=== PATIENT | male | born 1960 | race Caucasian/White ===

== ENCOUNTER → 2016-08-30 | Outpatient (CLI) | payer OTHER ==
[2016-08-30 11:21] LABS: ALT 84 U/L (21-72); AST 59 U/L (17-59); Alkaline Phosphatase 113 U/L (38-126); Anion Gap 11 mmol/L; Blood Urea Nitrogen 19 mg/dL (9-20); Calcium 9.9 mg/dL (8.4-10.2); Carbon Dioxide 27 mmol/L (22-30); Chloride 107 mmol/L (98-107); Cholesterol 148 mg/dL (<200); Glucose 134 mg/dL (74-99); HDL Cholesterol 55 mg/dL (40-60); Non-African American GFR(MDRD) >60 (>60 ml/min/1.73 sqM); Potassium 5.2 mmol/L (3.5-5.1); Sodium 145 mmol/L (137-145); Total Bilirubin 0.7 mg/dL (0.2-1.3); Total Protein 7.6 g/dL (6.3-8.2); Triglycerides 127 mg/dL (<150)
== END | disposition home or self-care (01) ==
LOC: LABWHC1 09:54
PROVIDERS: ATTEND Internal Medicine Interventional Cardiology
DX: E78.2 Mixed hyperlipidemia (principal)
CPT/HCPCS: 36415; 80053; 80061

== ENCOUNTER 2016-11-04 23:53 | Emergency (ER) | payer OTHER ==
[2016-11-05 00:01] VITALS: TEMP 100.3
[2016-11-05] MEDS ORDERED: SODIUM CHLORIDE 0.9% 1,000 ML IV STA (00:37)
[2016-11-05] MEDS ORDERED: SODIUM CHLORIDE 0.9% 500 ML IV STA (00:37)
[2016-11-05] MEDS ORDERED: ONDANSETRON 4 MG/2 ML VIAL IVP STA (00:37)
[2016-11-05] MEDS ORDERED: HYDROmorphone 1 MG/ML 1 ML SYRINGE IVP STA ×2 (00:37→02:46)
[2016-11-05 01:08] LABS: Basophils % (A) 0 %; CH 30.1; CHCM 33.3; Eosinophils # (A) 0.2 k/uL (0-0.7); Eosinophils % (A) 3 %; HDW 2.79; HGB 15.3 gm/dL (13.0-17.5); Luc # (Auto) 0.21; Luc % (Auto) 2; Lymphocytes # (A) 1.4 k/uL (1.0-4.8); Lymphocytes % (A) 15 %; MCH 30.3 pg (25.0-35.0); MCHC 33.4 g/dL (31.0-37.0); Mean Platelet Volume 8.1; Monocytes # (A) 0.9 k/uL (0-1.0); Monocytes % (A) 10 %; Neutrophils # (A) 6.3 k/uL (1.3-7.7); Neutrophils % (A) 70 %; RBC 5.06 m/uL (4.30-5.90); RDW 14.2 % (11.5-15.5); WBC (Perox) 9.46
[2016-11-05 01:26] LABS: Appearance,Urine Clear (Clear); Bilirubin,Urine Negative (Negative); Glucose,Urine (UA) Negative (Negative); Ketones,Urine Trace (Negative); Leukocyte Esterase,Urine Negative (Negative); Nitrite,Urine Negative (Negative); PH, Urine 5.5 (5.0-8.0); Protein,Urine Trace (Negative); Specific Gravity,Urine 1.027 (1.001-1.035); UA Billing (MACRO vs. MICRO) CHEM
[2016-11-05 01:26] LABS: Amylase 103 U/L (30-110); Anion Gap 13 mmol/L; Calcium 9.4 mg/dL (8.4-10.2); Carbon Dioxide 20 mmol/L (22-30); Chloride 111 mmol/L (98-107); Glucose 127 mg/dL (74-99); Non-African American GFR(MDRD) >60 (>60 ml/min/1.73 sqM); Sodium 144 mmol/L (137-145); Total Bilirubin 0.9 mg/dL (0.2-1.3)
[2016-11-05 01:36] LABS: Blood Urea Nitrogen 20 mg/dL (9-20); Potassium 5.5 mmol/L (3.5-5.1); Total Protein 7.4 g/dL (6.3-8.2)
[2016-11-05 01:37] LABS: ALT 67 U/L (21-72); AST 72 U/L (17-59); Alkaline Phosphatase 99 U/L (38-126)
--- NOTE | 2016-11-05 01:38 | XR ---
EXAM: XR Abdomen Complete, 4 Views. CLINICAL HISTORY: Reason: abdominal pain TECHNIQUE: Frontal view of the abdomen/pelvis with upright view of the abdomen. COMPARISON: No relevant prior studies available. FINDINGS: Lower thorax: The visualized lung bases demonstrate interstitial lung disease. Intraperitoneal space: No free air. Gastrointestinal tract: Unremarkable. No dilation. Bones/joints: Multilevel degenerative disease of the spine. Degenerative disease of the right hip. IMPRESSION: No acute findings.
--- NOTE | 2016-11-05 01:47 | XR ---
EXAM: XR Chest, 2 Views. CLINICAL HISTORY: Reason: abdominal pain TECHNIQUE: Frontal and lateral views of the chest. COMPARISON: CXR 05/21/15 FINDINGS: Lungs: Increased bilateral interstitial lung infiltrates which may represent pulmonary edema vs. other interstitial process. Pleural space: Unremarkable. No pneumothorax. Heart: Cardiomegaly. Mediastinum: Unremarkable. Bones/joints: Unremarkable. IMPRESSION: Increased bilateral interstitial lung infiltrates which may represent pulmonary edema vs. other interstitial process. Cardiomegaly.
--- NOTE | 2016-11-05 02:17 | ED ---
Abdominal Pain HPI - General Chief Complaint: Abdominal Pain Stated Complaint: abd pain Time Seen by Provider: 11/05/16 00:18 Source: patient, RN notes reviewed Mode of arrival: wheelchair Limitations: no limitations - History of Present Illness Initial Comments: Patient is a 56-year-old male history of heart failure, diabetes and COPD presenting to emergency Department with acute onset of left lower quadrant abdominal pain. Patient reports that he was feeling fine earlier today and denies any chest pain or shortness of breath. He states that he was going to the bathroom later this evening and when he stood up he felt a sharp pain go from his left lower quadrant towards his back. Patient states that he's never had a pain similar to this before. He states that he also has had a history of pancreatitis. He denies any abdominal surgeries and is has appendix and gallbladder. He states that the bowel movement was normal and there is no blood in it. He states that he's had no pain with urination denies any history of kidney stones. Patient does report that he is felt slightly feverish for the past day. He has not had any Motrin Tylenol for pain or fever. - Related Data Home Medications Medication Instructions Recorded Confirmed Albuterol Nebulized [Ventolin 2.5 mg INHALATION Q4H PRN 05/21/15 11/05/16 Nebulized] Aspirin 81 mg PO DAILY 05/21/15 11/05/16 Atorvastatin [Lipitor] 20 mg PO DAILY 05/21/15 11/05/16 Donepezil [Aricept] 10 mg PO BID 05/21/15 11/05/16 Furosemide [Lasix] 20 mg PO DAILY@1200 05/21/15 11/05/16 HYDROcodone/APAP 5-325MG [[place] 1 each PO Q6HR PRN 05/21/15 11/05/16 5-325] Magnesium 167mg 167 mg PO DAILY 05/21/15 11/05/16 Metoprolol Tartrate [Lopressor] 25 mg PO BID 05/21/15 11/05/16 lamoTRIgine [LaMICtal] 25 mg PO BID 05/21/15 11/05/16 Lisinopril [Zestril] 10 mg PO BID 11/05/16 11/05/16 Previous Rx's Medication Instructions Recorded Insulin Glargine [Lantus] 20 unit SQ HS #1 vial 05/23/15 Omeprazole [PriLOSEC] 40 mg PO AC-BRKFST #30 cap 05/23/15 metFORMIN HCL [Glucophage] 500 mg PO BID #60 tab 05/23/15 Acetaminophen-Codeine 300-30mg 1 tab PO Q6H PRN #12 tablet 11/05/16 [Tylenol #3] Ciprofloxacin HCl [Cipro] 500 mg PO Q12HR 10 Days 11/05/16 metroNIDAZOLE [Flagyl] 500 mg PO TID 10 Days 11/05/16 Allergies Allergy/AdvReac Type Severity Reaction Status Date / Time No Known Allergies Allergy Verified 11/05/16 00:01 Review of Systems ROS Statement: Those systems with pertinent positive or pertinent negative responses have been documented in the HPI. ROS Other: All systems not noted in ROS Statement are negative. Past Medical History Past Medical History: Heart Failure, COPD, Diabetes Mellitus, Hyperlipidemia, Hypertension, Osteoarthritis (OA), Pneumonia, Sleep Apnea/CPAP/BIPAP Additional Past Medical History / Comment(s): PANCREATITIS,HYPERGLYCEMIA,ABD PAIN. OTHER PAST HX INCLUDES: CHF IMPAIRED LT VENTRICULAR SYSTOLIC DYFUNCTION, CARDIOMYOPATHY,SINUS PROBLEMS,02 2 LITERS N/C PRN, ANXIETY.CORTISONE INJECTIONS TO KNEES/SHOULDERS. History of Any Multi-Drug Resistant Organisms: None Reported Past Surgical History: Heart Catheterization, Tonsillectomy Past Anesthesia/Blood Transfusion Reactions: No Reported Reaction Past Psychological History: Anxiety, Depression Smoking Status: Never smoker Past Alcohol Use History: Occasional, Rare Past Drug Use History: None Reported - Past Family History Mother Family Medical History: Cancer, Hypertension Additional Family Medical History / Comment(s): ENLARGED HEART Father Additional Family Medical History / Comment(s): HEART DISEASE NO SPECIFICS KNOWN General Exam Limitations: no limitations General appearance: alert, in no apparent distress Head exam: Present: atraumatic, normocephalic, normal inspection Eye exam: Present: normal appearance, PERRL, EOMI. Absent: scleral icterus, conjunctival injection, periorbital swelling ENT exam: Present: normal exam, mucous membranes moist Neck exam: Present: normal inspection. Absent: tenderness, meningismus, lymphadenopathy Respiratory exam: Present: normal lung sounds bilaterally. Absent: respiratory distress, wheezes, rales, rhonchi, stridor Cardiovascular Exam: Present: regular rate, normal rhythm, normal heart sounds. Absent: systolic murmur, diastolic murmur, rubs, gallop, clicks GI/Abdominal exam: Present: soft, normal bowel sounds, other (Patient has a obese pannus. Patient is severely tender with slight Palpation over the area.) . Absent: distended, tenderness, guarding, rebound, rigid Extremities exam: Present: normal inspection, full ROM, normal capillary refill. Absent: tenderness, pedal edema, joint swelling, calf tenderness Back exam: Present: normal inspection Neurological exam: Present: alert, oriented X3, CN II-XII intact Psychiatric exam: Present: normal affect, normal mood Skin exam: Present: warm, dry, intact, normal color. Absent: rash Course Vital Signs 11/04/16 11/05/16 23:55 04:29 Temperature 100.3 F H Pulse Rate 69 67 Respiratory 22 20 Rate Blood Pressure 159/90 149/66 O2 Sat by Pulse 97 95 Oximetry Medical Decision Making - Medical Decision Making Patient is a 56-year-old male history of heart failure, diabetes and COPD presenting to emergency Department with acute onset of left lower quadrant abdominal pain. Patient reports that he was feeling fine earlier today and denies any chest pain or shortness of breath. He states that he was going to the bathroom later this evening and when he stood up he felt a sharp pain go from his left lower quadrant towards his back. Patient states that he's never had a pain similar to this before. He states that he also has had a history of pancreatitis. He denies any abdominal surgeries and is has appendix and gallbladder. Labwork reviewed, no acute process. Patient CXR does show slight increased pleural effusions, patient denies any change in shortness of breath or chest pain. This is consistent with patients chronic heart failure. Patient did come to the ER with the fever 100.3, CT scan abdomen and pelvis obtained. Patient is significantly tender in left lower quardrant. CT shows signs of diverticulitis and renal cyst. Patient given PO cipro and flagyl and pain medication. Patient advised to follow up with PCP on monday. Patient understands treatment plan and will comply. - Lab Data Result diagrams: 11/05/16 00:45 11/05/16 00:45 Lab Results 11/05/16 11/05/16 11/05/16 Range/Units 00:45 00:45 00:45 WBC 9.0 (3.8-10.6) k/uL RBC 5.06 (4.30-5.90) m/uL Hgb 15.3 (13.0-17.5) gm/dL Hct 46.0 (39.0-53.0) % MCV 91.0 (80.0-100.0) fL MCH 30.3 (25.0-35.0) pg MCHC 33.4 (31.0-37.0) g/dL RDW 14.2 (11.5-15.5) % Plt Count 145 L (150-450) k/uL Neutrophils % 70 % Lymphocytes % 15 % Monocytes % 10 % Eosinophils % 3 % Basophils % 0 % Neutrophils # 6.3 (1.3-7.7) k/uL Lymphocytes # 1.4 (1.0-4.8) k/uL Monocytes # 0.9 (0-1.0) k/uL Eosinophils # 0.2 (0-0.7) k/uL Basophils # 0.0 (0-0.2) k/uL Sodium 144 (137-145) mmol/L Potassium 5.5 H (3.5-5.1) mmol/L Chloride 111 H (98-107) mmol/L Carbon Dioxide 20 L (22-30) mmol/L Anion Gap 13 mmol/L BUN 20 (9-20) mg/dL Creatinine 1.10 (0.66-1.25) mg/dL Est GFR (MDRD) Af Amer >60 (>60 ml/min/1.73 sqM) Est GFR (MDRD) Non-Af >60 (>60 ml/min/1.73 sqM) Glucose 127 H (74-99) mg/dL Calcium 9.4 (8.4-10.2) mg/dL Total Bilirubin 0.9 (0.2-1.3) mg/dL AST 72 H (17-59) U/L ALT 67 (21-72) U/L Alkaline Phosphatase 99 (38-126) U/L Total Protein 7.4 (6.3-8.2) g/dL Albumin 4.2 (3.5-5.0) g/dL Amylase 103 (30-110) U/L Lipase 391 H (23-300) U/L Urine Color Urine Appearance (Clear) Urine pH (5.0-8.0) Ur Specific [place] (1.001-1.035) Urine Protein (Negative) Urine Glucose (UA) (Negative) Urine Ketones (Negative) Urine Blood (Negative) Urine Nitrite (Negative) Urine Bilirubin (Negative) Urine Urobilinogen (<2.0) mg/dL Ur Leukocyte Esterase (Negative) Influenza Type A RNA Not Detected (Not Detectd) Influenza Type B (PCR) Not Detected (Not Detectd) 11/05/16 Range/Units 01:00 WBC (3.8-10.6) k/uL RBC (4.30-5.90) m/uL Hgb (13.0-17.5) gm/dL Hct (39.0-53.0) % MCV (80.0-100.0) fL MCH (25.0-35.0) pg MCHC (31.0-37.0) g/dL RDW (11.5-15.5) % Plt Count (150-450) k/uL Neutrophils % % Lymphocytes % % Monocytes % % Eosinophils % % Basophils % % Neutrophils # (1.3-7.7) k/uL Lymphocytes # (1.0-4.8) k/uL Monocytes # (0-1.0) k/uL Eosinophils # (0-0.7) k/uL Basophils # (0-0.2) k/uL Sodium (137-145) mmol/L Potassium (3.5-5.1) mmol/L Chloride (98-107) mmol/L Carbon Dioxide (22-30) mmol/L Anion Gap mmol/L BUN (9-20) mg/dL Creatinine (0.66-1.25) mg/dL Est GFR (MDRD) Af Amer (>60 ml/min/1.73 sqM) Est GFR (MDRD) Non-Af (>60 ml/min/1.73 sqM) Glucose (74-99) mg/dL Calcium (8.4-10.2) mg/dL Total Bilirubin (0.2-1.3) mg/dL AST (17-59) U/L ALT (21-72) U/L Alkaline Phosphatase (38-126) U/L Total Protein (6.3-8.2) g/dL Albumin (3.5-5.0) g/dL Amylase (30-110) U/L Lipase (23-300) U/L Urine Color Yellow Urine Appearance Clear (Clear) Urine pH 5.5 (5.0-8.0) Ur Specific [place] 1.027 (1.001-1.035) Urine Protein Trace H (Negative) Urine Glucose (UA) Negative (Negative) Urine Ketones Trace H (Negative) Urine Blood Negative (Negative) Urine Nitrite Negative (Negative) Urine Bilirubin Negative (Negative) Urine Urobilinogen 3.0 (<2.0) mg/dL Ur Leukocyte Esterase Negative (Negative) Influenza Type A RNA (Not Detectd) Influenza Type B (PCR) (Not Detectd) - Radiology Data Radiology results: report reviewed Increased bilateral interstitial lung infiltrates which may represent pulmonary edema versus other interstitial process. Cardiomegaly. X-ray shows no acute findings. CT abdomen and pelvis show acute diverticulitis without evidence of perforation. Disposition Clinical Impression: Diverticulitis large intestine Disposition: HOME SELF-CARE Condition: Good Instructions: Diverticulitis (ED), Diverticulitis Diet (ED) Additional Instructions: Take antibiotics as prescribed. Follow-up with primary care provider. Return return to the emergency department if any worsening signs or symptoms occur. Prescriptions: Acetaminophen-Codeine 300-30mg [Tylenol #3] 1 tab PO Q6H PRN #12 tablet PRN Reason: Pain Ciprofloxacin HCl [Cipro] 500 mg PO Q12HR 10 Days metroNIDAZOLE [Flagyl] 500 mg PO TID 10 Days Referrals: Elyse Baumann MD [Primary Care Provider] - 1-2 days Time of Disposition: 04:11
[2016-11-05] MEDS ORDERED: RX INFO: IV CONTRAST WAS GIVEN 1 EACH MISC MISCELLANE PRN (02:44)
--- NOTE | 2016-11-05 04:07 | CT ---
EXAM: CT Abdomen and Pelvis With Intravenous Contrast. CLINICAL HISTORY: Reason: Pain TECHNIQUE: Axial computed tomography images of the abdomen and pelvis with intravenous contrast. CTDI is 42.7 mGy and DLP is 2458 mGy-cm This CT exam was performed using one or more of the following dose reduction techniques: automated exposure control, adjustment of the mA and/or kV according to patient size, and/or use of iterative reconstruction technique. Coronal and sagittal reformatted images were created and reviewed. Axial delayed images were obtained and reviewed. CTDI is 59.8 mGy and DLP is 2184 mGy-cm COMPARISON: Radiographs dated 11/05/16 FINDINGS: Lower thorax: Chronic interstitial lung changes of the visualized lung bases. ABDOMEN: Liver: Unremarkable. No mass. Gallbladder and bile ducts: Unremarkable. No calcified stones. No ductal dilation. Pancreas: Unremarkable. No mass. No ductal dilation. Spleen: Unremarkable. No splenomegaly. Adrenals: Unremarkable. No mass. Kidneys and ureters: Bilateral renal cysts measuring up to 5.1 cm on the left. Stomach and bowel: Diverticulosis with focal thickening of the distal descending colon consistent with acute diverticulitis. Trace amount of free fluid with no evidence of abscess or extraluminal air to suggest perforation. Appendix: No findings to suggest acute appendicitis. PELVIS: Bladder: Unremarkable. No mass. Reproductive: Unremarkable as visualized. ABDOMEN and PELVIS: Intraperitoneal space: See above. Bones/joints: Degenerative changes of the right hip. Multilevel degenerative changes of the spine with prominent disc osteophyte complexes causing central stenosis. No acute fracture. No dislocation. Soft tissues: Unremarkable. Vasculature: Unremarkable. No abdominal aortic aneurysm. Lymph nodes: Unremarkable. No enlarged lymph nodes. Other findings: [place] mesentery. IMPRESSION: 1. Diverticulosis with focal thickening of the distal descending colon consistent with acute diverticulitis. Trace amount of free fluid with no evidence of abscess or extraluminal air to suggest perforation. 2. Chronic interstitial lung changes of the visualized lung bases. 3. Bilateral renal cysts measuring up to 5.1 cm on the left. 4. Multilevel degenerative changes of the spine with prominent disc osteophyte complexes causing central stenosis.
[2016-11-05] MEDS ORDERED: metroNIDAZOLE 500 MG TAB PO STA (04:10)
[2016-11-05] MEDS ORDERED: CIPROFLOXACIN HCL 500 MG TAB PO STA (04:10)
[2016-11-05 04:30] VITALS: BP 149/66; PULSE 67; RESP 20
== END 2016-11-05 04:30 | disposition home or self-care (01) ==
LOC: EC 23:53
DX: K57.32 Diverticulitis of large intestine without perforation or abscess without bleeding (principal); N28.1 Cyst of kidney, acquired; J90 Pleural effusion, not elsewhere classified; I50.9 Heart failure, unspecified; J44.9 Chronic obstructive pulmonary disease, unspecified; F32.9 Major depressive disorder, single episode, unspecified; F41.9 Anxiety disorder, unspecified; E78.5 Hyperlipidemia, unspecified; I10 Essential (primary) hypertension; Z87.19 Personal history of other diseases of the digestive system; Z79.82 Long term (current) use of aspirin; Z79.899 Other long term (current) drug therapy; Z95.818 Presence of other cardiac implants and grafts
CPT/HCPCS: 36415; 80053; 82150; 83690; 85025; 81003; 87502; 71020; 74000; 74177; 99284; 96374; 96375; 96376; J2405; J1170; Q9967

== ENCOUNTER → 2017-03-14 | Outpatient (CLI) | payer OTHER ==
--- NOTE | 2017-03-14 09:49 | CT ---
EXAMINATION TYPE: CT chest wo con DATE OF EXAM: 03/14/2017 COMPARISON: CT chest December 25, 2015 HISTORY: Patient complains of difficulty breathing. Idiopathic pulmonary fibrosis per order. CT DLP: 886 mGycm. Automated Exposure Control for Dose Reduction was Utilized. TECHNIQUE: CT scan of the thorax is performed without IV contrast. FINDINGS: LUNGS: There is persistent reticulation and linear fibrotic change throughout both lungs bilaterally involving upper and lower lungs slightly more pronounced in the periphery and felt slightly more pron ounced in the bases where there is some honeycombing, distortion, and traction bronchiectasis identif ied. Slight progression is felt present particularly in the bases from prior. No pleural effusion or pneumothorax is seen bilaterally. No suspicious consolidation or groundglass opacity is seen. No new parenchymal nodule or mass is present. No significant peribronchial wall thickening is seen. Elevated right hemidiaphragm anterior aspect is redemonstrated. MEDIASTINUM: Lack of IV contrast is noted to limit evaluation for mediastinal and especially hilar ad enopathy. There are no definitive greater than 1 cm hilar or mediastinal lymph nodes. No cardiomega ly or pericardial effusion is seen. Main pulmonary artery remains significantly enlarged at 3.9 cm on axial image 24. Adjacent ascending aorta measures 3.7 cm in diameter. No significant change from rinku or study is seen. Enlarged right pulmonary artery is noted. CT finding is consistent with underlying pulmonary artery hypertension. OTHER: Small degree of bilateral gynecomastia is noted. Visualized liver is diffusely low dense consi stent with fatty infiltration. There is partial visualization of low dense lesions in both kidneys pr esumed simple cysts. IMPRESSION: 1. Chronic parenchymal changes as noted above most likely on basis of idiopathic pulmonary fibrosis. Some mild progression in findings in the bases is felt present. No acute pulmonary process is seen. U nderlying pulmonary artery hypertension is likely present.
== END | disposition home or self-care (01) ==
LOC: RADCTMAIN 09:03
PROVIDERS: ATTEND Internal Medicine Critical Care Medicine
DX: I10 Essential (primary) hypertension (principal); J84.112 Idiopathic pulmonary fibrosis
CPT/HCPCS: 71250

== ENCOUNTER → 2017-04-24 | Outpatient (CLI) | payer OTHER ==
[2017-04-24 12:19] LABS: ALT 98 U/L (21-72); AST 77 U/L (17-59); Alkaline Phosphatase 93 U/L (38-126); Anion Gap 11 mmol/L; Blood Urea Nitrogen 23 mg/dL (9-20); Calcium 10.4 mg/dL (8.4-10.2); Carbon Dioxide 26 mmol/L (22-30); Chloride 105 mmol/L (98-107); Cholesterol 145 mg/dL (<200); Glucose 132 mg/dL (74-99); HDL Cholesterol 51 mg/dL (40-60); Non-African American GFR(MDRD) 58 (>60 ml/min/1.73 sqM); Potassium 5.2 mmol/L (3.5-5.1); Sodium 142 mmol/L (137-145); Total Bilirubin 0.7 mg/dL (0.2-1.3); Total Protein 7.9 g/dL (6.3-8.2)
== END | disposition home or self-care (01) ==
LOC: LABWHC1 11:15
PROVIDERS: ATTEND Internal Medicine Interventional Cardiology
DX: E78.2 Mixed hyperlipidemia (principal)
CPT/HCPCS: 36415; 80053; 80061

== ENCOUNTER 2017-10-16 12:10 | Emergency (ER) | payer OTHER ==
[2017-10-16 12:39] LABS: Glucose,Whole Blood 140 mg/dL (75-99)
[2017-10-16] MEDS ORDERED: SODIUM CHLORIDE 0.9% 500 ML IV STA (13:09)
[2017-10-16] MEDS ORDERED: RX INFO: IV CONTRAST WAS GIVEN 1 EACH MISC MISCELLANE PRN (13:09)
[2017-10-16] MEDS ORDERED: ONDANSETRON 4 MG/2 ML VIAL IVP STA (13:23)
--- NOTE | 2017-10-16 13:28 | ED ---
General Adult HPI - General Chief complaint: Nausea/Vomiting/Diarrhea Stated complaint: Vomiting/SOB Time Seen by Provider: 10/16/17 12:53 Source: patient, RN notes reviewed Mode of arrival: wheelchair Limitations: no limitations - History of Present Illness Initial comments: 56-year-old male presents for nausea and vomiting. This started today. He admits to right upper quadrant pain with this as well. He states that there is been no diarrhea no fever chills. He denies any abdominal surgeries. He states is been no blood in the vomit. They were concerned due to his continued pain and vomiting. He does suffer from COPD and states that he has chronically worn oxygen and he noticed that the pain is causing him feel more short of breath. He denies any chest pain with this. He denies any high fevers. He denies any history of this in the past. Patient denies any recent fever, chills , chest pain, back pain, numbness or tingling, dysuria or hematuria, constipation or diarrhea, headaches or visual changes, or any other current symptoms. - Related Data Home Medications Medication Instructions Recorded Confirmed Albuterol Nebulized [Ventolin 2.5 mg INHALATION RT-Q4H PRN 05/21/15 10/16/17 Nebulized] Aspirin 81 mg PO DAILY 05/21/15 10/16/17 Donepezil [Aricept] 10 mg PO DAILY 05/21/15 10/16/17 Furosemide [Lasix] 20 mg PO DAILY 05/21/15 10/16/17 Magnesium 167mg 167 mg PO DAILY 05/21/15 10/16/17 Insulin Glargine [Lantus] 30 unit SQ DAILY 06/12/17 10/16/17 Metoprolol Tartrate [Lopressor] 50 mg PO BID 06/12/17 10/16/17 Ranitidine HCl 150 mg PO BID 06/12/17 10/16/17 Terbinafine [LamISIL] 250 mg PO DAILY 06/12/17 10/16/17 amLODIPine BESYLATE [Norvasc] 5 mg PO DAILY 06/12/17 10/16/17 metFORMIN HCL 1,000 mg PO BID 06/12/17 10/16/17 Pregabalin [Lyrica] 150 mg PO BID 09/12/17 10/16/17 Atorvastatin Calcium [Lipitor] 10 mg PO DAILY 10/16/17 10/16/17 HYDROcodone/APAP 7.5-325MG [[facility] 1 tab PO Q6HR PRN 10/16/17 10/16/17 7.5-325] Lisinopril [Zestril] 20 mg PO BID 10/16/17 10/16/17 Meloxicam [Mobic] 7.5 mg PO DAILY 10/16/17 10/16/17 Previous Rx's Medication Instructions Recorded Ondansetron Odt [Zofran ODT] 4 mg PO Q8HR PRN #20 tab 10/16/17 Allergies Allergy/AdvReac Type Severity Reaction Status Date / Time No Known Allergies Allergy Verified 10/16/17 12:54 Review of Systems ROS Statement: Those systems with pertinent positive or pertinent negative responses have been documented in the HPI. ROS Other: All systems not noted in ROS Statement are negative. Past Medical History Past Medical History: Heart Failure, COPD, Diabetes Mellitus, Hyperlipidemia, Hypertension, Osteoarthritis (OA), Pneumonia, Sleep Apnea/CPAP/BIPAP Additional Past Medical History / Comment(s): PANCREATITIS,HYPERGLYCEMIA,ABD PAIN. OTHER PAST HX INCLUDES: CHF IMPAIRED LT VENTRICULAR SYSTOLIC DYFUNCTION, CARDIOMYOPATHY,SINUS PROBLEMS,02 2 LITERS N/C PRN, ANXIETY.CORTISONE INJECTIONS TO KNEES/SHOULDERS. cellulitis , pulmonary fibrosis History of Any Multi-Drug Resistant Organisms: None Reported Past Surgical History: Heart Catheterization, Tonsillectomy Past Anesthesia/Blood Transfusion Reactions: No Reported Reaction Past Psychological History: Anxiety, Depression Smoking Status: Never smoker - Past Family History Mother Family Medical History: Cancer, Hypertension Additional Family Medical History / Comment(s): ENLARGED HEART Father Additional Family Medical History / Comment(s): HEART DISEASE NO SPECIFICS KNOWN General Exam - General Exam Comments Initial Comments: General: The patient is awake and alert, in no distress, and does not appear acutely ill. Eye: Pupils are equal, round and reactive to light, extra-ocular movements are intact; there is normal conjunctiva bilaterally. No signs of icterus. Ears, nose, mouth and throat: There are moist mucous membranes and no oral lesions. Neck: The neck is supple, there is no tenderness. Cardiovascular: There is a regular rate and rhythm. No murmur, rub or gallop is appreciated. Respiratory: Lungs are clear to auscultation, respirations are non-labored, breath sounds are equal. No wheezes, stridor, rales, or rhonchi. Gastrointestinal: Soft, non-distended, mild tenderness in RUQ of the abdomen without masses or organomegaly noted. There is no rebound or guarding present. No CVA tenderness. Bowel sounds are unremarkable. Back: There is no tenderness to palpation in the midline. There is no obvious deformity. No rashes noted. Musculoskeletal: Normal ROM, no tenderness, There is no pedal edema. There is no calf tenderness or swelling. Sensation intact. Pulses equal bilaterally 2+. Neurological: CN II-XII intact, There are no obvious motor or sensory deficits. Coordination appears grossly intact. Speech is normal. Skin: Skin is warm and dry and no rashes or lesions are noted. Psychiatric: Cooperative, appropriate mood & affect, normal judgment. Limitations: no limitations Course Vital Signs 10/16/17 10/16/17 10/16/17 12:33 13:09 14:30 Temperature 98.6 F Pulse Rate 80 99 82 Respiratory 26 H 24 20 Rate Blood Pressure 136/72 153/75 123/65 O2 Sat by Pulse 94 L 94 L 99 Oximetry 10/16/17 15:00 Temperature Pulse Rate 88 Respiratory 20 Rate Blood Pressure 114/67 O2 Sat by Pulse 96 Oximetry Medical Decision Making - Medical Decision Making 56-year-old male presents for nausea vomiting. At this time patient's nausea vomiting has improved. He is feeling better. At this time CAT scan lab work is been reviewed. There does appear to be some dehydration most likely causing the elevated lactic acid. At this time we did discuss that he needs to increase fluids at home. We did mildly hydrated him due to his history of CHF. We did discuss if the symptoms returned he was come back to the emergency room. Patient stated that he understood and all questions have been answered. He will be discharged home. - Lab Data Result diagrams: 10/16/17 13:15 10/16/17 13:15 Lab Results 10/16/17 10/16/17 10/16/17 Range/Units 12:37 13:15 13:15 WBC 8.8 (3.8-10.6) k/uL RBC 5.23 (4.30-5.90) m/uL Hgb 15.5 (13.0-17.5) gm/dL Hct 47.0 (39.0-53.0) % MCV 89.8 (80.0-100.0) fL MCH 29.6 (25.0-35.0) pg MCHC 33.0 (31.0-37.0) g/dL RDW 14.4 (11.5-15.5) % Plt Count 223 (150-450) k/uL Neutrophils % 81 % Lymphocytes % 9 % Monocytes % 5 % Eosinophils % 3 % Basophils % 0 % Neutrophils # 7.2 (1.3-7.7) k/uL Lymphocytes # 0.8 L (1.0-4.8) k/uL Monocytes # 0.5 (0-1.0) k/uL Eosinophils # 0.2 (0-0.7) k/uL Basophils # 0.0 (0-0.2) k/uL PT (9.0-12.0) sec INR (<1.2) APTT (22.0-30.0) sec Sodium 145 (137-145) mmol/L Potassium 4.9 (3.5-5.1) mmol/L Chloride 107 (98-107) mmol/L Carbon Dioxide 25 (22-30) mmol/L Anion Gap 13 mmol/L BUN 26 H (9-20) mg/dL Creatinine 1.00 (0.66-1.25) mg/dL Est GFR (MDRD) Af Amer >60 (>60 ml/min/1.73 sqM) Est GFR (MDRD) Non-Af >60 (>60 ml/min/1.73 sqM) Glucose 171 H (74-99) mg/dL POC Glucose (mg/dL) 140 H (75-99) mg/dL POC Glu [employer] ID Bianka Cade Plasma Lactic Acid Juan (0.7-2.0) mmol/L Calcium 9.4 (8.4-10.2) mg/dL Total Bilirubin 0.6 (0.2-1.3) mg/dL AST 75 H (17-59) U/L ALT 59 (21-72) U/L Alkaline Phosphatase 87 (38-126) U/L Total Protein 7.7 (6.3-8.2) g/dL Albumin 4.3 (3.5-5.0) g/dL Amylase 68 (30-110) U/L Lipase 236 (23-300) U/L Urine Color Urine Appearance (Clear) Urine pH (5.0-8.0) Ur Specific [place] (1.001-1.035) Urine Protein (Negative) Urine Glucose (UA) (Negative) Urine Ketones (Negative) Urine Blood (Negative) Urine Nitrite (Negative) Urine Bilirubin (Negative) Urine Urobilinogen (<2.0) mg/dL Ur Leukocyte Esterase (Negative) 10/16/17 10/16/17 10/16/17 Range/Units 13:15 13:15 14:30 WBC (3.8-10.6) k/uL RBC (4.30-5.90) m/uL Hgb (13.0-17.5) gm/dL Hct (39.0-53.0) % MCV (80.0-100.0) fL MCH (25.0-35.0) pg MCHC (31.0-37.0) g/dL RDW (11.5-15.5) % Plt Count (150-450) k/uL Neutrophils % % Lymphocytes % % Monocytes % % Eosinophils % % Basophils % % Neutrophils # (1.3-7.7) k/uL Lymphocytes # (1.0-4.8) k/uL Monocytes # (0-1.0) k/uL Eosinophils # (0-0.7) k/uL Basophils # (0-0.2) k/uL PT 10.7 (9.0-12.0) sec INR 1.1 (<1.2) APTT 22.2 (22.0-30.0) sec Sodium (137-145) mmol/L Potassium (3.5-5.1) mmol/L Chloride (98-107) mmol/L Carbon Dioxide (22-30) mmol/L Anion Gap mmol/L BUN (9-20) mg/dL Creatinine (0.66-1.25) mg/dL Est GFR (MDRD) Af Amer (>60 ml/min/1.73 sqM) Est GFR (MDRD) Non-Af (>60 ml/min/1.73 sqM) Glucose (74-99) mg/dL POC Glucose (mg/dL) (75-99) mg/dL POC Glu [employer] ID Plasma Lactic Acid Juan 2.8 H* (0.7-2.0) mmol/L Calcium (8.4-10.2) mg/dL Total Bilirubin (0.2-1.3) mg/dL AST (17-59) U/L ALT (21-72) U/L Alkaline Phosphatase (38-126) U/L Total Protein (6.3-8.2) g/dL Albumin (3.5-5.0) g/dL Amylase (30-110) U/L Lipase (23-300) U/L Urine Color Yellow Urine Appearance Clear (Clear) Urine pH 6.5 (5.0-8.0) Ur Specific [place] 1.042 H (1.001-1.035) Urine Protein Trace H (Negative) Urine Glucose (UA) Negative (Negative) Urine Ketones 1+ H (Negative) Urine Blood Negative (Negative) Urine Nitrite Negative (Negative) Urine Bilirubin Negative (Negative) Urine Urobilinogen <2.0 (<2.0) mg/dL Ur Leukocyte Esterase Negative (Negative) - Radiology Data Radiology results: report reviewed, image reviewed Disposition Clinical Impression: Nausea & vomiting, Dehydration Disposition: HOME SELF-CARE Condition: Stable Instructions: Acute Nausea and Vomiting (ED) Additional Instructions: Please use medication as discussed. Please follow up with family doctor if symptoms have not improved over the next two days. Please return to the emergency room if your symptoms increase or worsen or for any other concerns. Prescriptions: Ondansetron Odt [Zofran ODT] 4 mg PO Q8HR PRN #20 tab PRN Reason: Nausea Referrals: Elyse Baumann MD [Primary Care Provider] - 1-2 days Time of Disposition: 15:17
[2017-10-16 13:35] LABS: Basophils % (A) 0 %; Eosinophils # (A) 0.2 k/uL (0-0.7); Eosinophils % (A) 3 %; HGB 15.5 gm/dL (13.0-17.5); Lymphocytes # (A) 0.8 k/uL (1.0-4.8); Lymphocytes % (A) 9 %; MCH 29.6 pg (25.0-35.0); MCV 89.8 fL (80.0-100.0); Mean Platelet Volume 7.5; Monocytes # (A) 0.5 k/uL (0-1.0); Monocytes % (A) 5 %; Neutrophils # (A) 7.2 k/uL (1.3-7.7); Neutrophils % (A) 81 %; Platelet Count 223 k/uL (150-450); RBC 5.23 m/uL (4.30-5.90); RDW 14.4 % (11.5-15.5); WBC 8.8 k/uL (3.8-10.6)
[2017-10-16 13:48] LABS: ALT 59 U/L (21-72); AST 75 U/L (17-59); Albumin 4.3 g/dL (3.5-5.0); Alkaline Phosphatase 87 U/L (38-126); Amylase 68 U/L (30-110); Anion Gap 13 mmol/L; Blood Urea Nitrogen 26 mg/dL (9-20); Calcium 9.4 mg/dL (8.4-10.2); Carbon Dioxide 25 mmol/L (22-30); Chloride 107 mmol/L (98-107); Glucose 171 mg/dL (74-99); Lipase 236 U/L (23-300); Potassium 4.9 mmol/L (3.5-5.1); Sodium 145 mmol/L (137-145); Total Bilirubin 0.6 mg/dL (0.2-1.3); Total Protein 7.7 g/dL (6.3-8.2)
[2017-10-16 13:54] LABS: INR 1.1 (<1.2); Partial Thromboplastin Time 22.2 sec (22.0-30.0); Prothrombin Time 10.7 sec (9.0-12.0)
--- NOTE | 2017-10-16 14:25 | CT ---
EXAMINATION TYPE: CT abdomen pelvis w con DATE OF EXAM: 10/16/2017 COMPARISON: NONE HISTORY: Vomiting, nausea, and shortness of breath CT DLP: 4958.7 mGycm Automated exposure control for dose reduction was used. TECHNIQUE: Helical acquisition of images was performed from the lung bases through the pelvis. CONTRAST: Performed without Oral Contrast and with IV Contrast, patient injected with 100 mL of Omnipaque 300. FINDINGS: LUNG BASES: Right lower lobe cylindrical bronchiectasis, bibasilar interseptal thickening, and subple ural reticulation are seen in a peripheral distribution, right greater than left. Prominent subpleura l deposition of fat is also seen. Scattered geographic groundglass opacities are present on coronal s eries 8 image 92. LIVER/GB: Liver is elongated extending into the left upper quadrant. Diffuse hypoattenuation of the h epatic parenchyma most commonly relates underlying hepatic steatosis. This limits evaluation for hepa tic masses. No evidence of cholelithiasis. PANCREAS: Mild pancreatic parenchymal atrophy is noted. No ductal dilatation. SPLEEN: No significant abnormality is seen. ADRENALS: No significant abnormality is seen. KIDNEYS: Bilateral cortical renal cysts with the largest on the left measuring 5 cm are present. No h ydronephrosis. FREE AIR: No free air is visualized. REPRODUCTIVE ORGANS: No significant abnormality is seen URINARY BLADDER: No significant abnormality is seen. ADENOPATHY: No greater than 1 cm short axis lymph nodes are seen within the abdomen or pelvis. OSSEOUS STRUCTURES: Moderate right and mild left femoral acetabular arthropathy is present. BOWEL: Scattered colonic diverticula are seen without pericolonic fat stranding. Appendix is air-tigre led and within normal limits of size. No bowel dilatation. No evidence of obstruction. IMPRESSION: 1. INTERSTITIAL LUNG DISEASE MOST FITTING OF A NONSPECIFIC INTERSTITIAL PNEUMONIA PATTERN. ETIOLOGIES WIDELY VERY BUT CAN BE SEEN IN CONNECTIVE TISSUE DISORDERS, AUTOIMMUNE DISEASES, DRUG INDUCED, HYPER SENSITIVITY PNEUMONITIS AND OTHER DISORDERS. 2. NO EVIDENCE OF BOWEL OBSTRUCTION OR ACUTE INTRA-ABDOMINAL PATHOLOGY. 3. HEPATIC STEATOSIS AND COLONIC DIVERTICULOSIS.
[2017-10-16 14:48] LABS: Appearance,Urine Clear (Clear); Bilirubin,Urine Negative (Negative); Blood,Urine Negative (Negative); Color,Urine Yellow; Glucose,Urine (UA) Negative (Negative); Ketones,Urine 1+ (Negative); Leukocyte Esterase,Urine Negative (Negative); PH, Urine 6.5 (5.0-8.0); Protein,Urine Trace (Negative); Specific Gravity,Urine 1.042 (1.001-1.035); Urobilinogen,Urine <2.0 mg/dL (<2.0)
[2017-10-16] MEDS ORDERED: METOCLOPRAMIDE 5 MG/ML 2 ML VIAL IVP STA (15:16)
[2017-10-16 15:40] VITALS: BP 117/56; PULSE 90; RESP 24; TEMP 98.3
== END 2017-10-16 15:41 | disposition home or self-care (01) ==
LOC: EC 12:10
DX: E86.0 Dehydration (principal); R11.2 Nausea with vomiting, unspecified; R10.11 Right upper quadrant pain; R06.02 Shortness of breath; J44.9 Chronic obstructive pulmonary disease, unspecified; E11.9 Type 2 diabetes mellitus without complications; E78.5 Hyperlipidemia, unspecified; I11.0 Hypertensive heart disease with heart failure; I50.9 Heart failure, unspecified; M19.90 Unspecified osteoarthritis, unspecified site; G47.30 Sleep apnea, unspecified; Z99.89 Dependence on other enabling machines and devices; Z95.5 Presence of coronary angioplasty implant and graft; Z79.1 Long term (current) use of non-steroidal anti-inflammatories (NSAID); Z79.4 Long term (current) use of insulin; Z79.82 Long term (current) use of aspirin; Z79.899 Other long term (current) drug therapy
CPT/HCPCS: 36415; 80053; 82150; 83605; 83690; 85025; 85610; 85730; 81003; 87040; 87086; 74177; 99284; 96374; 96375; 96361; J2765; J2405; Q9967

== ENCOUNTER → 2017-10-19 | Outpatient (CLI) | payer OTHER ==
[2017-10-19 14:37] LABS: Albumin 3.9 g/dL (3.5-5.0); Calcium 9.1 mg/dL (8.4-10.2); Potassium 4.8 mmol/L (3.5-5.1); Total Bilirubin 0.4 mg/dL (0.2-1.3)
== END ==
LOC: LABWHC1 13:59
PROVIDERS: ATTEND Internal Medicine Interventional Cardiology
DX: E78.2 Mixed hyperlipidemia (principal)
CPT/HCPCS: 36415; 80053; 80061

== ENCOUNTER → 2017-12-19 | Outpatient (CLI) | payer OTHER ==
--- NOTE | 2017-12-19 12:25 | CT ---
EXAMINATION TYPE: CT chest w con DATE OF EXAM: 12/19/2017 COMPARISON: March 14, 2017 HISTORY: Patient complains of difficulty breathing, unproductive cough, and intermittent chest pain. CT DLP: 1281.4 mGycm Automated exposure control for dose reduction was used. CONTRAST: CT scan of the chest is performed with IV Contrast, patient injected with 100 mL of Isovue 300. FINDINGS: LUNGS: Lung volumes are diminished. There is pulmonary fibrotic change seen throughout both lung fiel ds involving upper mid and lower lung zones. There is no evidence for focal consolidation. No evidenc e for bronchiectasis. No concerning mass identified. No evidence for pleural effusion. MEDIASTINUM: Low right paratracheal adenopathy measuring 1.4 cm. Subcarinal adenopathy measuring 1.1 cm. There is evidence of cardiomegaly. Thoracic aorta is of normal caliber. UPPER ABDOMEN: No significant abnormality appreciated. OTHER: No additional significant abnormality is seen. IMPRESSION: 1. Etiopathic pulmonary fibrosis.
== END | disposition home or self-care (01) ==
LOC: RADCTMAIN 11:20
PROVIDERS: ATTEND Internal Medicine Critical Care Medicine
DX: J84.112 Idiopathic pulmonary fibrosis (principal)
CPT/HCPCS: 82565; 84520; 71260; 36415; Q9967

== ENCOUNTER → 2018-01-03 | Outpatient (CLI) | payer MEDICARE, OTHER ==
--- NOTE | 2018-01-04 07:55 | MR ---
EXAMINATION TYPE: MR cervical spine wo con DATE OF EXAM: 01/03/2018 1:29 PM COMPARISON: NONE HISTORY: Cervicalgia Multiplanar MultiSpin echo imaging of the cervical spine was performed. Comparison: none C2-C3: Central disc bulge is present with mild to moderate anterior thecal sac compression. No cord c ontact is evident. No spinal canal stenosis or neural foraminal stenosis is present. C3-C4: There is central disc bulge with mild to moderate anterior thecal sac compression. No cord con tact or spinal canal stenosis is present. Some uncovertebral joint hypertrophy is present. Mild left foraminal narrowing may be present. C4-C5: There is a small left paracentral disc bulge with mild to moderate anterior thecal sac anay aster. This comes in close approximation with spinal cord. No cord contact is evident. No spinal canal stenosis is present. Neural foramen have mild bilateral narrowing secondary to uncovertebral joint h ypertrophy. C5-C6: There is a large broad central and right paracentral disc herniation with moderate to large th ecal sac impression. This has cord contact. Mild cord flattening may be present. There is narrowing a nd stenosis of the spinal canal at 0.7 cm posterior to the disc herniation. Moderate bilateral forami nal narrowing due to the disc bulging and facet hypertrophy is present. Cord signal appears normal. C6-C7: Mild broad-based disc bulge is present with mild anterior thecal sac compression. No cord cont act is evident. No spinal canal stenosis is present. Uncovertebral joint hypertrophy with mild forami nal narrowing is present. C7-T1: No evidence for degenerative disc disease. No disc bulge/herniation or protrusion. No Canal stenosis. Foramina are patent bilaterally. Vertebral body alignment is normal. Disc height and vertebral body heights are preserved. Disc desicc ation is present. IMPRESSION: 1. Large broad disc herniation C5-C6 with cord contact, some cord flattening, and spinal canal stenos is. 2. Multiple additional mild to moderate disc bulges with moderate anterior thecal sac compression dis cussed above.
== END | disposition home or self-care (01) ==
LOC: RADMRIMAIN 12:43
PROVIDERS: ATTEND Psychiatry & Neurology Neurology
DX: M48.02 Spinal stenosis, cervical region (principal); M50.222 Other cervical disc displacement at C5-C6 level
CPT/HCPCS: 72141

== ENCOUNTER → 2018-06-21 | Outpatient (CLI) | payer MEDICARE ==
[2018-06-21 17:49] LABS: ALT 48 U/L (10-49); AST 45 U/L (14-35); Albumin/Globulin Ratio 1.92 (1.20-2.10); Alkaline Phosphatase 92 U/L (41-126); Bilirubin, Conjugated <0.20 mg/dL (0.20-0.40); Calcium 9.6 mg/dL (8.7-10.3); Carbon Dioxide 24.7 mmol/L (21.6-31.8); Chloride 107 mmol/L (96-109); Cholesterol 187 mg/dL (0-200); Globulin 2.4 g/dL (2.1-3.7); Glucose 128 mg/dL (70-110); Potassium 4.9 mmol/L (3.5-5.5); Sodium 141 mmol/L (135-145); Total Bilirubin 0.4 mg/dL (0.3-1.2)
== END | disposition home or self-care (01) ==
LOC: LABWHC1 08:36
PROVIDERS: ATTEND Internal Medicine Interventional Cardiology
DX: J84.112 Idiopathic pulmonary fibrosis (principal); E78.2 Mixed hyperlipidemia
CPT/HCPCS: 36415; 80053; 80061; 82248

== ENCOUNTER 2018-12-06 09:45 | Inpatient (IN) | payer MEDICARE ==
[2018-12-06] MEDS ORDERED: IPRATROPIUM-ALBUTEROL 3 ML NEB INHALATION STA (10:14)
[2018-12-06] MEDS ORDERED: methylPREDNISolone SOD SUCCI 125 MG/2 ML VIAL IV STA (10:14)
--- NOTE | 2018-12-06 10:17 | ED ---
General Adult HPI - General Chief complaint: Shortness of Breath Stated complaint: Difficulty Breathing Time Seen by Provider: 12/06/18 10:09 Source: patient, RN notes reviewed Mode of arrival: wheelchair Limitations: no limitations - History of Present Illness Initial comments: Patient is a pleasant 58-year-old male presenting to the emergency department with difficulty in breathing. Symptoms started several days ago and have progressed. Patient does have occasional cough and has had some yellow sputum. Patient is unclear whether or not he has had fever. Patient has some mild tightness in his chest that he attributes to his dyspnea. Patient does have a history of similar symptoms previously associated with COPD. Patient has heard some wheezing. Patient did take a nebulizer treatment without much improvement of symptoms. No leg pain or leg swelling. - Related Data Home Medications Medication Instructions Recorded Confirmed Albuterol Nebulized [Ventolin 2.5 mg INHALATION RT-QID PRN 05/21/15 12/06/18 Nebulized] Aspirin 81 mg PO DAILY 05/21/15 12/06/18 Donepezil [Aricept] 10 mg PO DAILY 05/21/15 12/06/18 Furosemide [Lasix] 20 mg PO DAILY 05/21/15 12/06/18 Insulin Glargine [Lantus] 45 unit SQ HS 06/12/17 12/06/18 Metoprolol Tartrate [Lopressor] 50 mg PO BID 06/12/17 12/06/18 Ranitidine HCl 150 mg PO BID 06/12/17 12/06/18 Terbinafine [LamISIL] 250 mg PO DAILY 06/12/17 12/06/18 Pregabalin [Lyrica] 150 mg PO BID 09/12/17 12/06/18 Atorvastatin Calcium [Lipitor] 10 mg PO DAILY 10/16/17 12/06/18 Lisinopril [Zestril] 20 mg PO BID 10/16/17 12/06/18 Meloxicam [Mobic] 15 mg PO DAILY 12/06/18 12/06/18 Pirfenidone [Esbriet] 801 mg PO TID 12/06/18 12/06/18 amLODIPine [Norvasc] 10 mg PO DAILY 12/06/18 12/06/18 metFORMIN HCL [Glucophage] 500 mg PO BID 12/06/18 12/06/18 Allergies Allergy/AdvReac Type Severity Reaction Status Date / Time No Known Allergies Allergy Verified 12/06/18 10:32 Review of Systems ROS Statement: Those systems with pertinent positive or pertinent negative responses have been documented in the HPI. ROS Other: All systems not noted in ROS Statement are negative. Constitutional: Reports: as per HPI Eyes: Denies: eye pain ENT: Denies: ear pain Respiratory: Reports: cough, dyspnea Cardiovascular: Reports: as per HPI Endocrine: Reports: fatigue Gastrointestinal: Denies: abdominal pain Genitourinary: Denies: dysuria Musculoskeletal: Denies: back pain Skin: Denies: rash Neurological: Denies: weakness Past Medical History Past Medical History: Heart Failure, COPD, Diabetes Mellitus, Hyperlipidemia, Hypertension, Osteoarthritis (OA), Pneumonia, Sleep Apnea/CPAP/BIPAP Additional Past Medical History / Comment(s): PANCREATITIS,HYPERGLYCEMIA,ABD PAIN. OTHER PAST HX INCLUDES: CHF IMPAIRED LT VENTRICULAR SYSTOLIC DYFUNCTION,CARDIOMYOPATHY,SINUS PROBLEMS,02 2 LITERS N/C PRN, ANXIETY.CORTISONE INJECTIONS TO KNEES/SHOULDERS. cellulitis , pulmonary fibrosis History of Any Multi-Drug Resistant Organisms: None Reported Past Surgical History: Heart Catheterization, Tonsillectomy Past Anesthesia/Blood Transfusion Reactions: No Reported Reaction Past Psychological History: Anxiety, Depression Smoking Status: Never smoker Past Alcohol Use History: None Reported Past Drug Use History: None Reported - Past Family History Mother Family Medical History: Cancer, Hypertension Additional Family Medical History / Comment(s): ENLARGED HEART Father Additional Family Medical History / Comment(s): HEART DISEASE NO SPECIFICS KNOWN General Exam Limitations: no limitations General appearance: alert, in no apparent distress Head exam: Present: atraumatic Eye exam: Present: normal appearance Neck exam: Present: normal inspection Respiratory exam: Present: wheezes Cardiovascular Exam: Present: regular rate, normal rhythm GI/Abdominal exam: Present: soft. Absent: tenderness Extremities exam: Present: normal inspection. Absent: pedal edema, calf tenderness Neurological exam: Present: alert Psychiatric exam: Present: normal affect, normal mood Skin exam: Present: normal color Course Vital Signs 12/06/18 12/06/18 09:49 10:28 Temperature 98.6 F Pulse Rate 47 L 66 Respiratory 18 Rate Blood Pressure 95/41 O2 Sat by Pulse 87 L Oximetry EKG Findings - EKG Comments: EKG Findings:: Sinus rhythm at 72. PVCs present. MS 174. QRS 88. QT 420. QTc 459. Left axis. Normal QRS. No acute ST change. Medical Decision Making - Medical Decision Making Patient reevaluated and somewhat improved. Patient has continued wheezing however there is improvement with air exchange. Patient and family updated on results and plan. Case was discussed in detail with Dr. Sauceda, covering for Dr. Erin moore, who will admit. Patient also sees Dr. Abebe Danielle in. - Lab Data Result diagrams: 12/06/18 10:15 12/06/18 10:15 Lab Results 12/06/18 12/06/18 12/06/18 Range/Units 10:15 10:15 10:15 WBC 6.0 (3.8-10.6) k/uL RBC 4.94 (4.30-5.90) m/uL Hgb 14.9 (13.0-17.5) gm/dL Hct 45.4 (39.0-53.0) % MCV 91.9 (80.0-100.0) fL MCH 30.2 (25.0-35.0) pg MCHC 32.9 (31.0-37.0) g/dL RDW 15.0 (11.5-15.5) % Plt Count 163 (150-450) k/uL Neutrophils % 75 % Lymphocytes % 11 % Monocytes % 6 % Eosinophils % 4 % Basophils % 0 % Neutrophils # 4.5 (1.3-7.7) k/uL Lymphocytes # 0.7 L (1.0-4.8) k/uL Monocytes # 0.4 (0-1.0) k/uL Eosinophils # 0.2 (0-0.7) k/uL Basophils # 0.0 (0-0.2) k/uL PT (9.0-12.0) sec INR (<1.2) APTT (22.0-30.0) sec Sodium 142 (137-145) mmol/L Potassium 5.0 (3.5-5.1) mmol/L Chloride 107 (98-107) mmol/L Carbon Dioxide 25 (22-30) mmol/L Anion Gap 10 mmol/L BUN 21 H (9-20) mg/dL Creatinine 1.33 H (0.66-1.25) mg/dL Est GFR (CKD-EPI)AfAm 69 (>60 ml/min/1.73 sqM) Est GFR (CKD-EPI)NonAf 60 (>60 ml/min/1.73 sqM) Glucose 157 H (74-99) mg/dL Calcium 9.3 (8.4-10.2) mg/dL Total Bilirubin 0.6 (0.2-1.3) mg/dL AST 54 (17-59) U/L ALT 49 (21-72) U/L Alkaline Phosphatase 88 (38-126) U/L Troponin I (0.000-0.034) ng/mL NT-Pro-B Natriuret Pep 387 pg/mL Total Protein 7.5 (6.3-8.2) g/dL Albumin 4.5 (3.5-5.0) g/dL 12/06/18 12/06/18 Range/Units 10:15 10:15 WBC (3.8-10.6) k/uL RBC (4.30-5.90) m/uL Hgb (13.0-17.5) gm/dL Hct (39.0-53.0) % MCV (80.0-100.0) fL MCH (25.0-35.0) pg MCHC (31.0-37.0) g/dL RDW (11.5-15.5) % Plt Count (150-450) k/uL Neutrophils % % Lymphocytes % % Monocytes % % Eosinophils % % Basophils % % Neutrophils # (1.3-7.7) k/uL Lymphocytes # (1.0-4.8) k/uL Monocytes # (0-1.0) k/uL Eosinophils # (0-0.7) k/uL Basophils # (0-0.2) k/uL PT 10.3 (9.0-12.0) sec INR 1.0 (<1.2) APTT 25.2 (22.0-30.0) sec Sodium (137-145) mmol/L Potassium (3.5-5.1) mmol/L Chloride (98-107) mmol/L Carbon Dioxide (22-30) mmol/L Anion Gap mmol/L BUN (9-20) mg/dL Creatinine (0.66-1.25) mg/dL Est GFR (CKD-EPI)AfAm (>60 ml/min/1.73 sqM) Est GFR (CKD-EPI)NonAf (>60 ml/min/1.73 sqM) Glucose (74-99) mg/dL Calcium (8.4-10.2) mg/dL Total Bilirubin (0.2-1.3) mg/dL AST (17-59) U/L ALT (21-72) U/L Alkaline Phosphatase (38-126) U/L Troponin I 0.018 (0.000-0.034) ng/mL NT-Pro-B Natriuret Pep pg/mL Total Protein (6.3-8.2) g/dL Albumin (3.5-5.0) g/dL - Radiology Data Radiology results: image reviewed (Chest x-ray shows chronic interstitial changes. Cardiomegaly.) Disposition Clinical Impression: Pulmonary fibrosis, Dyspnea Disposition: ADMITTED IP TO THIS HOSP Is patient prescribed a controlled substance at d/c from ED?: No Referrals: Elyse Baumann MD [Primary Care Provider] - 1-2 days Decision Time: 11:46
[2018-12-06 10:27] LABS: Basophils % (A) 0 %; Eosinophils # (A) 0.2 k/uL (0-0.7); Eosinophils % (A) 4 %; HCT 45.4 % (39.0-53.0); HGB 14.9 gm/dL (13.0-17.5); Lymphocytes # (A) 0.7 k/uL (1.0-4.8); Lymphocytes % (A) 11 %; MCH 30.2 pg (25.0-35.0); MCHC 32.9 g/dL (31.0-37.0); MCV 91.9 fL (80.0-100.0); Mean Platelet Volume 7.8; Monocytes # (A) 0.4 k/uL (0-1.0); Monocytes % (A) 6 %; Neutrophils # (A) 4.5 k/uL (1.3-7.7); Neutrophils % (A) 75 %; Platelet Count 163 k/uL (150-450); RBC 4.94 m/uL (4.30-5.90)
[2018-12-06 10:38] LABS: Albumin 4.5 g/dL (3.5-5.0); Calcium 9.3 mg/dL (8.4-10.2); Total Bilirubin 0.6 mg/dL (0.2-1.3); Total Protein 7.5 g/dL (6.3-8.2)
[2018-12-06 10:43] LABS: Partial Thromboplastin Time 25.2 sec (22.0-30.0); Prothrombin Time 10.3 sec (9.0-12.0)
--- NOTE | 2018-12-06 11:32 | XR ---
EXAMINATION TYPE: XR chest 2V DATE OF EXAM: 12/06/2018 COMPARISON: Chest CT 12/29/2017, prior chest x-ray 09/12/2017 HISTORY: Difficulty breathing TECHNIQUE: Frontal and lateral views of the chest are obtained. FINDINGS: Coarsened interstitium is again noted. Heart size is stable. Elevation of the right hemidi aphragm is chronic. Pulmonary artery shows an increased size. There is no evident pneumothorax or ple ural effusion. IMPRESSION: Interstitial lung disease. Pulmonary artery hypertension. Cardiomegaly.
[2018-12-06] MEDS ORDERED: IPRATROPIUM-ALBUTEROL 3 ML NEB INHALATION PRN (11:47)
[2018-12-06] MEDS: methylPREDNISolone SOD SUCCI 125 MG/2 ML VIAL IV SCH ×3 (13:09→23:48)
[2018-12-06] MEDS: IPRATROPIUM-ALBUTEROL 3 ML NEB INHALATION SCH ×3 (13:49→19:32)
[2018-12-06] MEDS: PIRFENIDONE PO SCH ×2 (15:26→22:09)
--- NOTE | 2018-12-06 16:14 | P.HPIM ---
History of Present Illness Chief Complaint: Shortness of breath 58-year-old gentleman with a past medical history significant for pulmonary fibrosis, COPD comes in with above-mentioned complaints. The patient says that he uses 21/2 to 3 L of oxygen at home 24 x 7. For the past few days he's been having more shortness of breath than usual. He was also coughing yellowish phlegm which is new for him. Patient otherwise does not complain of any fever or chills, no chest pain or racing heart, no abdominal pain, patient says that he was having posttussive vomiting, no nausea, no tingling numbness on his extremities, no itch no rash. Next ER course-temperature 97.5 pulse 60 respiration 22 blood pressure 112/67 patient was desatted to 87% in the ER. Labwork was done which showed sodium 142 potassium 5.0 bun 21 creatinine 1.33 troponin 0.018 WBC 6.0 hemoglobin 14.9 platelets 163. Patient was given breathing treatments, started on steroids and admitted to the hospitalist service a further evaluation and management. Review of Systems All systems: negative Past Medical History Past Medical History: Heart Failure, COPD, Diabetes Mellitus, Eye Disorder, H yperlipidemia, Hypertension, Osteoarthritis (OA), Pneumonia, Sleep Apnea/CPAP/BIPAP Additional Past Medical History / Comment(s): Pulmonary fibrosis, pulmonary HTN, chronic respiratory failure, home oxygen at 3L/NC ATC, impaired L ventricular function, cardiomyopathy, JOSE JUAN with CPap, pancreatitis, chronic abdominal pain, arthritis in multiple joints, past cellulitis bilateral lower legs, sinus problems, L eye cataract History of Any Multi-Drug Resistant Organisms: None Reported Past Surgical History: Heart Catheterization, Tonsillectomy Additional Past Surgical History / Comment(s): 2014 Cardiac cath-normal coronaries Past Anesthesia/Blood Transfusion Reactions: No Reported Reaction Smoking Status: Never smoker - Past Family History Mother Family Medical History: Cancer, Hypertension Additional Family Medical History / Comment(s): Lung cancer. Enlarged heart. Mother is . Father Additional Family Medical History / Comment(s): Pt did not know his father but his brothers shared that his father had heart disease. Medications and Allergies Home Medications Medication Instructions Recorded Confirmed Type Albuterol Nebulized [Ventolin 2.5 mg INHALATION RT-QID PRN 05/21/15 12/06/18 History Nebulized] Aspirin 81 mg PO DAILY 05/21/15 12/06/18 History Donepezil [Aricept] 10 mg PO DAILY 05/21/15 12/06/18 History Furosemide [Lasix] 20 mg PO DAILY 05/21/15 12/06/18 History Insulin Glargine [Lantus] 45 unit SQ HS 06/12/17 12/06/18 History Metoprolol Tartrate [Lopressor] 50 mg PO BID 06/12/17 12/06/18 History Ranitidine HCl 150 mg PO BID 06/12/17 12/06/18 History Terbinafine [LamISIL] 250 mg PO DAILY 06/12/17 12/06/18 History Pregabalin [Lyrica] 150 mg PO BID 09/12/17 12/06/18 History Atorvastatin Calcium [Lipitor] 10 mg PO DAILY 10/16/17 12/06/18 History Lisinopril [Zestril] 20 mg PO BID 10/16/17 12/06/18 History Meloxicam [Mobic] 15 mg PO DAILY 12/06/18 12/06/18 History Pirfenidone [Esbriet] 801 mg PO TID 12/06/18 12/06/18 History amLODIPine [Norvasc] 10 mg PO DAILY 12/06/18 12/06/18 History metFORMIN HCL [Glucophage] 500 mg PO BID 12/06/18 12/06/18 History Allergies Allergy/AdvReac Type Severity Reaction Status Date / Time No Known Allergies Allergy Verified 12/06/18 10:32 Physical Exam Vitals: Vital Signs Temp Pulse Pulse Resp BP BP Pulse Ox 12/06/18 15:01 97.5 F L 59 L 22 121/61 94 L 12/06/18 14:00 68 12/06/18 13:49 65 95 12/06/18 12:50 98.1 F 58 L 22 134/73 93 L 12/06/18 12:08 97.5 F L 12/06/18 12:01 68 24 112/67 92 L 12/06/18 10:39 68 12/06/18 10:28 66 12/06/18 09:49 98.6 F 47 L 18 95/41 87 L Intake and Output 12/06/18 12/06/18 12/06/18 06:59 14:59 22:59 Other: # Voids 1 Weight 153.768 kg On exam, alert and oriented x3. HEENT: Conjunctivae normal. eyes normal. NECK: No JVD. No thyroid enlargement. No LNs CARDIOVASCULAR: S1 and S2 heard RESPIRATION: Patient is having wheezing bilaterally ABDOMEN: Soft, nontender . No guarding. no masses palpable. No ascites, No hepatosplenomegaly.Bowel sounds heard. LEGS: No edema. no swelling . Patient is having fungal infection of his nails of his greater toe on his right foot which is getting better according to him NERVOUS SYSTEM: Cranial N 2-12 grossly normal. Moves all 4 limbs. No focal deficits. No sensory deficit. No signs of cerebellar dysfucntion. Skin: no ulcer no rash Joints: No active swelling. No inflammation. Lymphatic system. No LN neck axilla or groin. Results CBC & Chem 7: 12/06/18 10:15 12/06/18 10:15 Labs: Abnormal Lab Results - Last 24 Hours (Table) 12/06/18 12/06/18 Range/Units 10:15 10:15 Lymphocytes # 0.7 L (1.0-4.8) k/uL BUN 21 H (9-20) mg/dL Creatinine 1.33 H (0.66-1.25) mg/dL Glucose 157 H (74-99) mg/dL Thrombosis Risk Factor Assmnt - Choose All That Apply Any of the Below Risk Factors Present?: Yes Each Factor Represents 1 point: Abnormal pulmonary function (COPD), Age 41-60 years, Obesity (BMI >25), Serious lung disease incl. pneumonia (< 1month) Other Risk Factors: No Other congenital or acquired thrombophilia - If yes, enter type in comment: No Thrombosis Risk Factor Assessment Total Risk Factor Score: 4 Thrombosis Risk Factor Assessment Level: Moderate Risk Assessment and Plan Assessment: - Acute respiratory failure - COPD exacerbation - C KD - History of CHF - History of diabetes - History of hypertension - History of hyperlipidemia - History of sleep apnea on CPAP Plan - We'll admit the patient to [facility] with telemetry - We'll continue breathing treatments - Continue steroids - We'll start him on doxycycline - Pulmonology is consulted in the ER. - We will resume rest of the patient's home medications - DVT and GI prophylaxis - We'll order for lab work in the morning - Expected length of stay more than 2 midnights - Patient is full code Time with Patient: Greater than 30
[2018-12-06 17:02] LABS: Glucose,Whole Blood 307 mg/dL (75-99)
[2018-12-06] MEDS: INSULIN ASPART (NovoLOG) 100 UNIT/ML VIAL SQ SCH ×2 (17:14→20:34)
--- NOTE | 2018-12-06 17:22 | P.CNPUL ---
History of Present Illness Consult date: 12/06/18 Requesting physician: Quinton Cat Reason for consult: dyspnea Chief complaint: Dyspnea, fever, cough History of present illness: This is a 58-year-old white male patient of Dr. Baumann, with history of idiopathic pulmonary fibrosis with chronic hypoxemic respiratory failure on Esbriet, obstructive sleep apnea, congestive heart failure, diabetes mellitus, hyperlipidemia, Cervical spondylosis, hypertension, diverticular disease, who presented emergency department on 12/05/2018 with complaints of creasing shortness of breath, cough, chest congestion, and yellow sputum production. He is unsure whether he's had any fevers, does complain of some mild tightness in his chest that he attributed to his dyspnea. Did have some wheezing. Patient has been sick for several days, his been taking his nebulized treatments at home without much improvement. Chest x-ray showed coarsened interstitium, elevated right hemidiaphragm. Patient was afebrile, hemodynamic stable, patient was hypoxemic and his 4 L of oxygen with a pulse ox of 87% on presentation, lab work was negative for leukocytosis, white blood cell count was 6.0, hemoglobin of 14.9, electrolytes are within normal limits, B1 is 21 creatinine is 1.3, LFTs were within normal limits, troponin was negative 1, proBNP was 387. Patient wa s started on the steroids, nebulized bronchodilators, antibiotics, and admitted for further management. Review of Systems All systems: negative Constitutional: Denies chills, Denies fever Eyes: denies blurred vision, denies pain Ears, nose, mouth and throat: Denies headache, Denies sore throat Cardiovascular: Denies chest pain, Denies shortness of breath Respiratory: Reports cough with sputum, Reports dyspnea, Reports home oxygen, Reports respiratory infections, Reports wheezing, Denies cough Gastrointestinal: Denies abdominal pain, Denies diarrhea, Denies nausea, Denies vomiting Musculoskeletal: Denies myalgias Integumentary: Denies pruritus, Denies rash Neurological: Denies numbness, Denies weakness Psychiatric: Denies anxiety, Denies depression Endocrine: Denies fatigue, Denies weight change Past Medical History Past Medical History: Heart Failure, COPD, Diabetes Mellitus, Eye Disorder, Hyperlipidemia, Hypertension, Osteoarthritis (OA), Pneumonia, Sleep Apnea/CPAP/BIPAP Additional Past Medical History / Comment(s): Pulmonary fibrosis, pulmonary HTN, chronic respiratory failure, home oxygen at 3L/[place] ATC, impaired L ventricular function, cardiomyopathy, JOSE JUAN with CPap, pancreatitis, chronic abdominal pain, arthritis in multiple joints, past cellulitis bilateral lower legs, sinus problems, L eye cataract History of Any Multi-Drug Resistant Organisms: None Reported Past Surgical History: Heart Catheterization, Tonsillectomy Additional Past Surgical History / Comment(s): 2013 Cardiac cath-normal coronaries Past Anesthesia/Blood Transfusion Reactions: No Reported Reaction Smoking Status: Never smoker - Past Family History Mother Family Medical History: Cancer, Hypertension Additional Family Medical History / Comment(s): Lung cancer. Enlarged heart. Mother is . Father Additional Family Medical History / Comment(s): Pt did not know his father but his brothers shared that his father had heart disease. Medications and Allergies Home Medications Medication Instructions Recorded Confirmed Type Albuterol Nebulized [Ventolin 2.5 mg INHALATION RT-QID PRN 05/21/15 12/06/18 History Nebulized] Aspirin 81 mg PO DAILY 05/21/15 12/06/18 History Donepezil [Aricept] 10 mg PO DAILY 05/21/15 12/06/18 History Furosemide [Lasix] 20 mg PO DAILY 05/21/15 12/06/18 History Insulin Glargine [Lantus] 45 unit SQ HS 06/12/17 12/06/18 History Metoprolol Tartrate [Lopressor] 50 mg PO BID 06/12/17 12/06/18 History Ranitidine HCl 150 mg PO BID 06/12/17 12/06/18 History Terbinafine [LamISIL] 250 mg PO DAILY 06/12/17 12/06/18 History Pregabalin [Lyrica] 150 mg PO BID 09/12/17 12/06/18 History Atorvastatin Calcium [Lipitor] 10 mg PO DAILY 10/16/17 12/06/18 History Lisinopril [Zestril] 20 mg PO BID 10/16/17 12/06/18 History Meloxicam [Mobic] 15 mg PO DAILY 12/06/18 12/06/18 History Pirfenidone [Esbriet] 801 mg PO TID 12/06/18 12/06/18 History amLODIPine [Norvasc] 10 mg PO DAILY 12/06/18 12/06/18 History metFORMIN HCL [Glucophage] 500 mg PO BID 12/06/18 12/06/18 History Allergies Allergy/AdvReac Type Severity Reaction Status Date / Time No Known Allergies Allergy Verified 12/06/18 10:32 Physical Exam Vitals: Vital Signs Temp Pulse Pulse Resp BP BP Pulse Ox 12/06/18 16:40 68 12/06/18 16:28 72 12/06/18 15:01 97.5 F L 59 L 22 121/61 94 L 12/06/18 14:00 68 12/06/18 13:49 65 95 12/06/18 12:50 98.1 F 58 L 22 134/73 93 L 12/06/18 12:08 97.5 F L 12/06/18 12:01 68 24 112/67 92 L 12/06/18 10:39 68 12/06/18 10:28 66 12/06/18 09:49 98.6 F 47 L 18 95/41 87 L Intake and Output 12/06/18 12/06/18 12/06/18 06:59 14:59 22:59 Other: # Voids 1 Weight 153.768 kg GENERAL EXAM: Alert, pleasant, 58-year-old white male comfortable in no a pparent distress. HEAD: Normocephalic/atraumatic. EYES: Normal reaction of pupils, equal size. Conjunctiva pink, sclera white. NOSE: Clear with pink turbinates. THROAT: No erythema or exudates. NECK: No masses, no JVD, no thyroid enlargement, no adenopathy. CHEST: No chest wall deformity. Symmetrical expansion. LUNGS: Equal air entry with diffuse rhonchi and wheezes CVS: Regular rate and rhythm, normal S1 and S2, no gallops, no murmurs, no rubs ABDOMEN: Soft, nontender. No hepatosplenomegaly, normal bowel sounds, no guarding or rigidity. EXTREMITIES: No clubbing, no edema, no cyanosis, 2+ pulses and upper and lower extremities. MUSCULOSKELETAL: Muscle strength and tone normal. SPINE: No scoliosis or deformity SKIN: No rashes CENTRAL NERVOUS SYSTEM: Alert and oriented -3. No focal deficits, tone is normal in all 4 extremities. PSYCHIATRIC: Alert and oriented -3. Appropriate affect. Intact judgment and insight. Results - Laboratory Findings CBC and BMP: 12/06/18 10:15 12/06/18 10:15 PT/INR, D-dimer PT 10.3 sec (9.0-12.0) 12/06/18 10:15 INR 1.0 (<1.2) 12/06/18 10:15 Abnormal lab findings: Abnormal Labs 12/06/18 12/06/18 10:15 10:15 Lymphocytes # 0.7 L BUN 21 H Creatinine 1.33 H Glucose 157 H - Diagnostic Findings Chest x-ray: report reviewed, image reviewed Additional studies: EKG reviewed Assessment and Plan Plan: Assessment: #1. Acute on chronic hypoxemic respiratory failure, related to acute tracheobronchitis, chest x-ray showed chronic interstitial changes related to underlying history of idiopathic pulmonary fibrosis #2. Idiopathic pulmonary fibrosis with severe restrictive pathology on the PFTs, with FEV1 of 1.95 L or 50% of predicted, FVC of 2.11 L or 42% of predicted, with FEV1/FVC ratio of 119 #3. Chronic paralysis of the right hemidiaphragm #4. Obstructive sleep apnea syndrome on CPAP therapy at a pressure of 9 cm of water #5. History of congestive heart failure with systolic dysfunction #6. Diabetes mellitus type 2, #7. Hypertension, hyperlipidemia #8. Osteoarthritis #9. Lifetime nonsmoker Plan: Continue current antibiotic coverage, nebulized bronchodilators, chest x-ray has been reviewed with Dr. Tejada, and shows chronic interstitial changes related to underlying history of IPF, no leukocytosis, no fever, we'll send the sputum for culture. Continue to follow and make further recommendations. Check influenza screen I performed a history & physical examination of the patient and discussed their management with my nurse practitioner, Consuelo Bergman. I reviewed the nurse practitioner's note and agree with the documented findings and plan of care. Lung sounds are positive for diffuse wheezes throughout the lung potts. The findings and the impression was discussed with the patient. I attest to the documentation by the nurse practitioner. Time with Patient: Greater than 30
[2018-12-06] MEDS ORDERED: INSULIN ASPART (NovoLOG) 100 UNIT/ML VIAL SQ SCH (17:30)
[2018-12-06] MEDS: OSELTAMIVIR 75 MG CAP PO SCH (19:51)
[2018-12-06 20:20] LABS: Glucose,Whole Blood 309 mg/dL (75-99)
[2018-12-06] MEDS: LISINOPRIL 20 MG TAB PO SCH (20:33)
[2018-12-06] MEDS: PREGABALIN 75 MG CAP PO SCH (20:33)
[2018-12-06] MEDS: METOPROLOL TARTRATE 50 MG TAB PO SCH (20:33)
[2018-12-06] MEDS: INSULIN DETEMIR (LEVEMIR) 100 UNIT/ML SYR SQ SCH (20:34)
[2018-12-06] MEDS: DOXYCYCLINE 100 MG CAP PO SCH (20:35)
[2018-12-07] MEDS: methylPREDNISolone SOD SUCCI 125 MG/2 ML VIAL IV SCH ×2 (05:29→12:45)
[2018-12-07] MEDS: IPRATROPIUM-ALBUTEROL 3 ML NEB INHALATION SCH ×4 (07:43→19:30)
[2018-12-07 07:46] LABS: Glucose,Whole Blood 227 mg/dL (75-99)
[2018-12-07] MEDS: INSULIN ASPART (NovoLOG) 100 UNIT/ML VIAL SQ SCH ×4 (09:34→21:31)
[2018-12-07] MEDS: FUROSEMIDE 20 MG TAB PO SCH (09:34)
[2018-12-07] MEDS: METOPROLOL TARTRATE 50 MG TAB PO SCH ×2 (09:35→21:31)
[2018-12-07] MEDS: PREGABALIN 75 MG CAP PO SCH ×2 (09:35→21:31)
[2018-12-07] MEDS: DONEPEZIL 10 MG TAB PO SCH (09:35)
[2018-12-07] MEDS: OSELTAMIVIR 75 MG CAP PO SCH ×2 (09:35→21:33)
[2018-12-07] MEDS: DOXYCYCLINE 100 MG CAP PO SCH ×2 (09:35→21:33)
[2018-12-07] MEDS: ATORVASTATIN 10 MG TAB PO SCH (09:35)
[2018-12-07] MEDS: amLODIPine 10 MG TAB PO SCH (09:35)
[2018-12-07] MEDS: LISINOPRIL 20 MG TAB PO SCH ×2 (09:35→21:31)
[2018-12-07] MEDS: ASPIRIN 81 MG PO SCH (09:35)
[2018-12-07] MEDS: PIRFENIDONE PO SCH ×3 (09:36→21:32)
[2018-12-07] MEDS: TERBINAFINE 250 MG TAB PO SCH (09:36)
[2018-12-07 10:42] LABS: Calcium 9.4 mg/dL (8.4-10.2); Potassium 5.8 mmol/L (3.5-5.1)
[2018-12-07 11:49] LABS: Glucose,Whole Blood 310 mg/dL (75-99)
[2018-12-07 12:43] LABS: Hemoglobin A1C 6.4 % (4.0-6.0)
[2018-12-07] MEDS ORDERED: ACETAMINOPHEN TAB 325 MG TAB PO PRN (13:10)
--- NOTE | 2018-12-07 13:56 | P.PN ---
Subjective Says any shortness of breath is better Still having some pain in his ribs while he coughs but not otherwise No abdominal pain, no nausea and vomiting, or diarrhea constipation Objective - Vital Signs Vital signs: Vital Signs Temp 97.5 F L 12/07/18 07:00 Pulse 62 12/07/18 11:25 Resp 18 12/07/18 07:00 BP 131/83 12/07/18 07:00 Pulse Ox 91 L 12/07/18 07:00 Intake & Output 12/06/18 12/07/18 12/07/18 18:59 06:59 18:59 Intake Total 200 400 Balance 200 400 Weight 153.768 kg Intake: Oral 200 400 Other: # Voids 1 2 - Exam On exam, alert and oriented x3. HEENT: Conjunctivae normal. eyes normal. NECK: No JVD. No thyroid enlargement. No LNs CARDIOVASCULAR: S1, S2 positive RESPIRATION: Patient is wheezing but better than yesterday ABDOMEN: Soft, nontender . No guarding. no masses palpable. No ascites, No hepatosplenomegaly.Bowel sounds heard. LEGS: No edema. no swelling NERVOUS SYSTEM: Cranial N 2-12 grossly normal. Moves all 4 limbs. No focal deficits. No sensory deficit. No signs of cerebellar dysfucntion. Skin: no ulcer no rash - Labs CBC & Chem 7: 12/06/18 10:15 12/07/18 09:12 Labs: Abnormal Lab Results - Last 24 Hours (Table) 12/06/18 12/06/18 12/06/18 Range/Units 10:15 16:49 17:25 Potassium (3.5-5.1) mmol/L BUN (9-20) mg/dL Glucose (74-99) mg/dL POC Glucose (mg/dL) 307 H (75-99) mg/dL Hemoglobin A1c 6.4 H (4.0-6.0) % Influenza Type A RNA Detected H (Not Detectd) 12/06/18 12/07/18 12/07/18 Range/Units 20:19 07:33 09:12 Potassium 5.8 H (3.5-5.1) mmol/L BUN 31 H (9-20) mg/dL Glucose 336 H (74-99) mg/dL POC Glucose (mg/dL) 309 H 227 H (75-99) mg/dL Hemoglobin A1c (4.0-6.0) % Influenza Type A RNA (Not Detectd) 12/07/18 Range/Units 11:37 Potassium (3.5-5.1) mmol/L BUN (9-20) mg/dL Glucose (74-99) mg/dL POC Glucose (mg/dL) 310 H (75-99) mg/dL Hemoglobin A1c (4.0-6.0) % Influenza Type A RNA (Not Detectd) Assessment and Plan Assessment: - Acute respiratory failure - COPD exacerbation - Influenza A - CKD - History of CHF - History of diabetes - History of hypertension - History of hyperlipidemia - History of sleep apnea on CPAP Plan - Continue Doxy and Tamiflu - Continue breathing treatments - We'll taper the steroids from 60 every 6HR to 40 every 12 hours - Patient's potassium was high at 5.8. He already got insulin subcu twice since morning. We will repeat the potassium - We'll follow up with the patient Time with Patient: Greater than 30
--- NOTE | 2018-12-07 14:03 | P.PN ---
Subjective Progress Note Date: 12/07/18 Principal diagnosis: Dyspnea, fever, cough This is a 58-year-old white male patient of Dr. Baumann, with history of idiopathic pulmonary fibrosis with chronic hypoxemic respiratory failure on Esbriet, obstructive sleep apnea, congestive heart failure, diabetes mellitus, hyperlipidemia, Cervical spondylosis, hypertension, diverticular disease, who presented emergency department on 12/05/2018 with complaints of creasing shortness of breath, cough, chest congestion, and yellow sputum production. He is unsure whether he's had any fevers, does complain of some mild tightness in h is chest that he attributed to his dyspnea. Did have some wheezing. Patient has been sick for several days, his been taking his nebulized treatments at home without much improvement. Chest x-ray showed coarsened interstitium, elevated right hemidiaphragm. Patient was afebrile, hemodynamic stable, patient was hypoxemic and his 4 L of oxygen with a pulse ox of 87% on presentation, lab work was negative for leukocytosis, white blood cell count was 6.0, hemoglobin of 14.9, electrolytes are within normal limits, B1 is 21 creatinine is 1.3, LFTs were within normal limits, troponin was negative 1, proBNP was 387. Patient was started on the steroids, nebulized bronchodilators, antibiotics, and admitted for further management. On patient seen in follow-up on medical surgical floor. He is sitting up in the chair, in no acute distress. Patient's influenza screen was positive for influenza A, patient was started on Tamiflu. Patient is on antibiotics, he is on IV steroids. No fever, patient remains on supplemental oxygen with a pulse ox of 91-98%, hemodynamically stable. No abdominal pain, no nausea or vomiting. Today's labs have been reviewed, and showed sodium of 138, potassium is 5.8, BUN was 31, creatinine was 1.24. Patient is tolerating oral intake, having some coughing spells, but no acute distress. Some scattered wheezes auscultated on physical exam, Objective - Vital Signs Vital signs: Vital Signs Temp 97.5 F L 12/07/18 07:00 Pulse 62 12/07/18 11:25 Resp 18 12/07/18 07:00 BP 131/83 12/07/18 07:00 Pulse Ox 91 L 12/07/18 07:00 Intake & Output 12/06/18 12/07/18 12/07/18 18:59 06:59 18:59 Intake Total 200 400 Balance 200 400 Weight 153.768 kg Intake: Oral 200 400 Other: # Voids 1 2 - Exam GENERAL EXAM: Alert, pleasant, 58-year-old white male comfortable in no apparent distress. HEAD: Normocephalic/atraumatic. EYES: Normal reaction of pupils, equal size. Conjunctiva pink, sclera white. NOSE: Clear with pink turbinates. THROAT: No erythema or exudates. NECK: No masses, no JVD, no thyroid enlargement, no adenopathy. CHEST: No chest wall deformity. Symmetrical expansion. LUNGS: Equal air entry with diffuse wheezes CVS: Regular rate and rhythm, normal S1 and S2, no gallops, no murmurs, no rubs ABDOMEN: Soft, nontender. No hepatosplenomegaly, normal bowel sounds, no guarding or rigidity. EXTREMITIES: No clubbing, no edema, no cyanosis, 2+ pulses and upper and lower extremities. MUSCULOSKELETAL: Muscle strength and tone normal. SPINE: No scoliosis or deformity SKIN: No rashes CENTRAL NERVOUS SYSTEM: Alert and oriented -3. No focal deficits, tone is normal in all 4 extremities. PSYCHIATRIC: Alert and oriented -3. Appropriate affect. Intact judgment and insight. - Labs CBC & Chem 7: 12/06/18 10:15 12/07/18 09:12 Labs: Abnormal Lab Results - Last 24 Hours (Table) 12/06/18 12/06/18 12/06/18 Range/Units 10:15 16:49 17:25 Potassium (3.5-5.1) mmol/L BUN (9-20) mg/dL Glucose (74-99) mg/dL POC Glucose (mg/dL) 307 H (75-99) mg/dL Hemoglobin A1c 6.4 H (4.0-6.0) % Influenza Type A RNA Detected H (Not Detectd) 12/06/18 12/07/18 12/07/18 Range/Units 20:19 07:33 09:12 Potassium 5.8 H (3.5-5.1) mmol/L BUN 31 H (9-20) mg/dL Glucose 336 H (74-99) mg/dL POC Glucose (mg/dL) 309 H 227 H (75-99) mg/dL Hemoglobin A1c (4.0-6.0) % Influenza Type A RNA (Not Detectd) 12/07/18 Range/Units 11:37 Potassium (3.5-5.1) mmol/L BUN (9-20) mg/dL Glucose (74-99) mg/dL POC Glucose (mg/dL) 310 H (75-99) mg/dL Hemoglobin A1c (4.0-6.0) % Influenza Type A RNA (Not Detectd) Assessment and Plan Plan: Assessment: #1. Acute on chronic hypoxemic respiratory failure, related to acute tracheobronchitis, chest x-ray showed chronic interstitial changes related to underlying history of idiopathic pulmonary fibrosis #2. Acute influenza A bronchitis #3. Idiopathic pulmonary fibrosis with severe restrictive pathology on the PFTs, with FEV1 of 1.95 L or 50% of predicted, FVC of 2.11 L or 42% of predicted, with FEV1/FVC ratio of 119 #4. Chronic paralysis of the right hemidiaphragm #5. Obstructive sleep apnea syndrome on CPAP therapy at a pressure of 9 cm of water #6. History of congestive heart failure with systolic dysfunction #7. Diabetes mellitus type 2, #8. Hypertension, hyperlipidemia #9. Osteoarthritis #10. Lifetime nonsmoker Plan: Continue the doxycycline and Tamiflu, IV steroids, nebulized bronchodilators, patient is slightly improved, no fever or chills, vital signs are stable, no nausea, vomiting or diarrhea, no headaches. Will continue to follow I performed a history & physical examination of the patient and discussed their management with my nurse practitioner, Consuelo Bergman. I reviewed the nurse practitioner's note and agree with the documented findings and plan of care. Lung sounds are positive for diffuse wheezes throughout the lung potts. The findings and the impression was discussed with the patient. I attest to the documentation by the nurse practitioner. Time with Patient: Less than 30
[2018-12-07 14:09] VITALS: BMI 47.2
[2018-12-07 16:53] LABS: Glucose,Whole Blood 288 mg/dL (75-99)
[2018-12-07] MEDS ORDERED: INSULIN ASPART (NovoLOG) 100 UNIT/ML VIAL SQ ONE (16:56)
[2018-12-07 20:44] LABS: Glucose,Whole Blood 330 mg/dL (75-99)
[2018-12-07] MEDS: methylPREDNISolone SOD SUCCI 40 MG/ML 1 ML VIAL IV SCH (21:31)
[2018-12-07] MEDS: INSULIN DETEMIR (LEVEMIR) 100 UNIT/ML SYR SQ SCH (21:31)
[2018-12-08 07:31] LABS: Glucose,Whole Blood 179 mg/dL (75-99)
[2018-12-08 07:52] VITALS: RESP 16
[2018-12-08] MEDS: IPRATROPIUM-ALBUTEROL 3 ML NEB INHALATION SCH ×3 (08:27→15:51)
[2018-12-08 08:29] LABS: Calcium 9.8 mg/dL (8.4-10.2)
[2018-12-08] MEDS: ATORVASTATIN 10 MG TAB PO SCH (08:38)
[2018-12-08] MEDS: LISINOPRIL 20 MG TAB PO SCH (08:38)
[2018-12-08] MEDS: methylPREDNISolone SOD SUCCI 40 MG/ML 1 ML VIAL IV SCH (08:39)
[2018-12-08] MEDS: ASPIRIN 81 MG PO SCH (08:39)
[2018-12-08] MEDS: PREGABALIN 75 MG CAP PO SCH (08:39)
[2018-12-08] MEDS: FUROSEMIDE 20 MG TAB PO SCH (08:39)
[2018-12-08] MEDS: DONEPEZIL 10 MG TAB PO SCH (08:39)
[2018-12-08] MEDS: DOXYCYCLINE 100 MG CAP PO SCH (08:39)
[2018-12-08] MEDS: OSELTAMIVIR 75 MG CAP PO SCH (08:39)
[2018-12-08] MEDS: amLODIPine 10 MG TAB PO SCH (08:39)
[2018-12-08] MEDS: PIRFENIDONE PO SCH ×2 (08:39→16:48)
[2018-12-08] MEDS: METOPROLOL TARTRATE 50 MG TAB PO SCH (08:39)
[2018-12-08] MEDS: TERBINAFINE 250 MG TAB PO SCH (08:40)
[2018-12-08] MEDS: INSULIN ASPART (NovoLOG) 100 UNIT/ML VIAL SQ SCH ×3 (08:40→16:49)
[2018-12-08 11:57] LABS: Glucose,Whole Blood 253 mg/dL (75-99)
[2018-12-08] MEDS ORDERED: SODIUM POLYSTYRENE SULFONATE 15 GM/60 ML BOTTLE PO STA ×2 (13:22→18:20)
--- NOTE | 2018-12-08 14:31 | PN ---
PROGRESS NOTE DATE OF SERVICE: 12/08/2018 This is a 58-year-old male who was admitted with a diagnosis of acute on chronic hypoxemic respiratory failure secondary to acute tracheobronchitis as well as influenza A tracheobronchitis. He does have a history of underlying idiopathic pulmonary fibrosis. He does see my partner, Dr. Velasco in the office. His pulmonary function tests showed evidence of restrictive physiology. He also has chronic paralysis of the right hemidiaphragm, sleep apnea syndrome on CPAP, congestive heart failure with systolic dysfunction, diabetes mellitus, hypertension, osteoarthritis, lifelong nonsmoker, and obesity. The patient is ready for discharge. He is waiting for the Primary Service to discharge him. I did tell him he needs to complete his Tamiflu. That is 75 mg twice a day for a total of 5 days. His breathing is much improved. He is coughing a bit. Not producing much phlegm. No fever or chills. PHYSICAL EXAMINATION: VITAL SIGNS: Currently, temperature 97.7 heart rate 54, respiratory rate 16, blood pressure 146/86, mean 106, room air saturation 95%. Appears in no acute distress. HEENT EXAMINATION: Grossly unremarkable. Mucous membranes are moist. No oral lesions. NECK: Supple. Full range of motion. No adenopathy, thyromegaly or neck vein distention. CARDIOVASCULAR examination reveals regular rhythm rate. Heart rate in mid 60s. S1, S2 normal. No murmur. LUNGS: Some bibasilar crackles. No wheezes or rhonchi. He is restricted in his breathing. Breath sounds are equal bilaterally. ABDOMEN: Obese. Bowel sounds are heard. EXTREMITIES are intact. No cyanosis, clubbing, or edema. SKIN without rash. NEUROLOGIC: Examination is brief but nonfocal. Microbiologic studies are negative. No recent chest x-rays to report. LABS: Reviewed. Current labs include a sodium 140, potassium 6, chloride 104, CO2 of 27, anion gap is 9. BUN and creatinine were 32 and 1.14. The rest of the labs are unremarkable. The influenza A was detected on December 06. Medications are reviewed. Everything seems to be appropriate. ASSESSMENT: 1. Acute on chronic hypoxemic respiratory failure related to underlying tracheobronchitis complicated by influenza A infection. 2. History of idiopathic pulmonary fibrosis. 3. Chronic hypoxemic respiratory failure. 4. Chronic paralysis of the right hemidiaphragm. 5. Obesity. 6. Sleep apnea syndrome, maintained on CPAP. 7. History of congestive heart failure, systolic dysfunction. 8. Diabetes mellitus, type 2. 9. Hypertension. 10.Hyperlipidemia. 11.Degenerative joint disease. 12.Lifelong nonsmoker. PLAN: The patient is doing well. I would anticipate discharge in the next day or so. The patient is waiting for the primary service to see him. No additional recommendations are made. He can be discharged home on a full 5 day course of Tamiflu 75 mg twice a day for 5 days. He can be also discharged home on a small dose of prednisone and oral antibiotic. We will continue to follow. He does have an appointment upcoming with my partner, Dr. Velasco. NAN / MEREDITH: [id number] /
[2018-12-08 14:54] VITALS: BP 127/78; TEMP 97.6
--- NOTE | 2018-12-08 15:31 | P.DS ---
Providers Date of admission: 12/06/18 11:47 Attending physician: Quinton Cat MD Consults: 12/06/18 11:47 Consult Physician Routine Consulting Provider: Urbano Velasco Consult Reason/Comments: dyspnea Do you want consulting provider notified?: Yes Primary care physician: Ibis Pappas [facility] Course: Patient does have history of idiopathic pulmonary fibrosis came in with acute tracheal bronchitis and found to have influenza patient is also on doxycycline and patient will be discharged on oxygen and Tamiflu I do not believe patient will benefit from a systemic steroids although patient is on systemic steroids at this time patient does have diabetes mellitus already elevated blood sugars and steroids will make it even worse. Patient blood pressures elevated patient is on lisinopril patient potassium is high we'll give Late repeat potassium again if potassium comes down below 5 patient will be discharged with a repeat basic metabolic profile in 3 days and we will cut down lisinopril to 10 mg patient is presently receiving 40 mg total in a day and will be started on hydralazine as his blood pressure will shoot up once we decrease the lisinopril. Patient is feeling much better does have crackles in the lung exam patient uses 3 L of onset at home patient is presently on 3 L PHYSICAL EXAMINATION: GENERAL: The patient is alert and oriented x3, not in any acute distress. Well developed, well nourished. Obese HEENT: Pupils are round and equally reacting to light. EOMI. No scleral icterus. No conjunctival pallor. Normocephalic, atraumatic. No pharyngeal erythema. No thyromegaly. CARDIOVASCULAR: S1 and S2 present. No murmurs, rubs, or gallops. PULMONARY: Bilateral crackles fairly good air entry developed lung potts no wheezing was appreciated ABDOMEN: Soft, nontender, nondistended, normoactive bowel sounds. No palpable organomegaly. MUSCULOSKELETAL: No joint swelling or deformity. EXTREMITIES: No cyanosis, clubbing, or pedal edema. NEUROLOGICAL: Gross neurological examination did not reveal any focal deficits. SKIN: No rashes. Plan chronic hypoxemic respiratory failure secondary to pulmonary fibrosis along with tracheal bronchitis -Acute influenza -Idiopathic pulmonary fibrosis -Chronic rales at the right hemidiaphragm -Obstructive sleep apnea on CPAP at home Type 2 diabetes mellitus -Hypertension -Hyperlipidemia -Chronic low back pain -Obesity -My suspicion is low that patient has heart failure history patient's Lasix is being discontinued as his creatinine is elevated patient does have acute renal failure secondary to prerenal azotemia from excessive diuretic therapy this will be held Plan - Discharge Summary Discharge Rx Participant: No New Discharge Prescriptions: New Oseltamivir [Tamiflu] 75 mg PO Q12HR #10 cap Doxycycline [Vibramycin] 100 mg PO BID #7 cap hydrALAZINE HCL [Apresoline] 50 mg PO TID #90 tab Continue Donepezil [Aricept] 10 mg PO DAILY Albuterol Nebulized [Ventolin Nebulized] 2.5 mg INHALATION RT-QID PRN PRN Reason: Shortness Of Breath Aspirin 81 mg PO DAILY Terbinafine [LamISIL] 250 mg PO DAILY Ranitidine HCl 150 mg PO BID Metoprolol Tartrate [Lopressor] 50 mg PO BID Pregabalin [Lyrica] 150 mg PO BID Atorvastatin Calcium [Lipitor] 10 mg PO DAILY amLODIPine [Norvasc] 10 mg PO DAILY metFORMIN HCL [Glucophage] 500 mg PO BID Pirfenidone [Esbriet] 801 mg PO TID Changed Lisinopril [Zestril] 10 mg PO DAILY #30 Discontinued Furosemide [Lasix] 20 mg PO DAILY Insulin Glargine [Lantus] 45 unit SQ HS Meloxicam [Mobic] 15 mg PO DAILY Discharge Medication List Albuterol Nebulized [Ventolin Nebulized] 2.5 mg INHALATION RT-QID PRN 05/21/15 [History] Aspirin 81 mg PO DAILY 05/21/15 [History] Donepezil [Aricept] 10 mg PO DAILY 05/21/15 [History] Metoprolol Tartrate [Lopressor] 50 mg PO BID 06/12/17 [History] Ranitidine HCl 150 mg PO BID 06/12/17 [History] Terbinafine [LamISIL] 250 mg PO DAILY 06/12/17 [History] Pregabalin [Lyrica] 150 mg PO BID 09/12/17 [History] Atorvastatin Calcium [Lipitor] 10 mg PO DAILY 10/16/17 [History] Pirfenidone [Esbriet] 801 mg PO TID 12/06/18 [History] amLODIPine [Norvasc] 10 mg PO DAILY 12/06/18 [History] metFORMIN HCL [Glucophage] 500 mg PO BID 12/06/18 [History] Doxycycline [Vibramycin] 100 mg PO BID #7 cap 12/08/18 [Rx] Lisinopril [Zestril] 10 mg PO DAILY #30 12/08/18 [Rx] Oseltamivir [Tamiflu] 75 mg PO Q12HR #10 cap 12/08/18 [Rx] hydrALAZINE HCL [Apresoline] 50 mg PO TID #90 tab 12/08/18 [Rx] Follow up Appointment(s)/Referral(s): Elyse Baumann MD [Primary Care Provider] - 1-2 days Ambulatory/Diagnostic Orders: Basic Metabolic Panel [LAB.AMB] Time Frame: 3 Days, Location: None Selected Activity/Diet/Wound Care/Special Instructions: * PT HAS [facility]. [facility]*
[2018-12-08 16:06] VITALS: PULSE 80
[2018-12-08 16:47] LABS: Glucose,Whole Blood 192 mg/dL (75-99)
== END 2018-12-08 19:05 | disposition home or self-care (01) | DRG 193 ==
LOC: EC 09:45 → 4SSUR 11:47
PROVIDERS: ADMIT Internal Medicine; ATTEND Internal Medicine
PROC: 5A09357 Assistance with Respiratory Ventilation, Less than 24 Consecutive Hours, Continuous Positive Airway Pressure (ICD-10-PCS; principal; 2018-12-06)
DX: J10.1 Influenza due to other identified influenza virus with other respiratory manifestations (principal); J96.21 Acute and chronic respiratory failure with hypoxia; J44.1 Chronic obstructive pulmonary disease with (acute) exacerbation; J44.0 Chronic obstructive pulmonary disease with (acute) lower respiratory infection; Z68.42 Body mass index [BMI] 45.0-49.9, adult; I50.22 Chronic systolic (congestive) heart failure; I42.9 Cardiomyopathy, unspecified; N17.9 Acute kidney failure, unspecified; I27.20 Pulmonary hypertension, unspecified; I11.0 Hypertensive heart disease with heart failure; E11.65 Type 2 diabetes mellitus with hyperglycemia; J84.112 Idiopathic pulmonary fibrosis; J98.6 Disorders of diaphragm; E66.9 Obesity, unspecified; J20.8 Acute bronchitis due to other specified organisms; E78.5 Hyperlipidemia, unspecified; M19.90 Unspecified osteoarthritis, unspecified site; G47.33 Obstructive sleep apnea (adult) (pediatric); F41.9 Anxiety disorder, unspecified; M47.812 Spondylosis without myelopathy or radiculopathy, cervical region; G89.29 Other chronic pain; K57.90 Diverticulosis of intestine, part unspecified, without perforation or abscess without bleeding; H26.9 Unspecified cataract; Z99.81 Dependence on supplemental oxygen; Z79.82 Long term (current) use of aspirin; Z79.4 Long term (current) use of insulin; Z79.1 Long term (current) use of non-steroidal anti-inflammatories (NSAID); Z79.899 Other long term (current) drug therapy; Z71.3 Dietary counseling and surveillance; Z99.89 Dependence on other enabling machines and devices; Z87.01 Personal history of pneumonia (recurrent); Z87.19 Personal history of other diseases of the digestive system; Z98.890 Other specified postprocedural states; Z82.49 Family history of ischemic heart disease and other diseases of the circulatory system; Z80.1 Family history of malignant neoplasm of trachea, bronchus and lung
CPT/HCPCS: 36415; 71046; 80048; 80053; 83036; 83880; 84132; 84484; 85025; 85610; 85730; 87502; 93005; 94640; 94660; 94760; 96374; 99285

== ENCOUNTER → 2018-12-13 | Outpatient (CLI) | payer MEDICARE ==
[2018-12-13 18:04] LABS: Anion Gap 8.4 mmol/L (4.00-12.00); Carbon Dioxide 26.6 mmol/L (21.6-31.8); Potassium 4.2 mmol/L (3.5-5.5)
[2018-12-13 20:38] LABS: Hemoglobin A1C 6.5 % (4.0-6.0)
== END | disposition home or self-care (01) ==
LOC: LABWHC1 13:16
PROVIDERS: ATTEND Internal Medicine
DX: E11.9 Type 2 diabetes mellitus without complications (principal); I10 Essential (primary) hypertension
CPT/HCPCS: 36415; 80051; 82565; 83036; 84520

== ENCOUNTER → 2019-01-12 | Outpatient (CLI) | payer MEDICARE ==
[2019-01-12 16:04] LABS: LDL Cholesterol,Calculated 109.8 mg/dL (0.0-131.0); VLDL Calculation 28.2 mg/dL (5.00-40.00)
== END | disposition home or self-care (01) ==
LOC: LABWHC1 10:43
PROVIDERS: ATTEND Nurse Practitioner Adult Health
DX: E78.2 Mixed hyperlipidemia (principal)
CPT/HCPCS: 36415; 80061; 84450; 84460

== ENCOUNTER → 2019-02-25 | Outpatient (CLI) | payer MEDICARE ==
[2019-02-25 16:09] LABS: LDL Cholesterol,Calculated 92.8 mg/dL (0.0-131.0); VLDL Calculation 27.2 mg/dL (5.00-40.00)
== END | disposition home or self-care (01) ==
LOC: LABWHC1 10:50
PROVIDERS: ATTEND Nurse Practitioner Adult Health
DX: E78.2 Mixed hyperlipidemia (principal)
CPT/HCPCS: 36415; 80061; 84450; 84460

== ENCOUNTER → 2019-04-12 | Outpatient (CLI) | payer MEDICARE ==
[2019-04-12 16:40] LABS: ALT 43 U/L (10-49); AST 37 U/L (14-35); Albumin/Globulin Ratio 1.81 (1.60-3.17); Alkaline Phosphatase 105 U/L (41-126); Bilirubin, Conjugated <0.20 mg/dL (0.20-0.40); Globulin 2.6 g/dL (1.6-3.3); Total Bilirubin 0.4 mg/dL (0.3-1.2); Total Protein 7.3 g/dL (6.2-8.2)
== END | disposition home or self-care (01) ==
LOC: LABWHC1 10:25
PROVIDERS: ATTEND Internal Medicine Critical Care Medicine
DX: J84.112 Idiopathic pulmonary fibrosis (principal)
CPT/HCPCS: 36415; 80076

== ENCOUNTER → 2019-08-30 | Outpatient (CLI) | payer MEDICARE ==
[2019-08-30 18:08] LABS: African American GFR (CKD) 86.5 (60.0-200.0); Albumin 4.3 g/dL (3.80-4.90); Albumin/Globulin Ratio 2.05 (1.60-3.17); Anion Gap 9.1 mmol/L (4.00-12.00); BUN/Creat Ratio 15.45 Ratio (12.00-20.00); Calcium 8.9 mg/dL (8.7-10.3); Carbon Dioxide 25.9 mmol/L (21.6-31.8); Chol/HDL Ratio 3.64; Globulin 2.1 g/dL (1.6-3.3); LDL Cholesterol,Calculated 95.6 mg/dL (0.0-131.0); Non-African American GFR(CKD) 74.6 (60.0-200.0); Potassium 4.7 mmol/L (3.5-5.5); Total Bilirubin 0.5 mg/dL (0.2-1.2); Total Protein 6.4 g/dL (6.2-8.2); VLDL Calculation 28.4 mg/dL (5.00-40.00)
== END | disposition home or self-care (01) ==
LOC: LABWHC1 10:48
PROVIDERS: ATTEND Nurse Practitioner Adult Health
DX: I42.8 Other cardiomyopathies (principal); E78.2 Mixed hyperlipidemia
CPT/HCPCS: 36415; 80053; 80061

== ENCOUNTER 2019-09-03 08:05 | Inpatient (IN) | payer MEDICARE, OTHER ==
[2019-09-03] MEDS ORDERED: ALBUTEROL NEB (CONC) 2.5 MG/0.5 ML INHALATION STA (08:33)
[2019-09-03] MEDS ORDERED: IPRATROPIUM-ALBUTEROL 3 ML NEB INHALATION STA (08:33)
[2019-09-03] MEDS ORDERED: IPRATROPIUM 0.5 MG/2.5 ML NEBU INHALATION STA (08:37)
[2019-09-03] MEDS ORDERED: ALBUTEROL NEBULIZED 2.5 MG/3 ML INHALATION STA ×2 (08:37→08:41)
[2019-09-03 09:13] LABS: Basophils # (A) 0.1 k/uL (0-0.2); Basophils % (A) 1 %; Eosinophils # (A) 0.1 k/uL (0-0.7); Eosinophils % (A) 1 %; HCT 46.2 % (39.0-53.0); HGB 15.3 gm/dL (13.0-17.5); Lymphocytes % (A) 9 %; MCH 30.9 pg (25.0-35.0); MCHC 33.1 g/dL (31.0-37.0); MCV 93.4 fL (80.0-100.0); Mean Platelet Volume 8.3; Monocytes # (A) 0.7 k/uL (0-1.0); Monocytes % (A) 6 %; Neutrophils # (A) 9.6 k/uL (1.3-7.7); Neutrophils % (A) 82 %; Platelet Count 207 k/uL (150-450); RBC 4.94 m/uL (4.30-5.90); RDW 13.6 % (11.5-15.5); WBC 11.7 k/uL (3.8-10.6)
[2019-09-03 09:24] LABS: ALT 28 U/L (4-49); AST 50 U/L (17-59); African American GFR (CKD) >90 (>60 ml/min/1.73 sqM); Albumin 4.1 g/dL (3.5-5.0); Alkaline Phosphatase 136 U/L (38-126); Anion Gap 13 mmol/L; Blood Urea Nitrogen 12 mg/dL (9-20); Calcium 9.4 mg/dL (8.4-10.2); Carbon Dioxide 23 mmol/L (22-30); Chloride 105 mmol/L (98-107); Glucose 221 mg/dL (74-99); Magnesium 1.6 mg/dL (1.6-2.3); Non-African American GFR(CKD) 80 (>60 ml/min/1.73 sqM); Potassium 4.9 mmol/L (3.5-5.1); Sodium 141 mmol/L (137-145); Total Bilirubin 1.7 mg/dL (0.2-1.3); Total Protein 7.7 g/dL (6.3-8.2)
--- NOTE | 2019-09-03 09:27 | ED ---
General Adult HPI - General Chief complaint: Shortness of Breath Stated complaint: COPD exacerbation Time Seen by Provider: 09/03/19 08:10 Source: patient, RN notes reviewed, old records reviewed Mode of arrival: wheelchair Limitations: physical limitation - History of Present Illness Initial comments: This is a 58-year-old male who has a past medical history pulmonary fibrosis and COPD as well as congestive heart fit. Patient states since Monday he's been having difficulty breathing and getting progressively worse. Patient denies any chills but states he thinks he had a fever but didn't take his temperature. Patient has some anterior chest pain as well per patient denies any palpitation. Patient denies abdominal pain patient has nausea vomiting diarrhea. Patient denies any patient denies numbness weakness. Patient denies lightheadedness or dizziness. Patient denies any swelling to the legs. - Related Data Home Medications Medication Instructions Recorded Confirmed Albuterol Nebulized [Ventolin 2.5 mg INHALATION RT-QID PRN 05/21/15 09/03/19 Nebulized] Aspirin 81 mg PO DAILY 05/21/15 09/03/19 Donepezil [Aricept] 10 mg PO DAILY 05/21/15 09/03/19 Metoprolol Tartrate [Lopressor] 50 mg PO BID 06/12/17 09/03/19 Ranitidine HCl 150 mg PO BID 06/12/17 09/03/19 Pregabalin [Lyrica] 150 mg PO BID 09/12/17 09/03/19 Atorvastatin Calcium [Lipitor] 10 mg PO DAILY 10/16/17 09/03/19 Pirfenidone [Esbriet] 801 mg PO TID 12/06/18 09/03/19 amLODIPine [Norvasc] 10 mg PO DAILY 12/06/18 09/03/19 metFORMIN HCL [Glucophage] 500 mg PO BID 12/06/18 09/03/19 FLUoxetine HCL 40 mg PO DAILY 09/03/19 09/03/19 Furosemide [Lasix] 20 mg PO DAILY 09/03/19 09/03/19 Insulin Glargine,Hum.rec.anlog 45 unit SQ HS 09/03/19 09/03/19 [Basaglar Olypen U-100] Lisinopril [Zestril] 20 mg PO BID 09/03/19 09/03/19 Meloxicam 15 mg PO DAILY PRN 09/03/19 09/03/19 Allergies Allergy/AdvReac Type Severity Reaction Status Date / Time No Known Allergies Allergy Verified 09/03/19 09:58 Review of Systems ROS Statement: Those systems with pertinent positive or pertinent negative responses have been documented in the HPI. ROS Other: All systems not noted in ROS Statement are negative. Past Medical History Past Medical History: Heart Failure, COPD, Diabetes Mellitus, Eye Disorder, Hyperlipidemia, Hypertension, Osteoarthritis (OA), Pneumonia, Sleep Apnea/CPAP/BIPAP Additional Past Medical History / Comment(s): Pulmonary fibrosis, pulmonary HTN, chronic respiratory failure, home oxygen at 3L/NC ATC, impaired L ventricular function, cardiomyopathy, JOSE JUAN with CPap, pancreatitis, chronic abdominal pain, arthritis in multiple joints, past cellulitis bilateral lower legs, sinus problems, L eye cataract History of Any Multi-Drug Resistant Organisms: None Reported Past Surgical History: Heart Catheterization, Tonsillectomy Additional Past Surgical History / Comment(s): 2013 Cardiac cath-normal coronaries Past Anesthesia/Blood Transfusion Reactions: No Reported Reaction Past Psychological History: Anxiety, Depression Smoking Status: Never smoker Past Alcohol Use History: None Reported Past Drug Use History: None Reported - Past Family History Mother Family Medical History: Cancer, Hypertension Additional Family Medical History / Comment(s): Lung cancer. Enlarged heart. Mother is . Father Additional Family Medical History / Comment(s): Pt did not know his father but his brothers shared that his father had heart disease. General Exam - General Exam Comments Initial Comments: GENERAL: Patient is well-developed and well-nourished. Patient is nontoxic and well- hydrated and is in mild distress. ENT: Neck is soft and supple. No significant lymphadenopathy is noted. Oropharynx is clear. Moist mucous membranes. Neck has full range of motion without eliciting any pain. EYES: The sclera were anicteric and conjunctiva were pink and moist. Extraocular movements were intact and pupils were equal round and reactive to light. Eyelids were unremarkable. PULMONARY: Patient has diminished breath sounds with some expiratory wheezing and crackles in his bases. CARDIOVASCULAR: There is a regular rate and rhythm without any murmurs gallops or rubs. ABDOMEN: Soft and nontender with normal bowel sounds. SKIN: Skin is clear with no lesions or rashes and otherwise unremarkable. NEUROLOGIC: Patient is alert and oriented x3. Cranial nerves II through XII are grossly intact. Motor and sensory are also intact. Normal speech, volume and content. Symmetrical smile. MUSCULOSKELETAL: Normal extremities with adequate strength and full range of motion. No lower extremity swelling or edema. No calf tenderness. LYMPHATICS: No significant lymphadenopathy is noted PSYCHIATRIC: Normal psychiatric evaluation. Limitations: physical limitation Course Vital Signs 09/03/19 09/03/19 09/03/19 08:08 08:17 08:30 Temperature 98.2 F Pulse Rate 84 Respiratory 22 Rate Blood Pressure 118/74 O2 Sat by Pulse 68 L 66 L 94 L Oximetry 09/03/19 09/03/19 09/03/19 08:35 08:40 09:00 Temperature Pulse Rate 81 93 Respiratory 30 H 26 H Rate Blood Pressure 124/65 O2 Sat by Pulse 96 Oximetry 09/03/19 09/03/19 09/03/19 09:02 09:30 10:00 Temperature Pulse Rate 98 96 93 Respiratory 25 H 25 H Rate Blood Pressure 123/67 120/66 O2 Sat by Pulse 95 94 L Oximetry Medical Decision Making - Medical Decision Making EKG shows a normal sinus rhythm at 72 bpm SC interval 170 [place] is 92 QT interval is 48 QTC is 446 per patient's EKG shows no ST segment elevation or depression. Patient's chest x-ray shows diffuse pulmonary edema. I gave the patient Lasix. I also started the patient on Rocephin because the patient had a fever in the chest x-ray made it very difficult to pickling solution maker any infiltrate without pulmonary edema. Patient was put on BiPAP because he was descending. Patient's lactic acid was elevated I did not give her more fluid because of the significant congestive heart failure and I felt it was probably more secondary to hypoxia I spoke with Dr. Lewis he agreed to admit the patient admitted the patient I consult pulmonary and cardiology - Lab Data Result diagrams: 09/03/19 08:36 09/03/19 08:36 Lab Results 09/03/19 09/03/19 09/03/19 Range/Units 08:36 08:36 08:36 WBC 11.7 H (3.8-10.6) k/uL RBC 4.94 (4.30-5.90) m/uL Hgb 15.3 (13.0-17.5) gm/dL Hct 46.2 (39.0-53.0) % MCV 93.4 (80.0-100.0) fL MCH 30.9 (25.0-35.0) pg MCHC 33.1 (31.0-37.0) g/dL RDW 13.6 (11.5-15.5) % Plt Count 207 (150-450) k/uL Neutrophils % 82 % Lymphocytes % 9 % Monocytes % 6 % Eosinophils % 1 % Basophils % 1 % Neutrophils # 9.6 H (1.3-7.7) k/uL Lymphocytes # 1.0 (1.0-4.8) k/uL Monocytes # 0.7 (0-1.0) k/uL Eosinophils # 0.1 (0-0.7) k/uL Basophils # 0.1 (0-0.2) k/uL PT (9.0-12.0) sec INR (<1.2) APTT (22.0-30.0) sec Sodium 141 (137-145) mmol/L Potassium 4.9 (3.5-5.1) mmol/L Chloride 105 (98-107) mmol/L Carbon Dioxide 23 (22-30) mmol/L Anion Gap 13 mmol/L BUN 12 (9-20) mg/dL Creatinine 1.05 (0.66-1.25) mg/dL Est GFR (CKD-EPI)AfAm >90 (>60 ml/min/1.73 sqM) Est GFR (CKD-EPI)NonAf 80 (>60 ml/min/1.73 sqM) Glucose 221 H (74-99) mg/dL Plasma Lactic Acid Juan (0.7-2.0) mmol/L Calcium 9.4 (8.4-10.2) mg/dL Magnesium 1.6 (1.6-2.3) mg/dL Total Bilirubin 1.7 H (0.2-1.3) mg/dL AST 50 (17-59) U/L ALT 28 (4-49) U/L Alkaline Phosphatase 136 H (38-126) U/L Troponin I (0.000-0.034) ng/mL NT-Pro-B Natriuret Pep pg/mL Total Protein 7.7 (6.3-8.2) g/dL Albumin 4.1 (3.5-5.0) g/dL Influenza Type A RNA Not Detected (Not Detectd) Influenza Type B (PCR) Not Detected (Not Detectd) 09/03/19 09/03/19 09/03/19 Range/Units 08:36 08:36 08:36 WBC (3.8-10.6) k/uL RBC (4.30-5.90) m/uL Hgb (13.0-17.5) gm/dL Hct (39.0-53.0) % MCV (80.0-100.0) fL MCH (25.0-35.0) pg MCHC (31.0-37.0) g/dL RDW (11.5-15.5) % Plt Count (150-450) k/uL Neutrophils % % Lymphocytes % % Monocytes % % Eosinophils % % Basophils % % Neutrophils # (1.3-7.7) k/uL Lymphocytes # (1.0-4.8) k/uL Monocytes # (0-1.0) k/uL Eosinophils # (0-0.7) k/uL Basophils # (0-0.2) k/uL PT 10.7 (9.0-12.0) sec INR 1.0 (<1.2) APTT 23.0 (22.0-30.0) sec Sodium (137-145) mmol/L Potassium (3.5-5.1) mmol/L Chloride (98-107) mmol/L Carbon Dioxide (22-30) mmol/L Anion Gap mmol/L BUN (9-20) mg/dL Creatinine (0.66-1.25) mg/dL Est GFR (CKD-EPI)AfAm (>60 ml/min/1.73 sqM) Est GFR (CKD-EPI)NonAf (>60 ml/min/1.73 sqM) Glucose (74-99) mg/dL Plasma Lactic Acid Juan 3.6 H* (0.7-2.0) mmol/L Calcium (8.4-10.2) mg/dL Magnesium (1.6-2.3) mg/dL Total Bilirubin (0.2-1.3) mg/dL AST (17-59) U/L ALT (4-49) U/L Alkaline Phosphatase (38-126) U/L Troponin I <0.012 (0.000-0.034) ng/mL NT-Pro-B Natriuret Pep pg/mL Total Protein (6.3-8.2) g/dL Albumin (3.5-5.0) g/dL Influenza Type A RNA (Not Detectd) Influenza Type B (PCR) (Not Detectd) 09/03/19 Range/Units 08:36 WBC (3.8-10.6) k/uL RBC (4.30-5.90) m/uL Hgb (13.0-17.5) gm/dL Hct (39.0-53.0) % MCV (80.0-100.0) fL MCH (25.0-35.0) pg MCHC (31.0-37.0) g/dL RDW (11.5-15.5) % Plt Count (150-450) k/uL Neutrophils % % Lymphocytes % % Monocytes % % Eosinophils % % Basophils % % Neutrophils # (1.3-7.7) k/uL Lymphocytes # (1.0-4.8) k/uL Monocytes # (0-1.0) k/uL Eosinophils # (0-0.7) k/uL Basophils # (0-0.2) k/uL PT (9.0-12.0) sec INR (<1.2) APTT (22.0-30.0) sec Sodium (137-145) mmol/L Potassium (3.5-5.1) mmol/L Chloride (98-107) mmol/L Carbon Dioxide (22-30) mmol/L Anion Gap mmol/L BUN (9-20) mg/dL Creatinine (0.66-1.25) mg/dL Est GFR (CKD-EPI)AfAm (>60 ml/min/1.73 sqM) Est GFR (CKD-EPI)NonAf (>60 ml/min/1.73 sqM) Glucose (74-99) mg/dL Plasma Lactic Acid Juan (0.7-2.0) mmol/L Calcium (8.4-10.2) mg/dL Magnesium (1.6-2.3) mg/dL Total Bilirubin (0.2-1.3) mg/dL AST (17-59) U/L ALT (4-49) U/L Alkaline Phosphatase (38-126) U/L Troponin I (0.000-0.034) ng/mL NT-Pro-B Natriuret Pep 144 pg/mL Total Protein (6.3-8.2) g/dL Albumin (3.5-5.0) g/dL Influenza Type A RNA (Not Detectd) Influenza Type B (PCR) (Not Detectd) Critical Care Time Critical Care Time: Yes Total Critical Care Time: 35 Disposition Clinical Impression: Congestive heart failure, Pneumonia, Chest pain Disposition: ADMITTED IP TO THIS HOSP Referrals: Elyse Baumann MD [Primary Care Provider] - 1-2 days Time of Disposition: 10:36
--- NOTE | 2019-09-03 09:30 | XR ---
EXAMINATION TYPE: XR chest 1V portable DATE OF EXAM: 09/03/2019 COMPARISON: Chest x-ray December 06, 2018. CT chest December 2017. HISTORY: History of COPD with difficulty in breathing. TECHNIQUE: Single AP portable frontal view of the chest is obtained. FINDINGS: Exam slightly suboptimal due to portable technique and patient's large body habitus. Persis tent low lung volumes and elevated right hemidiaphragm. Background cardiomegaly and underlying pulmon eli artery hypertension. Background chronic parenchymal changes with increasing alveolar and intersti tial opacities. No large pleural effusion or pneumothorax. Osseous structures are intact. IMPRESSION: Patient has background cardiomegaly, at least moderate chronic parenchymal fibrotic holley ges bilaterally, and underlying pulmonary artery hypertension with diffuse bilateral alveolar and int erstitial edema now present. Correlate for CHF exacerbation or developing ARDS on background chronic changes.
[2019-09-03 09:42] LABS: Prothrombin Time 10.7 sec (9.0-12.0)
[2019-09-03] MEDS ORDERED: FUROSEMIDE 10 MG/ML 10 ML VIAL IV STA (10:02)
[2019-09-03] MEDS ORDERED: NITROGLYCERIN OINT 1 INCH/GM PACKET TOPICAL STA (10:03)
[2019-09-03] MEDS ORDERED: cefTRIAXone IN SWFI 1,000 MG/10 ML SYRINGE IVP STA (10:03)
[2019-09-03] MEDS ORDERED: ASPIRIN 325 MG TAB PO STA (10:36)
[2019-09-03] MEDS ORDERED: PNEUMOCOCCAL VACC-PNEUMOVAX 23 25 MCG/0.5 ML VIAL IM ONE (11:33)
[2019-09-03] MEDS ORDERED: NITROGLYCERIN OINT 1 INCH/GM PACKET TOPICAL SCH (13:00)
[2019-09-03] MEDS: IPRATROPIUM-ALBUTEROL 3 ML NEB INHALATION PRN ×2 (13:57→19:23)
[2019-09-03] MEDS ORDERED: methylPREDNISolone SOD SUCCI 125 MG/2 ML VIAL IV STA (14:37)
[2019-09-03 14:40] LABS: ABG Base Excess -0.2 mmol/L; ABG HCO3 25 mmol/L (21-25); ABG Oxygen Saturation 97.8 % (94-97); ABG PCO2 40 mmHg (35-45); ABG PO2 99 mmHg (83-108); ABG TCO2 26 mmol/L (19-24); Allen Test Performed? Yes
[2019-09-03 15:03] LABS: Glucose,Whole Blood 208 mg/dL (75-99)
[2019-09-03] MEDS: AZITHROMYCIN 500 MG in SODIUM CHLORIDE 0.9% 250 ML IVPB SCH (15:14)
[2019-09-03] MEDS: HEPARIN SODIUM,PORCINE 5,000 UNIT/ML 1 ML VIAL SQ SCH (15:26)
[2019-09-03] MEDS ORDERED: FUROSEMIDE 10 MG/ML 4 ML VIAL IV SCH ×2 (16:00→21:00)
--- NOTE | 2019-09-03 16:56 | CONS ---
CONSULTATION PULMONARY/CRITICAL CARE CONSULTATION: DATE OF SERVICE: 09/03/2019 REASON FOR CONSULTATION: Shortness of breath. This is a patient who was brought into the emergency room today at about 8:00 this morning. He came in with complaints of increasing shortness of breath which had been going on for about 3 or 4 days. Apparently it started on Monday. Anyway, in addition to shortness of breath, he has had chest congestion, cough and yellow phlegm production. In addition, he had fever and chills. Every time the patient did a breathing treatment, he states, he was coughing up more and more phlegm. He does have a history of underlying pulmonary fibrosis. He mentioned COPD here as a diagnosis, but the patient is a lifelong nonsmoker. Anyway, the patient was in the emergency room. He was initially treated with breathing treatments, steroids and antibiotics. He was initially placed on nasal oxygen, but his respiratory status worsened and he was placed on placed on BiPAP therapy. Right now he is on BiPAP at 16 and 8 and 80%. He looks relatively comfortable. I did talk to him, and I told him to try to calm his breathing down a bit. I have also asked the nurse to make sure he is sitting upright so his diaphragm can work better, and keep the patient n.p.o. just in case he goes the other way. His primary care physician is Dr. Baumann. HOME MEDICATIONS: His home medications include updrafts with albuterol, aspirin, Aricept, metoprolol, ranitidine, Lyrica, Lipitor, Esbriet, Norvasc, Glucophage, fluoxetine, Lasix, insulin, Zestril and meloxicam. ALLERGIES: DENIED. MEDICAL HISTORY: Positive for CHF, diabetes, hyperlipidemia, hypertension, DJD, pneumonia, sleep apnea syndrome, pulmonary hypertension, chronic hypoxemic respiratory failure, home oxygen, cardiomyopathy, pancreatitis, abdominal discomfort, arthritis, cellulitis, sinus disease and cataracts. SURGICAL HISTORY: Includes heart catheterization and tonsillectomy. SOCIAL HISTORY: Significantly, he is a lifelong nonsmoker. Denies any alcohol or illicit drug use. FAMILY HISTORY: Positive for a mother with cancer and hypertension. Mother had lung cancer and cardiomyopathy. He did not know his father. Apparently his father had heart disease. REVIEW OF SYSTEMS: CONSTITUTIONAL: Fever, chills. NEUROLOGIC: Negative. HEENT: Negative. CARDIOVASCULAR: Negative. PULMONARY: Shortness of breath, chest congestion and coughing and yellow phlegm production. GI: Negative. : Negative. RHEUMATOLOGIC: Negative. IMMUNOLOGIC: Negative. ENDOCRINOLOGIC: Negative. DERMATOLOGIC: Negative. PHYSICAL EXAMINATION: VITAL SIGNS: Current vital signs are reviewed. Temperature is 98, heart rate 94, respiratory rate 30, blood pressure 104/79, mean 87. Saturations are 95% on 80% FiO2. GENERAL APPEARANCE: He appears mildly tachypneic. He can speak in full sentences. No audible wheezing. No use of accessory muscles. HEENT EXAMINATION: Grossly unremarkable. BiPAP mask in place. NECK: Supple. Full range of motion. No adenopathy. Neck veins are flat. CARDIOVASCULAR: Examination reveals regular rhythm and rate. Heart rate is 94 beats per minute. Heart sounds are distant. LUNGS: Lungs reveal some coarse rhonchi. There are some bibasilar crackles. Breath sounds equal. ABDOMEN: Obese. Bowel sounds are heard. EXTREMITIES: Intact. No edema. SKIN: Without rash. NEUROLOGIC: Neurologic examination is brief but nonfocal. IMAGING: Chest x-ray shows diffuse bilateral interstitial infiltrates consistent with the patient's known history of pulmonary fibrosis, but in addition the patient has diffuse, more consolidative processes bilaterally, likely related to pneumonia. LABS: Reviewed. White count 11.7, hemoglobin 15.3, hematocrit 46.2, platelet count 207,000. PT/INR and PTT normal. Electrolytes all normal. Blood gases show pO2 of 99, pCO2 of 40, pH of 7.40. BUN and creatinine were 12 and 1.05. Glucose 221. Bilirubin 1.7. Lactic acid 1.8. N-terminal proBNP was 144. Troponin less than 0.012. Influenza studies were negative. Medications are reviewed. They will be adjusted accordingly. ASSESSMENT: 1. Acute hypoxemic respiratory failure, secondary to both underlying idiopathic pulmonary fibrosis/interstitial lung disease, likely complicated by pneumonia. 2. Doubt congestive heart failure to any great extent. 3. Doubt chronic obstructive pulmonary disease. 4. Obesity. 5. History of sleep apnea syndrome. 6. History of congestive heart failure. 7. History of cardiomyopathy. 8. Diabetes mellitus. 9. Cataracts. 10.Hyperlipidemia. 11.History of hypertension. 12.Osteoarthritis. 13.History of pneumonia. 14.Chronic hypoxemic respiratory failure. 15.History of pancreatitis. 16.Previous history of cellulitis of the lower extremities. 17.Cardiomyopathy. PLAN: Please see my orders. The patient will be maintained on updrafts. We will also add some corticosteroids and antibiotics. Will continue on BiPAP therapy. The patient will be n.p.o. Head of bed elevated at all times. Will continue to follow closely. Hopefully he will not require intubation and mechanical ventilation. Prognosis is guarded. NAN / MCN: [id number] /
[2019-09-03 17:57] LABS: Glucose,Whole Blood 238 mg/dL (75-99)
[2019-09-03] MEDS: methylPREDNISolone SOD SUCCI 40 MG/ML 1 ML VIAL IV SCH (18:03)
[2019-09-03] MEDS: INSULIN ASPART (NovoLOG) 100 UNIT/ML VIAL SQ SCH (18:08)
[2019-09-03] MEDS: SODIUM CHLORIDE 0.9% 1,000 ML IV SCH ×2 (18:08→22:26)
[2019-09-03] MEDS ORDERED: INSULIN DETEMIR (LEVEMIR) 100 UNIT/ML SYR SQ SCH (21:00)
--- NOTE | 2019-09-03 21:08 | P.HPIM ---
History of Present Illness H&P Date: 09/03/19 Chief Complaint: Shortness of breath Patient is a 58 old male with a known history of chronic hypoxic respiratory failure on 3 L oxygen with another cannula, idiopathic pulmonary fibrosis, diabetes type 2 insulin-dependent, hypertension, hyperlipidemia, osteoarthritis, obstructive sleep apnea on CPAP at home, osteoarthritis of multiple joints and no prior history of smoking came to ER with complaints of worsening shortness of breath since Monday. Patient does have cough without SPUTUM production. No complaints of fever or chills at home. Patient was having T-max of 101.1 on admission. No complaints of chest pain. No nausea vomiting Or abdominal pain. Chest x-ray showed background cardiomegaly. Moderate chronic parenchymal arthritic changes bilaterally and underlying pulmonary artery hypertension with diffuse bilateral on the lower end interstitial edema now present. Correlate for CHF exacerbation or developing ARDS on background chronic changes. WBC 11.7 Lactic acid 3.6 BNP 144 Troponin 1 negative Review of Systems Constitutional: Patient denies any fever or chills . No generalized weakness or weight loss. Abdomen: Patient denied nausea vomiting and diarrhea and abdominal pain. Cardiovascular: Patient denies any chest pain or short of breath no palpitations. Respiratory: Patient does have cough without production. worsening shortness of breath Neurologic: Patient denied any numbness or tingling headache. Musculoskeletal: Patient denies any complaints of joint swelling or deformity. Skin: Negative Psychiatric: Negative Endocrine: No heat or cold intolerance. No recent weight gain. Genitourinary: No dysuria or hematuria. All other 14 point ROS negative except the above Past Medical History Past Medical History: Heart Failure, COPD, Diabetes Mellitus, Eye Disorder, Hyperlipidemia, Hypertension, Osteoarthritis (OA), Pneumonia, Sleep Apnea/CPAP/BIPAP Additional Past Medical History / Comment(s): Pulmonary fibrosis, pulmonary HTN, tracheobronchitis, chronic respiratory failure, home oxygen at 3L/NC ATC, impaired L ventricular function, cardiomyopathy, JOSE JUAN with CPap, pancreatitis, chronic abdominal pain, arthritis in multiple joints, past cellulitis bilateral lower legs, sinus problems, L eye glaucoma History of Any Multi-Drug Resistant Organisms: None Reported Past Surgical History: Heart Catheterization, Tonsillectomy Additional Past Surgical History / Comment(s): 2013 Cardiac cath-normal coronaries Past Anesthesia/Blood Transfusion Reactions: No Reported Reaction Smoking Status: Never smoker - Past Family History Mother Family Medical History: Cancer, Hypertension Additional Family Medical History / Comment(s): Lung cancer. Enlarged heart. Mother is . Father Additional Family Medical History / Comment(s): Pt did not know his father but his brothers shared that his father had heart disease. Medications and Allergies Home Medications Medication Instructions Recorded Confirmed Type Albuterol Nebulized [Ventolin 2.5 mg INHALATION RT-QID PRN 05/21/15 09/03/19 History Nebulized] Aspirin 81 mg PO DAILY 05/21/15 09/03/19 History Donepezil [Aricept] 10 mg PO DAILY 05/21/15 09/03/19 History Metoprolol Tartrate [Lopressor] 50 mg PO BID 06/12/17 09/03/19 History Ranitidine HCl 150 mg PO BID 06/12/17 09/03/19 History Pregabalin [Lyrica] 150 mg PO BID 09/12/17 09/03/19 History Atorvastatin Calcium [Lipitor] 10 mg PO DAILY 10/16/17 09/03/19 History Pirfenidone [Esbriet] 801 mg PO TID 12/06/18 09/03/19 History amLODIPine [Norvasc] 10 mg PO DAILY 12/06/18 09/03/19 History metFORMIN HCL [Glucophage] 500 mg PO BID 12/06/18 09/03/19 History FLUoxetine HCL 40 mg PO DAILY 09/03/19 09/03/19 History Furosemide [Lasix] 20 mg PO DAILY 09/03/19 09/03/19 History Insulin Glargine,Hum.rec.anlog 45 unit SQ HS 09/03/19 09/03/19 History [Basaglar Kwikpen U-100] Lisinopril [Zestril] 20 mg PO BID 09/03/19 09/03/19 History Meloxicam 15 mg PO DAILY PRN 09/03/19 09/03/19 History Allergies Allergy/AdvReac Type Severity Reaction Status Date / Time No Known Allergies Allergy Verified 09/03/19 09:58 Physical Exam Vitals: Vital Signs Temp Pulse Resp BP Pulse Ox 09/03/19 10:00 93 25 H 120/66 94 L 09/03/19 09:30 96 25 H 123/67 95 09/03/19 09:02 98 09/03/19 09:00 93 26 H 124/65 96 09/03/19 08:40 30 H 09/03/19 08:35 81 09/03/19 08:30 94 L 09/03/19 08:17 66 L 09/03/19 08:08 98.2 F 84 22 118/74 68 L Intake and Output 09/02/19 09/03/19 09/03/19 22:59 06:59 14:59 Other: Weight 152.407 kg PHYSICAL EXAMINATION: Patient is lying in the bed comfortably, mild acute distress, awake alert and oriented.. HEENT: Normocephalic. Neck is supple. Pupils reactive. Nostrils clear. Oral cavity is moist. Ears reveal no drainage. Neck reveals no JVD, carotid bruits, or thyromegaly. CHEST EXAMINATION: Trachea is central. Symmetrical expansion. Bilateral diffuse crackles and scattered rhonchi.. CARDIAC: Normal S1, S2 with no gallops. No murmurs ABDOMEN: Soft. Bowel sounds normal. No organomegaly. No abdominal bruits. Extremities: reveal no edema. No clubbing or cyanosis Neurologically awake, alert, oriented x3 with well-coordinated movements. No focal deficits noted Skin: No rash or skin lesions. Psychiatric: Coperative. Nonsuicidal Musculoskeletal: No joint swelling or deformity. Normal range of motion. Results CBC & Chem 7: 09/03/19 08:36 09/03/19 08:36 Labs: Abnormal Lab Results - Last 24 Hours (Table) 09/03/19 09/03/19 09/03/19 Range/Units 08:36 08:36 08:36 WBC 11.7 H (3.8-10.6) k/uL Neutrophils # 9.6 H (1.3-7.7) k/uL Glucose 221 H (74-99) mg/dL Plasma Lactic Acid Juan 3.6 H* (0.7-2.0) mmol/L Total Bilirubin 1.7 H (0.2-1.3) mg/dL Alkaline Phosphatase 136 H (38-126) U/L Thrombosis Risk Factor Assmnt - DVT/VTE Prophylaxis DVT/VTE Prophylaxis: Pharmacologic Prophylaxis ordered - Choose All That Apply Any of the Below Risk Factors Present?: Yes Each Factor Represents 1 point: Abnormal pulmonary function (COPD), Age 41-60 years, Obesity (BMI >25), Serious lung disease incl. pneumonia (< 1month) Other Risk Factors: No Other congenital or acquired thrombophilia - If yes, enter type in comment: No Thrombosis Risk Factor Assessment Total Risk Factor Score: 4 Thrombosis Risk Factor Assessment Level: Moderate Risk Assessment and Plan Assessment: Acute on chronic hypoxic respiratory failure secondary to pulmonary fibrosis. Lactic is ptosis secondary to hypoxia Possible underlying pneumonia Unlikely CHF. BNP is 144 and leg swelling. Chronic right hemidiaphragm paralysis Obstructive sleep apnea on CPAP at home Chronic CHF with systolic dysfunction. Diabetes type 2 insulin-dependent Hypertension Hyperlipidemia Osteoarthritis No history of prior smoking Morbid obesity BMI 46.9 DVT prophylaxis with heparin subcu Plan: Patient is currently on BiPAP machine. Patient will be started on Solu-Medrol IV 60 mg every 6 hourly and continue with duo nebs. Patient was given IV Lasix in the ER due to possible interstitial edema but chest x-ray findings may be due to underlying pulmonary fibrosis. Continue with empiric antibiotics in the form of ceftriaxone and azithromycin. Continue with insulin sliding scale and Levemir 45 units daily at bedtime. Continue the home medications and follow closely. Monitor renal function. Next and further recommendations based on the clinical course. Prognosis is guarded with multiple medical problems and comorbid conditions. Time with Patient: Greater than 30
[2019-09-04] MEDS: IPRATROPIUM-ALBUTEROL 3 ML NEB INHALATION PRN ×4 (00:21→17:09)
[2019-09-04 00:24] LABS: Glucose,Whole Blood 269 mg/dL (75-99)
[2019-09-04] MEDS ORDERED: INSULIN REGULAR BOLUS (FROM DRIP BAG) IV PRN (00:34)
[2019-09-04] MEDS: methylPREDNISolone SOD SUCCI 40 MG/ML 1 ML VIAL IV SCH ×5 (00:43→23:26)
[2019-09-04] MEDS: HEPARIN SODIUM,PORCINE 5,000 UNIT/ML 1 ML VIAL SQ SCH ×4 (00:43→23:25)
[2019-09-04] MEDS: INSULIN REGULAR 100 UNIT in SODIUM CHLORIDE 0.9% 100 ML IV SCH ×3 (01:05→22:06)
[2019-09-04 01:42] LABS: Glucose,Whole Blood 275 mg/dL (75-99)
[2019-09-04 02:10] LABS: Glucose,Whole Blood 257 mg/dL (75-99)
[2019-09-04 03:05] LABS: Glucose,Whole Blood 272 mg/dL (75-99)
[2019-09-04 04:23] LABS: Glucose,Whole Blood 188 mg/dL (75-99)
[2019-09-04 05:03] LABS: Basophils % (A) 0 %; Eosinophils % (A) 0 %; HCT 43.8 % (39.0-53.0); HGB 14.1 gm/dL (13.0-17.5); Lymphocytes # (A) 0.3 k/uL (1.0-4.8); Lymphocytes % (A) 3 %; MCH 30.3 pg (25.0-35.0); MCHC 32.1 g/dL (31.0-37.0); MCV 94.3 fL (80.0-100.0); Monocytes # (A) 0.4 k/uL (0-1.0); Monocytes % (A) 4 %; Neutrophils # (A) 9.1 k/uL (1.3-7.7); Neutrophils % (A) 92 %; Platelet Count 175 k/uL (150-450); RBC 4.64 m/uL (4.30-5.90); RDW 13.7 % (11.5-15.5); WBC 9.9 k/uL (3.8-10.6)
[2019-09-04 05:06] LABS: Glucose,Whole Blood 186 mg/dL (75-99)
[2019-09-04 05:25] LABS: ALT 26 U/L (4-49); AST 40 U/L (17-59); African American GFR (CKD) >90 (>60 ml/min/1.73 sqM); Albumin 3.7 g/dL (3.5-5.0); Alkaline Phosphatase 144 U/L (38-126); Anion Gap 9 mmol/L; Blood Urea Nitrogen 24 mg/dL (9-20); Calcium 9.1 mg/dL (8.4-10.2); Carbon Dioxide 25 mmol/L (22-30); Chloride 107 mmol/L (98-107); Glucose 216 mg/dL (74-99); Non-African American GFR(CKD) 89 (>60 ml/min/1.73 sqM); Potassium 4.2 mmol/L (3.5-5.1); Sodium 141 mmol/L (137-145); Total Bilirubin 0.9 mg/dL (0.2-1.3); Total Protein 7.1 g/dL (6.3-8.2)
[2019-09-04 06:10] LABS: Glucose,Whole Blood 179 mg/dL (75-99)
[2019-09-04 06:57] LABS: Glucose,Whole Blood 189 mg/dL (75-99)
--- NOTE | 2019-09-04 07:17 | XR ---
EXAMINATION TYPE: XR chest 1V DATE OF EXAM: 09/04/2019 COMPARISON: 09/03/2019 HISTORY: Difficulty breathing TECHNIQUE: Single frontal view of the chest is obtained. FINDINGS: Bilateral airspace disease is stable. Heart is enlarged. Could not exclude small pleural e ffusions. No pneumothorax. Limited inspiration. Arthropathy shoulders. IMPRESSION: Diffuse bilateral airspace disease stable
[2019-09-04 08:14] LABS: Glucose,Whole Blood 226 mg/dL (75-99)
[2019-09-04] MEDS: PANTOPRAZOLE 40 MG/10 ML VIAL IVP SCH (08:26)
--- NOTE | 2019-09-04 08:55 | PN ---
PROGRESS NOTE PULMONARY/CRITICAL CARE PROGRESS NOTE: DATE OF SERVICE: September 04, 2019 This is a 58-year-old gentleman who I saw yesterday in consultation. The patient was initially brought to the emergency room with increasing shortness of breath, fever, chills, cough, phlegm production. Apparently had been going on for about 3 or 4 days beginning this past Monday and getting progressively worse. He was seen in the emergency room initially thought to have fluid overload. He had no lower extremity edema. His N-terminal proBNP was normal, but he was given Lasix anyway. He was initially placed on BiPAP and transferred to the ICU. It appears that he has underlying pneumonia. It is probably community-acquired. In addition, he does have a well-established history of pulmonary fibrosis. It does mention COPD in the emergency room note, but I do not believe he does have COPD and he is a lifelong nonsmoker. Anyway, when he first arrived here in the ICU, he was quite tachypneic. He was on BiPAP at 16 and 8 and 80%. That been turned down to 75%. He is doing much better today, clinically looks much better. I told him that he really needs to settle his breathing down focus on his breathing, so he could avoid intubation and mechanical ventilation. Chest x-ray in my opinion does show diffuse bilateral infiltrates on top of pulmonary fibrosis, maybe slightly improved. I did tell respiratory therapy the patient could try either AIRVO or high-flow oxygen instead of BiPAP. He may or may not tolerate it. In addition, the patient is getting saline at 75 mL an hours insulin drip of 5 units an hour. His saturations are in the low to mid 90s. He himself feels much more comfortable. PHYSICAL EXAMINATION: VITAL SIGNS: Current vital signs are reviewed. His temperature is 98.9, heart rate 88, respiratory rate 26, blood pressure 141/83, mean 102, saturations 94%. GENERAL: Appears in no acute distress. HEENT: Examination is grossly unremarkable. Mucous membranes are moist. BiPAP mask in place. NECK: Supple. Full range of motion. No adenopathy, thyromegaly or neck vein distention. CARDIOVASCULAR: Examination reveals regular rhythm and rate. Heart rate in the 80s. S1, S2 normal. Heart sounds are distant. LUNGS: Reveal coarse bilateral rhonchi and crackles. No wheezes. Breath sounds equal. ABDOMEN: Obese. Bowel sounds are heard. EXTREMITIES: Are intact. No edema. SKIN: Without rash. NEUROLOGIC: Examination is brief but nonfocal. Chest x-ray shows diffuse bilateral infiltrates. In my opinion, chest x-rays have improved. Microbiology is pending or negative. LAB DATA: Lab data includes a white count of 9.9, hemoglobin 14.1, hematocrit 43.8, platelet count 175,000. PT, INR, PTT normal. Blood gases showed a pO2 of 99, pCO2 of 40 and pH is 7.40. Sodium 141, potassium 4.2, chloride 107, CO2 is 25. Anion gap is 9. BUN and creatinine 24 and 0.96. The rest of the labs look pretty good. Influenza studies were negative. MEDICATIONS: Medications are reviewed. The patient is on Zithromax and Rocephin usual doses, subcu heparin for DVT prophylaxis, insulin per protocol, DuoNeb, Solu-Medrol 40 mg q.6, and an IV. The patient is also getting Protonix. ASSESSMENT: 1. Acute hypoxemic respiratory failure, secondary to both underlying idiopathy pulmonary fibrosis/interstitial lung disease, likely complicated by pneumonia, community acquired. 2. Doubt congestive heart failure. 3. Doubt chronic obstructive pulmonary disease. 4. Obesity. 5. History of sleep apnea syndrome. 6. History of congestive heart failure. 7. History of cardiomyopathy. 8. Diabetes mellitus. 9. Cataracts. 10.History of hyperlipidemia. 11.Benign essential hypertension. 12.Degenerative joint disease. 13.History of pneumonia. 14.Chronic hypoxemic respiratory failure. 15.History of pancreatitis. 16.History of cellulitis of the lower extremities. 17.Cardiomyopathy. PLAN: The patient could switch from BiPAP to either high-flow oxygen or AIRVO. The FiO2 was dropped slightly from 80% to 75%. The patient remains on BiPAP. Getting insulin drip of 5 units an hour for blood sugar control. Chest x-ray in my opinion is slightly better. The patient remains on updrafts and antibiotics. Additional recommendations and suggestions are forthcoming. Prognosis is guarded. We will continue to follow. Hopefully, the patient does not require intubation and mechanical ventilation. It was certainly looking that way yesterday. CRITICAL CARE TIME: 32 minutes. NAN / MCN: [id number] /
[2019-09-04] MEDS ORDERED: ATORVASTATIN 10 MG TAB PO SCH (09:00)
[2019-09-04 09:07] LABS: Glucose,Whole Blood 215 mg/dL (75-99)
--- NOTE | 2019-09-04 09:23 | ECHOF ---
Referral Reason:Pulmonary hypertension MEASUREMENTS -------- HEIGHT: 182.9 cm WEIGHT: 152.4 kg BP: RVIDd: 2.4 cm (< 3.3) IVSd: 1.4 cm (0.6 - 1.1) LVIDd: 5.8 cm (3.9 - 5.3) LVPWd: 1.3 cm (0.6 - 1.1) IVSs: 1.7 cm LVIDs: 4.6 cm LVPWs: 1.1 cm Ao Diam: 3.7 cm (2.0 - 3.7) AV Cusp: 2.6 cm (1.5 - 2.6) LA Diam: 3.1 cm (2.7 - 3.8) MV EXCURSION: 20.824 mm (> 18.000) MV EF SLOPE: 53 mm/s (70 - 150) EPSS: 1.5 cm MV E Alberto: 0.54 m/s MV DecT: 234 ms MV A Alberto: 0.61 m/s MV E/A Ratio: 0.90 AR PHT: 270 ms RAP: 5.00 mmHg RVSP: 11.51 mmHg FINDINGS -------- Sinus rhythm. This was a technically difficult study with suboptimal views. The left ventricular size is normal. There is moderate concentric left ventricular hypertrophy. O verall left ventricular systolic function is mildly impaired with, an EF between 45 - 50 %. The right ventricle is normal in size. The left atrial size is normal. The right atrial size is normal. Lumason used The aortic valve is trileaflet and appears structurally normal. There is mild aortic regurgitation. The mitral valve is normal. There is trace mitral regurgitation. The tricuspid valve appears structurally normal. Trace tricuspid regurgitation present. Right alta tricular systolic pressure is normal at < 35 mmHg. There is no pulmonic regurgitation present. The aortic root size is normal. IVC Not well visulized. There is no pericardial effusion. CONCLUSIONS -------- 1. Sinus rhythm. 2. This was a technically difficult study with suboptimal views. 3. The left ventricular size is normal. 4. There is moderate concentric left ventricular hypertrophy. 5. The right ventricle is normal in size. 6. The left atrial size is normal. 7. The right atrial size is normal. 8. Lumason used 9. The aortic valve is trileaflet and appears structurally normal. 10. There is mild aortic regurgitation. 11. The mitral valve is normal. 12. There is trace mitral regurgitation. 13. The tricuspid valve appears structurally normal. 14. Trace tricuspid regurgitation present. 15. Right ventricular systolic pressure is normal at < 35 mmHg. 16. There is no pulmonic regurgitation present. 17. The aortic root size is normal. 18. IVC Not well visulized. 19. There is no pericardial effusion. APRON WORKER: Criselda Durbin RDCS
[2019-09-04 10:09] LABS: Glucose,Whole Blood 196 mg/dL (75-99)
[2019-09-04] MEDS ORDERED: ASPIRIN 325 MG TAB PO SCH (10:37)
[2019-09-04 11:06] LABS: Glucose,Whole Blood 192 mg/dL (75-99)
[2019-09-04 12:04] LABS: Glucose,Whole Blood 159 mg/dL (75-99)
[2019-09-04 13:11] LABS: Glucose,Whole Blood 164 mg/dL (75-99)
--- NOTE | 2019-09-04 13:36 | P.CRDCN ---
History of Present Illness History of present illness: This is Elsa Clemons PA-C dictating a consult on this patient The patient was interviewed and examined by me as well as by Dr. Llanes Case discussed with Dr. Llanes and he agrees with the plan of care IMPRESSION / ASSESSMENT: Hypoxic respiratory failure, likely secondary to underlying pulmonary fibrosis and possible pneumonia, on BiPAP and antibiotics Cardiomyopathy, recent echo showing EF 45-50% Hypertension Dyslipidemia Diabetes Obstructive sleep apnea PLAN: Start metoprolol succinate 50 mg daily for treatment of cardiomyopathy We'll gradually maximize treatment of cardiomyopathy medications as tolerated Add low-dose PO Lasix Obtain records from the office HPI Patient is a 58-year-old male with a past medical history significant for pulmonary fibrosis, hypertension, dyslipidemia, obstructive sleep apnea, diabetes and heart failure who presented with complaints of shortness of breath. Patient follows with Dr. Escobar in the office. Patient states that for the last couple days he has been progressively more short of breath. He has been using his breathing treatments and supplemental oxygen without any relief. He has also had productive cough with yellow sputum. He believes he may have had a fever as well. Denies any chest pain. He came into the hospital for further evaluation. Upon presentation to the emergency department he was afebrile, pulse was 84, blood pressure was 118/74 and his oxygen saturation was 68%. Chest x-ray showed moderate chronic parenchymal renal fibrotic changes, and interstitial edema. EKG showed sinus mechanism, no acute ST changes. He was placed on BiPAP and admitted to the ICU. Been started on antibiotics. Patient seen and examined in the ICU, remains on BiPAP. Remains short of breath.. Denies any chest pain. ROS: Positive fever Positive for productive cough no nausea, vomiting or diarrhea, no hematuria, dysuria, no musculoskeletal complaints, no strokes or seizures, no skin lesions. EXAMINATION: Patient is afebrile, pulse in the 90s, respirations 19, blood pressure 143/90, oxygen saturation 91% on BiPAP Patient seen in the ICU on BiPAP Bilateral breath sounds reduced with crackles and wheezing Heart is regular, tachycardic, no audible murmurs No visible elevated JVD No lower extremity edema REVIEW OF LABS, ECG & MEDICAL DATA WBC 9.9, hemoglobin 14.1, platelets 175, potassium 4.2, BUN 24, creatinine 0.96 Troponins negative 2 Echocardiogram shows EF 45-50%, moderate concentric LVH Past Medical History Past Medical History: Heart Failure, COPD, Diabetes Mellitus, Eye Disorder, Hyperlipidemia, Hypertension, Osteoarthritis (OA), Pneumonia, Sleep Apnea/CPAP/BIPAP Additional Past Medical History / Comment(s): Pulmonary fibrosis, pulmonary HTN, tracheobronchitis, chronic respiratory failure, home oxygen at 3L/NC ATC, im paired L ventricular function, cardiomyopathy, JOSE JUAN with CPap, pancreatitis, chronic abdominal pain, arthritis in multiple joints, past cellulitis bilateral lower legs, sinus problems, L eye glaucoma History of Any Multi-Drug Resistant Organisms: None Reported Past Surgical History: Heart Catheterization, Tonsillectomy Additional Past Surgical History / Comment(s): 2013 Cardiac cath-normal coronaries Past Anesthesia/Blood Transfusion Reactions: No Reported Reaction Smoking Status: Never smoker - Past Family History Mother Family Medical History: Cancer, Hypertension Additional Family Medical History / Comment(s): Lung cancer. Enlarged heart. Mother is . Father Additional Family Medical History / Comment(s): Pt did not know his father but his brothers shared that his father had heart disease. Medications and Allergies Home Medications Medication Instructions Recorded Confirmed Type Albuterol Nebulized [Ventolin 2.5 mg INHALATION RT-QID PRN 05/21/15 09/03/19 History Nebulized] Aspirin 81 mg PO DAILY 05/21/15 09/03/19 History Donepezil [Aricept] 10 mg PO DAILY 05/21/15 09/03/19 History Metoprolol Tartrate [Lopressor] 50 mg PO BID 06/12/17 09/03/19 History Ranitidine HCl 150 mg PO BID 06/12/17 09/03/19 History Pregabalin [Lyrica] 150 mg PO BID 09/12/17 09/03/19 History Atorvastatin Calcium [Lipitor] 10 mg PO DAILY 10/16/17 09/03/19 History Pirfenidone [Esbriet] 801 mg PO TID 12/06/18 09/03/19 History amLODIPine [Norvasc] 10 mg PO DAILY 12/06/18 09/03/19 History metFORMIN HCL [Glucophage] 500 mg PO BID 12/06/18 09/03/19 History FLUoxetine HCL 40 mg PO DAILY 09/03/19 09/03/19 History Furosemide [Lasix] 20 mg PO DAILY 09/03/19 09/03/19 History Insulin Glargine,Hum.rec.anlog 45 unit SQ HS 09/03/19 09/03/19 History [Dany Sanchez U-100] Lisinopril [Zestril] 20 mg PO BID 09/03/19 09/03/19 History Meloxicam 15 mg PO DAILY PRN 09/03/19 09/03/19 History Allergies Allergy/AdvReac Type Severity Reaction Status Date / Time No Known Allergies Allergy Verified 09/03/19 09:58 Physical Exam Vitals: Vital Signs Temp Pulse Resp BP Pulse Ox 09/04/19 13:00 102 H 22 136/81 91 L 09/04/19 12:00 98.7 F 101 H 19 143/90 91 L 09/04/19 11:36 95 09/04/19 11:23 93 09/04/19 11:19 93 L 09/04/19 11:00 104 H 25 H 143/92 94 L 09/04/19 10:00 105 H 23 142/84 93 L 09/04/19 09:00 108 H 27 H 153/81 92 L 09/04/19 08:00 98.7 F 94 28 H 141/83 93 L 09/04/19 07:53 88 09/04/19 07:26 86 09/04/19 07:00 80 26 H 141/83 94 L 09/04/19 06:00 95 28 H 132/71 91 L 09/04/19 05:00 88 26 H 135/78 94 L 09/04/19 04:00 98.9 F 85 25 H 135/72 93 L 09/04/19 03:00 93 27 H 135/77 92 L 09/04/19 02:00 95 25 H 128/82 93 L 09/04/19 01:00 96 26 H 134/78 94 L 09/04/19 00:29 86 09/04/19 00:21 79 09/04/19 00:00 98.6 F 80 22 138/84 94 L 09/03/19 23:00 87 36 H 120/83 95 09/03/19 22:00 86 26 H 120/86 94 L 09/03/19 21:00 85 26 H 126/78 94 L 09/03/19 20:00 99.1 F 87 28 H 134/73 94 L 09/03/19 19:33 73 27 H 09/03/19 19:23 77 38 H 09/03/19 19:00 73 22 119/76 96 09/03/19 18:00 75 27 H 114/63 95 09/03/19 17:00 80 24 105/76 95 09/03/19 16:30 82 22 105/76 95 09/03/19 16:00 98.9 F 82 12 131/75 97 09/03/19 15:30 93 18 93 L 09/03/19 14:30 98.0 F 94 38 H 104/79 95 09/03/19 14:09 89 09/03/19 14:00 82 36 H 91 L 09/03/19 13:57 81 Intake and Output 09/03/19 09/04/19 09/04/19 22:59 06:59 14:59 Intake Total 625 641.612 637.030 Output Total 190 215 240 Balance 435 426.612 397.030 Intake: IV 625 600 575 Azithromycin 500 mg In 250 Sodium Chloride 0.9% 250 ml @ 250 mls/hr IVPB DAILY@1600 [facility] Rx#: [id number] Sodium Chloride 0.9% 1, 375 600 525 000 ml @ 75 mls/hr IV . [id number] [facility] Rx#:[id number] cefTRIAXone 1 gm In 50 Sodium Chloride 0.9% 50 ml @ 100 mls/hr IVPB Q24HR [facility] Rx#:[id number] Intake, IV Titration 41.612 62.030 Amount Insulin Regular 100 unit 41.612 62.030 In Sodium Chloride 0.9% 100 ml @ Per Protocol IV .Q0M [facility] Rx#:[id number] Output: Urine 190 215 240 Other: Voiding Method Indwelling Catheter Indwelling Catheter Indwelling Catheter Weight 144.3 kg 144.3 kg Results 09/04/19 04:01 09/04/19 03:59 Cardiac Enzymes 09/03/19 09/04/19 Range/Units 22:35 03:59 AST 40 (17-59) U/L Troponin I <0.012 (0.000-0.034) ng/mL CBC 09/04/19 Range/Units 04:01 WBC 9.9 (3.8-10.6) k/uL RBC 4.64 (4.30-5.90) m/uL Hgb 14.1 (13.0-17.5) gm/dL Hct 43.8 (39.0-53.0) % Plt Count 175 (150-450) k/uL Comprehensive Metabolic Panel 09/04/19 Range/Units 03:59 Sodium 141 (137-145) mmol/L Potassium 4.2 (3.5-5.1) mmol/L Chloride 107 (98-107) mmol/L Carbon Dioxide 25 (22-30) mmol/L BUN 24 H (9-20) mg/dL Creatinine 0.96 (0.66-1.25) mg/dL Glucose 216 H (74-99) mg/dL Calcium 9.1 (8.4-10.2) mg/dL AST 40 (17-59) U/L ALT 26 (4-49) U/L Alkaline Phosphatase 144 H (38-126) U/L Total Protein 7.1 (6.3-8.2) g/dL Albumin 3.7 (3.5-5.0) g/dL Current Medications Generic Name Dose Route Start Last Admin Trade Name Freq PRN Reason Stop Dose Admin Albuterol/Ipratropium 3 ml 09/03/19 11:38 09/04/19 11:23 Duoneb 0.5 Mg-3 Mg/3 Ml Soln INHALATION 3 ml RT-QID PRN Administration Shortness Of Breath Or Wheezing Furosemide 40 mg 09/05/19 09:00 Lasix PO DAILY [facility] Heparin Sodium (Porcine) 5,000 unit 09/03/19 16:00 09/04/19 08:26 Heparin SQ 5,000 unit Q8HR [facility] Administration Ceftriaxone Sodium 1 gm/ 50 mls @ 100 mls/hr 09/04/19 09:00 09/04/19 08:26 Sodium Chloride IVPB 100 mls/hr Q24HR [facility] Administration Azithromycin 500 mg/ Sodium 250 mls @ 250 mls/hr 09/03/19 16:00 09/03/19 15:14 Chloride IVPB 250 mls/hr DAILY@1600 [facility] Administration Sodium Chloride 1,000 mls @ 75 mls/hr 09/03/19 16:30 09/03/19 22:26 Saline 0.9% IV 75 mls/hr .[id number] [facility] Administration Insulin Human Regular 100 unit 101 mls @ 0 mls/hr 09/04/19 01:00 09/04/19 13:11 / Sodium Chloride IV 7 units/hr .Q0M [facility] 7.07 mls/hr Titration Protocol Per Protocol Methylprednisolone Sodium Succinate 40 mg 09/03/19 18:00 09/04/19 12:28 Solu-Medrol IV 40 mg Q6HR [facility] Administration Metoprolol Succinate 50 mg 09/04/19 13:30 Toprol Xl PO DAILY [facility] Pantoprazole Sodium 40 mg 09/04/19 09:00 09/04/19 08:26 Protonix IVP 40 mg DAILY [facility] Administration Intake and Output 09/03/19 09/04/19 09/04/19 22:59 06:59 14:59 Intake Total 625 641.612 637.030 Output Total 190 215 240 Balance 435 426.612 397.030 Intake: IV 625 600 575 Azithromycin 500 mg In 250 Sodium Chloride 0.9% 250 ml @ 250 mls/hr IVPB DAILY@1600 [facility] Rx#: [id number] Sodium Chloride 0.9% 1, 375 600 525 000 ml @ 75 mls/hr IV . [id number] [facility] Rx#:[id number] cefTRIAXone 1 gm In 50 Sodium Chloride 0.9% 50 ml @ 100 mls/hr IVPB Q24HR [facility] Rx#:[id number] Intake, IV Titration 41.612 62.030 Amount Insulin Regular 100 unit 41.612 62.030 In Sodium Chloride 0.9% 100 ml @ Per Protocol IV .Q0M [facility] Rx#:[id number] Output: Urine 190 215 240 Other: Voiding Method Indwelling Catheter Indwelling Catheter Indwelling Catheter Weight 144.3 kg 144.3 kg Patient Weight 09/05/19 06:59 Weight 144.3 kg 09/04/19 04:01 09/04/19 03:59
[2019-09-04] MEDS: METOPROLOL SUCCINATE (ER) 50 MG TAB.ER.24H PO SCH (14:30)
[2019-09-04 14:35] LABS: Glucose,Whole Blood 167 mg/dL (75-99)
[2019-09-04] MEDS: AZITHROMYCIN 500 MG in SODIUM CHLORIDE 0.9% 250 ML IVPB SCH (15:31)
[2019-09-04 16:14] LABS: Glucose,Whole Blood 161 mg/dL (75-99)
[2019-09-04 18:08] LABS: Glucose,Whole Blood 155 mg/dL (75-99)
[2019-09-04] MEDS: SODIUM CHLORIDE 0.9% 1,000 ML IV SCH (18:12)
[2019-09-04 19:05] LABS: Glucose,Whole Blood 175 mg/dL (75-99)
[2019-09-04 20:03] LABS: Glucose,Whole Blood 172 mg/dL (75-99)
[2019-09-04 21:10] LABS: Glucose,Whole Blood 155 mg/dL (75-99)
[2019-09-04 21:53] LABS: Glucose,Whole Blood 144 mg/dL (75-99)
[2019-09-04 23:01] LABS: Glucose,Whole Blood 142 mg/dL (75-99)
--- NOTE | 2019-09-04 23:37 | P.PN ---
Subjective Progress Note Date: 09/04/19 Principal diagnosis: Acute hypoxic respiratory failure secondary to pulmonary fibrosis Patient is a 58 old male with a known history of chronic hypoxic respiratory failure on 3 L oxygen with another cannula, idiopathic pulmonary fibrosis, diabetes type 2 insulin-dependent, hypertension, hyperlipidemia, osteoarthritis, obstructive sleep apnea on CPAP at home, osteoarthritis of multiple joints and no prior history of smoking came to ER with complaints of worsening shortness of breath since Monday. Patient does have cough without SPUTUM production. No complaints of fever or chills at home. Patient was having T-max of 101.1 on admission. No complaints of chest pain. No nausea vomiting Or abdominal pain. Chest x-ray showed background cardiomegaly. Moderate chronic parenchymal arthritic changes bilaterally and underlying pulmonary artery hypertension with diffuse bilateral on the lower end interstitial edema now present. Correlate for CHF exacerbation or developing ARDS on background chronic changes. WBC 11.7 Lactic acid 3.6 BNP 144 Troponin 2 negative 09/04/2019 Patient is currently lying in the bed comfortably. Awake alert and oriented. Currently on Airvo oxygen. Patient is being continued on IV steroids and breathing treatments. Patient's blood sugar is elevated due to steroids. Started on insulin drip. Repeat chest x-ray showed bilateral airspace disease. Patient is being continued on empiric antibiotics as well. Pulmonary is following. Patient was started on metoprolol and Lasix 40 mg daily. Cardiology is on board. 2-D echocardiogram showed ejection fraction 45-50%. No significant valvular abnormalities noted. Moderate left ventricular hypertrophy. Patient denied any complaints of chest pain no worsening shortness of breath. No nausea vomiting or abdominal pain. Tolerating oral diet. Active Medications Albuterol/Ipratropium (Duoneb 0.5 Mg-3 Mg/3 Ml Soln) 3 ml INHALATION RT-QID PRN PRN Reason: Shortness Of Breath Or Wheezing Last Admin: 09/04/19 17:09 Dose: 3 ml Documented by: Furosemide (Lasix) 40 mg PO DAILY [facility] Heparin Sodium (Porcine) (Heparin) 5,000 unit SQ Q8HR [facility] Last Admin: 09/04/19 23:25 Dose: 5,000 unit Documented by: Ceftriaxone Sodium 1 gm/ (Sodium Chloride) 50 mls @ 100 mls/hr IVPB Q24HR [facility] Last Admin: 09/04/19 08:26 Dose: 100 mls/hr Documented by: Azithromycin 500 mg/ Sodium (Chloride) 250 mls @ 250 mls/hr IVPB DAILY@1600 [facility] Last Admin: 09/04/19 15:31 Dose: 250 mls/hr Documented by: Sodium Chloride (Saline 0.9%) 1,000 mls @ 75 mls/hr IV .[id number] [facility] Last Admin: 09/04/19 18:12 Dose: 75 mls/hr Documented by: Insulin Human Regular 100 unit (/ Sodium Chloride) 101 mls @ 0 mls/hr IV .Q0M [facility]; Protocol Last Admin: 09/04/19 22:06 Dose: 6 units/hr, 6.06 mls/hr Documented by: Methylprednisolone Sodium Succinate (Solu-Medrol) 40 mg IV Q6HR [facility] Last Admin: 09/04/19 23:26 Dose: 40 mg Documented by: Metoprolol Succinate (Toprol Xl) 50 mg PO DAILY [facility] Last Admin: 09/04/19 14:30 Dose: 50 mg Documented by: Pantoprazole Sodium (Protonix) 40 mg IVP DAILY [facility] Last Admin: 09/04/19 08:26 Dose: 40 mg Documented by: Objective - Vital Signs Vital signs: Vital Signs Temp 98.7 F 09/04/19 12:00 Pulse 102 H 09/04/19 13:00 Resp 22 09/04/19 13:00 BP 136/81 09/04/19 13:00 Pulse Ox 91 L 09/04/19 13:00 Intake & Output 09/03/19 09/04/19 09/04/19 18:59 06:59 18:59 Intake Total 325 941.612 637.030 Output Total 90 315 240 Balance 235 626.612 397.030 Weight 152.407 kg 144.3 kg 144.3 kg Intake: IV 325 900 575 Azithromycin 500 mg In 250 Sodium Chloride 0.9% 250 ml @ 250 mls/hr IVPB DAILY@1600 [facility] Rx#: [id number] Sodium Chloride 0.9% 1, 75 900 525 000 ml @ 75 mls/hr IV . [id number] [facility] Rx#:[id number] cefTRIAXone 1 gm In 50 Sodium Chloride 0.9% 50 ml @ 100 mls/hr IVPB Q24HR [facility] Rx#:[id number] Intake, IV Titration 41.612 62.030 Amount Insulin Regular 100 unit 41.612 62.030 In Sodium Chloride 0.9% 100 ml @ Per Protocol IV .Q0M [facility] Rx#:[id number] Output: Urine 90 315 240 Other: Voiding Method Indwelling Catheter Indwelling Catheter Indwelling Catheter - Exam PHYSICAL EXAMINATION: Patient is lying in the bed comfortably, no acute distress, awake alert and oriented.. HEENT: Normocephalic. Neck is supple. Pupils reactive. Nostrils clear. Oral cavity is moist. Ears reveal no drainage. Neck reveals no JVD, carotid bruits, or thyromegaly. CHEST EXAMINATION: Trachea is central. Symmetrical expansion. Bilateral diffuse crackles and minimal expiratory wheeze.. CARDIAC: Normal S1, S2 with no gallops. No murmurs ABDOMEN: Soft. Bowel sounds normal. No organomegaly. No abdominal bruits. Extremities: reveal no edema. No clubbing or cyanosis Neurologically awake, alert, oriented x3 with well-coordinated movements. No focal deficits noted Skin: No rash or skin lesions. Psychiatric: Coperative. Nonsuicidal Musculoskeletal: No joint swelling or deformity. Normal range of motion. - Labs CBC & Chem 7: 09/04/19 04:01 09/04/19 03:59 Labs: Abnormal Lab Results - Last 24 Hours (Table) 09/03/19 09/03/19 09/03/19 Range/Units 08:36 14:37 15:01 Neutrophils # (1.3-7.7) k/uL Lymphocytes # (1.0-4.8) k/uL ABG Total CO2 26 H (19-24) mmol/L ABG O2 Saturation 97.8 H (94-97) % BUN (9-20) mg/dL Glucose (74-99) mg/dL POC Glucose (mg/dL) 208 H (75-99) mg/dL Alkaline Phosphatase (38-126) U/L Procalcitonin 0.29 H (0.02-0.09) ng/mL 09/03/19 09/04/19 09/04/19 Range/Units 17:56 00:22 01:40 Neutrophils # (1.3-7.7) k/uL Lymphocytes # (1.0-4.8) k/uL ABG Total CO2 (19-24) mmol/L ABG O2 Saturation (94-97) % BUN (9-20) mg/dL Glucose (74-99) mg/dL POC Glucose (mg/dL) 238 H 269 H 275 H (75-99) mg/dL Alkaline Phosphatase (38-126) U/L Procalcitonin (0.02-0.09) ng/mL 09/04/19 09/04/19 09/04/19 Range/Units 02:08 03:03 03:59 Neutrophils # (1.3-7.7) k/uL Lymphocytes # (1.0-4.8) k/uL ABG Total CO2 (19-24) mmol/L ABG O2 Saturation (94-97) % BUN 24 H (9-20) mg/dL Glucose 216 H (74-99) mg/dL POC Glucose (mg/dL) 257 H 272 H (75-99) mg/dL Alkaline Phosphatase 144 H (38-126) U/L Procalcitonin (0.02-0.09) ng/mL 09/04/19 09/04/19 09/04/19 Range/Units 04:01 04:20 05:04 Neutrophils # 9.1 H (1.3-7.7) k/uL Lymphocytes # 0.3 L (1.0-4.8) k/uL ABG Total CO2 (19-24) mmol/L ABG O2 Saturation (94-97) % BUN (9-20) mg/dL Glucose (74-99) mg/dL POC Glucose (mg/dL) 188 H 186 H (75-99) mg/dL Alkaline Phosphatase (38-126) U/L Procalcitonin (0.02-0.09) ng/mL 09/04/19 09/04/19 09/04/19 Range/Units 06:08 06:55 08:12 Neutrophils # (1.3-7.7) k/uL Lymphocytes # (1.0-4.8) k/uL ABG Total CO2 (19-24) mmol/L ABG O2 Saturation (94-97) % BUN (9-20) mg/dL Glucose (74-99) mg/dL POC Glucose (mg/dL) 179 H 189 H 226 H (75-99) mg/dL Alkaline Phosphatase (38-126) U/L Procalcitonin (0.02-0.09) ng/mL 09/04/19 09/04/19 09/04/19 Range/Units 09:05 10:07 11:04 Neutrophils # (1.3-7.7) k/uL Lymphocytes # (1.0-4.8) k/uL ABG Total CO2 (19-24) mmol/L ABG O2 Saturation (94-97) % BUN (9-20) mg/dL Glucose (74-99) mg/dL POC Glucose (mg/dL) 215 H 196 H 192 H (75-99) mg/dL Alkaline Phosphatase (38-126) U/L Procalcitonin (0.02-0.09) ng/mL 09/04/19 09/04/19 Range/Units 11:52 13:10 Neutrophils # (1.3-7.7) k/uL Lymphocytes # (1.0-4.8) k/uL ABG Total CO2 (19-24) mmol/L ABG O2 Saturation (94-97) % BUN (9-20) mg/dL Glucose (74-99) mg/dL POC Glucose (mg/dL) 159 H 164 H (75-99) mg/dL Alkaline Phosphatase (38-126) U/L Procalcitonin (0.02-0.09) ng/mL Microbiology - Last 24 Hours (Table) 09/03/19 08:36 Blood Culture - Preliminary Blood No Growth after 24 hours Assessment and Plan Assessment: Acute on chronic hypoxic respiratory failure secondary to pulmonary fibrosis. Lactic acidosis secondary to hypoxia. Resolving now. Possible underlying pneumonia Unlikely CHF. BNP is 144 and leg swelling. Chronic right hemidiaphragm paralysis Obstructive sleep apnea on CPAP at home Chronic CHF with systolic dysfunction. Ejection fraction 45-50%. Diabetes type 2 insulin-dependent Hypertension Hyperlipidemia Osteoarthritis No history of prior smoking Morbid obesity BMI 46.9 DVT prophylaxis with heparin subcu Plan: Patient is currently on BiPAP machine. Patient will be started on Solu-Medrol IV 60 mg-->40 every 6 hourly and continue with duo nebs. Patient was given IV Lasix in the ER due to possible interstitial edema but chest x-ray findings may be due to underlying pulmonary fibrosis. Continue with empiric antibiotics in the form of ceftriaxone and azithromycin. Continue with insulin sliding scale and Levemir 45 units daily at bedtime. Currently on insulin drip for better blood sugar control. Patient will be continued on aspirin, metoprolol, statins and Lasix. Continue the home medications and follow closely. Monitor renal function. further recommendations based on the clinical course. Prognosis is guarded with multiple medical problems and comorbid conditions. Time with Patient: Greater than 30
[2019-09-04 23:56] LABS: Glucose,Whole Blood 136 mg/dL (75-99)
[2019-09-05 01:00] LABS: Glucose,Whole Blood 136 mg/dL (75-99)
[2019-09-05 02:59] LABS: Glucose,Whole Blood 185 mg/dL (75-99)
[2019-09-05 05:18] LABS: Glucose,Whole Blood 163 mg/dL (75-99)
[2019-09-05] MEDS: methylPREDNISolone SOD SUCCI 40 MG/ML 1 ML VIAL IV SCH ×4 (05:26→23:08)
[2019-09-05 06:19] LABS: Basophils # (A) 0.1 k/uL (0-0.2); Basophils % (A) 0 %; Eosinophils % (A) 0 %; HCT 41.4 % (39.0-53.0); HGB 13.7 gm/dL (13.0-17.5); Lymphocytes # (A) 0.4 k/uL (1.0-4.8); Lymphocytes % (A) 3 %; MCV 94.1 fL (80.0-100.0); Mean Platelet Volume 7.6; Monocytes # (A) 0.9 k/uL (0-1.0); Monocytes % (A) 7 %; Neutrophils # (A) 12.8 k/uL (1.3-7.7); Neutrophils % (A) 89 %; Platelet Count 193 k/uL (150-450); RDW 13.8 % (11.5-15.5); WBC 14.4 k/uL (3.8-10.6)
[2019-09-05 06:36] LABS: African American GFR (CKD) >90 (>60 ml/min/1.73 sqM); Anion Gap 8 mmol/L; Blood Urea Nitrogen 32 mg/dL (9-20); Calcium 9.2 mg/dL (8.4-10.2); Carbon Dioxide 26 mmol/L (22-30); Chloride 110 mmol/L (98-107); Glucose 160 mg/dL (74-99); Magnesium 2.1 mg/dL (1.6-2.3); Non-African American GFR(CKD) >90 (>60 ml/min/1.73 sqM); Potassium 4.7 mmol/L (3.5-5.1); Sodium 144 mmol/L (137-145)
[2019-09-05 07:03] LABS: Glucose,Whole Blood 143 mg/dL (75-99)
--- NOTE | 2019-09-05 07:08 | XR ---
EXAMINATION TYPE: XR chest 1V DATE OF EXAM: 09/05/2019 COMPARISON: Prior chest x-ray 09/04/2019 HISTORY: COPD, abnormal chest x-ray TECHNIQUE: Single frontal view of the chest is obtained. FINDINGS: Bilateral airspace disease is diffuse as on prior. Suspect the heart is enlarged. No evide nt pneumothorax or pleural effusion. There are overlying cardiac leads. IMPRESSION: Stable diffuse bilateral airspace disease. Cardiomegaly, correlate for congestive heart failure and pulmonary edema, pneumonia.
[2019-09-05] MEDS: IPRATROPIUM-ALBUTEROL 3 ML NEB INHALATION PRN ×2 (07:37→11:39)
[2019-09-05 08:10] LABS: Glucose,Whole Blood 143 mg/dL (75-99)
[2019-09-05] MEDS: FUROSEMIDE 40 MG TAB PO SCH (08:24)
--- NOTE | 2019-09-05 09:09 | PN ---
PROGRESS NOTE PULMONARY/CRITICAL CARE PROGRESS NOTE: DATE OF SERVICE: September 05, 2019 This is a 58-year-old male who was seen in consultation a couple days ago. The patient was initially brought to the emergency room with increasing shortness of breath, fever, chills, cough, and phlegm production. His symptoms had been going on for about 3 or 4 days prior to admission and been progressive. He was seen in the emergency room, was thought to have fluid overload. He did not have any lower extremity edema. His N- terminal proBNP was normal. Nonetheless, he was given Lasix. He was placed on BiPAP and transferred to the ICU. The patient is doing reasonably well. He has been on and off BiPAP over to AIRVO. His BiPAP settings are an IPAP of 16, EPAP of 8 and 75% and his AIRVO settings are 60 L/minute and 75%. He was just on AIRVO and then placed back on BiPAP. Currently, saturations are in the mid to high 80s. He does have underlying pulmonary fibrosis, but in addition to that, has been complicated by community-acquired pneumonia. He is a lifelong nonsmoker. Thought not to have any underlying COPD. PHYSICAL EXAMINATION: VITAL SIGNS: Vital signs are reviewed. Temperature 97.3, heart rate 75, respiratory rate 23, blood pressure 144/90, mean 108, saturations are in the high 80s. He is back on BiPAP at 16 and 8 and 75%. HEENT: Examination is grossly unremarkable. BiPAP mask in place. NECK: Supple. Full range of motion. No adenopathy. Neck veins are flat. CARDIOVASCULAR: Examination reveals regular rhythm and rate. Heart rate mid 80s. S1, S2 normal. LUNGS: Reveal coarse rhonchi and crackles. Breath sounds are equal bilaterally. Breath sounds are about the same as they have been in the last couple days. ABDOMEN: Obese. Bowel sounds are heard. EXTREMITIES: Are intact. No cyanosis, clubbing, or edema. SKIN: Without rash. NEUROLOGIC: Examination is brief but nonfocal. Microbiologic studies including blood cultures are negative. LABS: Labs are reviewed. White count 14.4, hemoglobin 13.7, hematocrit 41.4, platelet count 193,000. Sodium 144, potassium 4.7, chloride 110, CO2 of 26. Anion gap is 8. BUN and creatinine were 32 and 0.87. Chest x-ray continues to show diffuse bilateral airspace disease, cardiomegaly and some interstitial changes more likely related to his interstitial lung disease than pulmonary edema. CURRENT MEDICATIONS: Current medications are reviewed. He is on aspirin, Zithromax, Rocephin, Prozac, Lasix daily, subcu heparin, insulin, DuoNeb, Solu-Medrol, metoprolol, Protonix, and a saline IV. ASSESSMENT: 1. Acute hypoxemic respiratory failure, secondary to both underlying idiopathic pulmonary fibrosis/interstitial lung disease, and complicated by community-acquired pneumonia. 2. Doubt congestive heart failure. 3. Doubt chronic obstructive pulmonary disease. 4. Obesity. 5. History of sleep apnea syndrome. 6. History of congestive heart failure. 7. History of cardiomyopathy. 8. Diabetes mellitus. 9. History of cataracts. 10.History of hyperlipidemia. 11.Benign essential hypertension. 12.Degenerative joint disease. 13.History of pneumonia. 14.Chronic hypoxemic respiratory failure. 15.History of pancreatitis. 16.History of cellulitis of the lower extremities. 17.History of cardiomyopathy. PLAN: The patient is currently on appropriate medications. He is getting Rocephin and Zithromax for community-acquired pneumonia. He is getting Lasix 40 mg a day. He was transferred from [facility] back to [facility]. Additional recommendations and suggestions forthcoming. We are going to try to prevent from intubating the patient if possible. Looking at his I's and O's, he is a bit ahead. I might go ahead and give him one dose of Lasix 20 mg IV push. He did already get 40 mg p.o. Prognosis is guarded. Microbiology is thus far negative. MMODL / IJN: [id number] /
[2019-09-05] MEDS: HEPARIN SODIUM,PORCINE 5,000 UNIT/ML 1 ML VIAL SQ SCH ×3 (09:11→23:09)
[2019-09-05] MEDS: PANTOPRAZOLE 40 MG/10 ML VIAL IVP SCH (09:11)
[2019-09-05] MEDS: METOPROLOL SUCCINATE (ER) 50 MG TAB.ER.24H PO SCH (09:55)
[2019-09-05] MEDS: ASPIRIN 81 MG PO SCH (09:55)
[2019-09-05] MEDS: FLUoxetine HCL 20 MG CAP PO SCH (09:55)
[2019-09-05] MEDS: SODIUM CHLORIDE 0.9% 1,000 ML IV SCH ×2 (10:03→23:09)
[2019-09-05 10:07] LABS: Glucose,Whole Blood 200 mg/dL (75-99)
[2019-09-05 11:08] LABS: Glucose,Whole Blood 178 mg/dL (75-99)
[2019-09-05] MEDS ORDERED: IPRATROPIUM-ALBUTEROL 3 ML NEB INHALATION PRN (11:42)
[2019-09-05 11:59] LABS: Glucose,Whole Blood 164 mg/dL (75-99)
--- NOTE | 2019-09-05 12:49 | CDI ---
Documentation Clarification Form Date: 09/05/2019 12:39:43 PM From: Stephanie FuentesOharaMARGIE zayas, CCDS Admit Date: 09/03/2019 10:36:00 AM Patient Name: Aureliano Mackay Visit Number: [id number] Discharge Date: ATTENTION: The Clinical Documentation Specialists (CDI) and [facility] Coding Staff appreciate your assistance in clarifying documentation. Please respond to the clarification below the line at the bottom and electronically sign. The CDI & [facility] Coding staff will review the response and follow-up if needed. Please note: Queries are made part of the Legal Health Record. If you have any questions, please contact the author of this message via ITS. Dr. Kolby Lewis: Per the 09/04 attending progress note: "Patient is being continued on IV steroids and breathing treatments. Patient's blood sugar is elevated due to steroids. Started on insulin drip." History/Risk Factors: IPF, IDDM II, Chronic hypoxic respiratory failure, Chronic right hemidiaphragm paralysis, JOSEJ UAN with home CPAP, Chronic systolic CHF, Hypertension & Morbid obesity BMI 46.9. Clinical Indicators: Presented with SOB with known chronic hypoxic respiratory failure on 3L O2 & history of Idiopathic pulmonary fibrosis & IDDM II. Diagnosed with Acute on chronic hypoxic respiratory failure secondary to pulmonary fibrosis & possible pneumonia. LAB: Glucose: 09/03: 208 - 238; 09/04 269 - 179 - 155 - 142; 09/05: 136 - 200 - 164 Treatment: INH Albuterol, INH, IV Lasix, IV rocephin, Nitropaste, IV Solumedrol, Heparin sq & IV fluid rate 75. In order to capture the severity of Illness and necessary documentation specificity, please clarify: DM Type 2 o With Hyperglycemia o Without Hyperglycemia o Other condition, please specify o Unable to determine (Last Revision: May 2017) Diabetes type 2 with hyperglycemia MTDD
[2019-09-05 13:00] LABS: Glucose,Whole Blood 182 mg/dL (75-99)
[2019-09-05 13:55] LABS: Glucose,Whole Blood 195 mg/dL (75-99)
[2019-09-05 15:03] LABS: Glucose,Whole Blood 149 mg/dL (75-99)
[2019-09-05] MEDS: IPRATROPIUM-ALBUTEROL 3 ML NEB INHALATION SCH ×2 (16:21→19:22)
[2019-09-05] MEDS: INSULIN REGULAR 100 UNIT in SODIUM CHLORIDE 0.9% 100 ML IV SCH (16:23)
[2019-09-05] MEDS: AZITHROMYCIN 500 MG TAB PO SCH (16:26)
[2019-09-05 16:28] LABS: Glucose,Whole Blood 129 mg/dL (75-99)
[2019-09-05] MEDS ORDERED: LISINOPRIL 20 MG TAB PO SCH (16:45)
[2019-09-05] MEDS: LISINOPRIL 20 MG TAB PO SCH (16:59)
[2019-09-05] MEDS ORDERED: FUROSEMIDE 10 MG/ML 2 ML VIAL IV ONE (17:12)
[2019-09-05 17:27] LABS: Glucose,Whole Blood 180 mg/dL (75-99)
[2019-09-05 18:05] LABS: Glucose,Whole Blood 165 mg/dL (75-99)
--- NOTE | 2019-09-05 18:46 | P.PN ---
Subjective This is Elsa Clemons PA-C dictating a progress note on this patient Case discussed with Dr. Llanes and he agrees with the plan of care IMPRESSION / ASSESSMENT: Hypoxic respiratory failure, likely secondary to underlying pulmonary fibrosis and possible pneumonia, on BiPAP and antibiotics, pulmonology following Cardiomyopathy, recent echo showing EF 45-50%,likely nonischemic Hypertension, blood pressure trending in the 140s systolic Dyslipidemia Diabetes Obstructive sleep apnea PLAN: Restart home dose of lisinopril 20 mg twice daily Gradually added home cardiac medications and maximize cardiomyopathy medication HPI/interval history Patient is a 58-year-old male with a past medical history significant for pulmonary fibrosis, hypertension, dyslipidemia, obstructive sleep apnea, diabetes and heart failure who presented with complaints of shortness of breath. He remains on BiPAP. Bedside telemetry shows sinus rhythm with heart rate in the 80s. Patient seen and examined the ICU. States his breathing has improved somewhat but he is still short of breath. Not having any chest pain. EXAMINATION Patient is afebrile, pulse in the 80s, respirations 36, blood pressure 139/82, oxygen saturation 91% on BiPAP Patient seen and examinded resting in bed on BiPAP Bilateral breath sounds reduced with crackles Heart is regular, no audible murmurs No visible elevated JVD No lower extremity edema REVIEW OF LABS, ECG WBC 14.4, hemoglobin 13.7, platelets 193, potassium 4.7, BUN 32, creatinine 0.87 Office notes reviewed from Dr. Escobar, he had a coronary angiogram in 2013 showing normal coronary arteries, at that time his EF was 25% Objective - Vital Signs Vital signs: Vital Signs Temp 99.1 F 09/05/19 16:00 Pulse 74 09/05/19 18:00 Resp 38 H 09/05/19 18:00 BP 143/85 09/05/19 18:00 Pulse Ox 91 L 09/05/19 18:00 Intake & Output 09/04/19 09/05/19 09/05/19 18:59 06:59 18:59 Intake Total 1046.909 955.786 967.552 Output Total 204 748 9995 Balance 616.909 370.786 -832.448 Weight 144.3 kg 144.3 kg Intake: IV 950 900 900 Sodium Chloride 0.9% 1, 900 900 900 000 ml @ 75 mls/hr IV . [id number] BERE Rx#:[id number] cefTRIAXone 1 gm In 50 Sodium Chloride 0.9% 50 ml @ 100 mls/hr IVPB Q24HR BERE Rx#:[id number] Intake, IV Titration 96.909 55.786 67.552 Amount Insulin Regular 100 unit 96.909 55.786 67.552 In Sodium Chloride 0.9% 100 ml @ Per Protocol IV .Q0M BERE Rx#:[id number] Output: Urine 125 382 1499 Other: Voiding Method Indwelling Catheter Indwelling Catheter Indwelling Catheter - Labs CBC & Chem 7: 09/05/19 05:34 09/05/19 05:34 Labs: Abnormal Lab Results - Last 24 Hours (Table) 09/04/19 09/04/19 09/04/19 Range/Units 19:03 20:01 21:09 WBC (3.8-10.6) k/uL Neutrophils # (1.3-7.7) k/uL Lymphocytes # (1.0-4.8) k/uL Chloride (98-107) mmol/L BUN (9-20) mg/dL Glucose (74-99) mg/dL POC Glucose (mg/dL) 175 H 172 H 155 H (75-99) mg/dL 09/04/19 09/04/19 09/04/19 Range/Units 21:52 22:59 23:55 WBC (3.8-10.6) k/uL Neutrophils # (1.3-7.7) k/uL Lymphocytes # (1.0-4.8) k/uL Chloride (98-107) mmol/L BUN (9-20) mg/dL Glucose (74-99) mg/dL POC Glucose (mg/dL) 144 H 142 H 136 H (75-99) mg/dL 09/05/19 09/05/19 09/05/19 Range/Units 00:58 02:58 05:17 WBC (3.8-10.6) k/uL Neutrophils # (1.3-7.7) k/uL Lymphocytes # (1.0-4.8) k/uL Chloride (98-107) mmol/L BUN (9-20) mg/dL Glucose (74-99) mg/dL POC Glucose (mg/dL) 136 H 185 H 163 H (75-99) mg/dL 09/05/19 09/05/19 09/05/19 Range/Units 05:34 05:34 07:02 WBC 14.4 H (3.8-10.6) k/uL Neutrophils # 12.8 H (1.3-7.7) k/uL Lymphocytes # 0.4 L (1.0-4.8) k/uL Chloride 110 H (98-107) mmol/L BUN 32 H (9-20) mg/dL Glucose 160 H (74-99) mg/dL POC Glucose (mg/dL) 143 H (75-99) mg/dL 09/05/19 09/05/19 09/05/19 Range/Units 08:08 10:06 11:06 WBC (3.8-10.6) k/uL Neutrophils # (1.3-7.7) k/uL Lymphocytes # (1.0-4.8) k/uL Chloride (98-107) mmol/L BUN (9-20) mg/dL Glucose (74-99) mg/dL POC Glucose (mg/dL) 143 H 200 H 178 H (75-99) mg/dL 09/05/19 09/05/19 09/05/19 Range/Units 11:57 12:58 13:54 WBC (3.8-10.6) k/uL Neutrophils # (1.3-7.7) k/uL Lymphocytes # (1.0-4.8) k/uL Chloride (98-107) mmol/L BUN (9-20) mg/dL Glucose (74-99) mg/dL POC Glucose (mg/dL) 164 H 182 H 195 H (75-99) mg/dL 09/05/19 09/05/19 09/05/19 Range/Units 15:02 16:22 17:25 WBC (3.8-10.6) k/uL Neutrophils # (1.3-7.7) k/uL Lymphocytes # (1.0-4.8) k/uL Chloride (98-107) mmol/L BUN (9-20) mg/dL Glucose (74-99) mg/dL POC Glucose (mg/dL) 149 H 129 H 180 H (75-99) mg/dL 09/05/19 Range/Units 18:04 WBC (3.8-10.6) k/uL Neutrophils # (1.3-7.7) k/uL Lymphocytes # (1.0-4.8) k/uL Chloride (98-107) mmol/L BUN (9-20) mg/dL Glucose (74-99) mg/dL POC Glucose (mg/dL) 165 H (75-99) mg/dL Microbiology - Last 24 Hours (Table) 09/03/19 08:36 Blood Culture - Preliminary Blood No Growth after 48 hours
[2019-09-05 18:52] LABS: Glucose,Whole Blood 167 mg/dL (75-99)
[2019-09-05 20:00] LABS: Glucose,Whole Blood 169 mg/dL (75-99)
[2019-09-05 22:03] LABS: Glucose,Whole Blood 166 mg/dL (75-99)
[2019-09-06 00:02] LABS: Glucose,Whole Blood 159 mg/dL (75-99)
[2019-09-06 01:58] LABS: Glucose,Whole Blood 174 mg/dL (75-99)
[2019-09-06 04:11] LABS: Glucose,Whole Blood 160 mg/dL (75-99)
[2019-09-06 04:30] LABS: ABG Base Excess 4.2 mmol/L; ABG HCO3 29 mmol/L (21-25); ABG Oxygen Saturation 82.7 % (94-97); ABG PCO2 45 mmHg (35-45); ABG PH 7.42 (7.35-7.45); ABG TCO2 30 mmol/L (19-24); Allen Test Performed? Yes
[2019-09-06 04:33] LABS: ABG PO2 47 mmHg (83-108)
[2019-09-06] MEDS ORDERED: CISATRACURIUM 2 MG/ML 5 ML VIAL IV ONE ×2 (05:10→07:08)
[2019-09-06] MEDS: PROPOFOL 1,000 MG in EMPTY BAG 1 BAG IV SCH ×8 (05:15→23:42)
[2019-09-06 05:16] LABS: ABG Base Excess -1.1 mmol/L; ABG HCO3 27 mmol/L (21-25); ABG Oxygen Saturation 38.6 % (94-97); ABG TCO2 29 mmol/L (19-24); Allen Test Performed? Yes
--- NOTE | 2019-09-06 05:18 | XR ---
EXAM: XR Chest, 1 View CLINICAL HISTORY: ITS.REASON XR Reason: mechanical intubation TECHNIQUE: Frontal view of the chest. COMPARISON: 09/05/2019 FINDINGS: Lungs: There is patchy to confluent diffuse opacities throughout the lungs, increased from the previous examination, despite positive pressure ventilation. Pleural space: No definite pleural effusion or pneumothorax. However, limited by portable supine technique. Heart: The cardiac silhouette is partially obscured but is thought to be stable. Mediastinum: The mediastinal contours are obscured by opacities. The trachea is midline however. Bones/joints: Unremarkable. Tubes, lines and devices: The endotracheal tube is identified at the thoracic inlet with the tip approximately 6 cm from the tima. The nasogastric tube traverses the mediastinum and extends below the diaphragms. The tip is not identified on this exam. IMPRESSION: 1. The endotracheal tube is identified at the thoracic inlet with the tip approximately 6 cm from the tima. 2. There is patchy to confluent diffuse opacities throughout the lungs, increased from the previous examination, despite positive pressure ventilation. Differential consideration includes florid progressive pulmonary edema. Coexisting underlying infection is difficult to evaluate given this appearance. Please correlate clinically. No pneumothorax or large pleural effusion suggested on this supine exam.
[2019-09-06 05:20] LABS: Basophils # (A) 0.1 k/uL (0-0.2); Basophils % (A) 0 %; Eosinophils # (A) 0.1 k/uL (0-0.7); Eosinophils % (A) 1 %; HCT 43.5 % (39.0-53.0); HGB 14.3 gm/dL (13.0-17.5); Lymphocytes # (A) 0.4 k/uL (1.0-4.8); Lymphocytes % (A) 3 %; MCH 30.8 pg (25.0-35.0); MCHC 32.8 g/dL (31.0-37.0); MCV 94.1 fL (80.0-100.0); Mean Platelet Volume 7.7; Monocytes % (A) 7 %; Neutrophils # (A) 12.2 k/uL (1.3-7.7); Neutrophils % (A) 88 %; Platelet Count 203 k/uL (150-450); RBC 4.62 m/uL (4.30-5.90); RDW 13.7 % (11.5-15.5); WBC 13.8 k/uL (3.8-10.6)
[2019-09-06 05:25] LABS: ABG PCO2 72 mmHg (35-45); ABG PH 7.18 (7.35-7.45); ABG PO2 29 mmHg (83-108)
[2019-09-06 05:34] LABS: African American GFR (CKD) >90 (>60 ml/min/1.73 sqM); Anion Gap 8 mmol/L; Blood Urea Nitrogen 33 mg/dL (9-20); Calcium 9.1 mg/dL (8.4-10.2); Carbon Dioxide 29 mmol/L (22-30); Chloride 107 mmol/L (98-107); Glucose 174 mg/dL (74-99); Non-African American GFR(CKD) >90 (>60 ml/min/1.73 sqM); Potassium 4.4 mmol/L (3.5-5.1); Sodium 144 mmol/L (137-145)
[2019-09-06] MEDS: methylPREDNISolone SOD SUCCI 40 MG/ML 1 ML VIAL IV SCH (05:58)
[2019-09-06 06:15] LABS: Glucose,Whole Blood 233 mg/dL (75-99)
[2019-09-06] MEDS ORDERED: SODIUM CHLORIDE 0.9% 2,000 ML IV ONE (06:50)
[2019-09-06 07:04] LABS: ABG Base Excess -2.3 mmol/L; ABG HCO3 27 mmol/L (21-25); ABG Oxygen Saturation 49.3 % (94-97); ABG TCO2 29 mmol/L (19-24); Allen Test Performed? Yes
[2019-09-06 07:14] LABS: ABG PH 7.13 (7.35-7.45)
[2019-09-06 07:15] LABS: ABG PCO2 80 mmHg (35-45); ABG PO2 35 mmHg (83-108)
[2019-09-06] MEDS: CISATRACURIUM 200 MG in SODIUM CHLORIDE 0.9% 180 ML IV SCH ×2 (07:38→18:30)
[2019-09-06 08:04] LABS: ABG Base Excess -2.1 mmol/L; ABG HCO3 27 mmol/L (21-25); ABG Oxygen Saturation 78.6 % (94-97); ABG TCO2 30 mmol/L (19-24); Allen Test Performed? Yes
[2019-09-06 08:05] LABS: Glucose,Whole Blood 243 mg/dL (75-99)
[2019-09-06 08:06] LABS: ABG PCO2 82 mmHg (35-45); ABG PH 7.13 (7.35-7.45); ABG PO2 57 mmHg (83-108)
[2019-09-06] MEDS: IPRATROPIUM-ALBUTEROL 3 ML NEB INHALATION SCH ×5 (08:40→23:26)
[2019-09-06] MEDS: ASPIRIN 81 MG PO SCH (09:17)
[2019-09-06] MEDS: HEPARIN SODIUM,PORCINE 5,000 UNIT/ML 1 ML VIAL SQ SCH ×3 (09:17→23:44)
[2019-09-06] MEDS: PANTOPRAZOLE 40 MG TABLET PO SCH (09:18)
[2019-09-06] MEDS: FLUoxetine HCL 20 MG CAP PO SCH (09:18)
[2019-09-06] MEDS: CHLORHEXIDINE GLUCONATE 15 ML CUP MUCOUS MEM SCH ×2 (09:18→20:02)
[2019-09-06] MEDS: LISINOPRIL 20 MG TAB PO SCH (09:18)
[2019-09-06] MEDS: METOPROLOL SUCCINATE (ER) 50 MG TAB.ER.24H PO SCH (09:18)
[2019-09-06] MEDS: FUROSEMIDE 40 MG TAB PO SCH ×2 (09:18→09:21)
--- NOTE | 2019-09-06 09:24 | PCN ---
PROCEDURE NOTE PROCEDURE: Bronchoscopy, airway examination, therapeutic lavage, BAL. The patient's procedure was done at the bedside. There was informed consent and universal timeout. PREOPERATIVE DIAGNOSIS: Pneumonia/ARDS. POSTOPERATIVE DIAGNOSIS: Pneumonia/ARDS. OPERATORS: Dr. Tejada and Consuelo Bergman. PROCEDURE: Anesthesia was not needed. The patient was adequately sedated with propofol and paralyzed with cisatracurium/Nimbex. The patient was also on the ventilator. The bronchoscope adapter was connected to the endotracheal tube. The bronchoscope was pushed through the bronchoscope adapter into the endotracheal tube. The endotracheal tube was seen to be above the tracheal tima in good position. There were some secretions noted, particularly in the right side in the right upper lobe and right middle lobe. They were suctioned with saline lavage. We did a thorough inspection of the right upper lobe and its 3 segments, right middle lobe and its 2 segments, right lower lobe and its 5 segments, left upper lobe and its 2 segments, lingula and its 2 segments and left lower lobe and its 4 segments. There was diffuse bronchitis throughout. There were some thin secretions noted. They were suctioned. There was no dominant mass or tumor. No distinct purulence. There was no bleeding. The bronchoscope was wedged into the right middle lobe. More than 30 mL was recovered. It will be sent to the laboratory for analysis. The patient tolerated the procedure well. There was no immediate complication. The fluid was sent for analysis. The bronchoscope was withdrawn. MMODL / IJN: [id number] /
[2019-09-06 09:28] LABS: Glucose,Whole Blood 158 mg/dL (75-99)
--- NOTE | 2019-09-06 09:30 | PCN ---
PROCEDURE NOTE PROCEDURE: Left subclavian triple-lumen catheter. PREOPERATIVE DIAGNOSIS: Administration of fluids and pressors. POSTOPERATIVE DIAGNOSIS: Administration of fluids and pressors. Indication: Hemodynamic monitoring/Intravenous access. A time-out was completed verifying correct patient, procedure, site, positioning, and implant(s) or special equipment if applicable. The patient was placed in a dependent position appropriate for triple lumen catheter placement based on the vein to be cannulated. The patient's left shoulder was prepped and draped in sterile fashion. 1% Lidocaine was used to anesthetize the surrounding skin area. A triple lumen 9F Cordis catheter was introduced into the left subclavian vein using Seldinger technique. The catheter was threaded smoothly over the guide wire and appropriate blood return was obtained. Each lumen of the catheter was evacuated of air and flushed with sterile saline. The catheter was then sutured in place to the skin and a sterile dressing applied. Perfusion to the extremity distal to the point of catheter insertion was checked and found to be adequate. There was good blood return from all 3 ports. The patient tolerated the procedure well. The catheter was sutured in place. The tip of the catheter was seen in the SVC right atrium junction. Chest x-ray was done of course. There was no immediate complication. The catheter was sutured in place and a sterile dressing was applied by the nurse. NAN / MEREDITH: [id number] /
--- NOTE | 2019-09-06 09:30 | PCN ---
PROCEDURE NOTE PROCEDURE: Right radial arterial line placement. PREOPERATIVE DIAGNOSIS: ARDS, acute hypoxic respiratory failure. POSTOP DIAGNOSIS: ARDS, acute hypoxic respiratory failure. Indications: Hemodynamic monitoring. A time-out was completed verifying correct patient, procedure, site, positioning, and implant(s) or special equipment if applicable. Villa's test was performed to ensure adequate perfusion. The patient's right wrist was prepped and draped in sterile fashion. 1% Lidocaine was used to anesthetize the area. An 18G Arrow arterial line was introduced into the right radial artery. The catheter was threaded over the guide wire and the needle was removed with appropriate pulsatile blood return. Blood loss was minimal. The catheter was then sutured in place to the skin and a sterile dressing applied. Perfusion to the extremity distal to the point of catheter insertion was checked and found to be adequate. The patient tolerated the procedure well and there were no complications. Good waveform was noted. Line was flushed, sutured in place and sterile dressing was applied by the nursing staff. MMODL / IJN: [id number] /
[2019-09-06] MEDS ORDERED: SODIUM CHLORIDE 0.9% 1,000 ML IV ONE (09:31)
[2019-09-06] MEDS: NOREPINEPHRINE 8 MG in SODIUM CHLORIDE 0.9% 250 ML IV SCH ×2 (09:35→18:39)
--- NOTE | 2019-09-06 09:41 | XR ---
EXAMINATION TYPE: XR chest 1V portable DATE OF EXAM: 09/06/2019 CLINICAL HISTORY: Central line placement. TECHNIQUE: Single AP portable semiupright view of the chest is obtained. COMPARISON: Chest x-ray from one day earlier FINDINGS: New Left subclavian central venous catheter terminates near cavoatrial junction. Stable en dotracheal and orogastric tubes. Overlying EKG leads. Overlying external linear device subcarinal lev el new. Persistent alveolar and interstitial opacities bilaterally. Background cardiomegaly. Elevated right hemidiaphragm. Osseous structures are intact. IMPRESSION: 1. New left subclavian central venous catheter terminating at cavoatrial junction. No evidence of pne umothorax. 2. Persistent background mild cardiomegaly and elevated right hemidiaphragm with bilateral alveolar a nd interstitial edema and/or infiltrates. Possible ARDS.
[2019-09-06] MEDS: INSULIN REGULAR 100 UNIT in SODIUM CHLORIDE 0.9% 100 ML IV SCH (09:47)
[2019-09-06 10:06] LABS: Glucose,Whole Blood 165 mg/dL (75-99)
[2019-09-06] MEDS: SODIUM CHLORIDE 0.9% 1,000 ML IV SCH (10:27)
[2019-09-06 10:29] LABS: ABG Base Excess -2.7 mmol/L; ABG HCO3 26 mmol/L (21-25); ABG Oxygen Saturation 91.7 % (94-97); ABG PO2 75 mmHg (83-108); ABG TCO2 28 mmol/L (19-24)
[2019-09-06 10:37] LABS: ABG PCO2 71 mmHg (35-45); ABG PH 7.17 (7.35-7.45)
--- NOTE | 2019-09-06 10:39 | PN ---
PROGRESS NOTE PULMONARY/CRITICAL CARE PROGRESS NOTE: DATE OF SERVICE: September 06, 2019. CRITICAL CARE TIME: 36 minutes. This is a 58-year-old male who was seen in consultation a few days ago. He was initially brought to the emergency room with increasing shortness of breath, fever, chills, cough, and phlegm production. That had been going on for about 4 days prior to admission and was progressive. He was seen in the emergency room and thought to have fluid overload. Interestingly, he had no lower extremity edema and his N terminal proBNP was normal. He was given Lasix and placed on BiPAP and transferred to the ICU. He did well initially on BiPAP and AIRVO. More recently, overnight, his saturations dropped, his work of breathing increased, and unfortunately, he developed hypoxemic and hypercapnic respiratory failure. He needed to be intubated and he was so on September 06. Currently, he is on the volume assist-control mode rate of 26, tidal volume 450, FiO2 of 100%, PEEP is at 15. The pO2 was only 35, pCO2 was 80, pH is 7.134. These blood gases were done on in the PEEP of 10. Currently, he is getting saline at 75 mL an hour. He is getting a fluid bolus for hypotension. He is getting propofol at 50 mcg/kg per minute, insulin at 10 units an hour. In addition, because of suspected acute respiratory distress syndrome, he gets Nimbex 10 mg IV push and a Nimbex drip at 2 mcg/kg per minute with a peripheral nerve stimulator. We will also get him going on tube feeds. In addition, today he had bronchoscopy, airway examination, BAL of the right middle lobe, a right radial art line placed, and a left subclavian triple-lumen catheter placed. His overall condition has seriously declined and he is certainly in dire straits. PHYSICAL EXAMINATION: VITAL SIGNS: Current vital signs are reviewed. His temperature is 97.5, heart rate 100, respiratory rate 28, blood pressure is 80/48 with a mean of 58, saturations are in the mid 80s, that is on a 100% and 15 of PEEP. HEENT: Examination is grossly unremarkable. There is an orally placed endotracheal tube and NG tube. NECK: Supple. Full range of motion. No adenopathy. CARDIOVASCULAR: Examination reveals tachycardia. Heart rate 100. It is regular. LUNGS: Reveal coarse rhonchi. Breath sounds are diminished. Breath sounds equal bilaterally. ABDOMEN: Soft. No bowel sounds are noted. EXTREMITIES: Are intact. No cyanosis, clubbing, or edema. SKIN: Without rash. NEUROLOGIC: Examination could not be adequately assessed as he is currently sedated and paralyzed. Prior to this though, he was awake, alert, and moves all 4 extremities. Current microbiology is thus far negative. Laboratory data is reviewed. His white count 13.8, hemoglobin 14.3, hematocrit 43.5, platelet count 203,000. Gases as mentioned more recently show a pO2 of 57, pCO2 of 82, and a pH of 7.13. Sodium 144, potassium 4.4 chloride 107, CO2 of 29. Anion gap is 8. BUN and creatinine were 33 and 0.91. Influenza studies were negative. Chest x-ray shows diffuse bilateral infiltrates. His infiltrates actually have worsened. Endotracheal tube was pushed down 1.5 cm because it was 6 cm above the tracheal tima. CURRENT MEDICATIONS: Current medications are reviewed. In addition to the saline, propofol and insulin as I mentioned earlier and then more recently the Nimbex, he is currently on aspirin, Zithromax, Rocephin, chlorhexidine, Prozac, heparin subcu, insulin, DuoNeb q.4, lisinopril, Solu-Medrol, metoprolol, norepinephrine, Protonix, propofol and saline IV. Blood pressure medications will be discontinued. ASSESSMENT: 1. Acute hypoxemic respiratory failure, initially responding to AIRVO and BiPAP but now requiring intubation and mechanical ventilation on September 06. He has an acute exacerbation of interstitial lung disease, pathologically likely consistent with diffuse alveolar damage (DAD) or ARDS (acute respiratory distress syndrome). 2. Respiratory failure, complicated by community-acquired pneumonia. 3. Doubt congestive heart failure. 4. Doubt chronic obstructive pulmonary disease exacerbation. 5. Obesity. 6. History of sleep apnea syndrome. 7. History of cardiomyopathy with congestive heart failure. 8. Diabetes mellitus. 9. History of cataracts. 10.History of hyperlipidemia. 11.Benign essential hypertension. 12.Degenerative joint disease. 13.History of pneumonia. 14.Chronic hypoxemic respiratory failure. 15.History of pancreatitis. 16.Lower extremity cellulitis by history. 17.History of cardiomyopathy. PLAN: The patient was intubated this morning based on poor blood gases. He was quite hypoxemic and hypercapnic. Currently, he is on the volume assist-control mode rate of 26, tidal volume 450, FiO2 100% PEEP of 15. Blood gases are pending. He is currently sedated with propofol and paralyzed with Nimbex. Right radial art line, left subclavian triple-lumen catheter, and bronchoscopy were performed. He is on insulin at 10 units an hour. Microbiology is thus far negative. He is on antibiotics for community-acquired pneumonia. Culture data has been negative. His overall prognosis is poor. Will talk to the family later today. Additional recommendations and suggestions are forthcoming. We will start nutrition on him today. CRITICAL CARE TIME: 36 minutes. NAN / MCN: [id number] /
[2019-09-06] MEDS ORDERED: PROPOFOL 10 MG/ML 20 ML VIAL IV ONE (10:45)
[2019-09-06] MEDS ORDERED: SUCCINYLCHOLINE CHLORIDE VIAL 200 MG/10 ML VIAL IV ONE (10:45)
[2019-09-06 11:07] LABS: Glucose,Whole Blood 139 mg/dL (75-99)
[2019-09-06 12:00] LABS: Glucose,Whole Blood 136 mg/dL (75-99)
[2019-09-06] MEDS: methylPREDNISolone SOD SUCCI 125 MG/2 ML VIAL IV SCH ×3 (12:18→23:44)
--- NOTE | 2019-09-06 12:50 | P.PN ---
Subjective This is Elsa Clemons PA-C dictating a progress note on this patient The patient was interviewed and examined by me as well as by Dr. Llanes Case discussed with Dr. Llanes and he agrees with the plan of care HPI/interval history Patient is a 58-year-old male with a past medical history significant for pulmonary fibrosis, hypertension, dyslipidemia, obstructive sleep apnea, diabetes and heart failure who presented with complaints of shortness of breath. Overnight he developed worsening respiratory failure requiring intubation. Adelita hairston seen and examined in the ICU, intubated sedated. Bedside telemetry revealed sinus rhythm in the with rate in the 90s EXAMINATION Patient is afebrile, pulse 90s, respirations in the 30s, blood pressure 92/58, oxygen saturation 93% Patient seen and examined, sedated and intubated Breath sounds equal bilaterally Heart is regular, no audible murmurs No lower extremity edema REVIEW OF LABS, ECG WBC 13.8, hemoglobin 14.3, platelets 203, potassium 4.4, BUN 33, creatinine 0.91 IMPRESSION / ASSESSMENT: Hypoxic respiratory failure, requiring intubation underlying pulmonary fibrosis and possible pneumonia Cardiomyopathy, recent echo showing EF 45-50%,likely nonischemic Hypertension, blood pressure trending in the 140s systolic Dyslipidemia Diabetes Obstructive sleep apnea PLAN: Optimize cardiomyopathy medications as blood pressure tolerates Objective - Vital Signs Vital signs: Vital Signs Temp 98 F 09/06/19 12:00 Pulse 93 09/06/19 12:00 Resp 38 H 09/06/19 12:00 BP 92/58 09/06/19 12:00 Pulse Ox 93 L 09/06/19 12:00 Intake & Output 09/05/19 09/06/19 09/06/19 18:59 06:59 18:59 Intake Total 1042.552 207.553 3241.613 Output Total 2100 760 100 Balance -1057.448 906.253 5531.613 Weight 144 kg 144 kg Intake: IV 975 825 500 Sodium Chloride 0.9% 1, 975 825 450 000 ml @ 75 mls/hr IV . [id number] [facility] Rx#:[id number] cefTRIAXone 1 gm In 50 Sodium Chloride 0.9% 50 ml @ 100 mls/hr IVPB Q24HR [facility] Rx#:[id number] Intake, IV Titration 67.552 67.822 3407.613 Amount Cisatracurium 200 mg In 86.0 Sodium Chloride 0.9% 180 ml @ 2 MCG/KG/MIN 17.28 mls/hr IV .[id number] [facility] Rx #:[id number] Insulin Regular 100 unit 67.552 67.822 42.083 In Sodium Chloride 0.9% 100 ml @ Per Protocol IV .Q0M [facility] Rx#:[id number] Norepinephrine 8 mg In 36.330 Sodium Chloride 0.9% 250 ml @ 0.05 MCG/KG/MIN 13. 932 mls/hr IV .[id number] [facility] Rx#:[id number] Propofol 1,000 mg In 243.200 Empty Bag 1 bag @ Titrate IV .Q0M [facility] Rx#: [id number] Sodium Chloride 0.9% 1, 2000 000 ml @ 999 mls/hr IV . Q1H1M [facility] Rx#:[id number] Sodium Chloride 0.9% 2, 1000 000 ml @ 999 mls/hr IV . Q2H1M [facility] Rx#:[id number] Output: Urine 2100 760 100 Other: Voiding Method Indwelling Catheter Indwelling Catheter Indwelling Catheter ABP, PAP, CO, CI - Last Documented Arterial Blood Pressure 103/72 - Labs CBC & Chem 7: 09/06/19 04:40 09/06/19 04:40 Labs: Abnormal Lab Results - Last 24 Hours (Table) 09/05/19 09/05/19 09/05/19 Range/Units 12:58 13:54 15:02 WBC (3.8-10.6) k/uL Neutrophils # (1.3-7.7) k/uL Lymphocytes # (1.0-4.8) k/uL ABG pH (7.35-7.45) ABG pCO2 (35-45) mmHg ABG pO2 (83-108) mmHg ABG HCO3 (21-25) mmol/L ABG Total CO2 (19-24) mmol/L ABG O2 Saturation (94-97) % BUN (9-20) mg/dL Glucose (74-99) mg/dL POC Glucose (mg/dL) 182 H 195 H 149 H (75-99) mg/dL 09/05/19 09/05/19 09/05/19 Range/Units 16:22 17:25 18:04 WBC (3.8-10.6) k/uL Neutrophils # (1.3-7.7) k/uL Lymphocytes # (1.0-4.8) k/uL ABG pH (7.35-7.45) ABG pCO2 (35-45) mmHg ABG pO2 (83-108) mmHg ABG HCO3 (21-25) mmol/L ABG Total CO2 (19-24) mmol/L ABG O2 Saturation (94-97) % BUN (9-20) mg/dL Glucose (74-99) mg/dL POC Glucose (mg/dL) 129 H 180 H 165 H (75-99) mg/dL 09/05/19 09/05/19 09/05/19 Range/Units 18:50 19:58 22:02 WBC (3.8-10.6) k/uL Neutrophils # (1.3-7.7) k/uL Lymphocytes # (1.0-4.8) k/uL ABG pH (7.35-7.45) ABG pCO2 (35-45) mmHg ABG pO2 (83-108) mmHg ABG HCO3 (21-25) mmol/L ABG Total CO2 (19-24) mmol/L ABG O2 Saturation (94-97) % BUN (9-20) mg/dL Glucose (74-99) mg/dL POC Glucose (mg/dL) 167 H 169 H 166 H (75-99) mg/dL 09/06/19 09/06/19 09/06/19 Range/Units 00:01 01:56 04:09 WBC (3.8-10.6) k/uL Neutrophils # (1.3-7.7) k/uL Lymphocytes # (1.0-4.8) k/uL ABG pH (7.35-7.45) ABG pCO2 (35-45) mmHg ABG pO2 (83-108) mmHg ABG HCO3 (21-25) mmol/L ABG Total CO2 (19-24) mmol/L ABG O2 Saturation (94-97) % BUN (9-20) mg/dL Glucose (74-99) mg/dL POC Glucose (mg/dL) 159 H 174 H 160 H (75-99) mg/dL 09/06/19 09/06/19 09/06/19 Range/Units 04:30 04:40 04:40 WBC 13.8 H (3.8-10.6) k/uL Neutrophils # 12.2 H (1.3-7.7) k/uL Lymphocytes # 0.4 L (1.0-4.8) k/uL ABG pH (7.35-7.45) ABG pCO2 (35-45) mmHg ABG pO2 47 L* (83-108) mmHg ABG HCO3 29 H (21-25) mmol/L ABG Total CO2 30 H (19-24) mmol/L ABG O2 Saturation 82.7 L (94-97) % BUN 33 H (9-20) mg/dL Glucose 174 H (74-99) mg/dL POC Glucose (mg/dL) (75-99) mg/dL 09/06/19 09/06/19 09/06/19 Range/Units 05:12 06:14 06:57 WBC (3.8-10.6) k/uL Neutrophils # (1.3-7.7) k/uL Lymphocytes # (1.0-4.8) k/uL ABG pH 7.18 L* 7.13 L* (7.35-7.45) ABG pCO2 72 H* 80 H* (35-45) mmHg ABG pO2 29 L* 35 L* (83-108) mmHg ABG HCO3 27 H 27 H (21-25) mmol/L ABG Total CO2 29 H 29 H (19-24) mmol/L ABG O2 Saturation 38.6 L 49.3 L (94-97) % BUN (9-20) mg/dL Glucose (74-99) mg/dL POC Glucose (mg/dL) 233 H (75-99) mg/dL 09/06/19 09/06/19 09/06/19 Range/Units 07:57 08:04 09:26 WBC (3.8-10.6) k/uL Neutrophils # (1.3-7.7) k/uL Lymphocytes # (1.0-4.8) k/uL ABG pH 7.13 L* (7.35-7.45) ABG pCO2 82 H* (35-45) mmHg ABG pO2 57 L* (83-108) mmHg ABG HCO3 27 H (21-25) mmol/L ABG Total CO2 30 H (19-24) mmol/L ABG O2 Saturation 78.6 L (94-97) % BUN (9-20) mg/dL Glucose (74-99) mg/dL POC Glucose (mg/dL) 243 H 158 H (75-99) mg/dL 09/06/19 09/06/19 09/06/19 Range/Units 10:05 10:24 11:06 WBC (3.8-10.6) k/uL Neutrophils # (1.3-7.7) k/uL Lymphocytes # (1.0-4.8) k/uL ABG pH 7.17 L* (7.35-7.45) ABG pCO2 71 H* (35-45) mmHg ABG pO2 75 L (83-108) mmHg ABG HCO3 26 H (21-25) mmol/L ABG Total CO2 28 H (19-24) mmol/L ABG O2 Saturation 91.7 L (94-97) % BUN (9-20) mg/dL Glucose (74-99) mg/dL POC Glucose (mg/dL) 165 H 139 H (75-99) mg/dL 09/06/19 Range/Units 11:59 WBC (3.8-10.6) k/uL Neutrophils # (1.3-7.7) k/uL Lymphocytes # (1.0-4.8) k/uL ABG pH (7.35-7.45) ABG pCO2 (35-45) mmHg ABG pO2 (83-108) mmHg ABG HCO3 (21-25) mmol/L ABG Total CO2 (19-24) mmol/L ABG O2 Saturation (94-97) % BUN (9-20) mg/dL Glucose (74-99) mg/dL POC Glucose (mg/dL) 136 H (75-99) mg/dL Microbiology - Last 24 Hours (Table) 09/03/19 08:36 Blood Culture - Preliminary Blood No Growth after 72 hours
[2019-09-06 13:15] LABS: Glucose,Whole Blood 157 mg/dL (75-99)
[2019-09-06 14:32] LABS: Glucose,Whole Blood 166 mg/dL (75-99)
[2019-09-06 14:55] LABS: Color,BF Colorless
[2019-09-06 14:56] LABS: Appearance,BF Hazy; Nucleated Cells, Body Fluid 490 /uL; RBC, Body Fluid 2200 /uL
--- NOTE | 2019-09-06 14:59 | P.PN ---
Subjective Progress Note Date: 09/05/19 Principal diagnosis: Acute hypoxic respiratory failure secondary to pulmonary fibrosis Patient is a 58 old male with a known history of chronic hypoxic respiratory failure on 3 L oxygen with another cannula, idiopathic pulmonary fibrosis, diabetes type 2 insulin-dependent, hypertension, hyperlipidemia, osteoarthritis, obstructive sleep apnea on CPAP at home, osteoarthritis of multiple joints and no prior history of smoking came to ER with complaints of worsening shortness of breath since Monday. Patient does have cough without SPUTUM production. No complaints of fever or chills at home. Patient was having T-max of 101.1 on admission. No complaints of chest pain. No nausea vomiting Or abdominal pain. Chest x-ray showed background cardiomegaly. Moderate chronic parenchymal arthritic changes bilaterally and underlying pulmonary artery hypertension with diffuse bilateral on the lower end interstitial edema now present. Correlate for CHF exacerbation or developing ARDS on background chronic changes. WBC 11.7 Lactic acid 3.6 BNP 144 Troponin 2 negative 09/04/2019 Patient is currently lying in the bed comfortably. Awake alert and oriented. Currently on Airvo oxygen. Patient is being continued on IV steroids and breathing treatments. Patient's blood sugar is elevated due to steroids. Started on insulin drip. Repeat chest x-ray showed bilateral airspace disease. Patient is being continued on empiric antibiotics as well. Pulmonary is following. Patient was started on metoprolol and Lasix 40 mg daily. Cardiology is on board. 2-D echocardiogram showed ejection fraction 45-50%. No significant valvular abnormalities noted. Moderate left ventricular hypertrophy. Patient denied any complaints of chest pain no worsening shortness of breath. No nausea vomiting or abdominal pain. Tolerating oral diet. 08/16/2019 Patient is currently on the BiPAP machine. Patient did have increased shortness of breath this morning and was back on BiPAP. Currently being continued on IV steroids, breathing treatments and 1 dose of IV Lasix was given. Pulmonary and cardiology is following. Active Medications Albuterol/Ipratropium (Duoneb 0.5 Mg-3 Mg/3 Ml Soln) 3 ml INHALATION RT-QID PRN PRN Reason: Shortness Of Breath Or Wheezing Last Admin: 09/04/19 17:09 Dose: 3 ml Documented by: Furosemide (Lasix) 40 mg PO DAILY [facility] Heparin Sodium (Porcine) (Heparin) 5,000 unit SQ Q8HR [facility] Last Admin: 09/04/19 23:25 Dose: 5,000 unit Documented by: Ceftriaxone Sodium 1 gm/ (Sodium Chloride) 50 mls @ 100 mls/hr IVPB Q24HR [facility] Last Admin: 09/04/19 08:26 Dose: 100 mls/hr Documented by: Azithromycin 500 mg/ Sodium (Chloride) 250 mls @ 250 mls/hr IVPB DAILY@1600 [facility] Last Admin: 09/04/19 15:31 Dose: 250 mls/hr Documented by: Sodium Chloride (Saline 0.9%) 1,000 mls @ 75 mls/hr IV .[id number] [facility] Last Admin: 09/04/19 18:12 Dose: 75 mls/hr Documented by: Insulin Human Regular 100 unit (/ Sodium Chloride) 101 mls @ 0 mls/hr IV .Q0M [facility]; Protocol Last Admin: 09/04/19 22:06 Dose: 6 units/hr, 6.06 mls/hr Documented by: Methylprednisolone Sodium Succinate (Solu-Medrol) 40 mg IV Q6HR [facility] Last Admin: 09/04/19 23:26 Dose: 40 mg Documented by: Metoprolol Succinate (Toprol Xl) 50 mg PO DAILY [facility] Last Admin: 09/04/19 14:30 Dose: 50 mg Documented by: Pantoprazole Sodium (Protonix) 40 mg IVP DAILY [facility] Last Admin: 09/04/19 08:26 Dose: 40 mg Documented by: Objective - Vital Signs Vital signs: Vital Signs Temp 97.4 F L 09/05/19 20:00 Pulse 87 09/05/19 20:00 Resp 28 H 09/05/19 20:00 BP 139/76 09/05/19 20:00 Pulse Ox 88 L 09/05/19 20:00 Intake & Output 09/05/19 09/05/19 09/06/19 06:59 18:59 06:59 Intake Total 960.042 1719.552 92.911 Output Total 585 2100 125 Balance 370.786 -1057.448 -32.089 Weight 144.3 kg Intake: IV 900 975 75 Sodium Chloride 0.9% 1, 900 975 75 000 ml @ 75 mls/hr IV . [id number] [facility] Rx#:[id number] Intake, IV Titration 55.786 67.552 17.911 Amount Insulin Regular 100 unit 55.786 67.552 17.911 In Sodium Chloride 0.9% 100 ml @ Per Protocol IV .Q0M [facility] Rx#:[id number] Output: Urine 585 2100 125 Other: Voiding Method Indwelling Catheter Indwelling Catheter - Exam PHYSICAL EXAMINATION: Patient is lying in the bed comfortably, no acute distress, awake alert and oriented.. HEENT: Normocephalic. Neck is supple. Pupils reactive. Nostrils clear. Oral cavity is moist. Ears reveal no drainage. Neck reveals no JVD, carotid bruits, or thyromegaly. CHEST EXAMINATION: Trachea is central. Symmetrical expansion. Bilateral diffuse crackles and minimal expiratory wheeze.. CARDIAC: Normal S1, S2 with no gallops. No murmurs ABDOMEN: Soft. Bowel sounds normal. No organomegaly. No abdominal bruits. Extremities: reveal no edema. No clubbing or cyanosis Neurologically awake, alert, oriented x3 with well-coordinated movements. No focal deficits noted Skin: No rash or skin lesions. Psychiatric: Coperative. Nonsuicidal Musculoskeletal: No joint swelling or deformity. Normal range of motion. - Labs CBC & Chem 7: 09/06/19 04:40 09/06/19 04:40 Labs: Abnormal Lab Results - Last 24 Hours (Table) 09/04/19 09/04/19 09/04/19 Range/Units 21:09 21:52 22:59 WBC (3.8-10.6) k/uL Neutrophils # (1.3-7.7) k/uL Lymphocytes # (1.0-4.8) k/uL Chloride (98-107) mmol/L BUN (9-20) mg/dL Glucose (74-99) mg/dL POC Glucose (mg/dL) 155 H 144 H 142 H (75-99) mg/dL 09/04/19 09/05/19 09/05/19 Range/Units 23:55 00:58 02:58 WBC (3.8-10.6) k/uL Neutrophils # (1.3-7.7) k/uL Lymphocytes # (1.0-4.8) k/uL Chloride (98-107) mmol/L BUN (9-20) mg/dL Glucose (74-99) mg/dL POC Glucose (mg/dL) 136 H 136 H 185 H (75-99) mg/dL 09/05/19 09/05/19 09/05/19 Range/Units 05:17 05:34 05:34 WBC 14.4 H (3.8-10.6) k/uL Neutrophils # 12.8 H (1.3-7.7) k/uL Lymphocytes # 0.4 L (1.0-4.8) k/uL Chloride 110 H (98-107) mmol/L BUN 32 H (9-20) mg/dL Glucose 160 H (74-99) mg/dL POC Glucose (mg/dL) 163 H (75-99) mg/dL 09/05/19 09/05/19 09/05/19 Range/Units 07:02 08:08 10:06 WBC (3.8-10.6) k/uL Neutrophils # (1.3-7.7) k/uL Lymphocytes # (1.0-4.8) k/uL Chloride (98-107) mmol/L BUN (9-20) mg/dL Glucose (74-99) mg/dL POC Glucose (mg/dL) 143 H 143 H 200 H (75-99) mg/dL 09/05/19 09/05/19 09/05/19 Range/Units 11:06 11:57 12:58 WBC (3.8-10.6) k/uL Neutrophils # (1.3-7.7) k/uL Lymphocytes # (1.0-4.8) k/uL Chloride (98-107) mmol/L BUN (9-20) mg/dL Glucose (74-99) mg/dL POC Glucose (mg/dL) 178 H 164 H 182 H (75-99) mg/dL 09/05/19 09/05/19 09/05/19 Range/Units 13:54 15:02 16:22 WBC (3.8-10.6) k/uL Neutrophils # (1.3-7.7) k/uL Lymphocytes # (1.0-4.8) k/uL Chloride (98-107) mmol/L BUN (9-20) mg/dL Glucose (74-99) mg/dL POC Glucose (mg/dL) 195 H 149 H 129 H (75-99) mg/dL 09/05/19 09/05/19 09/05/19 Range/Units 17:25 18:04 18:50 WBC (3.8-10.6) k/uL Neutrophils # (1.3-7.7) k/uL Lymphocytes # (1.0-4.8) k/uL Chloride (98-107) mmol/L BUN (9-20) mg/dL Glucose (74-99) mg/dL POC Glucose (mg/dL) 180 H 165 H 167 H (75-99) mg/dL 09/05/19 Range/Units 19:58 WBC (3.8-10.6) k/uL Neutrophils # (1.3-7.7) k/uL Lymphocytes # (1.0-4.8) k/uL Chloride (98-107) mmol/L BUN (9-20) mg/dL Glucose (74-99) mg/dL POC Glucose (mg/dL) 169 H (75-99) mg/dL Microbiology - Last 24 Hours (Table) 09/03/19 08:36 Blood Culture - Preliminary Blood No Growth after 48 hours Assessment and Plan Assessment: Acute on chronic hypoxic respiratory failure secondary to pulmonary fibrosis. Lactic acidosis secondary to hypoxia. Resolving now. Possible underlying pneumonia Pulmonary vascular congestion. Unlikely CHF. BNP is 144 and leg swelling. Chronic right hemidiaphragm paralysis Obstructive sleep apnea on CPAP at home Chronic CHF with systolic dysfunction. Ejection fraction 45-50%. Diabetes type 2 insulin-dependent Hypertension Hyperlipidemia Osteoarthritis No history of prior smoking Morbid obesity BMI 46.9 DVT prophylaxis with heparin subcu Plan: Patient is currently on BiPAP machine. Patient will be started on Solu-Medrol IV 60 mg-->40 every 6 hourly and continue with duo nebs. Patient was given IV Lasix in the ER due to possible interstitial edema but chest x-ray findings may be due to underlying pulmonary fibrosis. Continue with empiric antibiotics in the form of ceftriaxone and azithromycin. Continue with insulin sliding scale and Levemir 45 units daily at bedtime. Currently on insulin drip for better blood sugar control. Patient will be continued on aspirin, metoprolol, statins and Lasix. Continue the home medications and follow closely. Monitor renal function. further recommendations based on the clinical course. Prognosis is guarded with multiple medical problems and comorbid conditions. Time with Patient: Greater than 30
[2019-09-06 15:13] LABS: Glucose,Whole Blood 188 mg/dL (75-99)
[2019-09-06 15:29] LABS: Mononuclear WBC,Body Fluid 11 %; Polynuclear WBC,Body Fluid 89 %; Total Cells Counted,Body Fluid 100
[2019-09-06] MEDS: AZITHROMYCIN 500 MG TAB PO SCH (16:03)
[2019-09-06 16:11] LABS: Glucose,Whole Blood 188 mg/dL (75-99)
[2019-09-06 17:22] LABS: Glucose,Whole Blood 210 mg/dL (75-99)
[2019-09-06 18:06] LABS: Glucose,Whole Blood 182 mg/dL (75-99)
[2019-09-06 19:08] LABS: Glucose,Whole Blood 167 mg/dL (75-99)
[2019-09-06 20:03] LABS: Glucose,Whole Blood 161 mg/dL (75-99)
[2019-09-06 20:59] LABS: Glucose,Whole Blood 193 mg/dL (75-99)
[2019-09-06 22:10] LABS: Glucose,Whole Blood 195 mg/dL (75-99)
[2019-09-06 23:02] LABS: Glucose,Whole Blood 175 mg/dL (75-99)
[2019-09-06 23:37] LABS: Glucose,Whole Blood 186 mg/dL (75-99)
[2019-09-07 00:13] LABS: Glucose,Whole Blood 195 mg/dL (75-99)
[2019-09-07] MEDS: INSULIN REGULAR 100 UNIT in SODIUM CHLORIDE 0.9% 100 ML IV SCH ×3 (00:22→18:54)
[2019-09-07 01:13] LABS: Glucose,Whole Blood 181 mg/dL (75-99)
[2019-09-07] MEDS: PROPOFOL 1,000 MG in EMPTY BAG 1 BAG IV SCH ×10 (02:05→22:29)
[2019-09-07 02:11] LABS: Glucose,Whole Blood 178 mg/dL (75-99)
[2019-09-07 03:04] LABS: Glucose,Whole Blood 174 mg/dL (75-99)
[2019-09-07] MEDS: IPRATROPIUM-ALBUTEROL 3 ML NEB INHALATION SCH ×6 (03:32→23:34)
[2019-09-07 04:09] LABS: Glucose,Whole Blood 204 mg/dL (75-99)
[2019-09-07 04:48] LABS: Basophils # (A) 0.1 k/uL (0-0.2); Basophils % (A) 1 %; Eosinophils # (A) 0.2 k/uL (0-0.7); Eosinophils % (A) 1 %; HCT 39.7 % (39.0-53.0); HGB 12.3 gm/dL (13.0-17.5); Hypochromasia Slight; Lymphocytes # (A) 0.2 k/uL (1.0-4.8); Lymphocytes % (A) 2 %; MCH 29.9 pg (25.0-35.0); MCHC 30.9 g/dL (31.0-37.0); MCV 96.8 fL (80.0-100.0); Mean Platelet Volume 7.8; Monocytes # (A) 0.4 k/uL (0-1.0); Monocytes % (A) 4 %; Neutrophils % (A) 92 %; Platelet Count 182 k/uL (150-450); RDW 13.8 % (11.5-15.5)
[2019-09-07 04:52] LABS: Calcium 8.2 mg/dL (8.4-10.2); Total Bilirubin 0.5 mg/dL (0.2-1.3)
[2019-09-07 04:58] LABS: Glucose,Whole Blood 189 mg/dL (75-99)
[2019-09-07] MEDS: SODIUM CHLORIDE 0.9% 1,000 ML IV SCH (05:03)
[2019-09-07 05:40] LABS: ABG Base Excess -0.9 mmol/L; ABG HCO3 26 mmol/L (21-25); ABG Oxygen Saturation 97.4 % (94-97); ABG PCO2 61 mmHg (35-45); ABG PH 7.25 (7.35-7.45); ABG PO2 101 mmHg (83-108); ABG TCO2 28 mmol/L (19-24); Allen Test Performed? Yes
[2019-09-07] MEDS: methylPREDNISolone SOD SUCCI 125 MG/2 ML VIAL IV SCH ×3 (06:01→17:53)
[2019-09-07 06:25] LABS: Glucose,Whole Blood 170 mg/dL (75-99)
--- NOTE | 2019-09-07 06:30 | XR ---
EXAMINATION TYPE: XR chest 1V portable DATE OF EXAM: 09/07/2019 HISTORY: Tube placement. REFERENCE: Previous study dated 09/06/2019. FINDINGS: The patient's ET tube and NG tube remain in place, unchanged in appearance. There is a left subclavian catheter in place. Its tip is within the right atrium. There is vascular congestion and both alveolar airspace disease and interstitial change. This has mar kedly improved from yesterday study. The left CP angle is obscured. No significant pleural fluid is s een on the right. IMPRESSION: FAIRLY MARKED IMPROVEMENT IN THE APPEARANCE OF CHEST. I SUSPECT THIS REPRESENTS IMPROVING CONGESTIVE HEART FAILURE.
[2019-09-07 06:55] LABS: Glucose,Whole Blood 165 mg/dL (75-99)
[2019-09-07] MEDS: CHLORHEXIDINE GLUCONATE 15 ML CUP MUCOUS MEM SCH ×2 (08:14→20:00)
[2019-09-07] MEDS: PANTOPRAZOLE 40 MG TABLET PO SCH (08:14)
[2019-09-07] MEDS: FLUoxetine HCL 20 MG CAP PO SCH (08:14)
[2019-09-07] MEDS: HEPARIN SODIUM,PORCINE 5,000 UNIT/ML 1 ML VIAL SQ SCH ×2 (08:14→16:32)
[2019-09-07] MEDS: ASPIRIN 81 MG PO SCH (08:14)
[2019-09-07 08:22] LABS: Glucose,Whole Blood 195 mg/dL (75-99)
[2019-09-07 09:29] LABS: Glucose,Whole Blood 184 mg/dL (75-99)
[2019-09-07] MEDS: CISATRACURIUM 200 MG in SODIUM CHLORIDE 0.9% 180 ML IV SCH ×2 (09:32→09:54)
[2019-09-07] MEDS: NOREPINEPHRINE 8 MG in SODIUM CHLORIDE 0.9% 250 ML IV SCH (09:55)
[2019-09-07] MEDS: SODIUM CHLORIDE 0.45% 1,000 ML IV SCH (10:00)
--- NOTE | 2019-09-07 10:21 | PN ---
PROGRESS NOTE PULMONARY/CRITICAL CARE PROGRESS NOTE: DATE OF SERVICE: 09/07/2019 Critical care time 35 minutes This is a 58-year-old male who was seen in consultation a few days ago. He was initially brought to the emergency room with increasing shortness of breath, fever, chills, cough and phlegm production. It apparently been going on for about 4 days prior to admission which was on September 03. The patient was thought to have fluid overload initially by the ER physicians, though he did not have any lower extremity edema, and his N terminal proBNP was normal. He was placed on BiPAP and transferred to the ICU. He initially did well both on BiPAP and AIRVO, but more recently, developed worsening hypoxemic respiratory failure and hypercapnia and required intubation and mechanical ventilation on September 06. He remains on the ventilator currently. The patient is currently on the volume assist-control mode rate of 38, tidal volume 450, FiO2 of 80% PEEP of 20. His blood gas shows a pO2 of 101, pCO2 of 61 and a pH of 7.25. The patient is getting saline at 75 mL an hours, Nimbex at 1.5 mcg/kg per minute, propofol at 50 mcg/kg per minute, insulin 10 units an hour, Levophed at 1.5 mcg/minute and Vital high-protein at 37 with a goal of 37 mL an hour. Currently, the patient's microbiology is all negative. We did a bronchoscopy on him on 09/06. Blood cultures are also negative. We did calculate a static lung compliance. It was only 17 cm of water with a normal lung compliance being 75 mL/cm water. Current vital signs are reviewed. Temperature is 99, heart rate 96, respiratory rate 38, blood pressure 120/56, CVP 11 and saturations are 96%. Appears in no acute distress, currently sedated and paralyzed. HEENT: Examination is grossly unremarkable. There is no orally placed endotracheal tube and NG tube. NECK: Supple, full range of motion. No adenopathy or thyromegaly. CARDIOVASCULAR: Examination reveals regular rhythm and rate. Heart rate in the low 90s. HEART: Sounds are distant. LUNGS: Reveal coarse bilateral crackles and rhonchi. Breath sounds equal bilaterally. ABDOMEN: Soft. Bowel sounds are heard. EXTREMITIES: Intact. No edema. SKIN: Without rash. NEUROLOGIC: Examination cannot be adequately assessed. Current microbiology as mentioned earlier is all negative. LABS: Reviewed. White count 12.0, hemoglobin 12.3, hematocrit 39.7, platelet count 182,000, blood gases have been noted. PO2 of 101, pCO2 of 61, and pH of 7.25. Sodium 145, potassium 5, chloride is 113, CO2 is 26, anion gap is 6 BUN and creatinine were 34 and 1.27. The rest of the labs show an AST of 89, ALT of 93, alkaline phosphatase 167 and albumin of 3. Bronch wash is currently pending or negative. Influenza studies were negative. Chest x-ray shows marked improvement in the appearance of the chest, likely related to positive-pressure ventilation rather than clinical improvement. He has some diffuse interstitial changes that may relate to his underlying ILD. MEDICATIONS: Reviewed. He is currently on aspirin, Zithromax, Rocephin, chlorhexidine, Nimbex, Prozac, subcu heparin, insulin per protocol, updrafts with DuoNeb, Solu-Medrol, Levophed, Protonix, propofol and saline IV. ASSESSMENT: 1. Acute hypoxemic and hypercapnic respiratory failure, initially responding to AIRVO and BiPAP, but now requiring intubation, mechanical ventilation on September 06. The patient has an acute exacerbation of interstitial lung disease, likely pathologically consistent with diffuse alveolar damage/ARDS. 2. Respiratory failure, complicated by community-acquired pneumonia (CAP). 3. Doubt congestive heart failure. 4. Doubt chronic obstructive pulmonary disease exacerbation. 5. Obesity. 6. History of sleep apnea syndrome. 7. History of cardiomyopathy with congestive heart failure. 8. Diabetes mellitus. 9. History of cataracts. 10.History of hyperlipidemia. 11.Benign essential hypertension. 12.Degenerative joint disease. 13.History of pneumonia. 14.Chronic hypoxemic respiratory failure. 15.History of pancreatitis. 16.Lower extremity cellulitis by history. 17.History of cardiomyopathy. PLAN: I will repeat an N terminal proBNP. The patient's vent is not changed at this time. The patient remains on sedation and paralysis. We will continue with tube feeds at goal. Levophed only running at 1.5 mcg/kg per minute. We will change the IV because he is becoming hyponatremic hyperchloremic to half-normal saline. Additional recommendations and suggestions are forthcoming. Prognosis is guarded. I have not seen family members to talk to them as yet. CRITICAL CARE TIME: 35 minutes. MMODL / IJN: [id number] /
[2019-09-07 10:34] LABS: Glucose,Whole Blood 196 mg/dL (75-99)
[2019-09-07 11:32] LABS: Glucose,Whole Blood 191 mg/dL (75-99)
[2019-09-07 12:31] LABS: Glucose,Whole Blood 184 mg/dL (75-99)
[2019-09-07 13:34] LABS: Glucose,Whole Blood 181 mg/dL (75-99)
[2019-09-07 14:37] LABS: Glucose,Whole Blood 159 mg/dL (75-99)
[2019-09-07 15:28] LABS: Glucose,Whole Blood 168 mg/dL (75-99)
[2019-09-07] MEDS: AZITHROMYCIN 500 MG TAB PO SCH (16:32)
[2019-09-07 16:40] LABS: Glucose,Whole Blood 162 mg/dL (75-99)
[2019-09-07 17:52] LABS: Glucose,Whole Blood 175 mg/dL (75-99)
[2019-09-07 18:52] LABS: Glucose,Whole Blood 161 mg/dL (75-99)
[2019-09-07 20:03] LABS: Glucose,Whole Blood 149 mg/dL (75-99)
[2019-09-07 21:06] LABS: Glucose,Whole Blood 173 mg/dL (75-99)
[2019-09-07 22:13] LABS: Glucose,Whole Blood 148 mg/dL (75-99)
[2019-09-07 23:13] LABS: Glucose,Whole Blood 140 mg/dL (75-99)
--- NOTE | 2019-09-07 23:29 | P.PN ---
Subjective Progress Note Date: 09/06/19 Principal diagnosis: Acute hypoxic respiratory failure secondary to pulmonary fibrosis Patient is a 58 old male with a known history of chronic hypoxic respiratory failure on 3 L oxygen with another cannula, idiopathic pulmonary fibrosis, diabetes type 2 insulin-dependent, hypertension, hyperlipidemia, osteoarthritis, obstructive sleep apnea on CPAP at home, osteoarthritis of multiple joints and no prior history of smoking came to ER with complaints of worsening shortness of breath since Monday. Patient does have cough without SPUTUM production. No complaints of fever or chills at home. Patient was having T-max of 101.1 on admission. No complaints of chest pain. No nausea vomiting Or abdominal pain. Chest x-ray showed background cardiomegaly. Moderate chronic parenchymal arthritic changes bilaterally and underlying pulmonary artery hypertension with diffuse bilateral on the lower end interstitial edema now present. Correlate for CHF exacerbation or developing ARDS on background chronic changes. WBC 11.7 Lactic acid 3.6 BNP 144 Troponin 2 negative 09/04/2019 Patient is currently lying in the bed comfortably. Awake alert and oriented. Currently on Airvo oxygen. Patient is being continued on IV steroids and breathing treatments. Patient's blood sugar is elevated due to steroids. Started on insulin drip. Repeat chest x-ray showed bilateral airspace disease. Patient is being continued on empiric antibiotics as well. Pulmonary is following. Patient was started on metoprolol and Lasix 40 mg daily. Cardiology is on board. 2-D echocardiogram showed ejection fraction 45-50%. No significant valvular abnormalities noted. Moderate left ventricular hypertrophy. Patient denied any complaints of chest pain no worsening shortness of breath. No nausea vomiting or abdominal pain. Tolerating oral diet. 09/05/2019 Patient is currently on the BiPAP machine. Patient did have increased shortness of breath this morning and was back on BiPAP. Currently being continued on IV steroids, breathing treatments and 1 dose of IV Lasix was given. Pulmonary and cardiology is following. 09/06/2019 Patient remained on ventilator. Chest x-ray showed new left subclavian central venous catheter. Persistent background mild cardiomegaly and elevated right hemidiaphragm with bilateral hilar and interstitial edema. Possible ARDS. Pulmonary is planning for bronchial washings. Otherwise patient is being continued on IV steroids, Lasix and antibiotics. Pulmonary and cardiology is following. Active Medications Albuterol/Ipratropium (Duoneb 0.5 Mg-3 Mg/3 Ml Soln) 3 ml INHALATION RT-QID PRN PRN Reason: Shortness Of Breath Or Wheezing Last Admin: 09/04/19 17:09 Dose: 3 ml Documented by: Furosemide (Lasix) 40 mg PO DAILY [facility] Heparin Sodium (Porcine) (Heparin) 5,000 unit SQ Q8HR [facility] Last Admin: 09/04/19 23:25 Dose: 5,000 unit Documented by: Ceftriaxone Sodium 1 gm/ (Sodium Chloride) 50 mls @ 100 mls/hr IVPB Q24HR [facility] Last Admin: 09/04/19 08:26 Dose: 100 mls/hr Documented by: Azithromycin 500 mg/ Sodium (Chloride) 250 mls @ 250 mls/hr IVPB DAILY@1600 [facility] Last Admin: 09/04/19 15:31 Dose: 250 mls/hr Documented by: Sodium Chloride (Saline 0.9%) 1,000 mls @ 75 mls/hr IV .[id number] [facility] Last Admin: 09/04/19 18:12 Dose: 75 mls/hr Documented by: Insulin Human Regular 100 unit (/ Sodium Chloride) 101 mls @ 0 mls/hr IV .Q0M [facility]; Protocol Last Admin: 09/04/19 22:06 Dose: 6 units/hr, 6.06 mls/hr Documented by: Methylprednisolone Sodium Succinate (Solu-Medrol) 40 mg IV Q6HR [facility] Last Admin: 09/04/19 23:26 Dose: 40 mg Documented by: Metoprolol Succinate (Toprol Xl) 50 mg PO DAILY [facility] Last Admin: 09/04/19 14:30 Dose: 50 mg Documented by: Pantoprazole Sodium (Protonix) 40 mg IVP DAILY [facility] Last Admin: 09/04/19 08:26 Dose: 40 mg Documented by: Objective - Vital Signs Vital signs: Vital Signs Temp 98 F 09/06/19 12:00 Pulse 92 09/06/19 14:00 Resp 38 H 09/06/19 14:00 BP 95/63 09/06/19 14:00 Pulse Ox 95 09/06/19 14:00 Intake & Output 09/05/19 09/06/19 09/06/19 18:59 06:59 18:59 Intake Total 1042.552 089.801 4487.635 Output Total 2100 760 140 Balance -1057.448 268.636 2409.635 Weight 144 kg 144 kg Intake: IV 975 825 650 Sodium Chloride 0.9% 1, 975 825 600 000 ml @ 75 mls/hr IV . [id number] [facility] Rx#:[id number] cefTRIAXone 1 gm In 50 Sodium Chloride 0.9% 50 ml @ 100 mls/hr IVPB Q24HR [facility] Rx#:[id number] Intake, IV Titration 67.552 67.822 3687.635 Amount Cisatracurium 200 mg In 170.096 Sodium Chloride 0.9% 180 ml @ 2 MCG/KG/MIN 17.28 mls/hr IV .[id number] [facility] Rx #:[id number] Insulin Regular 100 unit 67.552 67.822 48.564 In Sodium Chloride 0.9% 100 ml @ Per Protocol IV .Q0M [facility] Rx#:[id number] Norepinephrine 8 mg In 125.775 Sodium Chloride 0.9% 250 ml @ 0.05 MCG/KG/MIN 13. 932 mls/hr IV .[id number] [facility] Rx#:[id number] Propofol 1,000 mg In 343.200 Empty Bag 1 bag @ Titrate IV .Q0M [facility] Rx#: [id number] Sodium Chloride 0.9% 1, 2000 000 ml @ 999 mls/hr IV . Q1H1M ONE Rx#:[id number] Sodium Chloride 0.9% 2, 1000 000 ml @ 999 mls/hr IV . Q2H1M ONE Rx#:[id number] Tube Feeding 30 Other 40 Output: Urine 2100 760 140 Other: Voiding Method Indwelling Catheter Indwelling Catheter Indwelling Catheter ABP, PAP, CO, CI - Last Documented Arterial Blood Pressure 117/75 - Exam PHYSICAL EXAMINATION: Patient is currently intubated and sedated... HEENT: Normocephalic. Neck is supple. Pupils reactive. Nostrils clear. Oral cavity is moist. Ears reveal no drainage. Neck reveals no JVD, carotid bruits, or thyromegaly. CHEST EXAMINATION: Trachea is central. Symmetrical expansion. Bilateral diffuse crackles and minimal expiratory wheeze.. CARDIAC: Normal S1, S2 with no gallops. No murmurs ABDOMEN: Soft. Bowel sounds normal. No organomegaly. No abdominal bruits. Extremities: reveal no edema. No clubbing or cyanosis Neurologically currently intubated and sedated.. No focal deficits noted Skin: No rash or skin lesions. Psychiatric: Could not be assessed Musculoskeletal: No joint swelling or deformity. - Labs CBC & Chem 7: 09/07/19 04:00 09/07/19 04:00 Labs: Abnormal Lab Results - Last 24 Hours (Table) 09/05/19 09/05/19 09/05/19 Range/Units 15:02 16:22 17:25 WBC (3.8-10.6) k/uL Neutrophils # (1.3-7.7) k/uL Lymphocytes # (1.0-4.8) k/uL ABG pH (7.35-7.45) ABG pCO2 (35-45) mmHg ABG pO2 (83-108) mmHg ABG HCO3 (21-25) mmol/L ABG Total CO2 (19-24) mmol/L ABG O2 Saturation (94-97) % BUN (9-20) mg/dL Glucose (74-99) mg/dL POC Glucose (mg/dL) 149 H 129 H 180 H (75-99) mg/dL 09/05/19 09/05/19 09/05/19 Range/Units 18:04 18:50 19:58 WBC (3.8-10.6) k/uL Neutrophils # (1.3-7.7) k/uL Lymphocytes # (1.0-4.8) k/uL ABG pH (7.35-7.45) ABG pCO2 (35-45) mmHg ABG pO2 (83-108) mmHg ABG HCO3 (21-25) mmol/L ABG Total CO2 (19-24) mmol/L ABG O2 Saturation (94-97) % BUN (9-20) mg/dL Glucose (74-99) mg/dL POC Glucose (mg/dL) 165 H 167 H 169 H (75-99) mg/dL 09/05/19 09/06/19 09/06/19 Range/Units 22:02 00:01 01:56 WBC (3.8-10.6) k/uL Neutrophils # (1.3-7.7) k/uL Lymphocytes # (1.0-4.8) k/uL ABG pH (7.35-7.45) ABG pCO2 (35-45) mmHg ABG pO2 (83-108) mmHg ABG HCO3 (21-25) mmol/L ABG Total CO2 (19-24) mmol/L ABG O2 Saturation (94-97) % BUN (9-20) mg/dL Glucose (74-99) mg/dL POC Glucose (mg/dL) 166 H 159 H 174 H (75-99) mg/dL 09/06/19 09/06/19 09/06/19 Range/Units 04:09 04:30 04:40 WBC 13.8 H (3.8-10.6) k/uL Neutrophils # 12.2 H (1.3-7.7) k/uL Lymphocytes # 0.4 L (1.0-4.8) k/uL ABG pH (7.35-7.45) ABG pCO2 (35-45) mmHg ABG pO2 47 L* (83-108) mmHg ABG HCO3 29 H (21-25) mmol/L ABG Total CO2 30 H (19-24) mmol/L ABG O2 Saturation 82.7 L (94-97) % BUN (9-20) mg/dL Glucose (74-99) mg/dL POC Glucose (mg/dL) 160 H (75-99) mg/dL 09/06/19 09/06/19 09/06/19 Range/Units 04:40 05:12 06:14 WBC (3.8-10.6) k/uL Neutrophils # (1.3-7.7) k/uL Lymphocytes # (1.0-4.8) k/uL ABG pH 7.18 L* (7.35-7.45) ABG pCO2 72 H* (35-45) mmHg ABG pO2 29 L* (83-108) mmHg ABG HCO3 27 H (21-25) mmol/L ABG Total CO2 29 H (19-24) mmol/L ABG O2 Saturation 38.6 L (94-97) % BUN 33 H (9-20) mg/dL Glucose 174 H (74-99) mg/dL POC Glucose (mg/dL) 233 H (75-99) mg/dL 09/06/19 09/06/19 09/06/19 Range/Units 06:57 07:57 08:04 WBC (3.8-10.6) k/uL Neutrophils # (1.3-7.7) k/uL Lymphocytes # (1.0-4.8) k/uL ABG pH 7.13 L* 7.13 L* (7.35-7.45) ABG pCO2 80 H* 82 H* (35-45) mmHg ABG pO2 35 L* 57 L* (83-108) mmHg ABG HCO3 27 H 27 H (21-25) mmol/L ABG Total CO2 29 H 30 H (19-24) mmol/L ABG O2 Saturation 49.3 L 78.6 L (94-97) % BUN (9-20) mg/dL Glucose (74-99) mg/dL POC Glucose (mg/dL) 243 H (75-99) mg/dL 09/06/19 09/06/19 09/06/19 Range/Units 09:26 10:05 10:24 WBC (3.8-10.6) k/uL Neutrophils # (1.3-7.7) k/uL Lymphocytes # (1.0-4.8) k/uL ABG pH 7.17 L* (7.35-7.45) ABG pCO2 71 H* (35-45) mmHg ABG pO2 75 L (83-108) mmHg ABG HCO3 26 H (21-25) mmol/L ABG Total CO2 28 H (19-24) mmol/L ABG O2 Saturation 91.7 L (94-97) % BUN (9-20) mg/dL Glucose (74-99) mg/dL POC Glucose (mg/dL) 158 H 165 H (75-99) mg/dL 09/06/19 09/06/19 09/06/19 Range/Units 11:06 11:59 13:14 WBC (3.8-10.6) k/uL Neutrophils # (1.3-7.7) k/uL Lymphocytes # (1.0-4.8) k/uL ABG pH (7.35-7.45) ABG pCO2 (35-45) mmHg ABG pO2 (83-108) mmHg ABG HCO3 (21-25) mmol/L ABG Total CO2 (19-24) mmol/L ABG O2 Saturation (94-97) % BUN (9-20) mg/dL Glucose (74-99) mg/dL POC Glucose (mg/dL) 139 H 136 H 157 H (75-99) mg/dL 09/06/19 Range/Units 14:30 WBC (3.8-10.6) k/uL Neutrophils # (1.3-7.7) k/uL Lymphocytes # (1.0-4.8) k/uL ABG pH (7.35-7.45) ABG pCO2 (35-45) mmHg ABG pO2 (83-108) mmHg ABG HCO3 (21-25) mmol/L ABG Total CO2 (19-24) mmol/L ABG O2 Saturation (94-97) % BUN (9-20) mg/dL Glucose (74-99) mg/dL POC Glucose (mg/dL) 166 H (75-99) mg/dL Microbiology - Last 24 Hours (Table) 09/03/19 08:36 Blood Culture - Preliminary Blood No Growth after 72 hours Assessment and Plan Assessment: Acute on chronic hypoxic respiratory failure secondary to pulmonary fibrosis. Currently on mechanical ventilator. Lactic acidosis secondary to hypoxia. Resolving now. Possible underlying pneumonia Pulmonary vascular congestion. Unlikely CHF. BNP is 144 and leg swelling. Chronic right hemidiaphragm paralysis Obstructive sleep apnea on CPAP at home Chronic CHF with systolic dysfunction. Ejection fraction 45-50%. Diabetes type 2 insulin-dependent Hypertension Hyperlipidemia Osteoarthritis No history of prior smoking Morbid obesity BMI 46.9 DVT prophylaxis with heparin subcu Plan: Patient is currently on mechanical ventilator. Patient will be continued on Solu-Medrol IV 60 mg-->40 every 6 hourly and continue with duo nebs. Patient was given IV Lasix in the ER due to possible interstitial edema but chest x-ray findings may be due to underlying pulmonary fibrosis. Continue with empiric antibiotics in the form of ceftriaxone and azithromycin. Continue with insulin sliding scale and Levemir 45 units daily at bedtime. Currently on insulin drip for better blood sugar control. Patient will be continued on aspirin, metoprolol, statins and Lasix. Continue the home medications and follow closely. Monitor renal function. further recommendations based on the clinical course. Prognosis is guarded with multiple medical problems and comorbid conditions. Time with Patient: Greater than 30
--- NOTE | 2019-09-07 23:34 | P.PN ---
Subjective Progress Note Date: 09/07/19 Principal diagnosis: Acute hypoxic respiratory failure secondary to pulmonary fibrosis Patient is a 58 old male with a known history of chronic hypoxic respiratory failure on 3 L oxygen with another cannula, idiopathic pulmonary fibrosis, diabetes type 2 insulin-dependent, hypertension, hyperlipidemia, osteoarthritis, obstructive sleep apnea on CPAP at home, osteoarthritis of multiple joints and no prior history of smoking came to ER with complaints of worsening shortness of breath since Monday. Patient does have cough without SPUTUM production. No complaints of fever or chills at home. Patient was having T-max of 101.1 on admission. No complaints of chest pain. No nausea vomiting Or abdominal pain. Chest x-ray showed background cardiomegaly. Moderate chronic parenchymal arthritic changes bilaterally and underlying pulmonary artery hypertension with diffuse bilateral on the lower end interstitial edema now present. Correlate for CHF exacerbation or developing ARDS on background chronic changes. WBC 11.7 Lactic acid 3.6 BNP 144 Troponin 2 negative 09/04/2019 Patient is currently lying in the bed comfortably. Awake alert and oriented. Currently on Airvo oxygen. Patient is being continued on IV steroids and breathing treatments. Patient's blood sugar is elevated due to steroids. Started on insulin drip. Repeat chest x-ray showed bilateral airspace disease. Patient is being continued on empiric antibiotics as well. Pulmonary is following. Patient was started on metoprolol and Lasix 40 mg daily. Cardiology is on board. 2-D echocardiogram showed ejection fraction 45-50%. No significant valvular abnormalities noted. Moderate left ventricular hypertrophy. Patient denied any complaints of chest pain no worsening shortness of breath. No nausea vomiting or abdominal pain. Tolerating oral diet. 09/05/2019 Patient is currently on the BiPAP machine. Patient did have increased shortness of breath this morning and was back on BiPAP. Currently being continued on IV steroids, breathing treatments and 1 dose of IV Lasix was given. Pulmonary and cardiology is following. 09/06/2019 Patient remained on ventilator. Chest x-ray showed new left subclavian central venous catheter. Persistent background mild cardiomegaly and elevated right hemidiaphragm with bilateral hilar and interstitial edema. Possible ARDS. Pulmonary is planning for bronchial washings. Otherwise patient is being continued on IV steroids, Lasix and antibiotics. Pulmonary and cardiology is following. 09/07/2016 Patient remained on mechanical ventilator. Currently being continued on IV steroids, antibiotics and chest x-ray showed improvement in CHF. Bronchial washings culture pending at this time. Pulmonary is following. Active Medications Albuterol/Ipratropium (Duoneb 0.5 Mg-3 Mg/3 Ml Soln) 3 ml INHALATION RT-Q4H PRN PRN Reason: Shortness Of Breath Or Wheezing Albuterol/Ipratropium (Duoneb 0.5 Mg-3 Mg/3 Ml Soln) 3 ml INHALATION RT-Q4H [facility] Last Admin: 09/07/19 20:41 Dose: Not Given Documented by: Aspirin (Aspirin) 81 mg PO DAILY [facility] Last Admin: 09/07/19 08:14 Dose: 81 mg Documented by: Azithromycin (Zithromax) 500 mg PO DAILY@1600 [facility] Last Admin: 09/07/19 16:32 Dose: 500 mg Documented by: Chlorhexidine Gluconate (Peridex) 15 ml MUCOUS MEM BID [facility] Last Admin: 09/07/19 20:00 Dose: 15 ml Documented by: Fluoxetine HCl (Prozac) 40 mg PO DAILY [facility] Last Admin: 09/07/19 08:14 Dose: 40 mg Documented by: Heparin Sodium (Porcine) (Heparin) 5,000 unit SQ Q8HR [facility] Last Admin: 09/07/19 16:32 Dose: 5,000 unit Documented by: Ceftriaxone Sodium 1 gm/ (Sodium Chloride) 50 mls @ 100 mls/hr IVPB Q24HR [facility] Last Admin: 09/07/19 08:14 Dose: 100 mls/hr Documented by: Insulin Human Regular 100 unit (/ Sodium Chloride) 101 mls @ 0 mls/hr IV .Q0M [facility]; Protocol Last Titration: 09/07/19 23:13 Dose: 0 units/hr, 0 mls/hr Documented by: Propofol 1,000 mg/ IV Solution 100 mls @ 0 mls/hr IV .Q0M [facility]; Protocol Last Admin: 09/07/19 22:29 Dose: 50 mcg/kg/min, 44.61 mls/hr Documented by: Cisatracurium Besylate 200 mg/ (Sodium Chloride) 200 mls @ 17.28 mls/hr IV .[id number] [facility]; Protocol Last Admin: 09/07/19 09:54 Dose: 1.5 mcg/kg/min, 12.96 mls/hr Documented by: Norepinephrine Bitartrate 8 mg (/ Sodium Chloride) 258 mls @ 13.932 mls/hr IV .[id number] [facility]; Protocol Last Titration: 09/07/19 21:43 Dose: 0 mcg/kg/min, 0 mls/hr Documented by: Sodium Chloride (Saline 0.45%) 1,000 mls @ 50 mls/hr IV .Q20H [facility] Last Admin: 09/07/19 10:00 Dose: 50 mls/hr Documented by: Methylprednisolone Sodium Succinate (Solu-Medrol) 60 mg IV Q6HR [facility] Last Admin: 09/07/19 17:53 Dose: 60 mg Documented by: Pantoprazole Sodium (Protonix) 40 mg PO DAILY [facility] Last Admin: 09/07/19 08:14 Dose: 40 mg Documented by: Objective - Vital Signs Vital signs: Vital Signs Temp 99.1 F 09/07/19 16:00 Pulse 112 H 09/07/19 19:00 Resp 38 H 09/07/19 19:00 BP 96/61 09/07/19 19:00 Pulse Ox 93 L 09/07/19 19:00 Intake & Output 09/07/19 09/07/19 09/08/19 06:59 18:59 06:59 Intake Total 2056.111 2248.045 330.754 Output Total 775 870 105 Balance 2059.753 6881.045 225.754 Weight 148.7 kg Intake: IV 900 350 Sodium Chloride 0.9% 1, 900 300 000 ml @ 75 mls/hr IV . [id number] [facility] Rx#:[id number] cefTRIAXone 1 gm In 50 Sodium Chloride 0.9% 50 ml @ 100 mls/hr IVPB Q24HR [facility] Rx#:[id number] Intake, IV Titration 790.857 0907.045 226.754 Amount Cisatracurium 200 mg In 78.696 103.464 Sodium Chloride 0.9% 180 ml @ 2 MCG/KG/MIN 17.28 mls/hr IV .[id number] [facility] Rx #:[id number] Insulin Regular 100 unit 104.030 128.757 22.658 In Sodium Chloride 0.9% 100 ml @ Per Protocol IV .Q0M [facility] Rx#:[id number] Norepinephrine 8 mg In 177.865 72.864 7.616 Sodium Chloride 0.9% 250 ml @ 0.05 MCG/KG/MIN 13. 932 mls/hr IV .[id number] [facility] Rx#:[id number] Propofol 1,000 mg In 473.52 472.96 96.48 Empty Bag 1 bag @ Titrate IV .Q0M [facility] Rx#: [id number] Sodium Chloride 0.45% 1, 400 100 000 ml @ 50 mls/hr IV . Q20H [facility] Rx#:[id number] Tube Feeding 232 550 74 Other 90 170 30 Output: Urine 775 870 105 Other: Voiding Method Indwelling Catheter Indwelling Catheter ABP, PAP, CO, CI - Last Documented Arterial Blood Pressure 80/52 - Exam PHYSICAL EXAMINATION: Patient is currently intubated and sedated... HEENT: Normocephalic. Neck is supple. Pupils reactive. Nostrils clear. Oral cavity is moist. Ears reveal no drainage. Neck reveals no JVD, carotid bruits, or thyromegaly. CHEST EXAMINATION: Trachea is central. Symmetrical expansion. Bilateral diffuse crackles and minimal expiratory wheeze.. CARDIAC: Normal S1, S2 with no gallops. No murmurs ABDOMEN: Soft. Bowel sounds normal. No organomegaly. No abdominal bruits. Extremities: reveal no edema. No clubbing or cyanosis Neurologically currently intubated and sedated.. No focal deficits noted Skin: No rash or skin lesions. Psychiatric: Could not be assessed Musculoskeletal: No joint swelling or deformity. - Labs CBC & Chem 7: 09/07/19 04:00 09/07/19 04:00 Labs: Abnormal Lab Results - Last 24 Hours (Table) 09/06/19 09/06/19 09/06/19 Range/Units 08:39 22:08 23:00 WBC (3.8-10.6) k/uL RBC (4.30-5.90) m/uL Hgb (13.0-17.5) gm/dL MCHC (31.0-37.0) g/dL Neutrophils # (1.3-7.7) k/uL Lymphocytes # (1.0-4.8) k/uL ABG pH (7.35-7.45) ABG pCO2 (35-45) mmHg ABG HCO3 (21-25) mmol/L ABG Total CO2 (19-24) mmol/L ABG O2 Saturation (94-97) % Chloride (98-107) mmol/L BUN (9-20) mg/dL Creatinine (0.66-1.25) mg/dL Glucose (74-99) mg/dL POC Glucose (mg/dL) 195 H 175 H (75-99) mg/dL Calcium (8.4-10.2) mg/dL AST (17-59) U/L ALT (4-49) U/L Alkaline Phosphatase (38-126) U/L Total Protein (6.3-8.2) g/dL Albumin (3.5-5.0) g/dL Viral Test See Below H 09/06/19 09/07/19 09/07/19 Range/Units 23:35 00:12 01:11 WBC (3.8-10.6) k/uL RBC (4.30-5.90) m/uL Hgb (13.0-17.5) gm/dL MCHC (31.0-37.0) g/dL Neutrophils # (1.3-7.7) k/uL Lymphocytes # (1.0-4.8) k/uL ABG pH (7.35-7.45) ABG pCO2 (35-45) mmHg ABG HCO3 (21-25) mmol/L ABG Total CO2 (19-24) mmol/L ABG O2 Saturation (94-97) % Chloride (98-107) mmol/L BUN (9-20) mg/dL Creatinine (0.66-1.25) mg/dL Glucose (74-99) mg/dL POC Glucose (mg/dL) 186 H 195 H 181 H (75-99) mg/dL Calcium (8.4-10.2) mg/dL AST (17-59) U/L ALT (4-49) U/L Alkaline Phosphatase (38-126) U/L Total Protein (6.3-8.2) g/dL Albumin (3.5-5.0) g/dL Viral Test 09/07/19 09/07/19 09/07/19 Range/Units 02:09 03:01 04:00 WBC 12.0 H (3.8-10.6) k/uL RBC 4.10 L (4.30-5.90) m/uL Hgb 12.3 L (13.0-17.5) gm/dL MCHC 30.9 L (31.0-37.0) g/dL Neutrophils # 11.0 H (1.3-7.7) k/uL Lymphocytes # 0.2 L (1.0-4.8) k/uL ABG pH (7.35-7.45) ABG pCO2 (35-45) mmHg ABG HCO3 (21-25) mmol/L ABG Total CO2 (19-24) mmol/L ABG O2 Saturation (94-97) % Chloride (98-107) mmol/L BUN (9-20) mg/dL Creatinine (0.66-1.25) mg/dL Glucose (74-99) mg/dL POC Glucose (mg/dL) 178 H 174 H (75-99) mg/dL Calcium (8.4-10.2) mg/dL AST (17-59) U/L ALT (4-49) U/L Alkaline Phosphatase (38-126) U/L Total Protein (6.3-8.2) g/dL Albumin (3.5-5.0) g/dL Viral Test 09/07/19 09/07/19 09/07/19 Range/Units 04:00 04:07 04:57 WBC (3.8-10.6) k/uL RBC (4.30-5.90) m/uL Hgb (13.0-17.5) gm/dL MCHC (31.0-37.0) g/dL Neutrophils # (1.3-7.7) k/uL Lymphocytes # (1.0-4.8) k/uL ABG pH (7.35-7.45) ABG pCO2 (35-45) mmHg ABG HCO3 (21-25) mmol/L ABG Total CO2 (19-24) mmol/L ABG O2 Saturation (94-97) % Chloride 113 H (98-107) mmol/L BUN 34 H (9-20) mg/dL Creatinine 1.27 H (0.66-1.25) mg/dL Glucose 204 H (74-99) mg/dL POC Glucose (mg/dL) 204 H 189 H (75-99) mg/dL Calcium 8.2 L (8.4-10.2) mg/dL AST 89 H (17-59) U/L ALT 93 H (4-49) U/L Alkaline Phosphatase 167 H (38-126) U/L Total Protein 6.0 L (6.3-8.2) g/dL Albumin 3.0 L (3.5-5.0) g/dL Viral Test 09/07/19 09/07/19 09/07/19 Range/Units 05:36 06:13 06:54 WBC (3.8-10.6) k/uL RBC (4.30-5.90) m/uL Hgb (13.0-17.5) gm/dL MCHC (31.0-37.0) g/dL Neutrophils # (1.3-7.7) k/uL Lymphocytes # (1.0-4.8) k/uL ABG pH 7.25 L (7.35-7.45) ABG pCO2 61 H (35-45) mmHg ABG HCO3 26 H (21-25) mmol/L ABG Total CO2 28 H (19-24) mmol/L ABG O2 Saturation 97.4 H (94-97) % Chloride (98-107) mmol/L BUN (9-20) mg/dL Creatinine (0.66-1.25) mg/dL Glucose (74-99) mg/dL POC Glucose (mg/dL) 170 H 165 H (75-99) mg/dL Calcium (8.4-10.2) mg/dL AST (17-59) U/L ALT (4-49) U/L Alkaline Phosphatase (38-126) U/L Total Protein (6.3-8.2) g/dL Albumin (3.5-5.0) g/dL Viral Test 09/07/19 09/07/19 09/07/19 Range/Units 08:21 09:26 10:32 WBC (3.8-10.6) k/uL RBC (4.30-5.90) m/uL Hgb (13.0-17.5) gm/dL MCHC (31.0-37.0) g/dL Neutrophils # (1.3-7.7) k/uL Lymphocytes # (1.0-4.8) k/uL ABG pH (7.35-7.45) ABG pCO2 (35-45) mmHg ABG HCO3 (21-25) mmol/L ABG Total CO2 (19-24) mmol/L ABG O2 Saturation (94-97) % Chloride (98-107) mmol/L BUN (9-20) mg/dL Creatinine (0.66-1.25) mg/dL Glucose (74-99) mg/dL POC Glucose (mg/dL) 195 H 184 H 196 H (75-99) mg/dL Calcium (8.4-10.2) mg/dL AST (17-59) U/L ALT (4-49) U/L Alkaline Phosphatase (38-126) U/L Total Protein (6.3-8.2) g/dL Albumin (3.5-5.0) g/dL Viral Test 09/07/19 09/07/19 09/07/19 Range/Units 11:31 12:30 13:32 WBC (3.8-10.6) k/uL RBC (4.30-5.90) m/uL Hgb (13.0-17.5) gm/dL MCHC (31.0-37.0) g/dL Neutrophils # (1.3-7.7) k/uL Lymphocytes # (1.0-4.8) k/uL ABG pH (7.35-7.45) ABG pCO2 (35-45) mmHg ABG HCO3 (21-25) mmol/L ABG Total CO2 (19-24) mmol/L ABG O2 Saturation (94-97) % Chloride (98-107) mmol/L BUN (9-20) mg/dL Creatinine (0.66-1.25) mg/dL Glucose (74-99) mg/dL POC Glucose (mg/dL) 191 H 184 H 181 H (75-99) mg/dL Calcium (8.4-10.2) mg/dL AST (17-59) U/L ALT (4-49) U/L Alkaline Phosphatase (38-126) U/L Total Protein (6.3-8.2) g/dL Albumin (3.5-5.0) g/dL Viral Test 09/07/19 09/07/19 09/07/19 Range/Units 14:35 15:27 16:38 WBC (3.8-10.6) k/uL RBC (4.30-5.90) m/uL Hgb (13.0-17.5) gm/dL MCHC (31.0-37.0) g/dL Neutrophils # (1.3-7.7) k/uL Lymphocytes # (1.0-4.8) k/uL ABG pH (7.35-7.45) ABG pCO2 (35-45) mmHg ABG HCO3 (21-25) mmol/L ABG Total CO2 (19-24) mmol/L ABG O2 Saturation (94-97) % Chloride (98-107) mmol/L BUN (9-20) mg/dL Creatinine (0.66-1.25) mg/dL Glucose (74-99) mg/dL POC Glucose (mg/dL) 159 H 168 H 162 H (75-99) mg/dL Calcium (8.4-10.2) mg/dL AST (17-59) U/L ALT (4-49) U/L Alkaline Phosphatase (38-126) U/L Total Protein (6.3-8.2) g/dL Albumin (3.5-5.0) g/dL Viral Test 09/07/19 09/07/19 09/07/19 Range/Units 17:50 18:51 20:01 WBC (3.8-10.6) k/uL RBC (4.30-5.90) m/uL Hgb (13.0-17.5) gm/dL MCHC (31.0-37.0) g/dL Neutrophils # (1.3-7.7) k/uL Lymphocytes # (1.0-4.8) k/uL ABG pH (7.35-7.45) ABG pCO2 (35-45) mmHg ABG HCO3 (21-25) mmol/L ABG Total CO2 (19-24) mmol/L ABG O2 Saturation (94-97) % Chloride (98-107) mmol/L BUN (9-20) mg/dL Creatinine (0.66-1.25) mg/dL Glucose (74-99) mg/dL POC Glucose (mg/dL) 175 H 161 H 149 H (75-99) mg/dL Calcium (8.4-10.2) mg/dL AST (17-59) U/L ALT (4-49) U/L Alkaline Phosphatase (38-126) U/L Total Protein (6.3-8.2) g/dL Albumin (3.5-5.0) g/dL Viral Test 09/07/19 Range/Units 21:04 WBC (3.8-10.6) k/uL RBC (4.30-5.90) m/uL Hgb (13.0-17.5) gm/dL MCHC (31.0-37.0) g/dL Neutrophils # (1.3-7.7) k/uL Lymphocytes # (1.0-4.8) k/uL ABG pH (7.35-7.45) ABG pCO2 (35-45) mmHg ABG HCO3 (21-25) mmol/L ABG Total CO2 (19-24) mmol/L ABG O2 Saturation (94-97) % Chloride (98-107) mmol/L BUN (9-20) mg/dL Creatinine (0.66-1.25) mg/dL Glucose (74-99) mg/dL POC Glucose (mg/dL) 173 H (75-99) mg/dL Calcium (8.4-10.2) mg/dL AST (17-59) U/L ALT (4-49) U/L Alkaline Phosphatase (38-126) U/L Total Protein (6.3-8.2) g/dL Albumin (3.5-5.0) g/dL Viral Test Microbiology - Last 24 Hours (Table) 09/06/19 08:39 Gram Stain - Preliminary Bronchial Washings - Right Bronchial Washings Culture - Preliminary 09/03/19 08:36 Blood Culture - Preliminary Blood No Growth after 96 hours 09/06/19 08:39 Acid Fast Bacilli Smear - Final Bronchial Washings - Right Acid Fast Bacilli Culture - Preliminary 09/06/19 08:39 Fungal Culture - Preliminary Bronchial Washings - Right Assessment and Plan Assessment: Acute on chronic hypoxic respiratory failure secondary to pulmonary fibrosis. Currently on mechanical ventilator. Lactic acidosis secondary to hypoxia. Resolving now. Possible underlying community-acquired pneumonia Mild transaminitis Pulmonary vascular congestion. Unlikely CHF. BNP is 144 and leg swelling. Chronic right hemidiaphragm paralysis Obstructive sleep apnea on CPAP at home Chronic CHF with systolic dysfunction. Ejection fraction 45-50%. Diabetes type 2 insulin-dependent Hypertension Hyperlipidemia Osteoarthritis No history of prior smoking Morbid obesity BMI 46.9 DVT prophylaxis with heparin subcu Plan: Patient is currently on mechanical ventilator. Patient will be continued on Solu-Medrol IV 60 mg every 6 hourly and continue with duo nebs. Patient was given IV Lasix in the ER due to possible interstitial edema but chest x-ray findings may be due to underlying pulmonary fibrosis. Continue with empiric antibiotics in the form of ceftriaxone and azithromycin. Continue with insulin sliding scale and Levemir 45 units daily at bedtime. Currently on insulin drip for better blood sugar control. Patient will be continued on aspirin, metoprolol, statins and Lasix. Continue the home medications and follow closely. Monitor renal function. further recommendations based on the clinical course. Prognosis is guarded with multiple medical problems and comorbid conditions. Time with Patient: Greater than 30
[2019-09-08 00:09] LABS: Glucose,Whole Blood 187 mg/dL (75-99)
[2019-09-08] MEDS: CISATRACURIUM 200 MG in SODIUM CHLORIDE 0.9% 180 ML IV SCH ×3 (00:29→21:34)
[2019-09-08] MEDS: INSULIN ASPART (NovoLOG) 100 UNIT/ML VIAL SQ SCH (00:36)
[2019-09-08] MEDS: HEPARIN SODIUM,PORCINE 5,000 UNIT/ML 1 ML VIAL SQ SCH ×4 (00:38→23:49)
[2019-09-08] MEDS: methylPREDNISolone SOD SUCCI 125 MG/2 ML VIAL IV SCH ×5 (00:38→23:46)
[2019-09-08] MEDS: PROPOFOL 1,000 MG in EMPTY BAG 1 BAG IV SCH ×11 (00:39→23:46)
[2019-09-08 00:56] LABS: Glucose,Whole Blood 203 mg/dL (75-99)
[2019-09-08 02:14] LABS: Glucose,Whole Blood 165 mg/dL (75-99)
[2019-09-08 03:15] LABS: Glucose,Whole Blood 164 mg/dL (75-99)
[2019-09-08] MEDS: IPRATROPIUM-ALBUTEROL 3 ML NEB INHALATION SCH ×5 (03:19→20:53)
[2019-09-08 04:02] LABS: Glucose,Whole Blood 170 mg/dL (75-99)
[2019-09-08] MEDS: INSULIN REGULAR 100 UNIT in SODIUM CHLORIDE 0.9% 100 ML IV SCH ×3 (04:20→23:03)
[2019-09-08 04:35] LABS: Basophils # (A) 0.2 k/uL (0-0.2); Basophils % (A) 2 %; Eosinophils # (A) 0.1 k/uL (0-0.7); Eosinophils % (A) 2 %; HCT 41.5 % (39.0-53.0); HGB 12.8 gm/dL (13.0-17.5); Hypochromasia Slight; Lymphocytes # (A) 0.2 k/uL (1.0-4.8); Lymphocytes % (A) 2 %; MCH 30.1 pg (25.0-35.0); MCHC 30.8 g/dL (31.0-37.0); MCV 97.8 fL (80.0-100.0); Mean Platelet Volume 7.9; Monocytes # (A) 0.5 k/uL (0-1.0); Monocytes % (A) 6 %; Neutrophils # (A) 6.9 k/uL (1.3-7.7); Neutrophils % (A) 87 %; Platelet Count 180 k/uL (150-450); RBC 4.24 m/uL (4.30-5.90); RDW 13.9 % (11.5-15.5); WBC 7.9 k/uL (3.8-10.6)
[2019-09-08 04:46] LABS: Albumin 2.9 g/dL (3.5-5.0); Calcium 8.5 mg/dL (8.4-10.2); Potassium 5.4 mmol/L (3.5-5.1); Total Bilirubin 0.4 mg/dL (0.2-1.3); Total Protein 5.9 g/dL (6.3-8.2)
[2019-09-08 05:05] LABS: Glucose,Whole Blood 189 mg/dL (75-99)
[2019-09-08 05:58] LABS: Glucose,Whole Blood 155 mg/dL (75-99)
[2019-09-08] MEDS: SODIUM CHLORIDE 0.45% 1,000 ML IV SCH (06:03)
--- NOTE | 2019-09-08 06:09 | XR ---
EXAMINATION TYPE: XR chest 1V portable DATE OF EXAM: 09/08/2019 HISTORY: Tube placement. REFERENCE: Previous study dated 09/07/2019. FINDINGS: The patient is ET tube and NG tube remain in place, unchanged in appearance. There is worsening vascular congestion and pulmonary edema. The heart is enlarged. I could not exclud e small effusions. IMPRESSION: WORSENING CHANGES OF PULMONARY EDEMA.
[2019-09-08 06:53] LABS: Glucose,Whole Blood 164 mg/dL (75-99)
[2019-09-08 07:56] LABS: Glucose,Whole Blood 157 mg/dL (75-99)
[2019-09-08] MEDS: FLUoxetine HCL 20 MG CAP PO SCH (08:01)
[2019-09-08] MEDS: ASPIRIN 81 MG PO SCH (08:01)
[2019-09-08] MEDS: CHLORHEXIDINE GLUCONATE 15 ML CUP MUCOUS MEM SCH ×2 (08:02→19:29)
[2019-09-08 08:18] LABS: ABG Base Excess 3.2 mmol/L; ABG HCO3 30 mmol/L (21-25); ABG Oxygen Saturation 97.4 % (94-97); ABG PCO2 63 mmHg (35-45); ABG PH 7.29 (7.35-7.45); ABG PO2 97 mmHg (83-108); ABG TCO2 32 mmol/L (19-24); Allen Test Performed? Yes
[2019-09-08] MEDS ORDERED: FUROSEMIDE 10 MG/ML 10 ML VIAL IV STA ×2 (08:36→08:39)
[2019-09-08] MEDS ORDERED: DEXTROSE 5% IN WATER 1,000 ML IV ONE (08:38)
[2019-09-08] MEDS: PANTOPRAZOLE 40 MG TABLET PO SCH ×2 (08:51→09:18)
[2019-09-08 09:02] LABS: Glucose,Whole Blood 172 mg/dL (75-99)
[2019-09-08 09:58] LABS: Glucose,Whole Blood 181 mg/dL (75-99)
[2019-09-08] MEDS: NOREPINEPHRINE 8 MG in SODIUM CHLORIDE 0.9% 250 ML IV SCH (10:30)
--- NOTE | 2019-09-08 11:01 | PN ---
PROGRESS NOTE CRITICAL CARE TIME: 35 minutes. DATE OF SERVICE: September 08, 2019. This is a 58-year-old male who was seen in consultation a few days ago. He was initially brought into the emergency department with increasing shortness of breath, fever, chills, cough and phlegm production. It had been going on for about 4 days prior to admission which was on September 03. The patient was thought to initially have fluid overload by the ER physician, though he did not have any lower extremity edema and his N terminal proBNP was normal. He was given Lasix and placed on BiPAP and transferred to the ICU. He initially did relatively well, both on BiPAP and AIRVO but more recently developed worsening hypoxemic respiratory failure with hypercapnia, required intubation and mechanical ventilation on September 06. He remains on the ventilator currently and has developed a diffuse lung process requiring high levels of both oxygen and PEEP. Currently, he is on the volume assist-control mode rate of 38, tidal volume 450, FiO2 70%, PEEP of 20 to be increased to 23. Blood gases show pO2 of 96, pCO2 of 63, and a pH of 7.28. We will see if we cannot wean down the FiO2 to a safer level such as 40 or 50%. I told the nurses to wean his FiO2 as long as his saturations were 90% or higher. He remains on Nimbex at 2 mcg/kg per minute, Diprivan at 50 mcg/kg per minute, insulin at 8 units an hour and an IV of 0.45 at 50 to be converted to D5W at KVO. He remains on Vital high-protein at 37 with a goal of 37 mL an hour. The patient will get Lasix IV push x1 today, 60 mg. Again currently, his overall clinical status has remained relatively stable. His microbiologic data is negative. He did have a bronchoscopy on the day of intubation. So far, that is negative. PHYSICAL EXAMINATION: VITAL SIGNS: Current vital signs are reviewed. Temperature is 99.8, heart rate 100, respiratory rate 38, blood pressure 96/63, mean 74, CVP is 9, and saturations are 95%. GENERAL: Appears in no acute distress, he is currently sedated and paralyzed. HEENT: Examination is grossly unremarkable. Endotracheal tube and NG tube noted. NECK: Supple. Full range of motion. No adenopathy. CARDIOVASCULAR: Examination reveals tachycardia. Heart rate 100. He has sinus tachycardia. S1, S2 normal. Heart sounds are distant. LUNGS: Reveal diffuse coarse rhonchi with bilateral crackles. No wheezes. ABDOMEN: Obese. Bowel sounds are heard. EXTREMITIES are intact. Minimal to no edema. SKIN: Without rash. NEUROLOGIC: Examination is difficult to assess given his sedation and paralysis. Microbiologic data is all negative. Labs are reviewed. From today, white count 7.9, hemoglobin 12.8, hematocrit 41.5, platelet count 180,000. Blood gases have been noted. PO2 is 97, pCO2 of 63, and pH 7.29. I am actually happy with those blood gases. Sodium 145, potassium 5.4, chloride 111, CO2 31, anion gap 30, BUN and creatinine were 34 and 1.19. His N-terminal proBNP was 6380, hence the Lasix dose today. AST was 93, up from 89, ALT 105 up from 93. Albumin down to 2.9. On bronch washes, by PCR, rhino virus was detected. The rhino virus may have been the trigger for all of that. Chest x-ray shows diffuse bilateral infiltrates, with worsening changes particularly on the left side. CURRENT MEDICATIONS: Reviewed. He is on aspirin, Zithromax, Rocephin, chlorhexidine, Nimbex, IV, Prozac, one dose of Lasix, subcu heparin, insulin, DuoNeb, Solu-Medrol, Protonix, and Diprivan. Norepinephrine has been off for some time. ASSESSMENT: 1. Acute hypoxemic and hypercapnic respiratory failure, initially responding to AIRVO and BiPAP but now requiring intubation/mechanical ventilation on September 06. The patient has an acute exacerbation of his underlying interstitial lung disease, possibly pathologically consistent with diffuse alveolar damage/ARDS. 2. Respiratory failure, complicated by community-acquired pneumonia. 3. Doubt chronic obstructive pulmonary disease exacerbation. 4. Obesity. 5. History of sleep apnea syndrome. 6. History of cardiomyopathy with congestive heart failure. 7. Diabetes mellitus. 8. History of cataracts. 9. History of hyperlipidemia. 10.Benign essential hypertension. 11.Degenerative joint disease. 12.History of pneumonia. 13.Chronic hypoxemic respiratory failure. 14.History of pancreatitis. 15.Lower extremity cellulitis by history. 16.History of cardiomyopathy. PLAN: The patient will have his PEEP increased from 20-23. We will see if we cannot titrate down the FiO2 to a safer level down from 70%. As long as sats are 90% or higher, I am happy with that. He remains on Nimbex, propofol and insulin drip. He remains on tube feeds at goal. We will give him 1 dose of Lasix 60 mg IV push. Additional recommendations and suggestions are forthcoming. If he does not show improvement, we might have to consider tracheostomy and PEG tube down the line. Overall prognosis is very guarded. CRITICAL CARE TIME: 35 minutes. NAN / MCN: [id number] /
[2019-09-08 11:07] LABS: Glucose,Whole Blood 180 mg/dL (75-99)
--- NOTE | 2019-09-08 11:22 | P.PN ---
Subjective Patient remains intubated, acute respiratory failure with known portal fibrosis Left radical ejection fraction 45% in the past Morbid obesity Sinus tachycardia pulse rate between 100 215 beats a minute Blood pressure 96 207 mmHg Reduced breath sounds bilaterally Heart sounds are distant Impression Acute on chronic hypoxic respiratory failure secondary to underlying probably fibrosis and possible pneumonitis Current myopathy of unknown etiology ejection fraction 45-50% Hypertension dyslipidemia and diabetes and obstructive sleep apnea Suggest Continue current medications for now Limited 2-D echo to reassess LV function Patient's urine output is marginal and his EF is further reduced then low-dose IV dobutamine may be considered Objective - Vital Signs Vital signs: Vital Signs Temp 99.8 F H 09/08/19 08:00 Pulse 114 H 09/08/19 11:00 Resp 38 H 09/08/19 11:00 BP 107/71 09/08/19 11:00 Pulse Ox 96 09/08/19 11:00 Intake & Output 09/07/19 09/08/19 09/08/19 18:59 06:59 18:59 Intake Total 2248.045 2036.289 874.038 Output Total 870 1150 1400 Balance 1378.045 886.289 -525.962 Weight 149.9 kg Intake: IV 350 66 80 Pressures bags 0.9 66 30 Sodium Chloride 0.9% 1, 300 000 ml @ 75 mls/hr IV . [id number] [facility] Rx#:[id number] cefTRIAXone 1 gm In 50 50 Sodium Chloride 0.9% 50 ml @ 100 mls/hr IVPB Q24HR [facility] Rx#:[id number] Intake, IV Titration 6240.287 4525.289 502.038 Amount Cisatracurium 200 mg In 103.464 225.288 124.704 Sodium Chloride 0.9% 180 ml @ 2 MCG/KG/MIN 17.28 mls/hr IV .[id number] [facility] [place] Rx #:[id number] Dextrose 5% in Water 1, 60 000 ml @ 20 mls/hr IV . Q24H [facility] Rx#:[id number] Insulin Regular 100 unit 128.757 106.303 26.630 In Sodium Chloride 0.9% 100 ml @ Per Protocol IV .Q0M [facility] Rx#:[id number] Norepinephrine 8 mg In 72.864 11.563 0.418 Sodium Chloride 0.9% 250 ml @ 0.05 MCG/KG/MIN 13. 932 mls/hr IV .[id number] [facility] Rx#:[id number] Norepinephrine 8 mg In 5.593 Sodium Chloride 0.9% 250 ml @ 0.05 MCG/KG/MIN 14. 503 mls/hr IV .[id number] [facility] Rx#:[id number] Propofol 1,000 mg In 472.96 493.135 184.693 Empty Bag 1 bag @ Titrate IV .Q0M [facility] Rx#: [id number] Sodium Chloride 0.45% 1, 400 600 100 000 ml @ 50 mls/hr IV . Q20H [facility] Rx#:[id number] Tube Feeding 550 444 222 Other 170 90 70 Output: Urine 870 1150 1400 Other: Voiding Method Indwelling Catheter Indwelling Catheter Indwelling Catheter ABP, PAP, CO, CI - Last Documented Arterial Blood Pressure 113/59 - Labs CBC & Chem 7: 09/08/19 04:10 09/08/19 04:10 Labs: Abnormal Lab Results - Last 24 Hours (Table) 09/06/19 09/07/19 09/07/19 Range/Units 08:39 11:31 12:30 RBC (4.30-5.90) m/uL Hgb (13.0-17.5) gm/dL MCHC (31.0-37.0) g/dL Lymphocytes # (1.0-4.8) k/uL ABG pH (7.35-7.45) ABG pCO2 (35-45) mmHg ABG HCO3 (21-25) mmol/L ABG Total CO2 (19-24) mmol/L ABG O2 Saturation (94-97) % Potassium (3.5-5.1) mmol/L Chloride (98-107) mmol/L Carbon Dioxide (22-30) mmol/L BUN (9-20) mg/dL Glucose (74-99) mg/dL POC Glucose (mg/dL) 191 H 184 H (75-99) mg/dL AST (17-59) U/L ALT (4-49) U/L Alkaline Phosphatase (38-126) U/L Total Protein (6.3-8.2) g/dL Albumin (3.5-5.0) g/dL Viral Test See Below H 09/07/19 09/07/19 09/07/19 Range/Units 13:32 14:35 15:27 RBC (4.30-5.90) m/uL Hgb (13.0-17.5) gm/dL MCHC (31.0-37.0) g/dL Lymphocytes # (1.0-4.8) k/uL ABG pH (7.35-7.45) ABG pCO2 (35-45) mmHg ABG HCO3 (21-25) mmol/L ABG Total CO2 (19-24) mmol/L ABG O2 Saturation (94-97) % Potassium (3.5-5.1) mmol/L Chloride (98-107) mmol/L Carbon Dioxide (22-30) mmol/L BUN (9-20) mg/dL Glucose (74-99) mg/dL POC Glucose (mg/dL) 181 H 159 H 168 H (75-99) mg/dL AST (17-59) U/L ALT (4-49) U/L Alkaline Phosphatase (38-126) U/L Total Protein (6.3-8.2) g/dL Albumin (3.5-5.0) g/dL Viral Test 09/07/19 09/07/19 09/07/19 Range/Units 16:38 17:50 18:51 RBC (4.30-5.90) m/uL Hgb (13.0-17.5) gm/dL MCHC (31.0-37.0) g/dL Lymphocytes # (1.0-4.8) k/uL ABG pH (7.35-7.45) ABG pCO2 (35-45) mmHg ABG HCO3 (21-25) mmol/L ABG Total CO2 (19-24) mmol/L ABG O2 Saturation (94-97) % Potassium (3.5-5.1) mmol/L Chloride (98-107) mmol/L Carbon Dioxide (22-30) mmol/L BUN (9-20) mg/dL Glucose (74-99) mg/dL POC Glucose (mg/dL) 162 H 175 H 161 H (75-99) mg/dL AST (17-59) U/L ALT (4-49) U/L Alkaline Phosphatase (38-126) U/L Total Protein (6.3-8.2) g/dL Albumin (3.5-5.0) g/dL Viral Test 09/07/19 09/07/19 09/07/19 Range/Units 20:01 21:04 22:11 RBC (4.30-5.90) m/uL Hgb (13.0-17.5) gm/dL MCHC (31.0-37.0) g/dL Lymphocytes # (1.0-4.8) k/uL ABG pH (7.35-7.45) ABG pCO2 (35-45) mmHg ABG HCO3 (21-25) mmol/L ABG Total CO2 (19-24) mmol/L ABG O2 Saturation (94-97) % Potassium (3.5-5.1) mmol/L Chloride (98-107) mmol/L Carbon Dioxide (22-30) mmol/L BUN (9-20) mg/dL Glucose (74-99) mg/dL POC Glucose (mg/dL) 149 H 173 H 148 H (75-99) mg/dL AST (17-59) U/L ALT (4-49) U/L Alkaline Phosphatase (38-126) U/L Total Protein (6.3-8.2) g/dL Albumin (3.5-5.0) g/dL Viral Test 09/07/19 09/08/19 09/08/19 Range/Units 23:12 00:07 00:55 RBC (4.30-5.90) m/uL Hgb (13.0-17.5) gm/dL MCHC (31.0-37.0) g/dL Lymphocytes # (1.0-4.8) k/uL ABG pH (7.35-7.45) ABG pCO2 (35-45) mmHg ABG HCO3 (21-25) mmol/L ABG Total CO2 (19-24) mmol/L ABG O2 Saturation (94-97) % Potassium (3.5-5.1) mmol/L Chloride (98-107) mmol/L Carbon Dioxide (22-30) mmol/L BUN (9-20) mg/dL Glucose (74-99) mg/dL POC Glucose (mg/dL) 140 H 187 H 203 H (75-99) mg/dL AST (17-59) U/L ALT (4-49) U/L Alkaline Phosphatase (38-126) U/L Total Protein (6.3-8.2) g/dL Albumin (3.5-5.0) g/dL Viral Test 09/08/19 09/08/19 09/08/19 Range/Units 02:13 03:13 04:01 RBC (4.30-5.90) m/uL Hgb (13.0-17.5) gm/dL MCHC (31.0-37.0) g/dL Lymphocytes # (1.0-4.8) k/uL ABG pH (7.35-7.45) ABG pCO2 (35-45) mmHg ABG HCO3 (21-25) mmol/L ABG Total CO2 (19-24) mmol/L ABG O2 Saturation (94-97) % Potassium (3.5-5.1) mmol/L Chloride (98-107) mmol/L Carbon Dioxide (22-30) mmol/L BUN (9-20) mg/dL Glucose (74-99) mg/dL POC Glucose (mg/dL) 165 H 164 H 170 H (75-99) mg/dL AST (17-59) U/L ALT (4-49) U/L Alkaline Phosphatase (38-126) U/L Total Protein (6.3-8.2) g/dL Albumin (3.5-5.0) g/dL Viral Test 09/08/19 09/08/19 09/08/19 Range/Units 04:10 04:10 05:03 RBC 4.24 L (4.30-5.90) m/uL Hgb 12.8 L (13.0-17.5) gm/dL MCHC 30.8 L (31.0-37.0) g/dL Lymphocytes # 0.2 L (1.0-4.8) k/uL ABG pH (7.35-7.45) ABG pCO2 (35-45) mmHg ABG HCO3 (21-25) mmol/L ABG Total CO2 (19-24) mmol/L ABG O2 Saturation (94-97) % Potassium 5.4 H (3.5-5.1) mmol/L Chloride 111 H (98-107) mmol/L Carbon Dioxide 31 H (22-30) mmol/L BUN 34 H (9-20) mg/dL Glucose 205 H (74-99) mg/dL POC Glucose (mg/dL) 189 H (75-99) mg/dL AST 93 H (17-59) U/L ALT 105 H (4-49) U/L Alkaline Phosphatase 156 H (38-126) U/L Total Protein 5.9 L (6.3-8.2) g/dL Albumin 2.9 L (3.5-5.0) g/dL Viral Test 09/08/19 09/08/19 09/08/19 Range/Units 05:57 06:52 07:55 RBC (4.30-5.90) m/uL Hgb (13.0-17.5) gm/dL MCHC (31.0-37.0) g/dL Lymphocytes # (1.0-4.8) k/uL ABG pH (7.35-7.45) ABG pCO2 (35-45) mmHg ABG HCO3 (21-25) mmol/L ABG Total CO2 (19-24) mmol/L ABG O2 Saturation (94-97) % Potassium (3.5-5.1) mmol/L Chloride (98-107) mmol/L Carbon Dioxide (22-30) mmol/L BUN (9-20) mg/dL Glucose (74-99) mg/dL POC Glucose (mg/dL) 155 H 164 H 157 H (75-99) mg/dL AST (17-59) U/L ALT (4-49) U/L Alkaline Phosphatase (38-126) U/L Total Protein (6.3-8.2) g/dL Albumin (3.5-5.0) g/dL Viral Test 09/08/19 09/08/19 09/08/19 Range/Units 08:16 09:00 09:56 RBC (4.30-5.90) m/uL Hgb (13.0-17.5) gm/dL MCHC (31.0-37.0) g/dL Lymphocytes # (1.0-4.8) k/uL ABG pH 7.29 L (7.35-7.45) ABG pCO2 63 H (35-45) mmHg ABG HCO3 30 H (21-25) mmol/L ABG Total CO2 32 H (19-24) mmol/L ABG O2 Saturation 97.4 H (94-97) % Potassium (3.5-5.1) mmol/L Chloride (98-107) mmol/L Carbon Dioxide (22-30) mmol/L BUN (9-20) mg/dL Glucose (74-99) mg/dL POC Glucose (mg/dL) 172 H 181 H (75-99) mg/dL AST (17-59) U/L ALT (4-49) U/L Alkaline Phosphatase (38-126) U/L Total Protein (6.3-8.2) g/dL Albumin (3.5-5.0) g/dL Viral Test 09/08/19 Range/Units 11:05 RBC (4.30-5.90) m/uL Hgb (13.0-17.5) gm/dL MCHC (31.0-37.0) g/dL Lymphocytes # (1.0-4.8) k/uL ABG pH (7.35-7.45) ABG pCO2 (35-45) mmHg ABG HCO3 (21-25) mmol/L ABG Total CO2 (19-24) mmol/L ABG O2 Saturation (94-97) % Potassium (3.5-5.1) mmol/L Chloride (98-107) mmol/L Carbon Dioxide (22-30) mmol/L BUN (9-20) mg/dL Glucose (74-99) mg/dL POC Glucose (mg/dL) 180 H (75-99) mg/dL AST (17-59) U/L ALT (4-49) U/L Alkaline Phosphatase (38-126) U/L Total Protein (6.3-8.2) g/dL Albumin (3.5-5.0) g/dL Viral Test Microbiology - Last 24 Hours (Table) 09/03/19 08:36 Blood Culture - Preliminary Blood No Growth after 120 hours 09/06/19 08:39 Gram Stain - Final Bronchial Washings - Right Bronchial Washings Culture - Final
[2019-09-08 12:14] LABS: Glucose,Whole Blood 199 mg/dL (75-99)
[2019-09-08 13:07] LABS: Glucose,Whole Blood 190 mg/dL (75-99)
[2019-09-08 14:02] LABS: Glucose,Whole Blood 178 mg/dL (75-99)
[2019-09-08 15:15] LABS: Glucose,Whole Blood 189 mg/dL (75-99)
[2019-09-08 16:12] LABS: Glucose,Whole Blood 195 mg/dL (75-99)
[2019-09-08] MEDS: AZITHROMYCIN 500 MG TAB PO SCH (16:16)
[2019-09-08 17:26] LABS: Glucose,Whole Blood 193 mg/dL (75-99)
[2019-09-08 18:47] LABS: Glucose,Whole Blood 169 mg/dL (75-99)
[2019-09-08 19:50] LABS: Glucose,Whole Blood 178 mg/dL (75-99)
[2019-09-08 20:55] LABS: Glucose,Whole Blood 168 mg/dL (75-99)
[2019-09-08 22:08] LABS: Glucose,Whole Blood 160 mg/dL (75-99)
--- NOTE | 2019-09-08 22:17 | P.PN ---
Subjective Progress Note Date: 09/08/19 Principal diagnosis: Acute hypoxic respiratory failure secondary to pulmonary fibrosis Patient is a 58 old male with a known history of chronic hypoxic respiratory failure on 3 L oxygen with another cannula, idiopathic pulmonary fibrosis, diabetes type 2 insulin-dependent, hypertension, hyperlipidemia, osteoarthritis, obstructive sleep apnea on CPAP at home, osteoarthritis of multiple joints and no prior history of smoking came to ER with complaints of worsening shortness of breath since Monday. Patient does have cough without SPUTUM production. No complaints of fever or chills at home. Patient was having T-max of 101.1 on admission. No complaints of chest pain. No nausea vomiting Or abdominal pain. Chest x-ray showed background cardiomegaly. Moderate chronic parenchymal arthritic changes bilaterally and underlying pulmonary artery hypertension with diffuse bilateral on the lower end interstitial edema now present. Correlate for CHF exacerbation or developing ARDS on background chronic changes. WBC 11.7 Lactic acid 3.6 BNP 144 Troponin 2 negative 09/04/2019 Patient is currently lying in the bed comfortably. Awake alert and oriented. Currently on Airvo oxygen. Patient is being continued on IV steroids and breathing treatments. Patient's blood sugar is elevated due to steroids. Started on insulin drip. Repeat chest x-ray showed bilateral airspace disease. Patient is being continued on empiric antibiotics as well. Pulmonary is following. Patient was started on metoprolol and Lasix 40 mg daily. Cardiology is on board. 2-D echocardiogram showed ejection fraction 45-50%. No significant valvular abnormalities noted. Moderate left ventricular hypertrophy. Patient denied any complaints of chest pain no worsening shortness of breath. No nausea vomiting or abdominal pain. Tolerating oral diet. 09/05/2019 Patient is currently on the BiPAP machine. Patient did have increased shortness of breath this morning and was back on BiPAP. Currently being continued on IV steroids, breathing treatments and 1 dose of IV Lasix was given. Pulmonary and cardiology is following. 09/06/2019 Patient remained on ventilator. Chest x-ray showed new left subclavian central venous catheter. Persistent background mild cardiomegaly and elevated right hemidiaphragm with bilateral hilar and interstitial edema. Possible ARDS. Pulmonary is planning for bronchial washings. Otherwise patient is being continued on IV steroids, Lasix and antibiotics. Pulmonary and cardiology is following. 09/07/2019 Patient remained on mechanical ventilator. Currently being continued on IV steroids, antibiotics and chest x-ray showed improvement in CHF. Bronchial washings culture pending at this time. Pulmonary is following. 09/08/2019 Patient is currently in the MICU. On mechanical ventilator and sedated. Currently on FiO2 70% and PEEP of 23. Being continued on IV steroids and antibiotics Patient was given IV Lasix today. Chest x-ray showed worsening changes of pulmonary edema. Bronchoalveolar cultures negative so far. Patient does have underlying significant already fibrosis. Possible ARDS with diffuse alveolar damage. Active Medications Albuterol/Ipratropium (Duoneb 0.5 Mg-3 Mg/3 Ml Soln) 3 ml INHALATION RT-Q4H PRN PRN Reason: Shortness Of Breath Or Wheezing Albuterol/Ipratropium (Duoneb 0.5 Mg-3 Mg/3 Ml Soln) 3 ml INHALATION RT-Q4H [facility] Last Admin: 09/07/19 20:41 Dose: Not Given Documented by: Aspirin (Aspirin) 81 mg PO DAILY [facility] Last Admin: 09/07/19 08:14 Dose: 81 mg Documented by: Azithromycin (Zithromax) 500 mg PO DAILY@1600 [facility] Last Admin: 09/07/19 16:32 Dose: 500 mg Documented by: Chlorhexidine Gluconate (Peridex) 15 ml MUCOUS MEM BID [facility] Last Admin: 09/07/19 20:00 Dose: 15 ml Documented by: Fluoxetine HCl (Prozac) 40 mg PO DAILY [facility] Last Admin: 09/07/19 08:14 Dose: 40 mg Documented by: Heparin Sodium (Porcine) (Heparin) 5,000 unit SQ Q8HR [facility] Last Admin: 09/07/19 16:32 Dose: 5,000 unit Documented by: Ceftriaxone Sodium 1 gm/ (Sodium Chloride) 50 mls @ 100 mls/hr IVPB Q24HR [facility] Last Admin: 09/07/19 08:14 Dose: 100 mls/hr Documented by: Insulin Human Regular 100 unit (/ Sodium Chloride) 101 mls @ 0 mls/hr IV .Q0M [facility]; Protocol Last Titration: 09/07/19 23:13 Dose: 0 units/hr, 0 mls/hr Documented by: Propofol 1,000 mg/ IV Solution 100 mls @ 0 mls/hr IV .Q0M [facility]; Protocol Last Admin: 09/07/19 22:29 Dose: 50 mcg/kg/min, 44.61 mls/hr Documented by: Cisatracurium Besylate 200 mg/ (Sodium Chloride) 200 mls @ 17.28 mls/hr IV .[id number] [facility]; Protocol Last Admin: 09/07/19 09:54 Dose: 1.5 mcg/kg/min, 12.96 mls/hr Documented by: Norepinephrine Bitartrate 8 mg (/ Sodium Chloride) 258 mls @ 13.932 mls/hr IV .[id number] [facility]; Protocol Last Titration: 09/07/19 21:43 Dose: 0 mcg/kg/min, 0 mls/hr Documented by: Sodium Chloride (Saline 0.45%) 1,000 mls @ 50 mls/hr IV .Q20H [facility] Last Admin: 09/07/19 10:00 Dose: 50 mls/hr Documented by: Methylprednisolone Sodium Succinate (Solu-Medrol) 60 mg IV Q6HR [facility] Last Admin: 09/07/19 17:53 Dose: 60 mg Documented by: Pantoprazole Sodium (Protonix) 40 mg PO DAILY [facility] Last Admin: 09/07/19 08:14 Dose: 40 mg Documented by: Objective - Vital Signs Vital signs: Vital Signs Temp 98.7 F 09/08/19 16:00 Pulse 118 H 09/08/19 16:00 Resp 38 H 09/08/19 16:00 BP 92/57 09/08/19 16:00 Pulse Ox 91 L 09/08/19 16:00 Intake & Output 09/07/19 09/08/19 09/08/19 18:59 06:59 18:59 Intake Total 2248.045 2036.289 1561.526 Output Total 870 1150 2465 Balance 1378.045 886.289 -903.474 Weight 149.9 kg Intake: IV 350 66 110 Pressures bags 0.9 66 60 Sodium Chloride 0.9% 1, 300 000 ml @ 75 mls/hr IV . [id number] [facility] Rx#:[id number] cefTRIAXone 1 gm In 50 50 Sodium Chloride 0.9% 50 ml @ 100 mls/hr IVPB Q24HR [facility] Rx#:[id number] Intake, IV Titration 2700.178 1786.289 877.526 Amount Cisatracurium 200 mg In 103.464 225.288 124.704 Sodium Chloride 0.9% 180 ml @ 2 MCG/KG/MIN 17.28 mls/hr IV .[id number] [facility] Rx #:[id number] Dextrose 5% in Water 1, 160 000 ml @ 20 mls/hr IV . Q24H [facility] Rx#:[id number] Insulin Regular 100 unit 128.757 106.303 96.606 In Sodium Chloride 0.9% 100 ml @ Per Protocol IV .Q0M [facility] Rx#:[id number] Norepinephrine 8 mg In 72.864 11.563 0.418 Sodium Chloride 0.9% 250 ml @ 0.05 MCG/KG/MIN 13. 932 mls/hr IV .[id number] [facility] Rx#:[id number] Norepinephrine 8 mg In 11.105 Sodium Chloride 0.9% 250 ml @ 0.05 MCG/KG/MIN 14. 503 mls/hr IV .[id number] [facility] Rx#:[id number] Propofol 1,000 mg In 472.96 493.135 384.693 Empty Bag 1 bag @ Titrate IV .Q0M [facility] Rx#: [id number] Sodium Chloride 0.45% 1, 400 600 100 000 ml @ 50 mls/hr IV . Q20H [facility] Rx#:[id number] Tube Feeding 550 444 444 Other 170 90 130 Output: Urine 870 1150 2465 Other: Voiding Method Indwelling Catheter Indwelling Catheter Indwelling Catheter ABP, PAP, CO, CI - Last Documented Arterial Blood Pressure 136/75 - Exam PHYSICAL EXAMINATION: Patient is currently intubated and sedated... HEENT: Normocephalic. Neck is supple. Pupils reactive. Nostrils clear. Oral cavity is moist. Ears reveal no drainage. Neck reveals no JVD, carotid bruits, or thyromegaly. CHEST EXAMINATION: Trachea is central. Symmetrical expansion. Bilateral diffuse crackles and minimal rhonchi present.. CARDIAC: Normal S1, S2 with no gallops. No murmurs ABDOMEN: Soft. Bowel sounds normal. No organomegaly. No abdominal bruits. Extremities: Trace edema. No clubbing or cyanosis Neurologically currently intubated and sedated.. No focal deficits noted Skin: No rash or skin lesions. Psychiatric: Could not be assessed Musculoskeletal: No joint swelling or deformity. - Labs CBC & Chem 7: 09/08/19 04:10 09/08/19 04:10 Labs: Abnormal Lab Results - Last 24 Hours (Table) 09/07/19 09/07/19 09/07/19 Range/Units 16:38 17:50 18:51 RBC (4.30-5.90) m/uL Hgb (13.0-17.5) gm/dL MCHC (31.0-37.0) g/dL Lymphocytes # (1.0-4.8) k/uL ABG pH (7.35-7.45) ABG pCO2 (35-45) mmHg ABG HCO3 (21-25) mmol/L ABG Total CO2 (19-24) mmol/L ABG O2 Saturation (94-97) % Potassium (3.5-5.1) mmol/L Chloride (98-107) mmol/L Carbon Dioxide (22-30) mmol/L BUN (9-20) mg/dL Glucose (74-99) mg/dL POC Glucose (mg/dL) 162 H 175 H 161 H (75-99) mg/dL AST (17-59) U/L ALT (4-49) U/L Alkaline Phosphatase (38-126) U/L Total Protein (6.3-8.2) g/dL Albumin (3.5-5.0) g/dL 09/07/19 09/07/19 09/07/19 Range/Units 20:01 21:04 22:11 RBC (4.30-5.90) m/uL Hgb (13.0-17.5) gm/dL MCHC (31.0-37.0) g/dL Lymphocytes # (1.0-4.8) k/uL ABG pH (7.35-7.45) ABG pCO2 (35-45) mmHg ABG HCO3 (21-25) mmol/L ABG Total CO2 (19-24) mmol/L ABG O2 Saturation (94-97) % Potassium (3.5-5.1) mmol/L Chloride (98-107) mmol/L Carbon Dioxide (22-30) mmol/L BUN (9-20) mg/dL Glucose (74-99) mg/dL POC Glucose (mg/dL) 149 H 173 H 148 H (75-99) mg/dL AST (17-59) U/L ALT (4-49) U/L Alkaline Phosphatase (38-126) U/L Total Protein (6.3-8.2) g/dL Albumin (3.5-5.0) g/dL 09/07/19 09/08/19 09/08/19 Range/Units 23:12 00:07 00:55 RBC (4.30-5.90) m/uL Hgb (13.0-17.5) gm/dL MCHC (31.0-37.0) g/dL Lymphocytes # (1.0-4.8) k/uL ABG pH (7.35-7.45) ABG pCO2 (35-45) mmHg ABG HCO3 (21-25) mmol/L ABG Total CO2 (19-24) mmol/L ABG O2 Saturation (94-97) % Potassium (3.5-5.1) mmol/L Chloride (98-107) mmol/L Carbon Dioxide (22-30) mmol/L BUN (9-20) mg/dL Glucose (74-99) mg/dL POC Glucose (mg/dL) 140 H 187 H 203 H (75-99) mg/dL AST (17-59) U/L ALT (4-49) U/L Alkaline Phosphatase (38-126) U/L Total Protein (6.3-8.2) g/dL Albumin (3.5-5.0) g/dL 09/08/19 09/08/19 09/08/19 Range/Units 02:13 03:13 04:01 RBC (4.30-5.90) m/uL Hgb (13.0-17.5) gm/dL MCHC (31.0-37.0) g/dL Lymphocytes # (1.0-4.8) k/uL ABG pH (7.35-7.45) ABG pCO2 (35-45) mmHg ABG HCO3 (21-25) mmol/L ABG Total CO2 (19-24) mmol/L ABG O2 Saturation (94-97) % Potassium (3.5-5.1) mmol/L Chloride (98-107) mmol/L Carbon Dioxide (22-30) mmol/L BUN (9-20) mg/dL Glucose (74-99) mg/dL POC Glucose (mg/dL) 165 H 164 H 170 H (75-99) mg/dL AST (17-59) U/L ALT (4-49) U/L Alkaline Phosphatase (38-126) U/L Total Protein (6.3-8.2) g/dL Albumin (3.5-5.0) g/dL 09/08/19 09/08/19 09/08/19 Range/Units 04:10 04:10 05:03 RBC 4.24 L (4.30-5.90) m/uL Hgb 12.8 L (13.0-17.5) gm/dL MCHC 30.8 L (31.0-37.0) g/dL Lymphocytes # 0.2 L (1.0-4.8) k/uL ABG pH (7.35-7.45) ABG pCO2 (35-45) mmHg ABG HCO3 (21-25) mmol/L ABG Total CO2 (19-24) mmol/L ABG O2 Saturation (94-97) % Potassium 5.4 H (3.5-5.1) mmol/L Chloride 111 H (98-107) mmol/L Carbon Dioxide 31 H (22-30) mmol/L BUN 34 H (9-20) mg/dL Glucose 205 H (74-99) mg/dL POC Glucose (mg/dL) 189 H (75-99) mg/dL AST 93 H (17-59) U/L ALT 105 H (4-49) U/L Alkaline Phosphatase 156 H (38-126) U/L Total Protein 5.9 L (6.3-8.2) g/dL Albumin 2.9 L (3.5-5.0) g/dL 09/08/19 09/08/19 09/08/19 Range/Units 05:57 06:52 07:55 RBC (4.30-5.90) m/uL Hgb (13.0-17.5) gm/dL MCHC (31.0-37.0) g/dL Lymphocytes # (1.0-4.8) k/uL ABG pH (7.35-7.45) ABG pCO2 (35-45) mmHg ABG HCO3 (21-25) mmol/L ABG Total CO2 (19-24) mmol/L ABG O2 Saturation (94-97) % Potassium (3.5-5.1) mmol/L Chloride (98-107) mmol/L Carbon Dioxide (22-30) mmol/L BUN (9-20) mg/dL Glucose (74-99) mg/dL POC Glucose (mg/dL) 155 H 164 H 157 H (75-99) mg/dL AST (17-59) U/L ALT (4-49) U/L Alkaline Phosphatase (38-126) U/L Total Protein (6.3-8.2) g/dL Albumin (3.5-5.0) g/dL 09/08/19 09/08/19 09/08/19 Range/Units 08:16 09:00 09:56 RBC (4.30-5.90) m/uL Hgb (13.0-17.5) gm/dL MCHC (31.0-37.0) g/dL Lymphocytes # (1.0-4.8) k/uL ABG pH 7.29 L (7.35-7.45) ABG pCO2 63 H (35-45) mmHg ABG HCO3 30 H (21-25) mmol/L ABG Total CO2 32 H (19-24) mmol/L ABG O2 Saturation 97.4 H (94-97) % Potassium (3.5-5.1) mmol/L Chloride (98-107) mmol/L Carbon Dioxide (22-30) mmol/L BUN (9-20) mg/dL Glucose (74-99) mg/dL POC Glucose (mg/dL) 172 H 181 H (75-99) mg/dL AST (17-59) U/L ALT (4-49) U/L Alkaline Phosphatase (38-126) U/L Total Protein (6.3-8.2) g/dL Albumin (3.5-5.0) g/dL 09/08/19 09/08/19 09/08/19 Range/Units 11:05 12:13 13:05 RBC (4.30-5.90) m/uL Hgb (13.0-17.5) gm/dL MCHC (31.0-37.0) g/dL Lymphocytes # (1.0-4.8) k/uL ABG pH (7.35-7.45) ABG pCO2 (35-45) mmHg ABG HCO3 (21-25) mmol/L ABG Total CO2 (19-24) mmol/L ABG O2 Saturation (94-97) % Potassium (3.5-5.1) mmol/L Chloride (98-107) mmol/L Carbon Dioxide (22-30) mmol/L BUN (9-20) mg/dL Glucose (74-99) mg/dL POC Glucose (mg/dL) 180 H 199 H 190 H (75-99) mg/dL AST (17-59) U/L ALT (4-49) U/L Alkaline Phosphatase (38-126) U/L Total Protein (6.3-8.2) g/dL Albumin (3.5-5.0) g/dL 09/08/19 09/08/19 09/08/19 Range/Units 14:00 15:13 16:12 RBC (4.30-5.90) m/uL Hgb (13.0-17.5) gm/dL MCHC (31.0-37.0) g/dL Lymphocytes # (1.0-4.8) k/uL ABG pH (7.35-7.45) ABG pCO2 (35-45) mmHg ABG HCO3 (21-25) mmol/L ABG Total CO2 (19-24) mmol/L ABG O2 Saturation (94-97) % Potassium (3.5-5.1) mmol/L Chloride (98-107) mmol/L Carbon Dioxide (22-30) mmol/L BUN (9-20) mg/dL Glucose (74-99) mg/dL POC Glucose (mg/dL) 178 H 189 H 195 H (75-99) mg/dL AST (17-59) U/L ALT (4-49) U/L Alkaline Phosphatase (38-126) U/L Total Protein (6.3-8.2) g/dL Albumin (3.5-5.0) g/dL Microbiology - Last 24 Hours (Table) 09/03/19 08:36 Blood Culture - Preliminary Blood No Growth after 120 hours 09/06/19 08:39 Gram Stain - Final Bronchial Washings - Right Bronchial Washings Culture - Final Assessment and Plan Assessment: Acute hypoxemic and hypercapnic respiratory failure secondary to pulmonary edema, underlying pulmonary fibrosis with diffuse alveolar damage/ARDS Acute on chronic hypoxic respiratory failure secondary to above. Currently on mechanical ventilator. Lactic acidosis secondary to hypoxia. Resolving now. Possible underlying community-acquired pneumonia Mild transaminitis Pulmonary vascular congestion. Unlikely CHF. BNP is 144 and leg swelling. Chronic right hemidiaphragm paralysis Obstructive sleep apnea on CPAP at home Chronic CHF with systolic dysfunction. Ejection fraction 45-50%. Diabetes type 2 insulin-dependent Hypertension Hyperlipidemia Osteoarthritis No history of prior smoking Morbid obesity BMI 46.9 DVT prophylaxis with heparin subcu Plan: Patient is currently on mechanical ventilator. Patient will be continued on Solu-Medrol IV 60 mg every 6 hourly and continue with duo nebs. Patient was given IV Lasix in the ER due to possible interstitial edema. Continue with empiric antibiotics in the form of ceftriaxone and azithromycin. Continue with insulin sliding scale and Levemir 45 units daily at bedtime. Cu rrently on insulin drip for better blood sugar control. Patient will be continued on aspirin, metoprolol, statins and Lasix. Continue the home medications and follow closely. Monitor renal function. further recommendations based on the clinical course. Prognosis is guarded with multiple medical problems and comorbid conditions. Time with Patient: Greater than 30
[2019-09-08 23:04] LABS: Glucose,Whole Blood 189 mg/dL (75-99)
[2019-09-09 00:05] LABS: Glucose,Whole Blood 158 mg/dL (75-99)
[2019-09-09] MEDS: IPRATROPIUM-ALBUTEROL 3 ML NEB INHALATION SCH ×7 (00:48→23:51)
[2019-09-09 00:56] LABS: Glucose,Whole Blood 158 mg/dL (75-99)
[2019-09-09 02:00] LABS: Glucose,Whole Blood 160 mg/dL (75-99)
[2019-09-09] MEDS: PROPOFOL 1,000 MG in EMPTY BAG 1 BAG IV SCH ×8 (02:05→21:48)
[2019-09-09 02:53] LABS: Glucose,Whole Blood 168 mg/dL (75-99)
[2019-09-09 03:56] LABS: Glucose,Whole Blood 164 mg/dL (75-99)
[2019-09-09 04:11] LABS: Basophils # (A) 0.1 k/uL (0-0.2); Basophils % (A) 2 %; Eosinophils # (A) 0.1 k/uL (0-0.7); Eosinophils % (A) 2 %; HCT 41.9 % (39.0-53.0); Hypochromasia Slight; Lymphocytes # (A) 0.3 k/uL (1.0-4.8); Lymphocytes % (A) 4 %; MCHC 30.9 g/dL (31.0-37.0); MCV 96.9 fL (80.0-100.0); Mean Platelet Volume 7.6; Monocytes # (A) 0.4 k/uL (0-1.0); Monocytes % (A) 4 %; Neutrophils # (A) 7.8 k/uL (1.3-7.7); Neutrophils % (A) 87 %; Platelet Count 204 k/uL (150-450); RBC 4.33 m/uL (4.30-5.90); RDW 13.9 % (11.5-15.5); WBC 8.9 k/uL (3.8-10.6)
[2019-09-09 04:35] LABS: ABG Base Excess 7.6 mmol/L; ABG HCO3 34 mmol/L (21-25); ABG PCO2 66 mmHg (35-45); ABG PH 7.32 (7.35-7.45); ABG PO2 74 mmHg (83-108); ABG TCO2 36 mmol/L (19-24); Allen Test Performed? Yes
[2019-09-09 04:39] LABS: Albumin 3.1 g/dL (3.5-5.0); Calcium 8.7 mg/dL (8.4-10.2); Potassium 5.5 mmol/L (3.5-5.1); Total Bilirubin 0.5 mg/dL (0.2-1.3); Total Protein 6.2 g/dL (6.3-8.2)
[2019-09-09] MEDS: NOREPINEPHRINE 8 MG in SODIUM CHLORIDE 0.9% 250 ML IV SCH ×2 (04:55→21:50)
[2019-09-09 05:01] LABS: Glucose,Whole Blood 162 mg/dL (75-99)
[2019-09-09 06:02] LABS: Glucose,Whole Blood 151 mg/dL (75-99)
[2019-09-09] MEDS: methylPREDNISolone SOD SUCCI 125 MG/2 ML VIAL IV SCH ×4 (06:08→23:32)
[2019-09-09 07:01] LABS: Glucose,Whole Blood 171 mg/dL (75-99)
--- NOTE | 2019-09-09 07:27 | XR ---
EXAMINATION TYPE: XR chest 1V portable DATE OF EXAM: 09/09/2019 COMPARISON: 09/08/2019 HISTORY: Ventilatory dependent respiratory failure. TECHNIQUE: Single frontal view of the chest is obtained. FINDINGS: Diffuse interstitial pulmonary edema and pulmonary vascular congestion has slightly improv ed in comparison to the prior. More confluent opacity is seen at the left lung base. New subcutaneous emphysema overlies the right chest wall and right neck although no pneumothorax is seen. Endotrachea l tube and enteric tubes are similar in position. Left-sided subclavian approach central venous stephany ter is also similar. Very trace pleural effusions are suspected. IMPRESSION: 1. New subcutaneous emphysema within the right pectoralis musculature and soft tissues of the right l ateral neck. No pneumothorax seen. 2. Interstitial pulmonary edema and pulmonary vascular congestion has slightly improved with either c onfluent pulmonary edema, atelectasis or pneumonia at the left lung base.
[2019-09-09 08:50] LABS: Glucose,Whole Blood 160 mg/dL (75-99)
[2019-09-09] MEDS: CHLORHEXIDINE GLUCONATE 15 ML CUP MUCOUS MEM SCH ×2 (08:58→21:48)
[2019-09-09] MEDS: METOPROLOL TARTRATE 12.5 MG TAB PO SCH ×2 (08:58→21:48)
[2019-09-09] MEDS: ASPIRIN 81 MG PO SCH (08:58)
[2019-09-09] MEDS: FLUoxetine HCL 20 MG CAP PO SCH (08:58)
[2019-09-09] MEDS: HEPARIN SODIUM,PORCINE 5,000 UNIT/ML 1 ML VIAL SQ SCH ×3 (08:58→23:33)
[2019-09-09] MEDS: PANTOPRAZOLE 40 MG TABLET PO SCH (09:00)
[2019-09-09] MEDS: INSULIN REGULAR 100 UNIT in SODIUM CHLORIDE 0.9% 100 ML IV SCH ×2 (10:19→22:24)
[2019-09-09] MEDS: CISATRACURIUM 200 MG in SODIUM CHLORIDE 0.9% 180 ML IV SCH ×2 (10:19→21:49)
[2019-09-09 11:09] LABS: Glucose,Whole Blood 159 mg/dL (75-99)
[2019-09-09 12:18] LABS: Glucose,Whole Blood 175 mg/dL (75-99)
--- NOTE | 2019-09-09 12:28 | P.PN ---
Subjective This is Elsa Clemons PA-C dictating a progress note on this patient The patient was interviewed and examined by me as well as by Dr. Llanes Case discussed with Dr. Llanes and he agrees with the plan of care HPI/interval history Patient is a 58-year-old male with a past medical history significant for pulmonary fibrosis, hypertension, dyslipidemia, obstructive sleep apnea, diabetes and heart failure who presented with complaints of shortness of breath. He was initially placed on BiPAP but developed respiratory failure requiring intubation. Bedside telemetry reveals sinus tachycardia in the 120s. He is off the Levophed. Patient seen and examined in the ICU, remains intubated sedated. EXAMINATION Temperature 99.4F, pulse in the 120s, respirations 38, blood pressure 109/67, oxygen saturation 91% on mechanical ventilation Patient seen and examined, sedated and intubated Breath sounds equal bilaterally Heart is tachycardic but regular, no audible murmurs No lower extremity edema REVIEW OF LABS, ECG WBC 8.9, hemoglobin 13, platelets 204, potassium 5.5, BUN 43, creatinine 1.17 IMPRESSION / ASSESSMENT: Hypoxic respiratory failure, requiring intubation underlying pulmonary fibrosis and possible pneumonia Cardiomyopathy, recent echo showing EF 45-50%,likely nonischemic Hypertension, blood pressure trending in the 140s systolic Dyslipidemia Diabetes Obstructive sleep apnea Hyperkalemia PLAN: Start low-dose beta jl, start metoprolol 12.5 mg twice a day A limited 2-D echo has been ordered to reassess his LV function, awaiting results If his EF is further reduced, could consider low-dose IV dobutamine, his urine output has been okay so would hold off for now We'll further maximize his beta jl as his blood pressure tolerates Objective - Vital Signs Vital signs: Vital Signs Temp 99.4 F 09/09/19 08:00 Pulse 100 09/09/19 11:39 Resp 38 H 09/09/19 11:00 BP 119/79 09/09/19 03:00 Pulse Ox 91 L 09/09/19 11:00 Intake & Output 09/08/19 09/09/19 09/09/19 18:59 06:59 18:59 Intake Total 3239.536 4425.806 770.699 Output Total 2615 1100 335 Balance -710.898 686.806 435.699 Weight 148.8 kg 148.8 kg Intake: IV 122 78 104 Dextrose 5% in Water 1, 80 000 ml @ 20 mls/hr IV . Q24H [facility] Rx#:[id number] Pressures bags 0.9 72 78 24 cefTRIAXone 1 gm In 50 Sodium Chloride 0.9% 50 ml @ 100 mls/hr IVPB Q24HR [facility] Rx#:[id number] Intake, IV Titration 7936.746 5179.806 443.699 Amount Cisatracurium 200 mg In 124.704 191.232 200 Sodium Chloride 0.9% 180 ml @ 2 MCG/KG/MIN 17.28 mls/hr IV .[id number] [facility] Rx #:[id number] Dextrose 5% in Water 1, 200 260 000 ml @ 20 mls/hr IV . Q24H [facility] Rx#:[id number] Insulin Regular 100 unit 130.525 121.251 43.699 In Sodium Chloride 0.9% 100 ml @ Per Protocol IV .Q0M [facility] Rx#:[id number] Norepinephrine 8 mg In 0.418 Sodium Chloride 0.9% 250 ml @ 0.05 MCG/KG/MIN 13. 932 mls/hr IV .[id number] [facility] Rx#:[id number] Norepinephrine 8 mg In 16.762 Sodium Chloride 0.9% 250 ml @ 0.05 MCG/KG/MIN 14. 503 mls/hr IV .[id number] [facility] Rx#:[id number] Propofol 1,000 mg In 484.693 565.323 200 Empty Bag 1 bag @ Titrate IV .Q0M [facility] Rx#: [id number] Sodium Chloride 0.45% 1, 100 000 ml @ 50 mls/hr IV . Q20H [facility] Rx#:[id number] Tube Feeding 555 481 148 Other 170 90 75 Output: Urine 2615 1100 335 Other: Voiding Method Indwelling Catheter Indwelling Catheter Indwelling Catheter ABP, PAP, CO, CI - Last Documented Arterial Blood Pressure 109/67 - Labs CBC & Chem 7: 09/09/19 04:00 09/09/19 04:00 Labs: Abnormal Lab Results - Last 24 Hours (Table) 09/08/19 09/08/19 09/08/19 Range/Units 13:05 14:00 15:13 MCHC (31.0-37.0) g/dL Neutrophils # (1.3-7.7) k/uL Lymphocytes # (1.0-4.8) k/uL ABG pH (7.35-7.45) ABG pCO2 (35-45) mmHg ABG pO2 (83-108) mmHg ABG HCO3 (21-25) mmol/L ABG Total CO2 (19-24) mmol/L Potassium (3.5-5.1) mmol/L Chloride (98-107) mmol/L Carbon Dioxide (22-30) mmol/L BUN (9-20) mg/dL Glucose (74-99) mg/dL POC Glucose (mg/dL) 190 H 178 H 189 H (75-99) mg/dL ALT (4-49) U/L Alkaline Phosphatase (38-126) U/L Total Protein (6.3-8.2) g/dL Albumin (3.5-5.0) g/dL 09/08/19 09/08/19 09/08/19 Range/Units 16:12 17:25 18:46 MCHC (31.0-37.0) g/dL Neutrophils # (1.3-7.7) k/uL Lymphocytes # (1.0-4.8) k/uL ABG pH (7.35-7.45) ABG pCO2 (35-45) mmHg ABG pO2 (83-108) mmHg ABG HCO3 (21-25) mmol/L ABG Total CO2 (19-24) mmol/L Potassium (3.5-5.1) mmol/L Chloride (98-107) mmol/L Carbon Dioxide (22-30) mmol/L BUN (9-20) mg/dL Glucose (74-99) mg/dL POC Glucose (mg/dL) 195 H 193 H 169 H (75-99) mg/dL ALT (4-49) U/L Alkaline Phosphatase (38-126) U/L Total Protein (6.3-8.2) g/dL Albumin (3.5-5.0) g/dL 09/08/19 09/08/19 09/08/19 Range/Units 19:47 20:53 22:06 MCHC (31.0-37.0) g/dL Neutrophils # (1.3-7.7) k/uL Lymphocytes # (1.0-4.8) k/uL ABG pH (7.35-7.45) ABG pCO2 (35-45) mmHg ABG pO2 (83-108) mmHg ABG HCO3 (21-25) mmol/L ABG Total CO2 (19-24) mmol/L Potassium (3.5-5.1) mmol/L Chloride (98-107) mmol/L Carbon Dioxide (22-30) mmol/L BUN (9-20) mg/dL Glucose (74-99) mg/dL POC Glucose (mg/dL) 178 H 168 H 160 H (75-99) mg/dL ALT (4-49) U/L Alkaline Phosphatase (38-126) U/L Total Protein (6.3-8.2) g/dL Albumin (3.5-5.0) g/dL 09/08/19 09/09/19 09/09/19 Range/Units 23:02 00:03 00:54 MCHC (31.0-37.0) g/dL Neutrophils # (1.3-7.7) k/uL Lymphocytes # (1.0-4.8) k/uL ABG pH (7.35-7.45) ABG pCO2 (35-45) mmHg ABG pO2 (83-108) mmHg ABG HCO3 (21-25) mmol/L ABG Total CO2 (19-24) mmol/L Potassium (3.5-5.1) mmol/L Chloride (98-107) mmol/L Carbon Dioxide (22-30) mmol/L BUN (9-20) mg/dL Glucose (74-99) mg/dL POC Glucose (mg/dL) 189 H 158 H 158 H (75-99) mg/dL ALT (4-49) U/L Alkaline Phosphatase (38-126) U/L Total Protein (6.3-8.2) g/dL Albumin (3.5-5.0) g/dL 09/09/19 09/09/19 09/09/19 Range/Units 01:59 02:51 03:54 MCHC (31.0-37.0) g/dL Neutrophils # (1.3-7.7) k/uL Lymphocytes # (1.0-4.8) k/uL ABG pH (7.35-7.45) ABG pCO2 (35-45) mmHg ABG pO2 (83-108) mmHg ABG HCO3 (21-25) mmol/L ABG Total CO2 (19-24) mmol/L Potassium (3.5-5.1) mmol/L Chloride (98-107) mmol/L Carbon Dioxide (22-30) mmol/L BUN (9-20) mg/dL Glucose (74-99) mg/dL POC Glucose (mg/dL) 160 H 168 H 164 H (75-99) mg/dL ALT (4-49) U/L Alkaline Phosphatase (38-126) U/L Total Protein (6.3-8.2) g/dL Albumin (3.5-5.0) g/dL 09/09/19 09/09/19 09/09/19 Range/Units 04:00 04:00 04:30 MCHC 30.9 L (31.0-37.0) g/dL Neutrophils # 7.8 H (1.3-7.7) k/uL Lymphocytes # 0.3 L (1.0-4.8) k/uL ABG pH 7.32 L (7.35-7.45) ABG pCO2 66 H (35-45) mmHg ABG pO2 74 L (83-108) mmHg ABG HCO3 34 H (21-25) mmol/L ABG Total CO2 36 H (19-24) mmol/L Potassium 5.5 H (3.5-5.1) mmol/L Chloride 108 H (98-107) mmol/L Carbon Dioxide 34 H (22-30) mmol/L BUN 43 H (9-20) mg/dL Glucose 182 H (74-99) mg/dL POC Glucose (mg/dL) (75-99) mg/dL ALT 96 H (4-49) U/L Alkaline Phosphatase 140 H (38-126) U/L Total Protein 6.2 L (6.3-8.2) g/dL Albumin 3.1 L (3.5-5.0) g/dL 09/09/19 09/09/19 09/09/19 Range/Units 04:59 06:01 06:59 MCHC (31.0-37.0) g/dL Neutrophils # (1.3-7.7) k/uL Lymphocytes # (1.0-4.8) k/uL ABG pH (7.35-7.45) ABG pCO2 (35-45) mmHg ABG pO2 (83-108) mmHg ABG HCO3 (21-25) mmol/L ABG Total CO2 (19-24) mmol/L Potassium (3.5-5.1) mmol/L Chloride (98-107) mmol/L Carbon Dioxide (22-30) mmol/L BUN (9-20) mg/dL Glucose (74-99) mg/dL POC Glucose (mg/dL) 162 H 151 H 171 H (75-99) mg/dL ALT (4-49) U/L Alkaline Phosphatase (38-126) U/L Total Protein (6.3-8.2) g/dL Albumin (3.5-5.0) g/dL 09/09/19 09/09/19 09/09/19 Range/Units 08:49 11:07 12:17 MCHC (31.0-37.0) g/dL Neutrophils # (1.3-7.7) k/uL Lymphocytes # (1.0-4.8) k/uL ABG pH (7.35-7.45) ABG pCO2 (35-45) mmHg ABG pO2 (83-108) mmHg ABG HCO3 (21-25) mmol/L ABG Total CO2 (19-24) mmol/L Potassium (3.5-5.1) mmol/L Chloride (98-107) mmol/L Carbon Dioxide (22-30) mmol/L BUN (9-20) mg/dL Glucose (74-99) mg/dL POC Glucose (mg/dL) 160 H 159 H 175 H (75-99) mg/dL ALT (4-49) U/L Alkaline Phosphatase (38-126) U/L Total Protein (6.3-8.2) g/dL Albumin (3.5-5.0) g/dL Microbiology - Last 24 Hours (Table) 09/03/19 08:36 Blood Culture - Final Blood No Growth after 144 hours 09/06/19 08:39 Gram Stain - Final Bronchial Washings - Right Bronchial Washings Culture - Final
--- NOTE | 2019-09-09 12:53 | P.PN ---
Subjective Progress Note Date: 09/09/19 Principal diagnosis: Acute hypoxemic and hypercapnic respiratory failure related to ARDS, and community-acquired pneumonia On 09/09/2019 patient seen in follow-up in the right intensive care unit, he remains intubated, sedated, current vent settings are assist-control with a rate of 38, tidal volume 450, FiO2 of 50% and PEEP of 23, this morning his blood gases showed pO2 of 74, pCO2 of 66, pH is 7.32. Patient is on maintenance IV fluids of 5W at a rate of 20, Diprivan is a 50 mics per kilo per minute, Nimbex is currently at 2 mics per kilo per minute, and insulin drip is at 11 units per hour. Today's chest x-ray has been reviewed showing new subcutaneous emphysema within the right pectoralis musculature and soft tissues of the right lateral neck no pneumothorax seen, interstitial pulmonary edema and pulmonary asked her congestion slightly improved with either confluent pulmonary edema atelectasis or pneumonia at the left lung base. Patient remains on examination of Zithromax and Rocephin for antibiotic coverage bronchial lavage cultures are negative thus far, with viral culture positive for rhinovirus. Peak airway pressures remain elevated at 51, and peak plateau pressures elevated at 44, vent adjustments have been made, and tidal volume was dropped down to 375, and PEEP was dropped down to 22, improvement of peak plateau pressure down to 38, and peak air pressure down to 39. Patient is receiving tube feedings in the form of vital high- protein at the rate of 37 with a goal of 37 with standard water flushes. Yesterday patient was given a dose of IV Lasix, patient did produce 3700 in urine output although he is only -24 mL over last 24 hours. No significant secretions, patient remains on IV steroids, nebulized bronchodilators, antibiotics. Objective - Vital Signs Vital signs: Vital Signs Temp 99.4 F 09/09/19 08:00 Pulse 100 09/09/19 11:39 Resp 38 H 09/09/19 11:00 BP 119/79 09/09/19 03:00 Pulse Ox 91 L 09/09/19 11:00 Intake & Output 09/08/19 09/09/19 09/09/19 18:59 06:59 18:59 Intake Total 6675.934 9472.806 770.699 Output Total 2615 1100 335 Balance -710.898 686.806 435.699 Weight 148.8 kg 148.8 kg Intake: IV 122 78 104 Dextrose 5% in Water 1, 80 000 ml @ 20 mls/hr IV . Q24H [facility] Rx#:[id number] Pressures bags 0.9 72 78 24 cefTRIAXone 1 gm In 50 Sodium Chloride 0.9% 50 ml @ 100 mls/hr IVPB Q24HR [facility] Rx#:[id number] Intake, IV Titration 6304.341 6906.806 443.699 Amount Cisatracurium 200 mg In 124.704 191.232 200 Sodium Chloride 0.9% 180 ml @ 2 MCG/KG/MIN 17.28 mls/hr IV .[id number] [facility] Rx #:[id number] Dextrose 5% in Water 1, 200 260 000 ml @ 20 mls/hr IV . Q24H [facility] Rx#:[id number] Insulin Regular 100 unit 130.525 121.251 43.699 In Sodium Chloride 0.9% 100 ml @ Per Protocol IV .Q0M [facility] Rx#:[id number] Norepinephrine 8 mg In 0.418 Sodium Chloride 0.9% 250 ml @ 0.05 MCG/KG/MIN 13. 932 mls/hr IV .[id number] [facility] Rx#:[id number] Norepinephrine 8 mg In 16.762 Sodium Chloride 0.9% 250 ml @ 0.05 MCG/KG/MIN 14. 503 mls/hr IV .[id number] [facility] Rx#:[id number] Propofol 1,000 mg In 484.693 565.323 200 Empty Bag 1 bag @ Titrate IV .Q0M [facility] Rx#: [id number] Sodium Chloride 0.45% 1, 100 000 ml @ 50 mls/hr IV . Q20H [facility] Rx#:[id number] Tube Feeding 555 481 148 Other 170 90 75 Output: Urine 2615 1100 335 Other: Voiding Method Indwelling Catheter Indwelling Catheter Indwelling Catheter ABP, PAP, CO, CI - Last Documented Arterial Blood Pressure 109/67 - Exam GENERAL EXAM: In today, sedated, 58-year-old obese white male, on paralytics, in the form of Nimbex, and Diprivan HEAD: Normocephalic/atraumatic. EYES: Normal reaction of pupils, equal size. Conjunctiva pink, sclera white. NOSE: Clear with pink turbinates. THROAT: No erythema or exudates. NECK: No masses, no JVD, no thyroid enlargement, no adenopathy. CHEST: Right pectoralis muscle subcutaneous emphysema, extending to the right upper neck symmetrical expansion. LUNGS: Equal air entry with no crackles, wheeze, rhonchi or dullness. CVS: Regular rate and rhythm, normal S1 and S2, no gallops, no murmurs, no rubs ABDOMEN: Soft, nontender. No hepatosplenomegaly, normal bowel sounds, no guarding or rigidity. EXTREMITIES: No clubbing, no edema, no cyanosis, 2+ pulses and upper and lower extremities. MUSCULOSKELETAL: Muscle strength and tone normal. SPINE: No scoliosis or deformity SKIN: No rashes CENTRAL NERVOUS SYSTEM: intubated, sedated, paralyzed. No focal deficits, tone is normal in all 4 extremities. - Labs CBC & Chem 7: 09/09/19 04:00 09/09/19 04:00 Labs: Abnormal Lab Results - Last 24 Hours (Table) 09/08/19 09/08/19 09/08/19 Range/Units 13:05 14:00 15:13 MCHC (31.0-37.0) g/dL Neutrophils # (1.3-7.7) k/uL Lymphocytes # (1.0-4.8) k/uL ABG pH (7.35-7.45) ABG pCO2 (35-45) mmHg ABG pO2 (83-108) mmHg ABG HCO3 (21-25) mmol/L ABG Total CO2 (19-24) mmol/L Potassium (3.5-5.1) mmol/L Chloride (98-107) mmol/L Carbon Dioxide (22-30) mmol/L BUN (9-20) mg/dL Glucose (74-99) mg/dL POC Glucose (mg/dL) 190 H 178 H 189 H (75-99) mg/dL ALT (4-49) U/L Alkaline Phosphatase (38-126) U/L Total Protein (6.3-8.2) g/dL Albumin (3.5-5.0) g/dL 09/08/19 09/08/19 09/08/19 Range/Units 16:12 17:25 18:46 MCHC (31.0-37.0) g/dL Neutrophils # (1.3-7.7) k/uL Lymphocytes # (1.0-4.8) k/uL ABG pH (7.35-7.45) ABG pCO2 (35-45) mmHg ABG pO2 (83-108) mmHg ABG HCO3 (21-25) mmol/L ABG Total CO2 (19-24) mmol/L Potassium (3.5-5.1) mmol/L Chloride (98-107) mmol/L Carbon Dioxide (22-30) mmol/L BUN (9-20) mg/dL Glucose (74-99) mg/dL POC Glucose (mg/dL) 195 H 193 H 169 H (75-99) mg/dL ALT (4-49) U/L Alkaline Phosphatase (38-126) U/L Total Protein (6.3-8.2) g/dL Albumin (3.5-5.0) g/dL 09/08/19 09/08/19 09/08/19 Range/Units 19:47 20:53 22:06 MCHC (31.0-37.0) g/dL Neutrophils # (1.3-7.7) k/uL Lymphocytes # (1.0-4.8) k/uL ABG pH (7.35-7.45) ABG pCO2 (35-45) mmHg ABG pO2 (83-108) mmHg ABG HCO3 (21-25) mmol/L ABG Total CO2 (19-24) mmol/L Potassium (3.5-5.1) mmol/L Chloride (98-107) mmol/L Carbon Dioxide (22-30) mmol/L BUN (9-20) mg/dL Glucose (74-99) mg/dL POC Glucose (mg/dL) 178 H 168 H 160 H (75-99) mg/dL ALT (4-49) U/L Alkaline Phosphatase (38-126) U/L Total Protein (6.3-8.2) g/dL Albumin (3.5-5.0) g/dL 09/08/19 09/09/19 09/09/19 Range/Units 23:02 00:03 00:54 MCHC (31.0-37.0) g/dL Neutrophils # (1.3-7.7) k/uL Lymphocytes # (1.0-4.8) k/uL ABG pH (7.35-7.45) ABG pCO2 (35-45) mmHg ABG pO2 (83-108) mmHg ABG HCO3 (21-25) mmol/L ABG Total CO2 (19-24) mmol/L Potassium (3.5-5.1) mmol/L Chloride (98-107) mmol/L Carbon Dioxide (22-30) mmol/L BUN (9-20) mg/dL Glucose (74-99) mg/dL POC Glucose (mg/dL) 189 H 158 H 158 H (75-99) mg/dL ALT (4-49) U/L Alkaline Phosphatase (38-126) U/L Total Protein (6.3-8.2) g/dL Albumin (3.5-5.0) g/dL 09/09/19 09/09/19 09/09/19 Range/Units 01:59 02:51 03:54 MCHC (31.0-37.0) g/dL Neutrophils # (1.3-7.7) k/uL Lymphocytes # (1.0-4.8) k/uL ABG pH (7.35-7.45) ABG pCO2 (35-45) mmHg ABG pO2 (83-108) mmHg ABG HCO3 (21-25) mmol/L ABG Total CO2 (19-24) mmol/L Potassium (3.5-5.1) mmol/L Chloride (98-107) mmol/L Carbon Dioxide (22-30) mmol/L BUN (9-20) mg/dL Glucose (74-99) mg/dL POC Glucose (mg/dL) 160 H 168 H 164 H (75-99) mg/dL ALT (4-49) U/L Alkaline Phosphatase (38-126) U/L Total Protein (6.3-8.2) g/dL Albumin (3.5-5.0) g/dL 09/09/19 09/09/19 09/09/19 Range/Units 04:00 04:00 04:30 MCHC 30.9 L (31.0-37.0) g/dL Neutrophils # 7.8 H (1.3-7.7) k/uL Lymphocytes # 0.3 L (1.0-4.8) k/uL ABG pH 7.32 L (7.35-7.45) ABG pCO2 66 H (35-45) mmHg ABG pO2 74 L (83-108) mmHg ABG HCO3 34 H (21-25) mmol/L ABG Total CO2 36 H (19-24) mmol/L Potassium 5.5 H (3.5-5.1) mmol/L Chloride 108 H (98-107) mmol/L Carbon Dioxide 34 H (22-30) mmol/L BUN 43 H (9-20) mg/dL Glucose 182 H (74-99) mg/dL POC Glucose (mg/dL) (75-99) mg/dL ALT 96 H (4-49) U/L Alkaline Phosphatase 140 H (38-126) U/L Total Protein 6.2 L (6.3-8.2) g/dL Albumin 3.1 L (3.5-5.0) g/dL 09/09/19 09/09/19 09/09/19 Range/Units 04:59 06:01 06:59 MCHC (31.0-37.0) g/dL Neutrophils # (1.3-7.7) k/uL Lymphocytes # (1.0-4.8) k/uL ABG pH (7.35-7.45) ABG pCO2 (35-45) mmHg ABG pO2 (83-108) mmHg ABG HCO3 (21-25) mmol/L ABG Total CO2 (19-24) mmol/L Potassium (3.5-5.1) mmol/L Chloride (98-107) mmol/L Carbon Dioxide (22-30) mmol/L BUN (9-20) mg/dL Glucose (74-99) mg/dL POC Glucose (mg/dL) 162 H 151 H 171 H (75-99) mg/dL ALT (4-49) U/L Alkaline Phosphatase (38-126) U/L Total Protein (6.3-8.2) g/dL Albumin (3.5-5.0) g/dL 09/09/19 09/09/19 09/09/19 Range/Units 08:49 11:07 12:17 MCHC (31.0-37.0) g/dL Neutrophils # (1.3-7.7) k/uL Lymphocytes # (1.0-4.8) k/uL ABG pH (7.35-7.45) ABG pCO2 (35-45) mmHg ABG pO2 (83-108) mmHg ABG HCO3 (21-25) mmol/L ABG Total CO2 (19-24) mmol/L Potassium (3.5-5.1) mmol/L Chloride (98-107) mmol/L Carbon Dioxide (22-30) mmol/L BUN (9-20) mg/dL Glucose (74-99) mg/dL POC Glucose (mg/dL) 160 H 159 H 175 H (75-99) mg/dL ALT (4-49) U/L Alkaline Phosphatase (38-126) U/L Total Protein (6.3-8.2) g/dL Albumin (3.5-5.0) g/dL Microbiology - Last 24 Hours (Table) 09/03/19 08:36 Blood Culture - Final Blood No Growth after 144 hours 09/06/19 08:39 Gram Stain - Final Bronchial Washings - Right Bronchial Washings Culture - Final Assessment and Plan Plan: Assessment: #1. Acute hypoxemic and hypercapnic respiratory failure related to ARDS and community-acquired pneumonia, failed BiPAP support, required intubation and placement on on mechanical ventilator on 09/06/2019, and bronchoscopy with BAL on the same day #2. New subcutaneous emphysema in the right pectoralis musculature and soft tissues of the right neck, with no evidence of pneumothorax #3. Chronic interstitial lung disease, idiopathic pulmonary fibrosis with chronic hypoxemic respiratory failure #4. Morbid obesity #5. History of sleep apnea syndrome #6. History of cardiomyopathy with congestive heart failure #7. Diabetes maltose type II #8. Hyperlipidemia #9. Hypertension #10. Degenerative joint disease #11. Previous episodes of pneumonia #12. History of lower extremity cellulitis #13. History of systolic CHF, most recent echocardiogram showed EF of 45-50%, trace TR, trace MR and no pulmonary hypertension Plan: Continue with current antibiotics, bronchial wash BAL showed no growth so far, but viral cultures were positive for rhinovirus, we'll continue with the nebulized bronchodilators, IV steroids, but adjustments have been made, tidal vital was dropped down to 375, and PEEP was down to 22, will repeat blood gases in half an hour, continue paralytics, continue sedation, continue insulin infus ion, patient is hemodynamically stable, his chest x-ray has been reviewed showing subcutaneous emphysema involving the right chest in the right neck area. The tube feedings, continue supportive care, GI and DVT prophylaxis. We'll prognosis is guarded I performed a history & physical examination of the patient and discussed their management with my nurse practitioner, Consuelo Bergman. I reviewed the nurse practitioner's note and agree with the documented findings and plan of care. Lung sounds are positive for diminished breath sounds. The findings and the impression was discussed with the patient. I attest to the documentation by the nurse practitioner. Time with Patient: Greater than 30
[2019-09-09 12:55] LABS: ABG Base Excess 8.3 mmol/L; ABG HCO3 35 mmol/L (21-25); ABG Oxygen Saturation 92.2 % (94-97); ABG PCO2 70 mmHg (35-45); ABG PO2 69 mmHg (83-108); ABG TCO2 37 mmol/L (19-24); Allen Test Performed? Yes
[2019-09-09 13:14] LABS: Glucose,Whole Blood 166 mg/dL (75-99)
--- NOTE | 2019-09-09 14:20 | PN ---
PROGRESS NOTE DATE OF SERVICE: 09/09/2019 This is a 58-year-old gentleman, admitted with shortness of breath, had multiple complex medical issues including possible interstitial fibrosis, acute exacerbation, with possible pneumonia and as well as some pulmonary edema. The patient has also had acute hypoxic hypercapnic respiratory failure. Ejection fraction found to be 45% to 50%. The patient will be closely monitored. The patient is on mechanical ventilation at this time. The patient is on PEEP of [address] Velasco is following the patient closely. The patient had some subcutaneous emphysema in the right pectoral area without any evidence of pneumothorax in the most recent chest x-ray which was personally reviewed by me. PAST MEDICAL HISTORY: Reviewed. REVIEW OF SYSTEMS: Could not be taken, as patient is mechanically intubated and sedated. CURRENT MEDICATIONS: 1. DuoNeb q.i.d. and p.r.n. 2. Aspirin 81 mg. 3. Zithromax 500 mg daily. 4. Rocephin 1 g daily. 5. Chlorhexidine. 7. Prozac 40 mg p.o. daily. 8. Heparin 5 subcu q.8. 9. Solu-Medrol 60 IV q.6. 10.Protonix 40 mg p.o. daily. PHYSICAL EXAMINATION: Patient is mechanically sedated, pulse 99, blood pressure 89/50 and 120/60, respiration 20, temperature 98.4, pulse ox 91% in mechanical ventilation of 50% FiO2, 400 tidal volume, PEEP of 22. HEENT: Conjunctivae normal. Oral mucosa moist. NECK: No jugular venous distention. No lymph node enlargement. CARDIOVASCULAR: S1, S2. RESPIRATORY: Breath sounds diminished at the bases. A few scattered rhonchi, no crackles. ABDOMEN: Soft, obese, nontender. LEGS: Bilateral leg edema. NERVOUS SYSTEM: Higher functions as mentioned earlier. Moves all 4 limbs. No focal motor deficits. LYMPHATICS: No lymph node enlargement in the neck or axillae. SKIN: No ulcer, rash, bleeding. JOINTS: No active deformity or arthropathy. LABS: WBC 8.9, hemoglobin 13, ABGs noted, otherwise, sodium 140, potassium 5.5. ASSESSMENT: 1. Congestive heart failure acute exacerbation with acute on chronic systolic dysfunction, ejection fraction 45% to 50% with acute hypoxic hypercapnic respiratory failure, on mechanical ventilation. 2. Pulmonary fibrosis, history of pulmonary lung disease acute exacerbation. 3. Possible bilateral pneumonia. 4. Chronic obstructive pulmonary disease acute exacerbation. 5. Right pectoral subcutaneous emphysema without any evidence of pneumothorax. 6. Status bronchoscopy and BAL. 7. Lactic acidosis secondary to hypoxia. 8. Mild transaminitis. 9. Chronic right roque-diaphragmatic paralysis. 10.Obstructive sleep apnea, on CPAP at home. 11.Chronic congestive heart failure with chronic systolic dysfunction, ejection fraction 45% to 50%. 12.Diabetes mellitus type 2. 13.Hypertension. 14.Hyperlipidemia. 15.Degenerative joint disease. 16.Obesity with body mass index of 45.8. 17.Acute respiratory acidosis. 18.Increased WBC, improved. 19.History of chronic hypoxic respiratory failure on 3 L nasal cannula at home. 20.History of pancreatitis and chronic abdominal pain. 21.History of anxiety, depression. 22.FULL CODE. RECOMMENDATION: In this 58-year-old gentleman who presented with multiple complex medical issues, will monitor the patient closely, continue with the current management and symptomatic treatment; otherwise, the patient we will continue with broad-spectrum IV antibiotics. Follow the cultures. DVT prophylaxis. Continue with the mechanical ventilation. Continue with the IV steroids. Monitor blood sugars closely. Otherwise, prognosis guarded because of multiple complex medical conditions, further recommendations to follow. See orders. Surgicel discussed with the family at length. A copy will be forwarded to Dr. Baumann who is the primary physician. NAN / MEREDITH: [id number] / MTDD
[2019-09-09 15:17] LABS: Glucose,Whole Blood 148 mg/dL (75-99)
[2019-09-09] MEDS: AZITHROMYCIN 500 MG TAB PO SCH (16:20)
[2019-09-09 16:53] LABS: Glucose,Whole Blood 135 mg/dL (75-99)
[2019-09-09 18:32] LABS: ABG Base Excess 8.5 mmol/L; ABG HCO3 36 mmol/L (21-25); ABG Oxygen Saturation 91.9 % (94-97); ABG PH 7.22 (7.35-7.45); ABG PO2 70 mmHg (83-108); ABG TCO2 39 mmol/L (19-24); Allen Test Performed? Yes
[2019-09-09 18:36] LABS: ABG PCO2 89 mmHg (35-45)
[2019-09-09 18:59] LABS: Glucose,Whole Blood 226 mg/dL (75-99)
[2019-09-09 20:07] LABS: Glucose,Whole Blood 222 mg/dL (75-99)
[2019-09-09 21:15] LABS: Glucose,Whole Blood 250 mg/dL (75-99)
[2019-09-09 22:21] LABS: Glucose,Whole Blood 181 mg/dL (75-99)
[2019-09-09 23:31] LABS: Glucose,Whole Blood 183 mg/dL (75-99)
[2019-09-10 00:07] LABS: Glucose,Whole Blood 165 mg/dL (75-99)
[2019-09-10 01:03] LABS: Glucose,Whole Blood 188 mg/dL (75-99)
[2019-09-10] MEDS: PROPOFOL 1,000 MG in EMPTY BAG 1 BAG IV SCH ×9 (01:32→22:45)
[2019-09-10 01:50] LABS: Glucose,Whole Blood 154 mg/dL (75-99)
[2019-09-10] MEDS: IPRATROPIUM-ALBUTEROL 3 ML NEB INHALATION SCH ×6 (02:50→23:50)
[2019-09-10 03:28] LABS: Glucose,Whole Blood 155 mg/dL (75-99)
[2019-09-10 04:48] LABS: ABG Base Excess 7.9 mmol/L; ABG HCO3 36 mmol/L (21-25); ABG Oxygen Saturation 96.9 % (94-97); ABG PO2 102 mmHg (83-108); ABG TCO2 39 mmol/L (19-24); Allen Test Performed? Yes
[2019-09-10 04:49] LABS: Glucose,Whole Blood 126 mg/dL (75-99)
[2019-09-10 04:52] LABS: ABG PH 7.19 (7.35-7.45)
[2019-09-10 04:53] LABS: ABG PCO2 96 mmHg (35-45)
[2019-09-10] MEDS: methylPREDNISolone SOD SUCCI 125 MG/2 ML VIAL IV SCH ×4 (05:13→23:53)
[2019-09-10 05:23] LABS: HCT 43.9 % (39.0-53.0); HGB 13.1 gm/dL (13.0-17.5); Hypochromasia Marked; MCH 29.7 pg (25.0-35.0); MCHC 29.8 g/dL (31.0-37.0); MCV 99.7 fL (80.0-100.0); Mean Platelet Volume 7.9; Platelet Count 211 k/uL (150-450); RBC 4.41 m/uL (4.30-5.90); RDW 13.7 % (11.5-15.5)
[2019-09-10 05:37] LABS: Calcium 8.7 mg/dL (8.4-10.2)
[2019-09-10 06:03] LABS: Glucose,Whole Blood 160 mg/dL (75-99)
[2019-09-10] MEDS ORDERED: DEXTROSE 10 % IN WATER 250 ML IV STA (06:24)
[2019-09-10] MEDS ORDERED: INSULIN REGULAR 100 UNIT/ML VIAL IV ONE (06:24)
[2019-09-10] MEDS ORDERED: SODIUM BICARB 8.4% 50 ML SYR (1 MEQ/ML) IV STA ×5 (06:25→23:33)
[2019-09-10 06:58] LABS: Glucose,Whole Blood 257 mg/dL (75-99)
[2019-09-10 08:12] LABS: Glucose,Whole Blood 217 mg/dL (75-99)
[2019-09-10] MEDS: HEPARIN SODIUM,PORCINE 5,000 UNIT/ML 1 ML VIAL SQ SCH ×3 (08:42→23:54)
[2019-09-10] MEDS: ASPIRIN 81 MG PO SCH (08:42)
[2019-09-10] MEDS: PANTOPRAZOLE 40 MG TABLET PO SCH (08:42)
[2019-09-10] MEDS: CHLORHEXIDINE GLUCONATE 15 ML CUP MUCOUS MEM SCH ×2 (08:42→21:57)
[2019-09-10] MEDS: FLUoxetine HCL 20 MG CAP PO SCH (08:42)
[2019-09-10] MEDS: METOPROLOL TARTRATE 12.5 MG TAB PO SCH ×2 (08:42→21:57)
--- NOTE | 2019-09-10 09:06 | P.PN ---
Subjective Progress Note Date: 09/10/19 09/10/2019 and seeing this patient for a follow-up. The patient is very well- known to me. The patient has severe restrictive lung disease with portal fibrosis and COPD. The patient came with acute hypoxic respiratory failure/pneumonia/ARDS. He was intubated and placed on a mechanical ventilator and he remains sedated and paralyzed. On yesterday's evaluation, I noted that the patient developed some stuffiness emphysema along the right chest which was progressively getting worse. He can static pressures were quite elevated. The tidal volume was lowered to allow permissive hypercapnia and currently the patient is in a assist-control mode with tidal volume of 375 with a rate of 38 and FiO2 of 50%. A PEEP of 22. The patient has developed worsening his oxygen is emphysema along the right chest and this is extending to his left chest and also because moved up to his neck. The morning blood gases from today showed a pH of 7.19 with a pCO2 of 96 acute of 102 consistent with permissive hyper capnia. There has been some limited improvement in his oxygenation. Based on that, I dropped a PEEP to 20. He is currently her pressures around 39 with a static pressure of 37. Sedated on propofol at the rate of 50. Pneumovax is running at 1.5 micrograms per KG per minute. He is well sedated and paralyzed for now. He is very much suggestive mechanical ventilator. His end-tidal CO2 is at 68. This is not well correlating with his blood gas. His current pulse ox is 90% which is not also well correlating with a blood gas. His potassium level is up to 6.0. He was given the potassium cocktail treatment where he was given D50 insulin and 2 A of sodium bicarb. Creatinine is at 1.2 with a BUN of 57. Receiving enteral feeding for nutritional support. He remains on a combination of Rocephin and Zithromax. He remains on IV Solu-Medrol. I had a lengthy discussion with the . I explained to her the situation and gave her an update yesterday. Unfortunately, not much of an improvement in his condition over the past 24 hours. Objective - Vital Signs Vital signs: Vital Signs Temp 98.1 F 09/10/19 04:00 Pulse 111 H 09/10/19 07:45 Resp 38 H 09/10/19 07:00 BP 118/78 09/10/19 07:00 Pulse Ox 94 L 09/10/19 07:00 Intake & Output 09/09/19 09/10/19 09/10/19 18:59 06:59 18:59 Intake Total 3858.444 4858.403 293.53 Output Total 835 950 210 Balance 751.373 687.403 83.53 Weight 148.8 kg 149 kg Intake: IV 336 342 282 Dextrose 10 % in Water 250 250 ml @ 999 mls/hr IV ONCE STA Rx#:[id number] Dextrose 5% in Water 1, 220 200 20 000 ml @ 20 mls/hr IV . Q24H ONE Rx#:[id number] NS carrier 70 0 Pressures bags 0.9 66 72 12 cefTRIAXone 1 gm In 50 Sodium Chloride 0.9% 50 ml @ 100 mls/hr IVPB Q24HR [facility] Rx#:[id number] Intake, IV Titration 673.373 835.403 11.53 Amount Cisatracurium 200 mg In 200 327.168 Sodium Chloride 0.9% 180 ml @ 2 MCG/KG/MIN 17.28 mls/hr IV .[id number] [facility] Rx #:[id number] Insulin Regular 100 unit 93.021 120.443 11.53 In Sodium Chloride 0.9% 100 ml @ Per Protocol IV .Q0M [facility] Rx#:[id number] Propofol 1,000 mg In 380.352 387.792 Empty Bag 1 bag @ Titrate IV .Q0M [facility] Rx#: [id number] Tube Feeding 407 370 Other 170 90 Output: Urine 835 950 210 Other: Voiding Method Indwelling Catheter Indwelling Catheter ABP, PAP, CO, CI - Last Documented Arterial Blood Pressure 118/66 - Exam GENERAL EXAM: In today, sedated, 58-year-old obese white male, on paralytics, in the form of Nimbex, and Diprivan he had the patient has developed subcutaneous emphysema in the chest right more than left in addition to extension to his neck. HEAD: Normocephalic/atraumatic. EYES: Normal reaction of pupils, equal size. Conjunctiva pink, sclera white. NOSE: Clear with pink turbinates. THROAT: No erythema or exudates. NECK: No masses, no JVD, no thyroid enlargement, no adenopathy. CHEST: Right pectoralis muscle subcutaneous emphysema, extending to the right upper neck symmetrical expansion. LUNGS: Equal air entry with no crackles, wheeze, rhonchi or dullness. The patient has a previous emphysema across his chest and the neck area. Breath sounds are quite diminished bilaterally. CVS: Regular rate and rhythm, normal S1 and S2, no gallops, no murmurs, no rubs ABDOMEN: Soft, nontender. No hepatosplenomegaly, normal bowel sounds, no guarding or rigidity. EXTREMITIES: No clubbing, no edema, no cyanosis, 2+ pulses and upper and lower extremities. MUSCULOSKELETAL: Muscle strength and tone normal. SPINE: No scoliosis or deformity SKIN: No rashes CENTRAL NERVOUS SYSTEM: intubated, sedated, paralyzed. No focal deficits, able to do a good neuro examination. - Labs CBC & Chem 7: 09/10/19 04:49 09/10/19 04:49 Labs: Abnormal Lab Results - Last 24 Hours (Table) 09/09/19 09/09/19 09/09/19 Range/Units 04:00 11:07 12:17 WBC (3.8-10.6) k/uL MCHC (31.0-37.0) g/dL ABG pH (7.35-7.45) ABG pCO2 (35-45) mmHg ABG pO2 (83-108) mmHg ABG HCO3 (21-25) mmol/L ABG Total CO2 (19-24) mmol/L ABG O2 Saturation (94-97) % Potassium (3.5-5.1) mmol/L Carbon Dioxide (22-30) mmol/L BUN (9-20) mg/dL Glucose (74-99) mg/dL POC Glucose (mg/dL) 159 H 175 H (75-99) mg/dL Procalcitonin 0.32 H (0.02-0.09) ng/mL 09/09/19 09/09/19 09/09/19 Range/Units 12:54 13:13 15:16 WBC (3.8-10.6) k/uL MCHC (31.0-37.0) g/dL ABG pH 7.30 L (7.35-7.45) ABG pCO2 70 H (35-45) mmHg ABG pO2 69 L (83-108) mmHg ABG HCO3 35 H (21-25) mmol/L ABG Total CO2 37 H (19-24) mmol/L ABG O2 Saturation 92.2 L (94-97) % Potassium (3.5-5.1) mmol/L Carbon Dioxide (22-30) mmol/L BUN (9-20) mg/dL Glucose (74-99) mg/dL POC Glucose (mg/dL) 166 H 148 H (75-99) mg/dL Procalcitonin (0.02-0.09) ng/mL 09/09/19 09/09/19 09/09/19 Range/Units 16:52 18:31 18:58 WBC (3.8-10.6) k/uL MCHC (31.0-37.0) g/dL ABG pH 7.22 L (7.35-7.45) ABG pCO2 89 H* (35-45) mmHg ABG pO2 70 L (83-108) mmHg ABG HCO3 36 H (21-25) mmol/L ABG Total CO2 39 H (19-24) mmol/L ABG O2 Saturation 91.9 L (94-97) % Potassium (3.5-5.1) mmol/L Carbon Dioxide (22-30) mmol/L BUN (9-20) mg/dL Glucose (74-99) mg/dL POC Glucose (mg/dL) 135 H 226 H (75-99) mg/dL Procalcitonin (0.02-0.09) ng/mL 09/09/19 09/09/19 09/09/19 Range/Units 20:05 21:12 22:19 WBC (3.8-10.6) k/uL MCHC (31.0-37.0) g/dL ABG pH (7.35-7.45) ABG pCO2 (35-45) mmHg ABG pO2 (83-108) mmHg ABG HCO3 (21-25) mmol/L ABG Total CO2 (19-24) mmol/L ABG O2 Saturation (94-97) % Potassium (3.5-5.1) mmol/L Carbon Dioxide (22-30) mmol/L BUN (9-20) mg/dL Glucose (74-99) mg/dL POC Glucose (mg/dL) 222 H 250 H 181 H (75-99) mg/dL Procalcitonin (0.02-0.09) ng/mL 09/09/19 09/10/19 09/10/19 Range/Units 23:30 00:06 01:02 WBC (3.8-10.6) k/uL MCHC (31.0-37.0) g/dL ABG pH (7.35-7.45) ABG pCO2 (35-45) mmHg ABG pO2 (83-108) mmHg ABG HCO3 (21-25) mmol/L ABG Total CO2 (19-24) mmol/L ABG O2 Saturation (94-97) % Potassium (3.5-5.1) mmol/L Carbon Dioxide (22-30) mmol/L BUN (9-20) mg/dL Glucose (74-99) mg/dL POC Glucose (mg/dL) 183 H 165 H 188 H (75-99) mg/dL Procalcitonin (0.02-0.09) ng/mL 09/10/19 09/10/19 09/10/19 Range/Units 01:49 03:26 04:47 WBC (3.8-10.6) k/uL MCHC (31.0-37.0) g/dL ABG pH 7.19 L* (7.35-7.45) ABG pCO2 96 H* (35-45) mmHg ABG pO2 (83-108) mmHg ABG HCO3 36 H (21-25) mmol/L ABG Total CO2 39 H (19-24) mmol/L ABG O2 Saturation (94-97) % Potassium (3.5-5.1) mmol/L Carbon Dioxide (22-30) mmol/L BUN (9-20) mg/dL Glucose (74-99) mg/dL POC Glucose (mg/dL) 154 H 155 H (75-99) mg/dL Procalcitonin (0.02-0.09) ng/mL 09/10/19 09/10/19 09/10/19 Range/Units 04:48 04:49 04:49 WBC 12.0 H (3.8-10.6) k/uL MCHC 29.8 L (31.0-37.0) g/dL ABG pH (7.35-7.45) ABG pCO2 (35-45) mmHg ABG pO2 (83-108) mmHg ABG HCO3 (21-25) mmol/L ABG Total CO2 (19-24) mmol/L ABG O2 Saturation (94-97) % Potassium 6.0 H (3.5-5.1) mmol/L Carbon Dioxide 35 H (22-30) mmol/L BUN 57 H (9-20) mg/dL Glucose 132 H (74-99) mg/dL POC Glucose (mg/dL) 126 H (75-99) mg/dL Procalcitonin (0.02-0.09) ng/mL 09/10/19 09/10/19 09/10/19 Range/Units 06:02 06:56 08:11 WBC (3.8-10.6) k/uL MCHC (31.0-37.0) g/dL ABG pH (7.35-7.45) ABG pCO2 (35-45) mmHg ABG pO2 (83-108) mmHg ABG HCO3 (21-25) mmol/L ABG Total CO2 (19-24) mmol/L ABG O2 Saturation (94-97) % Potassium (3.5-5.1) mmol/L Carbon Dioxide (22-30) mmol/L BUN (9-20) mg/dL Glucose (74-99) mg/dL POC Glucose (mg/dL) 160 H 257 H 217 H (75-99) mg/dL Procalcitonin (0.02-0.09) ng/mL Microbiology - Last 24 Hours (Table) 09/03/19 08:36 Blood Culture - Final Blood No Growth after 144 hours Assessment and Plan Plan: #1. Acute hypoxemic and hypercapnic respiratory failure related to ARDS and community-acquired pneumonia, failed BiPAP support, required intubation and placement on on mechanical ventilator on 09/06/2019, and bronchoscopy with BAL on the same day and the cultures came back all negative for any microbial growth. Skin is currently being ventilated with a low tidal volume allowing permissive hypercapnia and some respiratory acidosis. Peak airway pressure is down to 39 with a static pressure of 37. He has already developed barotrauma as the patient has developed significant success emphysema throughout his chest and neck area. #2. subcutaneous emphysema in the right pectoralis musculature and soft tissues of the right neck, with no evidence of pneumothorax on today's evaluation there is some extension of his subcutaneous emphysema. #3. Chronic interstitial lung disease, idiopathic pulmonary fibrosis with chronic hypoxemic respiratory failure. Based on my records from the office, the patient has severe fibrosis with severe restrictive lung disease. He is oxygen dependent when he wears 3 L of oxygen by nasal cannula. Based on the most recent measurement of his lung capacity, his FVC was in the order of 42% of predicted. The patient was receiving anti-fibrotic treatment in the form of Esbriet #4. Morbid obesity #5. History of sleep apnea syndrome #6. History of cardiomyopathy with congestive heart failure #7. 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 #8. Hyperlipidemia #9. Hypertension #10. Degenerative joint disease #11. Previous episodes of pneumonia #12. History of lower extremity cellulitis #13. History of systolic CHF, most recent echocardiogram showed EF of 45-50%, trace TR, trace MR and no pulmonary hypertension #14 history of right diaphragmatic paralysis Plan: Allow low tidal volume ventilation permissive hypercapnia Treat hyperkalemia with a combination of D50 sugar and insulin in addition to bicarb and monitor the potassium level Drop the PEEP down to 20 and repeat the blood gas Make incisions on his chest to allow deflation of this appearance emphysema Continue sedation and paralysis Continue antibiotics Continue steroids Continue enteral feeding for nutritional support The prognosis poor based on the above-mentioned comorbidities. The patient's baseline pulmonary status was poor knowing the. Chronic hypoxic respiratory failure and severe restrictive lung disease related to the pulmonary fibrosis with an FVC of 46% of predicted. He was receiving Esbriet or IPF. Condition is critical. Prognosis poor. Family was updated on his condition. Sclerae care evaluation more than 30 minutes. Time with Patient: Greater than 30
[2019-09-10 09:08] LABS: Glucose,Whole Blood 189 mg/dL (75-99)
--- NOTE | 2019-09-10 09:11 | XR ---
"EXAMINATION TYPE: XR chest 1V portable DATE OF EXAM: 09/10/2019 COMPARISON: 09/09/2019 HISTORY: Ventilatory dependent respiratory failure. TECHNIQUE: Single frontal view of the chest is obtained. FINDINGS: Extensive subcutaneous emphysema is seen throughout the visualized soft tissues of the narcisa st and neck. Endotracheal and enteric tubes are placed. The fenestrated portion of the enteric tube a ppears just beyond the gastroesophageal junction. Endotracheal tube slightly cephalad in placement me asuring 7.1 cm in the tima. Cardiomediastinal silhouette appears stable. Possible deep sulcus sign on the right. Questionable pne umothorax versus overlying skin fold on the right. Multifocal patchy opacities are similar to the rinku or. IMPRESSION: 1. Questionable deep sulcus sign and skinfold versus pneumothorax on the right. CT thorax is recommen ded for further evaluation. 2. Extensive subcutaneous emphysema, markedly progressed from the prior. 3. Enteric and endotracheal tubes appear slightly retracted from the prior. Enteric tube could be adv anced 3 to 5 cm for optimal placement and endotracheal tube could be advanced 4 cm for optimal placem ent. 4. Stable multifocal patchy opacities. A Yellow level critical message alert has been initiated for Gabriel Tejada [id number] via the [employer] | Critical Results System on 09/10/2019 9:09 AM. This message alert has been sent to Colin Tejada [id number] via the preferences provided by the clinician for the receipt of Radiology Critic al Findings. Message ID [id number]."
[2019-09-10] MEDS: INSULIN REGULAR 100 UNIT in SODIUM CHLORIDE 0.9% 100 ML IV SCH ×2 (09:18→22:09)
[2019-09-10 10:02] LABS: ABG Base Excess 10.8 mmol/L; ABG HCO3 39 mmol/L (21-25); ABG Oxygen Saturation 91.5 % (94-97); ABG PO2 69 mmHg (83-108); ABG TCO2 43 mmol/L (19-24); Allen Test Performed? Yes
[2019-09-10 10:08] LABS: ABG PH 7.18 (7.35-7.45)
[2019-09-10 10:09] LABS: ABG PCO2 107 mmHg (35-45)
[2019-09-10 10:15] LABS: Glucose,Whole Blood 180 mg/dL (75-99)
[2019-09-10 11:01] LABS: Glucose,Whole Blood 162 mg/dL (75-99)
[2019-09-10 12:10] LABS: Glucose,Whole Blood 138 mg/dL (75-99)
[2019-09-10 13:11] LABS: Glucose,Whole Blood 161 mg/dL (75-99)
[2019-09-10 14:06] LABS: Glucose,Whole Blood 144 mg/dL (75-99)
--- NOTE | 2019-09-10 14:55 | P.PN ---
Subjective This is Elsa Clemons PA-C dictating a progress note on this patient The patient was interviewed and examined by me as well as by Dr. Llanes Case discussed with Dr. Llanes and he agrees with the plan of care HPI/interval history Patient is a 58-year-old male with a past medical history significant for pulmonary fibrosis, hypertension, dyslipidemia, obstructive sleep apnea, diabetes and heart failure who presented with complaints of shortness of breath. He was initially placed on BiPAP but developed respiratory failure requiring in tubation. Yesterday we restarted a low-dose beta jl and he seems to have tolerated it. Bedside telemetry revealed sinus tachycardia in the 100s. Patient seen and examined in the ICU. Remained sedated and intubated. EXAMINATION Patient is afebrile, pulse in the 100s, respirations in the 30s, blood pressure 100/50, oxygen saturation 91% on mechanical ventilation Patient seen and examined, sedated and intubated Breath sounds equal bilaterally Heart is tachycardic but regular, no audible murmurs No lower extremity edema REVIEW OF LABS, ECG WBC 12.0, hemoglobin 13.1, platelets 211, potassium 5.9, BUN 57, creatinine 1.24 IMPRESSION / ASSESSMENT: Hypoxic respiratory failure, requiring intubation underlying pulmonary fibrosis and possible pneumonia Cardiomyopathy, recent echo showing EF 45-50%,likely nonischemic Hypertension, blood pressure stable in the 100s over 50s Dyslipidemia Diabetes Obstructive sleep apnea Hyperkalemia PLAN: Continue low-dose metoprolol, hold off on increasing says he has had some hypotension We'll further maximize cardiomyopathy medication once his blood pressure can tolerate it Objective - Vital Signs Vital signs: Vital Signs Temp 98 F 09/10/19 12:00 Pulse 88 09/10/19 14:00 Resp 38 H 09/10/19 14:00 BP 114/66 09/10/19 11:00 Pulse Ox 88 L 09/10/19 14:00 Intake & Output 09/09/19 09/10/19 09/10/19 18:59 06:59 18:59 Intake Total 0991.973 9585.403 876.175 Output Total 835 950 600 Balance 751.373 687.403 276.175 Weight 148.8 kg 149 kg Intake: IV 336 342 368 Dextrose 10 % in Water 250 250 ml @ 999 mls/hr IV ONCE STA Rx#:[id number] Dextrose 5% in Water 1, 220 200 20 000 ml @ 20 mls/hr IV . Q24H ONE Rx#:[id number] NS carrier 70 0 Pressures bags 0.9 66 72 48 cefTRIAXone 1 gm In 50 50 Sodium Chloride 0.9% 50 ml @ 100 mls/hr IVPB Q24HR [facility] Rx#:[id number] Intake, IV Titration 673.373 835.403 263.175 Amount Cisatracurium 200 mg In 200 327.168 Sodium Chloride 0.9% 180 ml @ 2 MCG/KG/MIN 17.28 mls/hr IV .[id number] [facility] Rx #:[id number] Insulin Regular 100 unit 93.021 120.443 63.175 In Sodium Chloride 0.9% 100 ml @ Per Protocol IV .Q0M [facility] Rx#:[id number] Propofol 1,000 mg In 380.352 387.792 200 Empty Bag 1 bag @ Titrate IV .Q0M [facility] Rx#: [id number] Tube Feeding 407 370 185 Other 170 90 60 Output: Urine 835 950 600 Other: Voiding Method Indwelling Catheter Indwelling Catheter Indwelling Catheter ABP, PAP, CO, CI - Last Documented Arterial Blood Pressure 83/53 - Labs CBC & Chem 7: 09/10/19 04:49 09/10/19 10:15 Labs: Abnormal Lab Results - Last 24 Hours (Table) 09/09/19 09/09/19 09/09/19 Range/Units 04:00 15:16 16:52 WBC (3.8-10.6) k/uL MCHC (31.0-37.0) g/dL ABG pH (7.35-7.45) ABG pCO2 (35-45) mmHg ABG pO2 (83-108) mmHg ABG HCO3 (21-25) mmol/L ABG Total CO2 (19-24) mmol/L ABG O2 Saturation (94-97) % Potassium (3.5-5.1) mmol/L Carbon Dioxide (22-30) mmol/L BUN (9-20) mg/dL Glucose (74-99) mg/dL POC Glucose (mg/dL) 148 H 135 H (75-99) mg/dL Procalcitonin 0.32 H (0.02-0.09) ng/mL 0109/09/19 09/09/19 Range/Units 18:31 18:58 20:05 WBC (3.8-10.6) k/uL MCHC (31.0-37.0) g/dL ABG pH 7.22 L (7.35-7.45) ABG pCO2 89 H* (35-45) mmHg ABG pO2 70 L (83-108) mmHg ABG HCO3 36 H (21-25) mmol/L ABG Total CO2 39 H (19-24) mmol/L ABG O2 Saturation 91.9 L (94-97) % Potassium (3.5-5.1) mmol/L Carbon Dioxide (22-30) mmol/L BUN (9-20) mg/dL Glucose (74-99) mg/dL POC Glucose (mg/dL) 226 H 222 H (75-99) mg/dL Procalcitonin (0.02-0.09) ng/mL 09/09/19 09/09/19 09/09/19 Range/Units 21:12 22:19 23:30 WBC (3.8-10.6) k/uL MCHC (31.0-37.0) g/dL ABG pH (7.35-7.45) ABG pCO2 (35-45) mmHg ABG pO2 (83-108) mmHg ABG HCO3 (21-25) mmol/L ABG Total CO2 (19-24) mmol/L ABG O2 Saturation (94-97) % Potassium (3.5-5.1) mmol/L Carbon Dioxide (22-30) mmol/L BUN (9-20) mg/dL Glucose (74-99) mg/dL POC Glucose (mg/dL) 250 H 181 H 183 H (75-99) mg/dL Procalcitonin (0.02-0.09) ng/mL 09/10/19 09/10/19 09/10/19 Range/Units 00:06 01:02 01:49 WBC (3.8-10.6) k/uL MCHC (31.0-37.0) g/dL ABG pH (7.35-7.45) ABG pCO2 (35-45) mmHg ABG pO2 (83-108) mmHg ABG HCO3 (21-25) mmol/L ABG Total CO2 (19-24) mmol/L ABG O2 Saturation (94-97) % Potassium (3.5-5.1) mmol/L Carbon Dioxide (22-30) mmol/L BUN (9-20) mg/dL Glucose (74-99) mg/dL POC Glucose (mg/dL) 165 H 188 H 154 H (75-99) mg/dL Procalcitonin (0.02-0.09) ng/mL 09/10/19 09/10/19 09/10/19 Range/Units 03:26 04:47 04:48 WBC (3.8-10.6) k/uL MCHC (31.0-37.0) g/dL ABG pH 7.19 L* (7.35-7.45) ABG pCO2 96 H* (35-45) mmHg ABG pO2 (83-108) mmHg ABG HCO3 36 H (21-25) mmol/L ABG Total CO2 39 H (19-24) mmol/L ABG O2 Saturation (94-97) % Potassium (3.5-5.1) mmol/L Carbon Dioxide (22-30) mmol/L BUN (9-20) mg/dL Glucose (74-99) mg/dL POC Glucose (mg/dL) 155 H 126 H (75-99) mg/dL Procalcitonin (0.02-0.09) ng/mL 09/10/19 09/10/19 09/10/19 Range/Units 04:49 04:49 06:02 WBC 12.0 H (3.8-10.6) k/uL MCHC 29.8 L (31.0-37.0) g/dL ABG pH (7.35-7.45) ABG pCO2 (35-45) mmHg ABG pO2 (83-108) mmHg ABG HCO3 (21-25) mmol/L ABG Total CO2 (19-24) mmol/L ABG O2 Saturation (94-97) % Potassium 6.0 H (3.5-5.1) mmol/L Carbon Dioxide 35 H (22-30) mmol/L BUN 57 H (9-20) mg/dL Glucose 132 H (74-99) mg/dL POC Glucose (mg/dL) 160 H (75-99) mg/dL Procalcitonin (0.02-0.09) ng/mL 09/10/19 09/10/19 09/10/19 Range/Units 06:56 08:11 09:07 WBC (3.8-10.6) k/uL MCHC (31.0-37.0) g/dL ABG pH (7.35-7.45) ABG pCO2 (35-45) mmHg ABG pO2 (83-108) mmHg ABG HCO3 (21-25) mmol/L ABG Total CO2 (19-24) mmol/L ABG O2 Saturation (94-97) % Potassium (3.5-5.1) mmol/L Carbon Dioxide (22-30) mmol/L BUN (9-20) mg/dL Glucose (74-99) mg/dL POC Glucose (mg/dL) 257 H 217 H 189 H (75-99) mg/dL Procalcitonin (0.02-0.09) ng/mL 09/10/19 09/10/19 09/10/19 Range/Units 09:55 10:13 10:15 WBC (3.8-10.6) k/uL MCHC (31.0-37.0) g/dL ABG pH 7.18 L* (7.35-7.45) ABG pCO2 107 H* (35-45) mmHg ABG pO2 69 L (83-108) mmHg ABG HCO3 39 H (21-25) mmol/L ABG Total CO2 43 H (19-24) mmol/L ABG O2 Saturation 91.5 L (94-97) % Potassium 5.9 H (3.5-5.1) mmol/L Carbon Dioxide (22-30) mmol/L BUN (9-20) mg/dL Glucose (74-99) mg/dL POC Glucose (mg/dL) 180 H (75-99) mg/dL Procalcitonin (0.02-0.09) ng/mL 09/10/19 09/10/19 09/10/19 Range/Units 10:59 12:09 13:10 WBC (3.8-10.6) k/uL MCHC (31.0-37.0) g/dL ABG pH (7.35-7.45) ABG pCO2 (35-45) mmHg ABG pO2 (83-108) mmHg ABG HCO3 (21-25) mmol/L ABG Total CO2 (19-24) mmol/L ABG O2 Saturation (94-97) % Potassium (3.5-5.1) mmol/L Carbon Dioxide (22-30) mmol/L BUN (9-20) mg/dL Glucose (74-99) mg/dL POC Glucose (mg/dL) 162 H 138 H 161 H (75-99) mg/dL Procalcitonin (0.02-0.09) ng/mL 09/10/19 Range/Units 14:05 WBC (3.8-10.6) k/uL MCHC (31.0-37.0) g/dL ABG pH (7.35-7.45) ABG pCO2 (35-45) mmHg ABG pO2 (83-108) mmHg ABG HCO3 (21-25) mmol/L ABG Total CO2 (19-24) mmol/L ABG O2 Saturation (94-97) % Potassium (3.5-5.1) mmol/L Carbon Dioxide (22-30) mmol/L BUN (9-20) mg/dL Glucose (74-99) mg/dL POC Glucose (mg/dL) 144 H (75-99) mg/dL Procalcitonin (0.02-0.09) ng/mL Microbiology - Last 24 Hours (Table) 09/03/19 08:36 Blood Culture - Final Blood No Growth after 144 hours
[2019-09-10 15:02] LABS: Glucose,Whole Blood 146 mg/dL (75-99)
[2019-09-10] MEDS: AZITHROMYCIN 500 MG TAB PO SCH (15:31)
[2019-09-10] MEDS: NOREPINEPHRINE 8 MG in SODIUM CHLORIDE 0.9% 250 ML IV SCH (15:50)
[2019-09-10] MEDS: CISATRACURIUM 200 MG in SODIUM CHLORIDE 0.9% 180 ML IV SCH (15:53)
[2019-09-10 16:04] LABS: Glucose,Whole Blood 156 mg/dL (75-99)
[2019-09-10 17:09] LABS: Glucose,Whole Blood 153 mg/dL (75-99)
--- NOTE | 2019-09-10 17:10 | PN ---
PROGRESS NOTE DATE OF SERVICE: 09/10/2019 This 58-year-old gentleman who was admitted with shortness of breath, CHF, acute exacerbation, also has pulmonary fibrosis, acute exacerbation, and acute hypoxic respiratory failure. The patient is still on high PEEP at this time. Dr. Velasco has recommended some adjustments of the vent settings as per the ABGs. The pCO2 was found to be 200 on the ABG today. The chest x-ray done today, which was reviewed personally by me, showed evidence of extensive subcutaneous emphysema as well as extensive pulmonary lesions. Cardiology and Pulmonology are following the patient closely. Past medical history reviewed. Review of systems could not be taken; the patient is mechanically ventilated and sedated. CURRENT MEDICATIONS: Current medications include: 1. DuoNeb q.i.d. and p.r.n. 2. Aspirin 81 mg daily. 3. Zithromax 500 mg daily. 4. Rocephin 1 gram daily. 5. Peridex. 6. Cisatracurium. 7. Prozac. 8. Heparin 5000 units subcutaneously q.8. 9. Insulin. 10.Solu-Medrol 60 IV q.6. 11.Lopressor. 12.Protonix. 13.Propofol. PHYSICAL EXAMINATION: Patient is mechanically sedated. Pulse is 99, blood pressure 97/59, respiration 30, temperature normal, pulse ox 92% on mechanical ventilation, 50% FiO2. Vent settings are noted. HEENT: Conjunctivae normal. Oral mucosa moist. NECK: No jugular venous distention. No carotid bruit. No lymph node enlargement. CARDIOVASCULAR SYSTEM: S1, S2 muffled. RESPIRATORY SYSTEM: Breath sounds diminished at the bases. A few scattered rhonchi and crackles. ABDOMEN: Soft, obese. LEGS: No edema. No swelling. NERVOUS SYSTEM: Patient is mechanically ventilated and sedated. LABS: Accu-Cheks 144, 146. Otherwise, WBC 12, hemoglobin 13.1. PH of 7.18, pCO2 107, sodium 144, potassium 5.9. ASSESSMENT: 1. Acute hypoxic hypercarbic respiratory failure, multifactorial, secondary to congestive heart failure, acute exacerbation, with acute on chronic systolic dysfunction, ejection fraction 40% to 50%, as well as pulmonary fibrosis, acute exacerbation, as well as possibly bilateral community-acquired pneumonia. 2. Possible chronic obstructive pulmonary disease, acute exacerbation. 3. Extensive subcutaneous emphysema. 4. Status post bronchoscopy and bronchoalveolar lavage. 5. Lactic acidosis secondary to hypoxia. 6. Mild transaminitis. 7. Chronic right roque-diaphragmatic paralysis. 8. Sleep apnea; on CPAP at home. 9. Congestive heart failure with chronic systolic dysfunction, ejection fraction 45% to 50%. 10.Diabetes mellitus, type 2. 11.Hypertension. 12.Hyperlipidemia. 13.History of degenerative joint disease. 14.Obesity with body mass index of 45.8. 15.Acute respiratory acidosis. 16.Increased white count, improved. 17.History of chronic hypoxic respiratory failure, on 3 liters home oxygen. 18.History of pancreatitis. 19.History of chronic abdominal pain. 20.History of anxiety, depression. 21.FULL CODE. RECOMMENDATIONS AND DISCUSSION: I recommend to continue current medications, continue symptomatic treatment, continue with broad-spectrum IV antibiotics. Continue steroids. Continue the bronchodilators. Otherwise, continue the vent adjustments per Dr. Velasco. Permissive hypercapnia. PEEP is down to 20 at this time. We will continue to monitor. Repeat labs. Prognosis guarded. Further recommendations to follow. MMODL / IJN: [id number] /
[2019-09-10 18:01] LABS: Glucose,Whole Blood 126 mg/dL (75-99)
[2019-09-10 18:25] LABS: ABG Base Excess 14.7 mmol/L; ABG Oxygen Saturation 95.4 % (94-97); ABG PH 7.29 (7.35-7.45); ABG PO2 78 mmHg (83-108); ABG TCO2 44 mmol/L (19-24); Allen Test Performed? Yes
[2019-09-10 18:29] LABS: ABG HCO3 41 mmol/L (21-25); ABG PCO2 86 mmHg (35-45)
[2019-09-10 19:01] LABS: Glucose,Whole Blood 161 mg/dL (75-99)
[2019-09-10 20:29] LABS: Glucose,Whole Blood 211 mg/dL (75-99)
[2019-09-10 21:19] LABS: Glucose,Whole Blood 152 mg/dL (75-99)
[2019-09-10 22:14] LABS: Glucose,Whole Blood 135 mg/dL (75-99)
[2019-09-10 23:05] LABS: Glucose,Whole Blood 138 mg/dL (75-99)
[2019-09-10 23:59] LABS: Glucose,Whole Blood 181 mg/dL (75-99)
[2019-09-11] MEDS: PROPOFOL 1,000 MG in EMPTY BAG 1 BAG IV SCH ×9 (00:42→22:06)
[2019-09-11 01:04] LABS: Glucose,Whole Blood 196 mg/dL (75-99)
[2019-09-11] MEDS: INSULIN REGULAR 100 UNIT in SODIUM CHLORIDE 0.9% 100 ML IV SCH ×3 (02:38→23:18)
[2019-09-11] MEDS: IPRATROPIUM-ALBUTEROL 3 ML NEB INHALATION SCH ×6 (03:21→23:58)
[2019-09-11 03:50] LABS: Glucose,Whole Blood 157 mg/dL (75-99)
[2019-09-11 04:40] LABS: HCT 42.8 % (39.0-53.0); Hypochromasia Moderate; MCHC 30.4 g/dL (31.0-37.0); MCV 98.9 fL (80.0-100.0); Mean Platelet Volume 8.4; Platelet Count 189 k/uL (150-450); RBC 4.32 m/uL (4.30-5.90); RDW 13.9 % (11.5-15.5)
[2019-09-11 04:42] LABS: Albumin 2.9 g/dL (3.5-5.0); Calcium 8.5 mg/dL (8.4-10.2); Magnesium 3.1 mg/dL (1.6-2.3); Potassium 5.6 mmol/L (3.5-5.1); Total Bilirubin 0.5 mg/dL (0.2-1.3)
[2019-09-11 05:00] LABS: Glucose,Whole Blood 134 mg/dL (75-99)
[2019-09-11 05:04] LABS: ABG Base Excess 20.1 mmol/L; ABG Oxygen Saturation 96.4 % (94-97); ABG PH 7.33 (7.35-7.45); ABG PO2 85 mmHg (83-108); ABG TCO2 49 mmol/L (19-24); Allen Test Performed? Yes
[2019-09-11 05:07] LABS: ABG HCO3 46 mmol/L (21-25); ABG PCO2 87 mmHg (35-45)
[2019-09-11 05:17] LABS: Band Neutrophils % 4 %; Lymphocytes # (M) 0.25 k/uL (1.0-4.8); Monocytes # (M) 0.58 k/uL (0-1.0); Neutrophils % (M) 86 %; Nucleated Red Blood Cells 2 /100 WBC (0-0); Total Cells Counted 200; WBC 8.3 k/uL (3.8-10.6)
[2019-09-11] MEDS: methylPREDNISolone SOD SUCCI 125 MG/2 ML VIAL IV SCH ×3 (05:21→17:53)
[2019-09-11 06:11] LABS: Glucose,Whole Blood 154 mg/dL (75-99)
[2019-09-11 07:11] LABS: Glucose,Whole Blood 115 mg/dL (75-99)
--- NOTE | 2019-09-11 07:13 | XR ---
EXAMINATION TYPE: XR chest 1V portable DATE OF EXAM: 09/11/2019 COMPARISON: 09/10/19 HISTORY: Ventilatory dependent respiratory failure TECHNIQUE: Single frontal view of the chest is obtained. FINDINGS: Enteric tube has been slightly advanced in the interim now terminating approximately 6.0 c m from the tima. Enteric tube has also been advanced, appropriately placed. Left-sided subclavian c entral venous catheter is unchanged. Right-sided hemidiaphragm elevation is similar. More confluent l eft basilar opacity than the prior with scattered airspace disease throughout both lungs. Extensive s ubcutaneous emphysema of the chest wall is intact. IMPRESSION: Increasing left basilar opacity with alveolar appearance therefore likely edema or pneum onia. Appropriately placed lines and tubes.
[2019-09-11] MEDS: CISATRACURIUM 200 MG in SODIUM CHLORIDE 0.9% 180 ML IV SCH ×3 (08:12→20:34)
[2019-09-11] MEDS: HEPARIN SODIUM,PORCINE 5,000 UNIT/ML 1 ML VIAL SQ SCH ×2 (08:44→15:58)
[2019-09-11] MEDS: PANTOPRAZOLE 40 MG TABLET PO SCH (08:44)
[2019-09-11] MEDS: METOPROLOL TARTRATE 12.5 MG TAB PO SCH ×2 (08:44→21:41)
[2019-09-11] MEDS: ASPIRIN 81 MG PO SCH (08:44)
[2019-09-11] MEDS: FLUoxetine HCL 20 MG CAP PO SCH (08:44)
--- NOTE | 2019-09-11 08:44 | CDI ---
Documentation Clarification Form Date: 09/11/2019 08:28:18 AM From: Stephanie Ohara CCS, CCDS Admit Date: 09/03/2019 10:36:00 AM Patient Name: Aureliano Mackay Visit Number: [id number] Discharge Date: ATTENTION: The Clinical Documentation Specialists (CDI) and [facility] Coding Staff appreciate your assistance in clarifying documentation. Please respond to the clarification below the line at the bottom and electronically sign. The CDI & [facility] Coding staff will review the response and follow-up if needed. Please note: Queries are made part of the Legal Health Record. If you have any questions, please contact the author of this message via ITS. Dr. Yue Gomes: The patient presented with the following: SOB, possible fever at home, diagnosed with CHF, Pneumonia & chest pain in ED. Per the H/P on 09/03, diagnosed with acute on chronic hypoxic respiratory failure secondary to pulmonary fibrosis, Lactic acidosis secondary to hypoxia, possible pneumonia. History/Risk Factors: Chronic hypoxic respiratory failure, pulmonary fibrosis, Chronic right hemidiaphragm paralysis, JOSE JUAN on CPAP at home, Chronic systolic CHF dysfunction, IDDM II, Hypertension, Hyperlipidemia, OA, Morbid obesity with BMI 46.9. Clinical Indicators: VS 09/03: T 98.2, P 84, R 22, BP 118/74, PO 68 4Lnc - 15% nrb. RR up to 30 (sob, accessory use, nasal flare, pursed lip, cough). Intubated on 09/06, remains on vent. T 97.3* on 09/05, T 09/08: 99.8. Lactic acid: 09/03: 3.6^^ - (1.8) Blood cultures: Neg @ 144 hrs. Treatment: BiPAP, IV Solumedrol, IV Lasix, IV Rocephin & Azithromycin, Insulin sliding scale, IV sliding scale. 09/06: IV fluid bolus, Intubated, IV NaBicarb. Consults: Pulmonary/Critical Care, Cardiology In your professional opinion, please clarify if these findings signify one of the following conditions, whether the condition is POA, and cause, if known: Sepsis ruled out Sepsis ruled in: o With Severe Sepsis o With Septic Shock Other, please specify Unable to determine Present on Admission: Yes or No (Last Revision: November 2017) Sepsis ruled out MTDD
[2019-09-11] MEDS: CHLORHEXIDINE GLUCONATE 15 ML CUP MUCOUS MEM SCH ×2 (08:45→20:34)
[2019-09-11 09:13] LABS: Glucose,Whole Blood 203 mg/dL (75-99)
--- NOTE | 2019-09-11 10:06 | P.PN ---
Subjective Progress Note Date: 09/11/19 On 09/11/2019 on seeing the patient for a follow-up. He remains intubated on mechanical ventilator. He remains paralyzed. Propofol is running at 50 g per KG per minute. Nimbex is running at 1.5 g per KG per minute. He is still developing significant amount of subcu is emphysema. I give him some subcutaneous incisions to release some of the emphysema which worked for quite some time. However, I feel that his subcu emphysema is extended more to his neck and his left upper extremity. The face is still doing well for now. The patient is an assist-control mode of ventilation at the rate of 38 with a tidal volume of around 75 with an FiO2 of 50% and a PEEP of 20. The blood gas from this morning showed a pH of 7.33 with a pCO2 of 86 and pO2 of 84. Chest x-ray from today shows bilateral saphenous emphysema. ET tube is in good location. There is no evidence of any pneumothorax. He is afebrile. He is hemodynamically stable. His sodium level is up to 147. Renal function is still stable. He is tolerating his tube feeds. He is on a combination of Rocephin and Zithromax. Is on IV Solu-Medrol. Bronchodilators around the clock. I was having issues with his hyperkalemia which was attributed to his acidosis. Given bicarb on several occasions to drink his serum bicarb up to 44. His potassium level is ultimately dropped down to 5.6. No cardiac arrhythmias have been noted. No other significant events overnight. The has been updated on his condition. He has severe pulmonary fibrosis/IPF and he has developed pneumonia/ARDS possibly an acute exacerbation of underlying IPF. He was receiving Esbriet on outpatient basis. Objective - Vital Signs Vital signs: Vital Signs Temp 98.3 F 09/11/19 04:00 Pulse 88 09/11/19 08:00 Resp 38 H 09/11/19 07:00 BP 94/59 09/11/19 07:00 Pulse Ox 92 L 09/11/19 07:00 Intake & Output 09/10/19 09/11/19 09/11/19 18:59 06:59 18:59 Intake Total 0511.617 6904.773 286.33 Output Total 940 1225 100 Balance 534.114 98.773 186.33 Weight 151 kg Intake: IV 392 182 16 Dextrose 10 % in Water 250 250 ml @ 999 mls/hr IV ONCE STA Rx#:[id number] Dextrose 5% in Water 1, 20 110 10 000 ml @ 20 mls/hr IV . Q24H ONE Rx#:[id number] NS carrier 0 0 Pressures bags 0.9 72 72 6 cefTRIAXone 1 gm In 50 Sodium Chloride 0.9% 50 ml @ 100 mls/hr IVPB Q24HR [facility] Rx#:[id number] Intake, IV Titration 585.114 533.773 233.33 Amount Cisatracurium 200 mg In 71.552 200 Sodium Chloride 0.9% 180 ml @ 2 MCG/KG/MIN 17.28 mls/hr IV .[id number] [facility] Rx #:[id number] Insulin Regular 100 unit 106.504 55.887 33.33 In Sodium Chloride 0.9% 100 ml @ Per Protocol IV .Q0M [facility] Rx#:[id number] Norepinephrine 8 mg In 7.058 3.046 Sodium Chloride 0.9% 250 ml @ 0.05 MCG/KG/MIN 14. 503 mls/hr IV .[id number] [facility] Rx#:[id number] Propofol 1,000 mg In 400 474.840 Empty Bag 1 bag @ Titrate IV .Q0M [facility] Rx#: [id number] Tube Feeding 407 518 37 Other 90 90 Output: Urine 940 1225 100 Other: Voiding Method Indwelling Catheter Indwelling Catheter ABP, PAP, CO, CI - Last Documented Arterial Blood Pressure 97/47 - Exam GENERAL EXAM: In today, sedated, 58-year-old obese white male, on paralytics, in the form of Nimbex, and Diprivan he had the patient has developed subcutaneous emphysema in the chest right more than left in addition to extension to his neck. The extremities have trace emphysema slightly worse compared to yesterday. HEAD: Normocephalic/atraumatic. EYES: Normal reaction of pupils, equal size. Conjunctiva pink, sclera white. NOSE: Clear with pink turbinates. THROAT: No erythema or exudates. NECK: No masses, no JVD, no thyroid enlargement, no adenopathy. CHEST: Right pectoralis muscle subcutaneous emphysema, extending to the right upper neck symmetrical expansion. LUNGS: Equal air entry with no crackles, wheeze, rhonchi or dullness. The patient has a previous emphysema across his chest and the neck area. Breath sounds are quite diminished bilaterally. There are subcutaneous incisions maintained anteriorly over the anterior chest bilaterally to relieve the subcutaneous emphysema. CVS: Regular rate and rhythm, normal S1 and S2, no gallops, no murmurs, no rubs ABDOMEN: Soft, nontender. No hepatosplenomegaly, normal bowel sounds, no guarding or rigidity. EXTREMITIES: No clubbing, no edema, no cyanosis, 2+ pulses and upper and lower extremities. MUSCULOSKELETAL: Muscle strength and tone normal. SPINE: No scoliosis or deformity SKIN: No rashes CENTRAL NERVOUS SYSTEM: intubated, sedated, paralyzed. No focal deficits, able to do a good neuro examination. - Labs CBC & Chem 7: 09/11/19 04:00 09/11/19 04:30 Labs: Abnormal Lab Results - Last 24 Hours (Table) 09/10/19 09/10/19 09/10/19 Range/Units 09:55 10:13 10:15 MCHC (31.0-37.0) g/dL Lymphocytes # (Manual) (1.0-4.8) k/uL Nucleated RBCs (0-0) /100 WBC ABG pH 7.18 L* (7.35-7.45) ABG pCO2 107 H* (35-45) mmHg ABG pO2 69 L (83-108) mmHg ABG HCO3 39 H (21-25) mmol/L ABG Total CO2 43 H (19-24) mmol/L ABG O2 Saturation 91.5 L (94-97) % Sodium (137-145) mmol/L Potassium 5.9 H (3.5-5.1) mmol/L Carbon Dioxide (22-30) mmol/L BUN (9-20) mg/dL Glucose (74-99) mg/dL POC Glucose (mg/dL) 180 H (75-99) mg/dL Magnesium (1.6-2.3) mg/dL ALT (4-49) U/L Total Protein (6.3-8.2) g/dL Albumin (3.5-5.0) g/dL 09/10/19 09/10/19 09/10/19 Range/Units 10:59 12:09 13:10 MCHC (31.0-37.0) g/dL Lymphocytes # (Manual) (1.0-4.8) k/uL Nucleated RBCs (0-0) /100 WBC ABG pH (7.35-7.45) ABG pCO2 (35-45) mmHg ABG pO2 (83-108) mmHg ABG HCO3 (21-25) mmol/L ABG Total CO2 (19-24) mmol/L ABG O2 Saturation (94-97) % Sodium (137-145) mmol/L Potassium (3.5-5.1) mmol/L Carbon Dioxide (22-30) mmol/L BUN (9-20) mg/dL Glucose (74-99) mg/dL POC Glucose (mg/dL) 162 H 138 H 161 H (75-99) mg/dL Magnesium (1.6-2.3) mg/dL ALT (4-49) U/L Total Protein (6.3-8.2) g/dL Albumin (3.5-5.0) g/dL 09/10/19 09/10/19 09/10/19 Range/Units 14:05 15:01 16:01 MCHC (31.0-37.0) g/dL Lymphocytes # (Manual) (1.0-4.8) k/uL Nucleated RBCs (0-0) /100 WBC ABG pH (7.35-7.45) ABG pCO2 (35-45) mmHg ABG pO2 (83-108) mmHg ABG HCO3 (21-25) mmol/L ABG Total CO2 (19-24) mmol/L ABG O2 Saturation (94-97) % Sodium (137-145) mmol/L Potassium (3.5-5.1) mmol/L Carbon Dioxide (22-30) mmol/L BUN (9-20) mg/dL Glucose (74-99) mg/dL POC Glucose (mg/dL) 144 H 146 H 156 H (75-99) mg/dL Magnesium (1.6-2.3) mg/dL ALT (4-49) U/L Total Protein (6.3-8.2) g/dL Albumin (3.5-5.0) g/dL 09/10/19 09/10/19 09/10/19 Range/Units 16:05 17:07 17:59 MCHC (31.0-37.0) g/dL Lymphocytes # (Manual) (1.0-4.8) k/uL Nucleated RBCs (0-0) /100 WBC ABG pH (7.35-7.45) ABG pCO2 (35-45) mmHg ABG pO2 (83-108) mmHg ABG HCO3 (21-25) mmol/L ABG Total CO2 (19-24) mmol/L ABG O2 Saturation (94-97) % Sodium (137-145) mmol/L Potassium 5.7 H (3.5-5.1) mmol/L Carbon Dioxide (22-30) mmol/L BUN (9-20) mg/dL Glucose (74-99) mg/dL POC Glucose (mg/dL) 153 H 126 H (75-99) mg/dL Magnesium (1.6-2.3) mg/dL ALT (4-49) U/L Total Protein (6.3-8.2) g/dL Albumin (3.5-5.0) g/dL 09/10/19 09/10/19 09/10/19 Range/Units 18:24 18:59 19:00 MCHC (31.0-37.0) g/dL Lymphocytes # (Manual) (1.0-4.8) k/uL Nucleated RBCs (0-0) /100 WBC ABG pH 7.29 L (7.35-7.45) ABG pCO2 86 H* (35-45) mmHg ABG pO2 78 L (83-108) mmHg ABG HCO3 41 H* (21-25) mmol/L ABG Total CO2 44 H (19-24) mmol/L ABG O2 Saturation (94-97) % Sodium (137-145) mmol/L Potassium 6.3 H* (3.5-5.1) mmol/L Carbon Dioxide (22-30) mmol/L BUN (9-20) mg/dL Glucose (74-99) mg/dL POC Glucose (mg/dL) 161 H (75-99) mg/dL Magnesium (1.6-2.3) mg/dL ALT (4-49) U/L Total Protein (6.3-8.2) g/dL Albumin (3.5-5.0) g/dL 09/10/19 09/10/19 09/10/19 Range/Units 20:28 21:17 22:05 MCHC (31.0-37.0) g/dL Lymphocytes # (Manual) (1.0-4.8) k/uL Nucleated RBCs (0-0) /100 WBC ABG pH (7.35-7.45) ABG pCO2 (35-45) mmHg ABG pO2 (83-108) mmHg ABG HCO3 (21-25) mmol/L ABG Total CO2 (19-24) mmol/L ABG O2 Saturation (94-97) % Sodium (137-145) mmol/L Potassium (3.5-5.1) mmol/L Carbon Dioxide (22-30) mmol/L BUN (9-20) mg/dL Glucose (74-99) mg/dL POC Glucose (mg/dL) 211 H 152 H 135 H (75-99) mg/dL Magnesium (1.6-2.3) mg/dL ALT (4-49) U/L Total Protein (6.3-8.2) g/dL Albumin (3.5-5.0) g/dL 09/10/19 09/10/19 09/10/19 Range/Units 22:08 23:04 23:57 MCHC (31.0-37.0) g/dL Lymphocytes # (Manual) (1.0-4.8) k/uL Nucleated RBCs (0-0) /100 WBC ABG pH (7.35-7.45) ABG pCO2 (35-45) mmHg ABG pO2 (83-108) mmHg ABG HCO3 (21-25) mmol/L ABG Total CO2 (19-24) mmol/L ABG O2 Saturation (94-97) % Sodium (137-145) mmol/L Potassium 5.6 H (3.5-5.1) mmol/L Carbon Dioxide (22-30) mmol/L BUN (9-20) mg/dL Glucose (74-99) mg/dL POC Glucose (mg/dL) 138 H 181 H (75-99) mg/dL Magnesium (1.6-2.3) mg/dL ALT (4-49) U/L Total Protein (6.3-8.2) g/dL Albumin (3.5-5.0) g/dL 01/09/11/19 09/11/19 Range/Units 01:03 03:48 04:00 MCHC 30.4 L (31.0-37.0) g/dL Lymphocytes # (Manual) 0.25 L (1.0-4.8) k/uL Nucleated RBCs 2 H (0-0) /100 WBC ABG pH (7.35-7.45) ABG pCO2 (35-45) mmHg ABG pO2 (83-108) mmHg ABG HCO3 (21-25) mmol/L ABG Total CO2 (19-24) mmol/L ABG O2 Saturation (94-97) % Sodium (137-145) mmol/L Potassium (3.5-5.1) mmol/L Carbon Dioxide (22-30) mmol/L BUN (9-20) mg/dL Glucose (74-99) mg/dL POC Glucose (mg/dL) 196 H 157 H (75-99) mg/dL Magnesium (1.6-2.3) mg/dL ALT (4-49) U/L Total Protein (6.3-8.2) g/dL Albumin (3.5-5.0) g/dL 09/11/19 09/11/19 09/11/19 Range/Units 04:30 04:58 05:02 MCHC (31.0-37.0) g/dL Lymphocytes # (Manual) (1.0-4.8) k/uL Nucleated RBCs (0-0) /100 WBC ABG pH 7.33 L (7.35-7.45) ABG pCO2 87 H* (35-45) mmHg ABG pO2 (83-108) mmHg ABG HCO3 46 H* (21-25) mmol/L ABG Total CO2 49 H (19-24) mmol/L ABG O2 Saturation (94-97) % Sodium 147 H (137-145) mmol/L Potassium 5.6 H (3.5-5.1) mmol/L Carbon Dioxide 44 H* (22-30) mmol/L BUN 63 H (9-20) mg/dL Glucose 166 H (74-99) mg/dL POC Glucose (mg/dL) 134 H (75-99) mg/dL Magnesium 3.1 H (1.6-2.3) mg/dL ALT 81 H (4-49) U/L Total Protein 6.0 L (6.3-8.2) g/dL Albumin 2.9 L (3.5-5.0) g/dL 09/11/19 09/11/19 09/11/19 Range/Units 06:10 07:10 09:11 MCHC (31.0-37.0) g/dL Lymphocytes # (Manual) (1.0-4.8) k/uL Nucleated RBCs (0-0) /100 WBC ABG pH (7.35-7.45) ABG pCO2 (35-45) mmHg ABG pO2 (83-108) mmHg ABG HCO3 (21-25) mmol/L ABG Total CO2 (19-24) mmol/L ABG O2 Saturation (94-97) % Sodium (137-145) mmol/L Potassium (3.5-5.1) mmol/L Carbon Dioxide (22-30) mmol/L BUN (9-20) mg/dL Glucose (74-99) mg/dL POC Glucose (mg/dL) 154 H 115 H 203 H (75-99) mg/dL Magnesium (1.6-2.3) mg/dL ALT (4-49) U/L Total Protein (6.3-8.2) g/dL Albumin (3.5-5.0) g/dL Assessment and Plan Plan: #1. Acute hypoxemic and hypercapnic respiratory failure related to ARDS and community-acquired pneumonia, failed BiPAP support, required intubation and placement on on mechanical ventilator on 09/06/2019, and bronchoscopy with BAL on the same day and the cultures came back all negative for any microbial [facility]. His oxygenation has improved somewhat and the patient's PEEP has been drop down to 18 this morning when FiO2 of 50%. I'm hoping to drop down the PEEP even further as long as the maintain saturation above 90%. His peak airway pressures around 39 with a static pressure of 36. He has developed barotrauma with extensive subcutaneous emphysema. Subcutaneous incisions was done to release some of the pressure. Meanwhile, the patient remains sedated and paralyzed with Nimbex. #2. subcutaneous emphysema in the right pectoralis musculature and soft tissues of the right neck, with no evidence of pneumothorax #3. Chronic interstitial lung disease, idiopathic pulmonary fibrosis with chr onic hypoxemic respiratory failure. Based on my records from the office, the patient has severe fibrosis with severe restrictive lung disease. He is oxygen dependent when he wears 3 L of oxygen by nasal cannula. Based on the most recent measurement of his lung capacity, his FVC was in the order of 42% of predicted. The patient was receiving anti-fibrotic treatment in the form of Esbriet. Consider an acute exacerbation of chronic pulmonary fibrosis causing ARDS and respiratory failure. #4. Morbid obesity #5. History of sleep apnea syndrome #6. History of cardiomyopathy with congestive heart failure #7. 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 #8. Hyperlipidemia #9. Hypertension #10. Degenerative joint disease #11. Previous episodes of pneumonia #12. History of lower extremity cellulitis #13. History of systolic CHF, most recent echocardiogram showed EF of 45-50%, trace TR, trace MR and no pulmonary hypertension #14 history of right diaphragmatic paralysis Plan: Allow low tidal volume ventilation permissive hypercapnia. The acid base status is improved and oxidation is also improved and the patient PEEP has been drop down to 18 and I'm hoping to drop even further as long as saturation remains above 90%. The patient has developed subcutaneous emphysema and incisions were done the skin to relieve the air. Treated with bicarb and monitor the potassium level and the potassium level is improved Drop the PEEP down to 18 and repeat the blood gas Continue sedation and paralysis Continue antibiotics Continue steroids Continue enteral feeding for nutritional support D5 water at the rate of 60 mL an hour as the patient has developed some hyperchloremic hypernatremia The prognosis poor based on the above-mentioned comorbidities. The patient's baseline pulmonary status was poor knowing the. Chronic hypoxic respiratory failure and severe restrictive lung disease related to the pulmonary fibrosis with an FVC of 46% of predicted. He was receiving Esbriet or IPF. Condition is critical. Prognosis poor. Family was updated on his condition. Evaluation done in more than 30 minutes. Time with Patient: Greater than 30
[2019-09-11 10:13] LABS: Glucose,Whole Blood 181 mg/dL (75-99)
[2019-09-11] MEDS: NOREPINEPHRINE 8 MG in SODIUM CHLORIDE 0.9% 250 ML IV SCH (10:30)
[2019-09-11 11:08] LABS: Glucose,Whole Blood 191 mg/dL (75-99)
[2019-09-11 12:00] LABS: Glucose,Whole Blood 188 mg/dL (75-99)
[2019-09-11 13:29] LABS: Glucose,Whole Blood 137 mg/dL (75-99)
[2019-09-11 15:07] VITALS: BMI 46.4
[2019-09-11 15:13] LABS: Glucose,Whole Blood 254 mg/dL (75-99)
[2019-09-11] MEDS: AZITHROMYCIN 500 MG TAB PO SCH (15:59)
[2019-09-11 16:02] LABS: Glucose,Whole Blood 183 mg/dL (75-99)
--- NOTE | 2019-09-11 16:15 | P.PN ---
Subjective This is Elsa Clemons PA-C dictating a progress note on this patient The patient was interviewed and examined by me as well as by Dr. Llanes Case discussed with Dr. Llanes and he agrees with the plan of care HPI/interval history Patient is a 58-year-old male with a past medical history significant for pulmonary fibrosis, hypertension, dyslipidemia, obstructive sleep apnea, diabetes and heart failure who presented with complaints of shortness of breath. He was initially placed on BiPAP but developed respiratory failure requiring in tubation. Bedside telemetry reveals sinus rhythm with rates in the 90s. Not on any pressors at this time. Patient seen and examined in the ICU. Remained sedated and intubated. EXAMINATION Patient is afebrile pulse in the 90s, respirations in the 30s, blood pressure 130s over 70s, oxygen saturation 91% on mechanical ventilation Patient seen and examined, sedated and intubated Breath sounds equal bilaterally Heart regular, no audible murmurs No lower extremity edema REVIEW OF LABS, ECG WBC 8.3, hemoglobin 13.3, platelets 189, sodium 147, potassium 5.6, BUN 63, creatinine 1.11 IMPRESSION / ASSESSMENT: Hypoxic respiratory failure, requiring intubation underlying pulmonary fibrosis and possible pneumonia Cardiomyopathy, recent echo showing EF 45-50%,likely nonischemic Hypertension, blood pressure mostly in the 120s over 70s however he did have some blood pressure readings in the 90s over 60s and 85/63 overnight Dyslipidemia Diabetes Obstructive sleep apnea Hyperkalemia PLAN: Continue with low-dose metoprolol, we'll gradually increase once his blood pressure stabilizes We'll further maximize cardiomyopathy medication once his blood pressure can tolerate it Objective - Vital Signs Vital signs: Vital Signs Temp 98.3 F 09/11/19 12:00 Pulse 102 H 09/11/19 16:11 Resp 38 H 09/11/19 14:00 BP 128/79 09/11/19 14:00 Pulse Ox 91 L 09/11/19 14:00 Intake & Output 09/10/19 09/11/19 09/11/19 18:59 06:59 18:59 Intake Total 4621.423 4501.773 1380.121 Output Total 940 1225 775 Balance 534.114 98.773 605.121 Weight 151 kg 151 kg Intake: IV 392 182 408 D5W @ 60 300 Dextrose 10 % in Water 250 250 ml @ 999 mls/hr IV ONCE STA Rx#:[id number] Dextrose 5% in Water 1, 20 110 10 000 ml @ 20 mls/hr IV . Q24H ONE Rx#:[id number] NS carrier 0 0 Pressures bags 0.9 72 72 48 cefTRIAXone 1 gm In 50 50 Sodium Chloride 0.9% 50 ml @ 100 mls/hr IVPB Q24HR [facility] Rx#:[id number] Intake, IV Titration 585.114 533.773 551.121 Amount Cisatracurium 200 mg In 71.552 200 Sodium Chloride 0.9% 180 ml @ 2 MCG/KG/MIN 17.28 mls/hr IV .[id number] [facility] Rx #:[id number] Insulin Regular 100 unit 106.504 55.887 104.249 In Sodium Chloride 0.9% 100 ml @ Per Protocol IV .Q0M [facility] Rx#:[id number] Norepinephrine 8 mg In 7.058 3.046 Sodium Chloride 0.9% 250 ml @ 0.05 MCG/KG/MIN 14. 503 mls/hr IV .[id number] [facility] Rx#:[id number] Propofol 1,000 mg In 400 474.840 246.872 Empty Bag 1 bag @ Titrate IV .Q0M [facility] Rx#: [id number] Tube Feeding 407 518 296 Other 90 90 125 Output: Urine 940 1225 775 Other: Voiding Method Indwelling Catheter Indwelling Catheter Indwelling Catheter ABP, PAP, CO, CI - Last Documented Arterial Blood Pressure 149/73 - Labs CBC & Chem 7: 09/11/19 04:00 09/11/19 04:30 Labs: Abnormal Lab Results - Last 24 Hours (Table) 09/10/19 09/10/19 09/10/19 Range/Units 16:05 17:07 17:59 MCHC (31.0-37.0) g/dL Lymphocytes # (Manual) (1.0-4.8) k/uL Nucleated RBCs (0-0) /100 WBC ABG pH (7.35-7.45) ABG pCO2 (35-45) mmHg ABG pO2 (83-108) mmHg ABG HCO3 (21-25) mmol/L ABG Total CO2 (19-24) mmol/L Sodium (137-145) mmol/L Potassium 5.7 H (3.5-5.1) mmol/L Carbon Dioxide (22-30) mmol/L BUN (9-20) mg/dL Glucose (74-99) mg/dL POC Glucose (mg/dL) 153 H 126 H (75-99) mg/dL Magnesium (1.6-2.3) mg/dL ALT (4-49) U/L Total Protein (6.3-8.2) g/dL Albumin (3.5-5.0) g/dL 09/10/19 09/10/19 09/10/19 Range/Units 18:24 18:59 19:00 MCHC (31.0-37.0) g/dL Lymphocytes # (Manual) (1.0-4.8) k/uL Nucleated RBCs (0-0) /100 WBC ABG pH 7.29 L (7.35-7.45) ABG pCO2 86 H* (35-45) mmHg ABG pO2 78 L (83-108) mmHg ABG HCO3 41 H* (21-25) mmol/L ABG Total CO2 44 H (19-24) mmol/L Sodium (137-145) mmol/L Potassium 6.3 H* (3.5-5.1) mmol/L Carbon Dioxide (22-30) mmol/L BUN (9-20) mg/dL Glucose (74-99) mg/dL POC Glucose (mg/dL) 161 H (75-99) mg/dL Magnesium (1.6-2.3) mg/dL ALT (4-49) U/L Total Protein (6.3-8.2) g/dL Albumin (3.5-5.0) g/dL 09/10/19 09/10/19 09/10/19 Range/Units 20:28 21:17 22:05 MCHC (31.0-37.0) g/dL Lymphocytes # (Manual) (1.0-4.8) k/uL Nucleated RBCs (0-0) /100 WBC ABG pH (7.35-7.45) ABG pCO2 (35-45) mmHg ABG pO2 (83-108) mmHg ABG HCO3 (21-25) mmol/L ABG Total CO2 (19-24) mmol/L Sodium (137-145) mmol/L Potassium (3.5-5.1) mmol/L Carbon Dioxide (22-30) mmol/L BUN (9-20) mg/dL Glucose (74-99) mg/dL POC Glucose (mg/dL) 211 H 152 H 135 H (75-99) mg/dL Magnesium (1.6-2.3) mg/dL ALT (4-49) U/L Total Protein (6.3-8.2) g/dL Albumin (3.5-5.0) g/dL 09/10/19 09/10/19 09/10/19 Range/Units 22:08 23:04 23:57 MCHC (31.0-37.0) g/dL Lymphocytes # (Manual) (1.0-4.8) k/uL Nucleated RBCs (0-0) /100 WBC ABG pH (7.35-7.45) ABG pCO2 (35-45) mmHg ABG pO2 (83-108) mmHg ABG HCO3 (21-25) mmol/L ABG Total CO2 (19-24) mmol/L Sodium (137-145) mmol/L Potassium 5.6 H (3.5-5.1) mmol/L Carbon Dioxide (22-30) mmol/L BUN (9-20) mg/dL Glucose (74-99) mg/dL POC Glucose (mg/dL) 138 H 181 H (75-99) mg/dL Magnesium (1.6-2.3) mg/dL ALT (4-49) U/L Total Protein (6.3-8.2) g/dL Albumin (3.5-5.0) g/dL 09/11/19 09/11/19 09/11/19 Range/Units 01:03 03:48 04:00 MCHC 30.4 L (31.0-37.0) g/dL Lymphocytes # (Manual) 0.25 L (1.0-4.8) k/uL Nucleated RBCs 2 H (0-0) /100 WBC ABG pH (7.35-7.45) ABG pCO2 (35-45) mmHg ABG pO2 (83-108) mmHg ABG HCO3 (21-25) mmol/L ABG Total CO2 (19-24) mmol/L Sodium (137-145) mmol/L Potassium (3.5-5.1) mmol/L Carbon Dioxide (22-30) mmol/L BUN (9-20) mg/dL Glucose (74-99) mg/dL POC Glucose (mg/dL) 196 H 157 H (75-99) mg/dL Magnesium (1.6-2.3) mg/dL ALT (4-49) U/L Total Protein (6.3-8.2) g/dL Albumin (3.5-5.0) g/dL 09/11/19 09/11/19 09/11/19 Range/Units 04:30 04:58 05:02 MCHC (31.0-37.0) g/dL Lymphocytes # (Manual) (1.0-4.8) k/uL Nucleated RBCs (0-0) /100 WBC ABG pH 7.33 L (7.35-7.45) ABG pCO2 87 H* (35-45) mmHg ABG pO2 (83-108) mmHg ABG HCO3 46 H* (21-25) mmol/L ABG Total CO2 49 H (19-24) mmol/L Sodium 147 H (137-145) mmol/L Potassium 5.6 H (3.5-5.1) mmol/L Carbon Dioxide 44 H* (22-30) mmol/L BUN 63 H (9-20) mg/dL Glucose 166 H (74-99) mg/dL POC Glucose (mg/dL) 134 H (75-99) mg/dL Magnesium 3.1 H (1.6-2.3) mg/dL ALT 81 H (4-49) U/L Total Protein 6.0 L (6.3-8.2) g/dL Albumin 2.9 L (3.5-5.0) g/dL 09/11/19 09/11/19 09/11/19 Range/Units 06:10 07:10 09:11 MCHC (31.0-37.0) g/dL Lymphocytes # (Manual) (1.0-4.8) k/uL Nucleated RBCs (0-0) /100 WBC ABG pH (7.35-7.45) ABG pCO2 (35-45) mmHg ABG pO2 (83-108) mmHg ABG HCO3 (21-25) mmol/L ABG Total CO2 (19-24) mmol/L Sodium (137-145) mmol/L Potassium (3.5-5.1) mmol/L Carbon Dioxide (22-30) mmol/L BUN (9-20) mg/dL Glucose (74-99) mg/dL POC Glucose (mg/dL) 154 H 115 H 203 H (75-99) mg/dL Magnesium (1.6-2.3) mg/dL ALT (4-49) U/L Total Protein (6.3-8.2) g/dL Albumin (3.5-5.0) g/dL 09/11/19 09/11/19 09/11/19 Range/Units 10:11 11:07 11:59 MCHC (31.0-37.0) g/dL Lymphocytes # (Manual) (1.0-4.8) k/uL Nucleated RBCs (0-0) /100 WBC ABG pH (7.35-7.45) ABG pCO2 (35-45) mmHg ABG pO2 (83-108) mmHg ABG HCO3 (21-25) mmol/L ABG Total CO2 (19-24) mmol/L Sodium (137-145) mmol/L Potassium (3.5-5.1) mmol/L Carbon Dioxide (22-30) mmol/L BUN (9-20) mg/dL Glucose (74-99) mg/dL POC Glucose (mg/dL) 181 H 191 H 188 H (75-99) mg/dL Magnesium (1.6-2.3) mg/dL ALT (4-49) U/L Total Protein (6.3-8.2) g/dL Albumin (3.5-5.0) g/dL 09/11/19 09/11/19 09/11/19 Range/Units 13:27 15:10 16:01 MCHC (31.0-37.0) g/dL Lymphocytes # (Manual) (1.0-4.8) k/uL Nucleated RBCs (0-0) /100 WBC ABG pH (7.35-7.45) ABG pCO2 (35-45) mmHg ABG pO2 (83-108) mmHg ABG HCO3 (21-25) mmol/L ABG Total CO2 (19-24) mmol/L Sodium (137-145) mmol/L Potassium (3.5-5.1) mmol/L Carbon Dioxide (22-30) mmol/L BUN (9-20) mg/dL Glucose (74-99) mg/dL POC Glucose (mg/dL) 137 H 254 H 183 H (75-99) mg/dL Magnesium (1.6-2.3) mg/dL ALT (4-49) U/L Total Protein (6.3-8.2) g/dL Albumin (3.5-5.0) g/dL
[2019-09-11] MEDS: FUROSEMIDE 10 MG/ML 4 ML VIAL IV SCH ×2 (16:32→20:34)
[2019-09-11 17:08] LABS: Glucose,Whole Blood 171 mg/dL (75-99)
[2019-09-11 17:25] LABS: ABG Base Excess 21.7 mmol/L; ABG Oxygen Saturation 90.6 % (94-97); ABG PO2 66 mmHg (83-108); ABG TCO2 51 mmol/L (19-24); Allen Test Performed? Yes
[2019-09-11 17:49] LABS: ABG Base Excess 21.3 mmol/L; ABG Oxygen Saturation 90.7 % (94-97); ABG PH 7.34 (7.35-7.45); ABG PO2 63 mmHg (83-108); ABG TCO2 50 mmol/L (19-24); Allen Test Performed? Yes
--- NOTE | 2019-09-11 17:59 | XR ---
EXAMINATION TYPE: XR chest 1V portable DATE OF EXAM: 09/11/2019 COMPARISON: Today HISTORY: Check tube placement TECHNIQUE: FINDINGS: Endotracheal tube is 5.5 cm from the tima in fairly good position. There is extensive sof t tissue air over the chest. There is left side central venous catheter with tip in the superior vena cava. No pneumothorax. There is probably some calcified pleural plaque on the left side. There is pr obably pulmonary interstitial edema. Exam evaluation of the lungs is difficult due to overlying soft tissue air. IMPRESSION: No significant change compared to exam this morning. No pneumothorax.
[2019-09-11 18:02] LABS: ABG PCO2 98 mmHg (35-45)
[2019-09-11 18:03] LABS: ABG HCO3 48 mmol/L (21-25)
[2019-09-11 18:03] LABS: ABG PCO2 87 mmHg (35-45)
[2019-09-11 18:04] LABS: Glucose,Whole Blood 124 mg/dL (75-99)
[2019-09-11 18:04] LABS: ABG HCO3 47 mmol/L (21-25)
[2019-09-11 18:54] LABS: Glucose,Whole Blood 151 mg/dL (75-99)
[2019-09-11 20:19] LABS: Glucose,Whole Blood 138 mg/dL (75-99)
--- NOTE | 2019-09-11 21:00 | P.PN ---
Subjective Progress Note Date: 09/11/19 Principal diagnosis: Acute hypoxic respiratory failure secondary to pulmonary fibrosis Patient is a 58 old male with a known history of chronic hypoxic respiratory failure on 3 L oxygen with another cannula, idiopathic pulmonary fibrosis, diabetes type 2 insulin-dependent, hypertension, hyperlipidemia, osteoarthritis, obstructive sleep apnea on CPAP at home, osteoarthritis of multiple joints and no prior history of smoking came to ER with complaints of worsening shortness of breath since Monday. Patient does have cough without SPUTUM production. No complaints of fever or chills at home. Patient was having T-max of 101.1 on admission. No complaints of chest pain. No nausea vomiting Or abdominal pain. Chest x-ray showed background cardiomegaly. Moderate chronic parenchymal arthritic changes bilaterally and underlying pulmonary artery hypertension with diffuse bilateral on the lower end interstitial edema now present. Correlate for CHF exacerbation or developing ARDS on background chronic changes. WBC 11.7 Lactic acid 3.6 BNP 144 Troponin 2 negative 09/04/2019 Patient is currently lying in the bed comfortably. Awake alert and oriented. Currently on Airvo oxygen. Patient is being continued on IV steroids and breathing treatments. Patient's blood sugar is elevated due to steroids. Started on insulin drip. Repeat chest x-ray showed bilateral airspace disease. Patient is being continued on empiric antibiotics as well. Pulmonary is following. Patient was started on metoprolol and Lasix 40 mg daily. Cardiology is on board. 2-D echocardiogram showed ejection fraction 45-50%. No significant valvular abnormalities noted. Moderate left ventricular hypertrophy. Patient denied any complaints of chest pain no worsening shortness of breath. No nausea vomiting or abdominal pain. Tolerating oral diet. 09/05/2019 Patient is currently on the BiPAP machine. Patient did have increased shortness of breath this morning and was back on BiPAP. Currently being continued on IV steroids, breathing treatments and 1 dose of IV Lasix was given. Pulmonary and cardiology is following. 09/06/2019 Patient remained on ventilator. Chest x-ray showed new left subclavian central venous catheter. Persistent background mild cardiomegaly and elevated right hemidiaphragm with bilateral hilar and interstitial edema. Possible ARDS. Pulmonary is planning for bronchial washings. Otherwise patient is being continued on IV steroids, Lasix and antibiotics. Pulmonary and cardiology is following. 09/07/2019 Patient remained on mechanical ventilator. Currently being continued on IV steroids, antibiotics and chest x-ray showed improvement in CHF. Bronchial washings culture pending at this time. Pulmonary is following. 09/08/2019 Patient is currently in the MICU. On mechanical ventilator and sedated. Currently on FiO2 70% and PEEP of 23. Being continued on IV steroids and antibiotics Patient was given IV Lasix today. Chest x-ray showed worsening changes of pulmonary edema. Bronchoalveolar cultures negative so far. Patient does have underlying significant already fibrosis. Possible ARDS with diffuse alveolar damage. 09/11/2019 Patient is a 58 old male with a known history of idiopathic pulmonary fibrosis was admitted to the hospital due to worsening shortness of breath, failed BiPAP therapy. Patient is currently on mechanical ventilator since 09/06/2019. Assist control with PEEP of 18 and FiO2 50%. Chest x-ray showed no significant change. No pneumothorax. Blood pressure is stable. Currently off pressor support. Patient is being continued on IV Solu-Medrol and antibiotics in the form of ceftriaxone and azithromycin for CAP and DuoNeb's. Potassium level dropped to 5.6 with sodium bicarb IV. Sodium level 147, potassium 5.6 and bicarbonate 44. Active Medications Albuterol/Ipratropium (Duoneb 0.5 Mg-3 Mg/3 Ml Soln) 3 ml INHALATION RT-Q4H PRN PRN Reason: Shortness Of Breath Or Wheezing Albuterol/Ipratropium (Duoneb 0.5 Mg-3 Mg/3 Ml Soln) 3 ml INHALATION RT-Q4H [facility] Last Admin: 09/11/19 10:50 Dose: 3 ml Documented by: Aspirin (Aspirin) 81 mg PO DAILY [facility] Last Admin: 09/11/19 08:44 Dose: 81 mg Documented by: Azithromycin (Zithromax) 500 mg PO DAILY@1600 [facility] Last Admin: 09/10/19 15:31 Dose: 500 mg Documented by: Chlorhexidine Gluconate (Peridex) 15 ml MUCOUS MEM BID [facility] Last Admin: 09/11/19 08:45 Dose: 15 ml Documented by: Fluoxetine HCl (Prozac) 40 mg PO DAILY [facility] Last Admin: 09/11/19 08:44 Dose: 40 mg Documented by: Heparin Sodium (Porcine) (Heparin) 5,000 unit SQ Q8HR [facility] Last Admin: 09/11/19 08:44 Dose: 5,000 unit Documented by: Ceftriaxone Sodium 1 gm/ (Sodium Chloride) 50 mls @ 100 mls/hr IVPB Q24HR [facility] Last Admin: 09/11/19 08:44 Dose: 100 mls/hr Documented by: Insulin Human Regular 100 unit (/ Sodium Chloride) 101 mls @ 0 mls/hr IV .Q0M [facility]; Protocol Last Titration: 09/11/19 13:28 Dose: 0 units/hr, 0 mls/hr Documented by: Propofol 1,000 mg/ IV Solution 100 mls @ 0 mls/hr IV .Q0M [facility]; Protocol Last Admin: 09/11/19 12:18 Dose: 50 mcg/kg/min, 44.64 mls/hr Documented by: Cisatracurium Besylate 200 mg/ (Sodium Chloride) 200 mls @ 17.28 mls/hr IV .[id number] [facility]; Protocol Last Admin: 09/11/19 08:12 Dose: 1.5 mcg/kg/min, 12.96 mls/hr Documented by: Norepinephrine Bitartrate 8 mg (/ Sodium Chloride) 258 mls @ 14.503 mls/hr IV .[id number] [facility]; Protocol Last Admin: 09/11/19 10:30 Dose: Not Given Documented by: Methylprednisolone Sodium Succinate (Solu-Medrol) 60 mg IV Q6HR [facility] Last Admin: 09/11/19 11:45 Dose: 60 mg Documented by: Metoprolol Tartrate (Lopressor) 12.5 mg PO BID [facility] Last Admin: 09/11/19 08:44 Dose: 12.5 mg Documented by: Pantoprazole Sodium (Protonix) 40 mg PO DAILY [facility] Last Admin: 09/11/19 08:44 Dose: 40 mg Documented by: Objective - Vital Signs Vital signs: Vital Signs Temp 98.3 F 09/11/19 12:00 Pulse 93 09/11/19 14:00 Resp 38 H 09/11/19 14:00 BP 128/79 09/11/19 14:00 Pulse Ox 91 L 09/11/19 14:00 Intake & Output 09/10/19 09/11/19 09/11/19 18:59 06:59 18:59 Intake Total 6799.422 5833.773 1264.449 Output Total 940 1225 775 Balance 534.114 98.773 489.449 Weight 151 kg Intake: IV 392 182 408 D5W @ 60 300 Dextrose 10 % in Water 250 250 ml @ 999 mls/hr IV ONCE STA Rx#:[id number] Dextrose 5% in Water 1, 20 110 10 000 ml @ 20 mls/hr IV . Q24H ONE Rx#:[id number] NS carrier 0 0 Pressures bags 0.9 72 72 48 cefTRIAXone 1 gm In 50 50 Sodium Chloride 0.9% 50 ml @ 100 mls/hr IVPB Q24HR [facility] Rx#:[id number] Intake, IV Titration 585.114 533.773 435.449 Amount Cisatracurium 200 mg In 71.552 200 Sodium Chloride 0.9% 180 ml @ 2 MCG/KG/MIN 17.28 mls/hr IV .[id number] [facility] Rx #:[id number] Insulin Regular 100 unit 106.504 55.887 88.577 In Sodium Chloride 0.9% 100 ml @ Per Protocol IV .Q0M [facility] Rx#:[id number] Norepinephrine 8 mg In 7.058 3.046 Sodium Chloride 0.9% 250 ml @ 0.05 MCG/KG/MIN 14. 503 mls/hr IV .[id number] [facility] Rx#:[id number] Propofol 1,000 mg In 400 474.840 146.872 Empty Bag 1 bag @ Titrate IV .Q0M [facility] Rx#: [id number] Tube Feeding 407 518 296 Other 90 90 125 Output: Urine 940 1225 775 Other: Voiding Method Indwelling Catheter Indwelling Catheter Indwelling Catheter ABP, PAP, CO, CI - Last Documented Arterial Blood Pressure 149/73 - Exam PHYSICAL EXAMINATION: Patient is currently intubated and sedated... HEENT: Normocephalic. Neck is supple. Pupils reactive. Nostrils clear. Oral cavity is moist. Ears reveal no drainage. Neck reveals no JVD, carotid bruits, or thyromegaly. CHEST EXAMINATION: Trachea is central. Symmetrical expansion. Bilateral diffuse crackles and minimal rhonchi present.. CARDIAC: Normal S1, S2 with no gallops. No murmurs ABDOMEN: Soft. Bowel sounds normal. No organomegaly. No abdominal bruits. Extremities: Trace edema. No clubbing or cyanosis Neurologically currently intubated and sedated.. No focal deficits noted Skin: No rash or skin lesions. Psychiatric: Could not be assessed Musculoskeletal: No joint swelling or deformity. - Labs CBC & Chem 7: 09/11/19 04:00 09/11/19 04:30 Labs: Abnormal Lab Results - Last 24 Hours (Table) 09/10/19 09/10/19 09/10/19 Range/Units 15:01 16:01 16:05 MCHC (31.0-37.0) g/dL Lymphocytes # (Manual) (1.0-4.8) k/uL Nucleated RBCs (0-0) /100 WBC ABG pH (7.35-7.45) ABG pCO2 (35-45) mmHg ABG pO2 (83-108) mmHg ABG HCO3 (21-25) mmol/L ABG Total CO2 (19-24) mmol/L Sodium (137-145) mmol/L Potassium 5.7 H (3.5-5.1) mmol/L Carbon Dioxide (22-30) mmol/L BUN (9-20) mg/dL Glucose (74-99) mg/dL POC Glucose (mg/dL) 146 H 156 H (75-99) mg/dL Magnesium (1.6-2.3) mg/dL ALT (4-49) U/L Total Protein (6.3-8.2) g/dL Albumin (3.5-5.0) g/dL 09/10/19 09/10/19 09/10/19 Range/Units 17:07 17:59 18:24 MCHC (31.0-37.0) g/dL Lymphocytes # (Manual) (1.0-4.8) k/uL Nucleated RBCs (0-0) /100 WBC ABG pH 7.29 L (7.35-7.45) ABG pCO2 86 H* (35-45) mmHg ABG pO2 78 L (83-108) mmHg ABG HCO3 41 H* (21-25) mmol/L ABG Total CO2 44 H (19-24) mmol/L Sodium (137-145) mmol/L Potassium (3.5-5.1) mmol/L Carbon Dioxide (22-30) mmol/L BUN (9-20) mg/dL Glucose (74-99) mg/dL POC Glucose (mg/dL) 153 H 126 H (75-99) mg/dL Magnesium (1.6-2.3) mg/dL ALT (4-49) U/L Total Protein (6.3-8.2) g/dL Albumin (3.5-5.0) g/dL 09/10/19 09/10/19 09/10/19 Range/Units 18:59 19:00 20:28 MCHC (31.0-37.0) g/dL Lymphocytes # (Manual) (1.0-4.8) k/uL Nucleated RBCs (0-0) /100 WBC ABG pH (7.35-7.45) ABG pCO2 (35-45) mmHg ABG pO2 (83-108) mmHg ABG HCO3 (21-25) mmol/L ABG Total CO2 (19-24) mmol/L Sodium (137-145) mmol/L Potassium 6.3 H* (3.5-5.1) mmol/L Carbon Dioxide (22-30) mmol/L BUN (9-20) mg/dL Glucose (74-99) mg/dL POC Glucose (mg/dL) 161 H 211 H (75-99) mg/dL Magnesium (1.6-2.3) mg/dL ALT (4-49) U/L Total Protein (6.3-8.2) g/dL Albumin (3.5-5.0) g/dL 09/10/19 09/10/19 09/10/19 Range/Units 21:17 22:05 22:08 MCHC (31.0-37.0) g/dL Lymphocytes # (Manual) (1.0-4.8) k/uL Nucleated RBCs (0-0) /100 WBC ABG pH (7.35-7.45) ABG pCO2 (35-45) mmHg ABG pO2 (83-108) mmHg ABG HCO3 (21-25) mmol/L ABG Total CO2 (19-24) mmol/L Sodium (137-145) mmol/L Potassium 5.6 H (3.5-5.1) mmol/L Carbon Dioxide (22-30) mmol/L BUN (9-20) mg/dL Glucose (74-99) mg/dL POC Glucose (mg/dL) 152 H 135 H (75-99) mg/dL Magnesium (1.6-2.3) mg/dL ALT (4-49) U/L Total Protein (6.3-8.2) g/dL Albumin (3.5-5.0) g/dL 09/10/19 09/10/19 09/11/19 Range/Units 23:04 23:57 01:03 MCHC (31.0-37.0) g/dL Lymphocytes # (Manual) (1.0-4.8) k/uL Nucleated RBCs (0-0) /100 WBC ABG pH (7.35-7.45) ABG pCO2 (35-45) mmHg ABG pO2 (83-108) mmHg ABG HCO3 (21-25) mmol/L ABG Total CO2 (19-24) mmol/L Sodium (137-145) mmol/L Potassium (3.5-5.1) mmol/L Carbon Dioxide (22-30) mmol/L BUN (9-20) mg/dL Glucose (74-99) mg/dL POC Glucose (mg/dL) 138 H 181 H 196 H (75-99) mg/dL Magnesium (1.6-2.3) mg/dL ALT (4-49) U/L Total Protein (6.3-8.2) g/dL Albumin (3.5-5.0) g/dL 09/11/19 09/11/19 09/11/19 Range/Units 03:48 04:00 04:30 MCHC 30.4 L (31.0-37.0) g/dL Lymphocytes # (Manual) 0.25 L (1.0-4.8) k/uL Nucleated RBCs 2 H (0-0) /100 WBC ABG pH (7.35-7.45) ABG pCO2 (35-45) mmHg ABG pO2 (83-108) mmHg ABG HCO3 (21-25) mmol/L ABG Total CO2 (19-24) mmol/L Sodium 147 H (137-145) mmol/L Potassium 5.6 H (3.5-5.1) mmol/L Carbon Dioxide 44 H* (22-30) mmol/L BUN 63 H (9-20) mg/dL Glucose 166 H (74-99) mg/dL POC Glucose (mg/dL) 157 H (75-99) mg/dL Magnesium 3.1 H (1.6-2.3) mg/dL ALT 81 H (4-49) U/L Total Protein 6.0 L (6.3-8.2) g/dL Albumin 2.9 L (3.5-5.0) g/dL 09/11/19 09/11/19 09/11/19 Range/Units 04:58 05:02 06:10 MCHC (31.0-37.0) g/dL Lymphocytes # (Manual) (1.0-4.8) k/uL Nucleated RBCs (0-0) /100 WBC ABG pH 7.33 L (7.35-7.45) ABG pCO2 87 H* (35-45) mmHg ABG pO2 (83-108) mmHg ABG HCO3 46 H* (21-25) mmol/L ABG Total CO2 49 H (19-24) mmol/L Sodium (137-145) mmol/L Potassium (3.5-5.1) mmol/L Carbon Dioxide (22-30) mmol/L BUN (9-20) mg/dL Glucose (74-99) mg/dL POC Glucose (mg/dL) 134 H 154 H (75-99) mg/dL Magnesium (1.6-2.3) mg/dL ALT (4-49) U/L Total Protein (6.3-8.2) g/dL Albumin (3.5-5.0) g/dL 09/11/19 09/11/19 09/11/19 Range/Units 07:10 09:11 10:11 MCHC (31.0-37.0) g/dL Lymphocytes # (Manual) (1.0-4.8) k/uL Nucleated RBCs (0-0) /100 WBC ABG pH (7.35-7.45) ABG pCO2 (35-45) mmHg ABG pO2 (83-108) mmHg ABG HCO3 (21-25) mmol/L ABG Total CO2 (19-24) mmol/L Sodium (137-145) mmol/L Potassium (3.5-5.1) mmol/L Carbon Dioxide (22-30) mmol/L BUN (9-20) mg/dL Glucose (74-99) mg/dL POC Glucose (mg/dL) 115 H 203 H 181 H (75-99) mg/dL Magnesium (1.6-2.3) mg/dL ALT (4-49) U/L Total Protein (6.3-8.2) g/dL Albumin (3.5-5.0) g/dL 09/11/19 09/11/19 09/11/19 Range/Units 11:07 11:59 13:27 MCHC (31.0-37.0) g/dL Lymphocytes # (Manual) (1.0-4.8) k/uL Nucleated RBCs (0-0) /100 WBC ABG pH (7.35-7.45) ABG pCO2 (35-45) mmHg ABG pO2 (83-108) mmHg ABG HCO3 (21-25) mmol/L ABG Total CO2 (19-24) mmol/L Sodium (137-145) mmol/L Potassium (3.5-5.1) mmol/L Carbon Dioxide (22-30) mmol/L BUN (9-20) mg/dL Glucose (74-99) mg/dL POC Glucose (mg/dL) 191 H 188 H 137 H (75-99) mg/dL Magnesium (1.6-2.3) mg/dL ALT (4-49) U/L Total Protein (6.3-8.2) g/dL Albumin (3.5-5.0) g/dL Assessment and Plan Assessment: Acute hypoxemic and hypercapnic respiratory failure secondary to pulmonary edema, underlying pulmonary fibrosis with diffuse alveolar damage/ARDS Acute on chronic hypoxic respiratory failure secondary to above. Currently on mechanical ventilator. Lactic acidosis secondary to hypoxia. Resolving now. Possible underlying community-acquired pneumonia Mild transaminitis Pulmonary vascular congestion. Unlikely CHF. BNP is 144 and no leg swelling. Chronic right hemidiaphragm paralysis Obstructive sleep apnea on CPAP at home Chronic CHF with systolic dysfunction. Ejection fraction 45-50%. Diabetes type 2 insulin-dependent Hypertension Hyperlipidemia Osteoarthritis No history of prior smoking Morbid obesity BMI 46.9 DVT prophylaxis with heparin subcu Plan: Patient is currently on mechanical ventilator. Patient will be continued on Solu-Medrol IV 60 mg every 6 hourly and continue with duo nebs. Patient was given IV Lasix in the ER due to possible interstit ial edema. Continue with Lasix 40 mg daily. Continue with antibiotics in the form of ceftriaxone and azithromycin. Continue with insulin sliding scale and Levemir 45 units daily at bedtime. Currently on insulin drip for better blood sugar control. Patient will be continued on aspirin, metoprolol, statins and Lasix. Continue the home medications and follow closely. Monitor renal function. further recommendations based on the clinical course. Prognosis is guarded with multiple medical problems and comorbid conditions. Time with Patient: Greater than 30
[2019-09-11 21:17] LABS: Glucose,Whole Blood 147 mg/dL (75-99)
[2019-09-11 22:15] LABS: Glucose,Whole Blood 188 mg/dL (75-99)
[2019-09-11 23:12] LABS: Glucose,Whole Blood 146 mg/dL (75-99)
[2019-09-12] MEDS: HEPARIN SODIUM,PORCINE 5,000 UNIT/ML 1 ML VIAL SQ SCH ×3 (00:01→16:00)
[2019-09-12] MEDS: PROPOFOL 1,000 MG in EMPTY BAG 1 BAG IV SCH ×8 (00:01→18:03)
[2019-09-12] MEDS: methylPREDNISolone SOD SUCCI 125 MG/2 ML VIAL IV SCH ×4 (00:02→18:03)
[2019-09-12 00:10] LABS: Glucose,Whole Blood 146 mg/dL (75-99)
[2019-09-12 01:15] LABS: Glucose,Whole Blood 125 mg/dL (75-99)
[2019-09-12 02:25] LABS: Glucose,Whole Blood 182 mg/dL (75-99)
[2019-09-12] MEDS: IPRATROPIUM-ALBUTEROL 3 ML NEB INHALATION SCH ×6 (03:17→23:34)
[2019-09-12 03:28] LABS: Glucose,Whole Blood 183 mg/dL (75-99)
[2019-09-12 04:05] LABS: Glucose,Whole Blood 182 mg/dL (75-99)
[2019-09-12 04:25] LABS: Albumin 3.1 g/dL (3.5-5.0); Calcium 8.7 mg/dL (8.4-10.2); Potassium 5.6 mmol/L (3.5-5.1); Total Bilirubin 0.7 mg/dL (0.2-1.3); Total Protein 6.1 g/dL (6.3-8.2)
[2019-09-12 04:36] LABS: Basophils # (A) 0.2 k/uL (0-0.2); Basophils % (A) 2 %; Eosinophils % (A) 0 %; HCT 42.1 % (39.0-53.0); HGB 12.8 gm/dL (13.0-17.5); Hypochromasia Moderate; Lymphocytes # (A) 0.3 k/uL (1.0-4.8); Lymphocytes % (A) 3 %; MCH 29.7 pg (25.0-35.0); MCHC 30.3 g/dL (31.0-37.0); MCV 97.8 fL (80.0-100.0); Mean Platelet Volume 8.5; Monocytes # (A) 0.4 k/uL (0-1.0); Monocytes % (A) 4 %; Neutrophils # (A) 9.3 k/uL (1.3-7.7); Neutrophils % (A) 90 %; Platelet Count 196 k/uL (150-450); RDW 13.6 % (11.5-15.5); WBC 10.3 k/uL (3.8-10.6)
[2019-09-12 04:42] LABS: ABG Base Excess 23.3 mmol/L; ABG Oxygen Saturation 94.7 % (94-97); ABG PH 7.36 (7.35-7.45); ABG PO2 76 mmHg (83-108); ABG TCO2 51 mmol/L (19-24); Allen Test Performed? Yes
[2019-09-12 04:45] LABS: ABG HCO3 49 mmol/L (21-25); ABG PCO2 87 mmHg (35-45)
[2019-09-12 05:10] LABS: Glucose,Whole Blood 140 mg/dL (75-99)
[2019-09-12] MEDS: ARTIFICIAL TEARS-HYPROMELLOSE DROPS 15 ML BTL BOTH EYES PRN (05:28)
[2019-09-12 07:31] LABS: Glucose,Whole Blood 113 mg/dL (75-99)
[2019-09-12 08:11] LABS: Glucose,Whole Blood 118 mg/dL (75-99)
[2019-09-12] MEDS: NOREPINEPHRINE 8 MG in SODIUM CHLORIDE 0.9% 250 ML IV SCH ×2 (08:58→21:09)
--- NOTE | 2019-09-12 09:00 | XR ---
EXAMINATION TYPE: XR chest 1V portable DATE OF EXAM: 09/12/2019 COMPARISON: 09/11/2019 HISTORY: Ventilatory dependent respiratory failure. TECHNIQUE: Single frontal view of the chest is obtained. FINDINGS: Diffuse subcutaneous emphysema is redemonstrated. Enteric and endotracheal tubes are simil ar as is the left-sided central venous catheter. Cardia mediastinal silhouette is enlarged. There is diffuse interstitial moderate pulmonary edema and central vascular congestion. Improved aeration of t he right lung base with increasing confluence of the left lung base. IMPRESSION: 1. Improved aeration of the right lung base however there is increasing confluent of airspace disease at the left lung base. Shifting atelectasis or pulmonary edema are favored. 2. Moderate interstitial pulmonary edema and pulmonary vascular congestion.
[2019-09-12] MEDS ORDERED: DEXTROSE 5% IN WATER 1,000 ML IV ONE (09:21)
--- NOTE | 2019-09-12 09:21 | P.PN ---
Subjective Progress Note Date: 09/12/19 On 09/12/2019 and seeing the patient for a follow-up. He remains on a mechanical ventilator sedated and paralyzed. The paralytics are in the form of Nimbex at 1.5 mg/kg/m and propofol at the rate of 50 g for sedation. He remains on the same vent setting. PEEP is at 18 with an FiO2 of 70% is an assi st-control mode with a tidal volume of 375 and the rate of 38. The blood gases from today is showing a pH of 7.35 with a pCO2 of 86 and pO2 of 76. Chest x-ray showing subcutaneous emphysema. There is underlying pulmonary fibrosis. ET tube is in a good location. Note that yesterday afternoon, the patient had difficulties with air leaks around 2. Cough leak was suspected. The patient had a tube exchanged by WILFRED and that was successful. The post intubation chest x-ray showed no significant changes. He is tolerating his nutrition. He is producing adequate amount of urine output. He is being diuresis for now with Lasix at a dose of 40 mg every 12 hours. He is on bronchodilators. He is on steroids. Is on empiric antibiotic coverage. His potassium level today is at 5.6. No cardiac arrhythmias noted. I had a lengthy discussion with the . I explained to her the situation. This critically ill. He has a severe based on pulmonary fibrosis with right hemidiaphragmatic paralysis. This is most likely an acute exacerbation of chronic fibrosis which Is a very high mortality. Unfortunately, I haven't seen significant progress and the patient continues to be vent dependent sedated and paralyzed over the past 6 days. The peak airway pressures at 40. Static pressure is 37. Objective - Vital Signs Vital signs: Vital Signs Temp 98.1 F 09/12/19 08:00 Pulse 95 09/12/19 08:46 Resp 19 09/12/19 08:00 BP 106/67 09/12/19 07:00 Pulse Ox 93 L 09/12/19 08:00 Intake & Output 09/11/19 09/12/19 09/12/19 18:59 06:59 18:59 Intake Total 4337.790 9872.346 255.089 Output Total 1890 2200 200 Balance 66.377 88.346 55.089 Weight 151 kg 156 kg Intake: IV 672 792 132 D5W @ 60 540 720 120 Dextrose 5% in Water 1, 10 000 ml @ 20 mls/hr IV . Q24H [facility] Rx#:[id number] Pressures bags 0.9 72 72 12 cefTRIAXone 1 gm In 50 Sodium Chloride 0.9% 50 ml @ 100 mls/hr IVPB Q24HR [facility] Rx#:[id number] Intake, IV Titration 685.377 821.346 19.089 Amount Cisatracurium 200 mg In 200 160.272 Sodium Chloride 0.9% 180 ml @ 2 MCG/KG/MIN 17.28 mls/hr IV .[id number] [facility] Rx #:[id number] Insulin Regular 100 unit 138.505 79.538 19.089 In Sodium Chloride 0.9% 100 ml @ Per Protocol IV .Q0M [facility] Rx#:[id number] Propofol 1,000 mg In 346.872 581.536 Empty Bag 1 bag @ Titrate IV .Q0M [facility] Rx#: [id number] Tube Feeding 444 555 74 Other 155 120 30 Output: Urine 1890 2200 200 Other: Voiding Method Indwelling Catheter Indwelling Catheter ABP, PAP, CO, CI - Last Documented Arterial Blood Pressure 113/62 - Exam GENERAL EXAM: In today, sedated, 58-year-old obese white male, on paralytics, in the form of Nimbex, and Diprivan he had the patient has developed subcu taneous emphysema in the chest right more than left in addition to extension to his neck. The extremities have trace emphysema slightly worse compared to yesterday. HEAD: Normocephalic/atraumatic. EYES: Normal reaction of pupils, equal size. Conjunctiva pink, sclera white. NOSE: Clear with pink turbinates. THROAT: No erythema or exudates. NECK: No masses, no JVD, no thyroid enlargement, no adenopathy. CHEST: Right pectoralis muscle subcutaneous emphysema, extending to the right upper neck symmetrical expansion. LUNGS: Equal air entry with no crackles, wheeze, rhonchi or dullness. The patie nt has a previous emphysema across his chest and the neck area. Breath sounds are quite diminished bilaterally. There are subcutaneous incisions maintained anteriorly over the anterior chest bilaterally to relieve the subcutaneous emphysema. CVS: Regular rate and rhythm, normal S1 and S2, no gallops, no murmurs, no rubs ABDOMEN: Soft, nontender. No hepatosplenomegaly, normal bowel sounds, no g uarding or rigidity. EXTREMITIES: No clubbing, no edema, no cyanosis, 2+ pulses and upper and lower extremities. MUSCULOSKELETAL: Muscle strength and tone normal. SPINE: No scoliosis or deformity SKIN: No rashes CENTRAL NERVOUS SYSTEM: intubated, sedated, paralyzed. No focal deficits, able to do a good neuro examination. - Labs CBC & Chem 7: 09/12/19 04:00 09/12/19 04:00 Labs: Abnormal Lab Results - Last 24 Hours (Table) 09/11/19 09/11/19 09/11/19 Range/Units 09:11 10:11 11:07 Hgb (13.0-17.5) gm/dL MCHC (31.0-37.0) g/dL Neutrophils # (1.3-7.7) k/uL Lymphocytes # (1.0-4.8) k/uL ABG pH (7.35-7.45) ABG pCO2 (35-45) mmHg ABG pO2 (83-108) mmHg ABG HCO3 (21-25) mmol/L ABG Total CO2 (19-24) mmol/L ABG O2 Saturation (94-97) % Potassium (3.5-5.1) mmol/L Chloride (98-107) mmol/L Carbon Dioxide (22-30) mmol/L BUN (9-20) mg/dL Glucose (74-99) mg/dL POC Glucose (mg/dL) 203 H 181 H 191 H (75-99) mg/dL ALT (4-49) U/L Total Protein (6.3-8.2) g/dL Albumin (3.5-5.0) g/dL 09/11/19 09/11/19 09/11/19 Range/Units 11:59 13:27 15:10 Hgb (13.0-17.5) gm/dL MCHC (31.0-37.0) g/dL Neutrophils # (1.3-7.7) k/uL Lymphocytes # (1.0-4.8) k/uL ABG pH (7.35-7.45) ABG pCO2 (35-45) mmHg ABG pO2 (83-108) mmHg ABG HCO3 (21-25) mmol/L ABG Total CO2 (19-24) mmol/L ABG O2 Saturation (94-97) % Potassium (3.5-5.1) mmol/L Chloride (98-107) mmol/L Carbon Dioxide (22-30) mmol/L BUN (9-20) mg/dL Glucose (74-99) mg/dL POC Glucose (mg/dL) 188 H 137 H 254 H (75-99) mg/dL ALT (4-49) U/L Total Protein (6.3-8.2) g/dL Albumin (3.5-5.0) g/dL 09/11/19 09/11/19 09/11/19 Range/Units 16:01 17:06 17:22 Hgb (13.0-17.5) gm/dL MCHC (31.0-37.0) g/dL Neutrophils # (1.3-7.7) k/uL Lymphocytes # (1.0-4.8) k/uL ABG pH 7.30 L (7.35-7.45) ABG pCO2 98 H* (35-45) mmHg ABG pO2 66 L (83-108) mmHg ABG HCO3 48 H* (21-25) mmol/L ABG Total CO2 51 H (19-24) mmol/L ABG O2 Saturation 90.6 L (94-97) % Potassium (3.5-5.1) mmol/L Chloride (98-107) mmol/L Carbon Dioxide (22-30) mmol/L BUN (9-20) mg/dL Glucose (74-99) mg/dL POC Glucose (mg/dL) 183 H 171 H (75-99) mg/dL ALT (4-49) U/L Total Protein (6.3-8.2) g/dL Albumin (3.5-5.0) g/dL 09/11/19 09/11/19 09/11/19 Range/Units 17:47 18:03 18:52 Hgb (13.0-17.5) gm/dL MCHC (31.0-37.0) g/dL Neutrophils # (1.3-7.7) k/uL Lymphocytes # (1.0-4.8) k/uL ABG pH 7.34 L (7.35-7.45) ABG pCO2 87 H* (35-45) mmHg ABG pO2 63 L (83-108) mmHg ABG HCO3 47 H* (21-25) mmol/L ABG Total CO2 50 H (19-24) mmol/L ABG O2 Saturation 90.7 L (94-97) % Potassium (3.5-5.1) mmol/L Chloride (98-107) mmol/L Carbon Dioxide (22-30) mmol/L BUN (9-20) mg/dL Glucose (74-99) mg/dL POC Glucose (mg/dL) 124 H 151 H (75-99) mg/dL ALT (4-49) U/L Total Protein (6.3-8.2) g/dL Albumin (3.5-5.0) g/dL 09/11/19 09/11/19 09/11/19 Range/Units 20:15 21:15 22:09 Hgb (13.0-17.5) gm/dL MCHC (31.0-37.0) g/dL Neutrophils # (1.3-7.7) k/uL Lymphocytes # (1.0-4.8) k/uL ABG pH (7.35-7.45) ABG pCO2 (35-45) mmHg ABG pO2 (83-108) mmHg ABG HCO3 (21-25) mmol/L ABG Total CO2 (19-24) mmol/L ABG O2 Saturation (94-97) % Potassium (3.5-5.1) mmol/L Chloride (98-107) mmol/L Carbon Dioxide (22-30) mmol/L BUN (9-20) mg/dL Glucose (74-99) mg/dL POC Glucose (mg/dL) 138 H 147 H 188 H (75-99) mg/dL ALT (4-49) U/L Total Protein (6.3-8.2) g/dL Albumin (3.5-5.0) g/dL 09/11/19 09/12/19 09/12/19 Range/Units 23:11 00:07 01:13 Hgb (13.0-17.5) gm/dL MCHC (31.0-37.0) g/dL Neutrophils # (1.3-7.7) k/uL Lymphocytes # (1.0-4.8) k/uL ABG pH (7.35-7.45) ABG pCO2 (35-45) mmHg ABG pO2 (83-108) mmHg ABG HCO3 (21-25) mmol/L ABG Total CO2 (19-24) mmol/L ABG O2 Saturation (94-97) % Potassium (3.5-5.1) mmol/L Chloride (98-107) mmol/L Carbon Dioxide (22-30) mmol/L BUN (9-20) mg/dL Glucose (74-99) mg/dL POC Glucose (mg/dL) 146 H 146 H 125 H (75-99) mg/dL ALT (4-49) U/L Total Protein (6.3-8.2) g/dL Albumin (3.5-5.0) g/dL 09/12/19 09/12/19 09/12/19 Range/Units 02:23 03:27 04:00 Hgb 12.8 L (13.0-17.5) gm/dL MCHC 30.3 L (31.0-37.0) g/dL Neutrophils # 9.3 H (1.3-7.7) k/uL Lymphocytes # 0.3 L (1.0-4.8) k/uL ABG pH (7.35-7.45) ABG pCO2 (35-45) mmHg ABG pO2 (83-108) mmHg ABG HCO3 (21-25) mmol/L ABG Total CO2 (19-24) mmol/L ABG O2 Saturation (94-97) % Potassium (3.5-5.1) mmol/L Chloride (98-107) mmol/L Carbon Dioxide (22-30) mmol/L BUN (9-20) mg/dL Glucose (74-99) mg/dL POC Glucose (mg/dL) 182 H 183 H (75-99) mg/dL ALT (4-49) U/L Total Protein (6.3-8.2) g/dL Albumin (3.5-5.0) g/dL 09/12/19 09/12/19 09/12/19 Range/Units 04:00 04:02 04:40 Hgb (13.0-17.5) gm/dL MCHC (31.0-37.0) g/dL Neutrophils # (1.3-7.7) k/uL Lymphocytes # (1.0-4.8) k/uL ABG pH (7.35-7.45) ABG pCO2 87 H* (35-45) mmHg ABG pO2 76 L (83-108) mmHg ABG HCO3 49 H* (21-25) mmol/L ABG Total CO2 51 H (19-24) mmol/L ABG O2 Saturation (94-97) % Potassium 5.6 H (3.5-5.1) mmol/L Chloride 97 L (98-107) mmol/L Carbon Dioxide 43 H* (22-30) mmol/L BUN 71 H (9-20) mg/dL Glucose 183 H (74-99) mg/dL POC Glucose (mg/dL) 182 H (75-99) mg/dL ALT 82 H (4-49) U/L Total Protein 6.1 L (6.3-8.2) g/dL Albumin 3.1 L (3.5-5.0) g/dL 09/12/19 09/12/19 09/12/19 Range/Units 05:08 07:29 08:09 Hgb (13.0-17.5) gm/dL MCHC (31.0-37.0) g/dL Neutrophils # (1.3-7.7) k/uL Lymphocytes # (1.0-4.8) k/uL ABG pH (7.35-7.45) ABG pCO2 (35-45) mmHg ABG pO2 (83-108) mmHg ABG HCO3 (21-25) mmol/L ABG Total CO2 (19-24) mmol/L ABG O2 Saturation (94-97) % Potassium (3.5-5.1) mmol/L Chloride (98-107) mmol/L Carbon Dioxide (22-30) mmol/L BUN (9-20) mg/dL Glucose (74-99) mg/dL POC Glucose (mg/dL) 140 H 113 H 118 H (75-99) mg/dL ALT (4-49) U/L Total Protein (6.3-8.2) g/dL Albumin (3.5-5.0) g/dL Assessment and Plan Plan: #1. Acute hypoxemic and hypercapnic respiratory failure related to ARDS and community-acquired pneumonia, failed BiPAP support, required intubation and placement on on mechanical ventilator on 09/06/2019, and bronchoscopy with BAL on the same day and the cultures came back all negative for any microbial growth. No significant changes condition. Currently is on a PEEP of 18 with an FiO2 of 70%. Still utilizing permissive hypercapnia and low tidal volume ventilation. Static pressures are 37. The patient has developed substantial emphysema. The patient did develop a cuff leak yesterday and the tube was exchanged. He remains sedated and paralyzed. Not a whole lot of progress in his condition. #2. subcutaneous emphysema in the right pectoralis musculature and soft tissues of the right neck, with no evidence of pneumothorax #3. Chronic interstitial lung disease, idiopathic pulmonary fibrosis with chronic hypoxemic respiratory failure. Based on my records from the office, the patient has severe fibrosis with severe restrictive lung disease. He is oxygen dependent when he wears 3 L of oxygen by nasal cannula. Based on the most recent measurement of his lung capacity, his FVC was in the order of 42% of predicted. The patient was receiving anti-fibrotic treatment in the form of Esbriet. Consider an acute exacerbation of chronic pulmonary fibrosis causing ARDS and respiratory failure. #4. Morbid obesity #5. History of sleep apnea syndrome #6. History of cardiomyopathy with congestive heart failure #7. 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 #8. Hyperlipidemia #9. Hypertension #10. Degenerative joint disease #11. Previous episodes of pneumonia #12. History of lower extremity cellulitis #13. History of systolic CHF, most recent echocardiogram showed EF of 45-50%, trace TR, trace MR and no pulmonary hypertension #14 history of right diaphragmatic paralysis Plan: vent support at the same setting monitor the potassium level and the potassium level is improved PEEP down to 18 and monitor the blood gases Continue sedation and paralysis Continue antibiotics Continue steroids Continue enteral feeding for nutritional support D5 water at the rate of 60 mL an hour as the patient has developed some hyperchloremic hypernatremia, and the serum sodium is improved and is down to 144. The prognosis poor based on the above-mentioned comorbidities. The patient's baseline pulmonary status was poor knowing the. Chronic hypoxic respiratory failure and severe restrictive lung disease related to the pulmonary fibrosis with an FVC of 46% of predicted. He was receiving Esbriet or IPF. I'm going to have another family meeting with the and explained to her the situation. I think considering comfort care measures is very reasonable based on the lack of progress and the base on the advanced lung disease and the patient has prior to this event. Condition is critical. Prognosis poor. Family was updated on his condition. Evaluation done in more than 30 minutes.
[2019-09-12 09:25] LABS: Glucose,Whole Blood 184 mg/dL (75-99)
[2019-09-12] MEDS: CHLORHEXIDINE GLUCONATE 15 ML CUP MUCOUS MEM SCH ×2 (09:26→21:08)
[2019-09-12] MEDS: FLUoxetine HCL 20 MG CAP PO SCH (09:26)
[2019-09-12] MEDS: ASPIRIN 81 MG PO SCH (09:26)
[2019-09-12] MEDS: PANTOPRAZOLE 40 MG TABLET PO SCH (09:26)
[2019-09-12] MEDS: FUROSEMIDE 10 MG/ML 4 ML VIAL IV SCH ×2 (09:26→21:09)
[2019-09-12] MEDS: METOPROLOL TARTRATE 12.5 MG TAB PO SCH ×2 (09:26→21:08)
[2019-09-12 10:06] LABS: Glucose,Whole Blood 169 mg/dL (75-99)
[2019-09-12 10:59] LABS: Glucose,Whole Blood 156 mg/dL (75-99)
[2019-09-12 12:17] LABS: Glucose,Whole Blood 131 mg/dL (75-99)
[2019-09-12] MEDS: INSULIN REGULAR 100 UNIT in SODIUM CHLORIDE 0.9% 100 ML IV SCH (12:17)
[2019-09-12 13:01] LABS: Glucose,Whole Blood 158 mg/dL (75-99)
[2019-09-12] MEDS: CISATRACURIUM 200 MG in SODIUM CHLORIDE 0.9% 180 ML IV SCH (13:03)
--- NOTE | 2019-09-12 14:14 | PN ---
PROGRESS NOTE DATE OF SERVICE: 09/12/2019 This is a 58-year-old gentleman admitted with CHF acute exacerbation, is on mechanical ventilation. The patient also had interstitial lung disease, which is rather chronic and with significant difficulties. The patient is also receiving anti fibrotic treatment. Currently, the patient is on assist-control, tidal volume 375, 70% FiO2 and PEEP of 18. The weaning could not be performed because of the relatively high requirements of ventilation. The chest x-ray showed persistent bilateral opacities. Dr. Velasco is following the patient closely. PAST MEDICAL HISTORY: Reviewed. REVIEW OF SYSTEMS: Could not be taken as the patient is mechanically sedated. CURRENT MEDICATIONS: Reviewed and include: 1. DuoNeb q.i.d. and p.r.n. 2. Artificial Tears. 3. Aspirin 81 mg p.o. daily. 4. Zithromax 500 mg p.o. daily. 5. Rocephin 1 g daily. 6. Peridex. 8. Prozac 40 mg p.o. daily. 9. Lasix 40 mg b.i.d. 10.Heparin 5 subcu q.8. 11.Solu-Medrol 60 IV q.6. 12.Lopressor 12.5 mg b.i.d. 13.Protonix 40 mg p.o. daily. 14.Propofol drip. PHYSICAL EXAM: Patient is alert, oriented x3. Pulse is 104, blood pressure is 133/70, respiration 37, temperature 97.9, pulse ox 94% on 70% FiO2. HEENT: Conjunctivae normal, oral mucosa moist. NECK: No jugular venous distention. No lymph node enlargement. CARDIOVASCULAR SYSTEM: S1, S2, muffled. RESPIRATION: Breath sounds diminished at the bases. Bilateral scattered rhonchi, no crackles. ABDOMEN: Soft, nontender. No mass palpable. LEGS: No edema, no swelling. NERVOUS SYSTEM: No focal deficits. LABS: Accu-Cheks 131, 158. WBC 10.3, hemoglobin 12.8, and ABGs are noted. Sodium 144. potassium 5.6. ASSESSMENT: 1. Acute hypoxic hypercarbic respiratory failure, multifactorial secondary to congestive heart failure acute exacerbation with acute on chronic systolic dysfunction, ejection fraction 40%-50%, as well as pulmonary fibrosis, acute exacerbation, as well as bilateral community-acquired pneumonia. 2. Possible chronic obstructive pulmonary disease acute exacerbation. 3. Extensive subcutaneous emphysema. 4. Status post bronchoscopy and bronchoalveolar watch. 5. Lactic acidosis secondary to hypoxia. 6. Mild transaminitis. 7. Chronic right diaphragmatic paralysis. 8. Sleep apnea on CPAP at home. 9. Congestive heart failure with chronic systolic dysfunction, ejection fraction 45%- 50%. 10.Diabetes mellitus type 2. 11.Hypertension. 12.Hyperlipidemia. 13.History of degenerative joint disease. 14.Obesity with body mass index of 45.8. 15.Acute respiratory acidosis. 16.Increased WBC, improved. 17.History of chronic hypoxic respiratory failure on 3 L home O2. 18.History of pancreatitis. 19.History of chronic abdominal pain. 20.History of anxiety, depression. 21.FULL CODE. RECOMMENDATION AND DISCUSSION: Recommend to continue current medications, continue with the symptomatic treatment. Otherwise at this time continue with the mechanical ventilation with high PEEP settings. Continue with bronchodilators. Prognosis extremely guarded because of multiple complex medical issues. Discussed with staff and Dr. Velasco is going to discuss with family regarding the overall prognosis as well. Once again the prognosis guarded. Further recommendations to follow. MMODL / IJN: [id number] / [id number]
[2019-09-12 14:15] LABS: Glucose,Whole Blood 209 mg/dL (75-99)
[2019-09-12 15:03] LABS: Glucose,Whole Blood 208 mg/dL (75-99)
--- NOTE | 2019-09-12 15:06 | P.PN ---
Subjective This is Elsa Clemons PA-C dictating a progress note on this patient The patient was interviewed and examined by me as well as by Dr. Llanes Case discussed with Dr. Llanes and he agrees with the plan of care HPI/interval history Patient is a 58-year-old male with a past medical history significant for pulmonary fibrosis, hypertension, dyslipidemia, obstructive sleep apnea, diabetes and heart failure who presented with complaints of shortness of breath. He was initially placed on BiPAP but developed respiratory failure requiring intubation. Bedside telemetry reveals sinus rhythm with rates in the 100s. He had some episodes of hypotension overnight. Not on any pressors at this time. Patient seen and examined in the ICU. Family at the bedside. He remains sedated and intubated. EXAMINATION Patient is afebrile, pulse in the 100s, respirations 30, blood pressure 113/66, oxygen saturation 90% on mechanical ventilation Patient seen and examined, sedated and intubated Breath sounds equal bilaterally, few scattered crackles Heart regular, tachycardic, no audible murmurs No lower extremity edema REVIEW OF LABS, ECG WBC 10.3, hemoglobin 12.8, platelets 196, sodium 144, potassium 5.6, BUN 71, creatinine 1.24 IMPRESSION / ASSESSMENT: Hypoxic respiratory failure, requiring intubation underlying pulmonary fibrosis and possible pneumonia Cardiomyopathy, recent echo showing EF 45-50%,likely nonischemic Hypertension, blood pressure stable Dyslipidemia Diabetes Obstructive sleep apnea Hyperkalemia PLAN: Continue with low-dose metoprolol, hold off on increasing at this time as he continues to have some episodes of hypotension, Holding off on other cardiomyopathy medications due to hypotension Prognosis is poor Objective - Vital Signs Vital signs: Vital Signs Temp 97.9 F 09/12/19 12:00 Pulse 104 H 09/12/19 14:00 Resp 37 H 09/12/19 14:00 BP 106/67 09/12/19 07:00 Pulse Ox 90 L 09/12/19 14:00 Intake & Output 09/11/19 09/12/19 09/12/19 18:59 06:59 18:59 Intake Total 6504.837 4194.346 1262.540 Output Total 1890 2200 1367 Balance 66.377 88.346 -104.460 Weight 151 kg 156 kg Intake: IV 672 792 278 D5W @ 60 540 720 180 Dextrose 5% in Water 1, 10 000 ml @ 20 mls/hr IV . Q24H [facility] Rx#:[id number] Pressures bags 0.9 72 72 48 cefTRIAXone 1 gm In 50 50 Sodium Chloride 0.9% 50 ml @ 100 mls/hr IVPB Q24HR [facility] Rx#:[id number] Intake, IV Titration 685.377 821.346 554.540 Amount Cisatracurium 200 mg In 200 160.272 200 Sodium Chloride 0.9% 180 ml @ 2 MCG/KG/MIN 17.28 mls/hr IV .[id number] [facility] Rx #:[id number] Dextrose 5% in Water 1, 100 000 ml @ 20 mls/hr IV . Q24H [facility] Rx#:[id number] Insulin Regular 100 unit 138.505 79.538 54.540 In Sodium Chloride 0.9% 100 ml @ Per Protocol IV .Q0M [facility] Rx#:[id number] Propofol 1,000 mg In 346.872 581.536 200 Empty Bag 1 bag @ Titrate IV .Q0M [facility] Rx#: [id number] Tube Feeding 444 555 370 Other 155 120 60 Output: Urine 1890 2200 1367 Other: Voiding Method Indwelling Catheter Indwelling Catheter Indwelling Catheter ABP, PAP, CO, CI - Last Documented Arterial Blood Pressure 113/66 - Labs CBC & Chem 7: 09/12/19 04:00 09/12/19 04:00 Labs: Abnormal Lab Results - Last 24 Hours (Table) 09/11/19 09/11/19 09/11/19 Range/Units 15:10 16:01 17:06 Hgb (13.0-17.5) gm/dL MCHC (31.0-37.0) g/dL Neutrophils # (1.3-7.7) k/uL Lymphocytes # (1.0-4.8) k/uL ABG pH (7.35-7.45) ABG pCO2 (35-45) mmHg ABG pO2 (83-108) mmHg ABG HCO3 (21-25) mmol/L ABG Total CO2 (19-24) mmol/L ABG O2 Saturation (94-97) % Potassium (3.5-5.1) mmol/L Chloride (98-107) mmol/L Carbon Dioxide (22-30) mmol/L BUN (9-20) mg/dL Glucose (74-99) mg/dL POC Glucose (mg/dL) 254 H 183 H 171 H (75-99) mg/dL ALT (4-49) U/L Total Protein (6.3-8.2) g/dL Albumin (3.5-5.0) g/dL 09/11/19 09/11/19 09/11/19 Range/Units 17:22 17:47 18:03 Hgb (13.0-17.5) gm/dL MCHC (31.0-37.0) g/dL Neutrophils # (1.3-7.7) k/uL Lymphocytes # (1.0-4.8) k/uL ABG pH 7.30 L 7.34 L (7.35-7.45) ABG pCO2 98 H* 87 H* (35-45) mmHg ABG pO2 66 L 63 L (83-108) mmHg ABG HCO3 48 H* 47 H* (21-25) mmol/L ABG Total CO2 51 H 50 H (19-24) mmol/L ABG O2 Saturation 90.6 L 90.7 L (94-97) % Potassium (3.5-5.1) mmol/L Chloride (98-107) mmol/L Carbon Dioxide (22-30) mmol/L BUN (9-20) mg/dL Glucose (74-99) mg/dL POC Glucose (mg/dL) 124 H (75-99) mg/dL ALT (4-49) U/L Total Protein (6.3-8.2) g/dL Albumin (3.5-5.0) g/dL 09/11/19 09/11/19 09/11/19 Range/Units 18:52 20:15 21:15 Hgb (13.0-17.5) gm/dL MCHC (31.0-37.0) g/dL Neutrophils # (1.3-7.7) k/uL Lymphocytes # (1.0-4.8) k/uL ABG pH (7.35-7.45) ABG pCO2 (35-45) mmHg ABG pO2 (83-108) mmHg ABG HCO3 (21-25) mmol/L ABG Total CO2 (19-24) mmol/L ABG O2 Saturation (94-97) % Potassium (3.5-5.1) mmol/L Chloride (98-107) mmol/L Carbon Dioxide (22-30) mmol/L BUN (9-20) mg/dL Glucose (74-99) mg/dL POC Glucose (mg/dL) 151 H 138 H 147 H (75-99) mg/dL ALT (4-49) U/L Total Protein (6.3-8.2) g/dL Albumin (3.5-5.0) g/dL 09/11/19 09/11/19 09/12/19 Range/Units 22:09 23:11 00:07 Hgb (13.0-17.5) gm/dL MCHC (31.0-37.0) g/dL Neutrophils # (1.3-7.7) k/uL Lymphocytes # (1.0-4.8) k/uL ABG pH (7.35-7.45) ABG pCO2 (35-45) mmHg ABG pO2 (83-108) mmHg ABG HCO3 (21-25) mmol/L ABG Total CO2 (19-24) mmol/L ABG O2 Saturation (94-97) % Potassium (3.5-5.1) mmol/L Chloride (98-107) mmol/L Carbon Dioxide (22-30) mmol/L BUN (9-20) mg/dL Glucose (74-99) mg/dL POC Glucose (mg/dL) 188 H 146 H 146 H (75-99) mg/dL ALT (4-49) U/L Total Protein (6.3-8.2) g/dL Albumin (3.5-5.0) g/dL 09/12/19 09/12/19 09/12/19 Range/Units 01:13 02:23 03:27 Hgb (13.0-17.5) gm/dL MCHC (31.0-37.0) g/dL Neutrophils # (1.3-7.7) k/uL Lymphocytes # (1.0-4.8) k/uL ABG pH (7.35-7.45) ABG pCO2 (35-45) mmHg ABG pO2 (83-108) mmHg ABG HCO3 (21-25) mmol/L ABG Total CO2 (19-24) mmol/L ABG O2 Saturation (94-97) % Potassium (3.5-5.1) mmol/L Chloride (98-107) mmol/L Carbon Dioxide (22-30) mmol/L BUN (9-20) mg/dL Glucose (74-99) mg/dL POC Glucose (mg/dL) 125 H 182 H 183 H (75-99) mg/dL ALT (4-49) U/L Total Protein (6.3-8.2) g/dL Albumin (3.5-5.0) g/dL 09/12/19 09/12/19 09/12/19 Range/Units 04:00 04:00 04:02 Hgb 12.8 L (13.0-17.5) gm/dL MCHC 30.3 L (31.0-37.0) g/dL Neutrophils # 9.3 H (1.3-7.7) k/uL Lymphocytes # 0.3 L (1.0-4.8) k/uL ABG pH (7.35-7.45) ABG pCO2 (35-45) mmHg ABG pO2 (83-108) mmHg ABG HCO3 (21-25) mmol/L ABG Total CO2 (19-24) mmol/L ABG O2 Saturation (94-97) % Potassium 5.6 H (3.5-5.1) mmol/L Chloride 97 L (98-107) mmol/L Carbon Dioxide 43 H* (22-30) mmol/L BUN 71 H (9-20) mg/dL Glucose 183 H (74-99) mg/dL POC Glucose (mg/dL) 182 H (75-99) mg/dL ALT 82 H (4-49) U/L Total Protein 6.1 L (6.3-8.2) g/dL Albumin 3.1 L (3.5-5.0) g/dL 09/12/19 09/12/19 09/12/19 Range/Units 04:40 05:08 07:29 Hgb (13.0-17.5) gm/dL MCHC (31.0-37.0) g/dL Neutrophils # (1.3-7.7) k/uL Lymphocytes # (1.0-4.8) k/uL ABG pH (7.35-7.45) ABG pCO2 87 H* (35-45) mmHg ABG pO2 76 L (83-108) mmHg ABG HCO3 49 H* (21-25) mmol/L ABG Total CO2 51 H (19-24) mmol/L ABG O2 Saturation (94-97) % Potassium (3.5-5.1) mmol/L Chloride (98-107) mmol/L Carbon Dioxide (22-30) mmol/L BUN (9-20) mg/dL Glucose (74-99) mg/dL POC Glucose (mg/dL) 140 H 113 H (75-99) mg/dL ALT (4-49) U/L Total Protein (6.3-8.2) g/dL Albumin (3.5-5.0) g/dL 09/12/19 09/12/19 09/12/19 Range/Units 08:09 09:23 10:05 Hgb (13.0-17.5) gm/dL MCHC (31.0-37.0) g/dL Neutrophils # (1.3-7.7) k/uL Lymphocytes # (1.0-4.8) k/uL ABG pH (7.35-7.45) ABG pCO2 (35-45) mmHg ABG pO2 (83-108) mmHg ABG HCO3 (21-25) mmol/L ABG Total CO2 (19-24) mmol/L ABG O2 Saturation (94-97) % Potassium (3.5-5.1) mmol/L Chloride (98-107) mmol/L Carbon Dioxide (22-30) mmol/L BUN (9-20) mg/dL Glucose (74-99) mg/dL POC Glucose (mg/dL) 118 H 184 H 169 H (75-99) mg/dL ALT (4-49) U/L Total Protein (6.3-8.2) g/dL Albumin (3.5-5.0) g/dL 09/12/19 09/12/19 09/12/19 Range/Units 10:57 12:15 12:59 Hgb (13.0-17.5) gm/dL MCHC (31.0-37.0) g/dL Neutrophils # (1.3-7.7) k/uL Lymphocytes # (1.0-4.8) k/uL ABG pH (7.35-7.45) ABG pCO2 (35-45) mmHg ABG pO2 (83-108) mmHg ABG HCO3 (21-25) mmol/L ABG Total CO2 (19-24) mmol/L ABG O2 Saturation (94-97) % Potassium (3.5-5.1) mmol/L Chloride (98-107) mmol/L Carbon Dioxide (22-30) mmol/L BUN (9-20) mg/dL Glucose (74-99) mg/dL POC Glucose (mg/dL) 156 H 131 H 158 H (75-99) mg/dL ALT (4-49) U/L Total Protein (6.3-8.2) g/dL Albumin (3.5-5.0) g/dL 09/12/19 09/12/19 Range/Units 14:14 15:01 Hgb (13.0-17.5) gm/dL MCHC (31.0-37.0) g/dL Neutrophils # (1.3-7.7) k/uL Lymphocytes # (1.0-4.8) k/uL ABG pH (7.35-7.45) ABG pCO2 (35-45) mmHg ABG pO2 (83-108) mmHg ABG HCO3 (21-25) mmol/L ABG Total CO2 (19-24) mmol/L ABG O2 Saturation (94-97) % Potassium (3.5-5.1) mmol/L Chloride (98-107) mmol/L Carbon Dioxide (22-30) mmol/L BUN (9-20) mg/dL Glucose (74-99) mg/dL POC Glucose (mg/dL) 209 H 208 H (75-99) mg/dL ALT (4-49) U/L Total Protein (6.3-8.2) g/dL Albumin (3.5-5.0) g/dL
[2019-09-12] MEDS: AZITHROMYCIN 500 MG TAB PO SCH (16:00)
[2019-09-12 16:07] LABS: Glucose,Whole Blood 170 mg/dL (75-99)
[2019-09-12 16:59] LABS: Glucose,Whole Blood 156 mg/dL (75-99)
[2019-09-12 18:11] LABS: Glucose,Whole Blood 125 mg/dL (75-99)
[2019-09-12 19:01] LABS: Glucose,Whole Blood 157 mg/dL (75-99)
[2019-09-12 19:52] LABS: Glucose,Whole Blood 185 mg/dL (75-99)
[2019-09-12 21:00] LABS: Glucose,Whole Blood 154 mg/dL (75-99)
[2019-09-12 21:59] LABS: Glucose,Whole Blood 137 mg/dL (75-99)
[2019-09-12 22:58] LABS: Glucose,Whole Blood 145 mg/dL (75-99)
[2019-09-12 23:53] LABS: Glucose,Whole Blood 142 mg/dL (75-99)
[2019-09-13] MEDS: HEPARIN SODIUM,PORCINE 5,000 UNIT/ML 1 ML VIAL SQ SCH ×3 (00:53→16:00)
[2019-09-13] MEDS: methylPREDNISolone SOD SUCCI 125 MG/2 ML VIAL IV SCH ×4 (00:53→18:15)
[2019-09-13 01:22] LABS: Glucose,Whole Blood 158 mg/dL (75-99)
[2019-09-13 01:51] LABS: Glucose,Whole Blood 161 mg/dL (75-99)
[2019-09-13] MEDS: CISATRACURIUM 200 MG in SODIUM CHLORIDE 0.9% 180 ML IV SCH ×3 (01:59→16:35)
[2019-09-13] MEDS: IPRATROPIUM-ALBUTEROL 3 ML NEB INHALATION SCH ×6 (03:03→23:18)
[2019-09-13 03:08] LABS: Glucose,Whole Blood 141 mg/dL (75-99)
[2019-09-13] MEDS: INSULIN REGULAR 100 UNIT in SODIUM CHLORIDE 0.9% 100 ML IV SCH ×2 (03:10→15:03)
[2019-09-13 04:04] LABS: Glucose,Whole Blood 147 mg/dL (75-99)
[2019-09-13 05:11] LABS: Glucose,Whole Blood 122 mg/dL (75-99)
[2019-09-13 05:19] LABS: ABG Base Excess 25.3 mmol/L; ABG Oxygen Saturation 95.1 % (94-97); ABG PH 7.36 (7.35-7.45); ABG PO2 79 mmHg (83-108); ABG TCO2 54 mmol/L (19-24); Allen Test Performed? Yes
[2019-09-13 05:25] LABS: HCT 41.5 % (39.0-53.0); HGB 12.6 gm/dL (13.0-17.5); Hypochromasia Slight; MCH 29.9 pg (25.0-35.0); MCHC 30.4 g/dL (31.0-37.0); MCV 98.6 fL (80.0-100.0); Mean Platelet Volume 8.8; Platelet Count 174 k/uL (150-450); RBC 4.21 m/uL (4.30-5.90)
[2019-09-13 05:35] LABS: ABG PCO2 90 mmHg (35-45)
[2019-09-13 05:36] LABS: ABG HCO3 51 mmol/L (21-25)
[2019-09-13 05:42] LABS: Calcium 8.5 mg/dL (8.4-10.2); Potassium 5.9 mmol/L (3.5-5.1); Total Bilirubin 0.7 mg/dL (0.2-1.3)
[2019-09-13 05:59] LABS: Glucose,Whole Blood 141 mg/dL (75-99)
[2019-09-13 06:25] LABS: Lymphocytes # (M) 0.64 k/uL (1.0-4.8); Monocytes # (M) 0.64 k/uL (0-1.0); Neutrophils # (M) 9.52 k/uL (1.3-7.7); Neutrophils % (M) 89 %; Nucleated Red Blood Cells 2 /100 WBC (0-0); Total Cells Counted 200; WBC 10.7 k/uL (3.8-10.6)
[2019-09-13 06:27] LABS: Anisocytosis (M) Present; Basophilic Stippling Present
[2019-09-13 07:48] LABS: Glucose,Whole Blood 173 mg/dL (75-99)
[2019-09-13] MEDS: PROPOFOL 1,000 MG in EMPTY BAG 1 BAG IV SCH ×6 (07:48→18:40)
[2019-09-13] MEDS: PANTOPRAZOLE 40 MG TABLET PO SCH (08:00)
[2019-09-13] MEDS: FUROSEMIDE 10 MG/ML 4 ML VIAL IV SCH ×2 (08:00→21:13)
[2019-09-13] MEDS: FLUoxetine HCL 20 MG CAP PO SCH (08:00)
[2019-09-13] MEDS: ASPIRIN 81 MG PO SCH (08:00)
[2019-09-13] MEDS: METOPROLOL TARTRATE 12.5 MG TAB PO SCH ×3 (08:00→22:08)
[2019-09-13] MEDS: CHLORHEXIDINE GLUCONATE 15 ML CUP MUCOUS MEM SCH ×2 (08:01→21:12)
[2019-09-13] MEDS: ARTIFICIAL TEARS-HYPROMELLOSE DROPS 15 ML BTL BOTH EYES PRN ×2 (08:09→16:00)
[2019-09-13 08:59] LABS: Glucose,Whole Blood 177 mg/dL (75-99)
--- NOTE | 2019-09-13 09:14 | XR ---
EXAMINATION TYPE: XR chest 1V portable DATE OF EXAM: 09/13/2019 COMPARISON: 09/12/2019 HISTORY: ARDS. Ventilatory dependent respiratory failure. TECHNIQUE: Single frontal view of the chest is obtained. FINDINGS: Multifocal alveolar and interstitial opacities are seen bilaterally similar in distributio n and confluence to the prior. Cardiomediastinal silhouette is rotated to the left secondary to patie nt positioning. Lines and tubes are stable. Extensive overlying subcutaneous emphysema. Lucency quest ionably to the right hemidiaphragm. IMPRESSION: 1. Questionable lucency deep to the right hemidiaphragm versus artifact from extensive cutaneous emph ysema. Abdominal radiograph could be obtained or attention on follow-up exam if there is low suspicio n for pneumoperitoneum clinically. 2. Stable findings of ARDS with diffuse alveolar and interstitial opacities throughout both lungs.
--- NOTE | 2019-09-13 09:29 | P.PN ---
Subjective Progress Note Date: 09/13/19 on evaluation 09/13/2019 the patient is still intubated sedated paralyzed. No major improvement in his condition since yesterday. He remains on the same vent setting. His FiO2 is a 70% with a PEEP of 18. Peak airway pressures around 39 with a static pressure of 37. Is at the tidal volume of 375. Subcutaneous emphysema is unchanged. Chest x-ray is unchanged. Blood pressure with a pH of 7.36 with a pCO2 of 90 and a pO2 of 79. White cell count is not elevated. He has no fever. No significance for secretions. Potassium is down to 5.9. Fluid balance over the past 24 hours has been -536 mL. He is tolerating his tube feeds. I do not see much of an improvement and I had a lengthy discussion with his yesterday. I told him that this is an acute exacerbation of chronic IPF which Is a very high mortality. Unfortunately, the patient's condition has remained unchanged for the past 3 days and I'm thinking that he may not even improved and disc is a very high mortality. Aware of the condition. She decided to proceed with another few days of treatment is subcutaneous emphysema remains unchanged. No other significant events overnight. Objective - Vital Signs Vital signs: Vital Signs Temp 98.5 F 09/13/19 08:00 Pulse 98 09/13/19 09:01 Resp 38 H 09/13/19 09:00 BP 124/76 09/13/19 07:00 Pulse Ox 96 09/13/19 09:00 Intake & Output 09/12/19 09/13/19 09/13/19 18:59 06:59 18:59 Intake Total 1790.070 750.024 288.49 Output Total 1912 1165 510 Balance -121.930 -414.976 -221.51 Weight 151 kg Intake: IV 302 6 112 D5W @ 60 180 Pressures bags 0.9 72 6 12 cefTRIAXone 1 gm In 50 100 Sodium Chloride 0.9% 50 ml @ 100 mls/hr IVPB Q24HR [facility] Rx#:[id number] Intake, IV Titration 843.070 559.024 72.49 Amount Cisatracurium 200 mg In 200 167.616 Sodium Chloride 0.9% 180 ml @ 2 MCG/KG/MIN 17.28 mls/hr IV .[id number] [facility] Rx #:[id number] Dextrose 5% in Water 1, 180 220 60 000 ml @ 20 mls/hr IV . Q24H [facility] Rx#:[id number] Insulin Regular 100 unit 90.462 71.408 12.49 In Sodium Chloride 0.9% 100 ml @ Per Protocol IV .Q0M [facility] Rx#:[id number] Propofol 1,000 mg In 372.608 100 Empty Bag 1 bag @ Titrate IV .Q0M [facility] Rx#: [id number] Oral 0 Tube Feeding 555 185 74 Other 90 30 Output: Urine 1912 1165 510 Other: Voiding Method Indwelling Catheter Indwelling Catheter Indwelling Catheter ABP, PAP, CO, CI - Last Documented Arterial Blood Pressure 81/53 - Exam GENERAL EXAM: In today, sedated, 58-year-old obese white male, on paralytics, in the form of Nimbex, and Diprivan he had the patient has developed subcutaneous emphysema in the chest right more than left in addition to extension to his neck. The extremities have trace emphysema slightly worse compared to yesterday. HEAD: Normocephalic/atraumatic. EYES: Normal reaction of pupils, equal size. Conjunctiva pink, sclera white. NOSE: Clear with pink turbinates. THROAT: No erythema or exudates. NECK: No masses, no JVD, no thyroid enlargement, no adenopathy. CHEST: Right pectoralis muscle subcutaneous emphysema, extending to the right upper neck symmetrical expansion. LUNGS: Equal air entry with no crackles, wheeze, rhonchi or dullness. The patient has a previous emphysema across his chest and the neck area. Breath sounds are quite diminished bilaterally. There are subcutaneous incisions maintained anteriorly over the anterior chest bilaterally to relieve the subcutaneous emphysema. CVS: Regular rate and rhythm, normal S1 and S2, no gallops, no murmurs, no rubs ABDOMEN: Soft, nontender. No hepatosplenomegaly, normal bowel sounds, no guarding or rigidity. EXTREMITIES: No clubbing, no edema, no cyanosis, 2+ pulses and upper and lower extremities. MUSCULOSKELETAL: Muscle strength and tone normal. SPINE: No scoliosis or deformity SKIN: No rashes CENTRAL NERVOUS SYSTEM: intubated, sedated, paralyzed. No focal deficits, able to do a good neuro examination. - Labs CBC & Chem 7: 09/13/19 05:05 09/13/19 05:05 Labs: Abnormal Lab Results - Last 24 Hours (Table) 09/12/19 09/12/19 09/12/19 Range/Units 09:23 10:05 10:57 WBC (3.8-10.6) k/uL RBC (4.30-5.90) m/uL Hgb (13.0-17.5) gm/dL MCHC (31.0-37.0) g/dL Neutrophils # (Manual) (1.3-7.7) k/uL Lymphocytes # (Manual) (1.0-4.8) k/uL Nucleated RBCs (0-0) /100 WBC ABG pCO2 (35-45) mmHg ABG pO2 (83-108) mmHg ABG HCO3 (21-25) mmol/L ABG Total CO2 (19-24) mmol/L Potassium (3.5-5.1) mmol/L Chloride (98-107) mmol/L Carbon Dioxide (22-30) mmol/L BUN (9-20) mg/dL Glucose (74-99) mg/dL POC Glucose (mg/dL) 184 H 169 H 156 H (75-99) mg/dL ALT (4-49) U/L Total Protein (6.3-8.2) g/dL Albumin (3.5-5.0) g/dL 09/12/19 09/12/19 09/12/19 Range/Units 12:15 12:59 14:14 WBC (3.8-10.6) k/uL RBC (4.30-5.90) m/uL Hgb (13.0-17.5) gm/dL MCHC (31.0-37.0) g/dL Neutrophils # (Manual) (1.3-7.7) k/uL Lymphocytes # (Manual) (1.0-4.8) k/uL Nucleated RBCs (0-0) /100 WBC ABG pCO2 (35-45) mmHg ABG pO2 (83-108) mmHg ABG HCO3 (21-25) mmol/L ABG Total CO2 (19-24) mmol/L Potassium (3.5-5.1) mmol/L Chloride (98-107) mmol/L Carbon Dioxide (22-30) mmol/L BUN (9-20) mg/dL Glucose (74-99) mg/dL POC Glucose (mg/dL) 131 H 158 H 209 H (75-99) mg/dL ALT (4-49) U/L Total Protein (6.3-8.2) g/dL Albumin (3.5-5.0) g/dL 09/12/19 09/12/19 09/12/19 Range/Units 15:01 16:06 16:57 WBC (3.8-10.6) k/uL RBC (4.30-5.90) m/uL Hgb (13.0-17.5) gm/dL MCHC (31.0-37.0) g/dL Neutrophils # (Manual) (1.3-7.7) k/uL Lymphocytes # (Manual) (1.0-4.8) k/uL Nucleated RBCs (0-0) /100 WBC ABG pCO2 (35-45) mmHg ABG pO2 (83-108) mmHg ABG HCO3 (21-25) mmol/L ABG Total CO2 (19-24) mmol/L Potassium (3.5-5.1) mmol/L Chloride (98-107) mmol/L Carbon Dioxide (22-30) mmol/L BUN (9-20) mg/dL Glucose (74-99) mg/dL POC Glucose (mg/dL) 208 H 170 H 156 H (75-99) mg/dL ALT (4-49) U/L Total Protein (6.3-8.2) g/dL Albumin (3.5-5.0) g/dL 09/12/19 09/12/19 09/12/19 Range/Units 18:10 18:59 19:51 WBC (3.8-10.6) k/uL RBC (4.30-5.90) m/uL Hgb (13.0-17.5) gm/dL MCHC (31.0-37.0) g/dL Neutrophils # (Manual) (1.3-7.7) k/uL Lymphocytes # (Manual) (1.0-4.8) k/uL Nucleated RBCs (0-0) /100 WBC ABG pCO2 (35-45) mmHg ABG pO2 (83-108) mmHg ABG HCO3 (21-25) mmol/L ABG Total CO2 (19-24) mmol/L Potassium (3.5-5.1) mmol/L Chloride (98-107) mmol/L Carbon Dioxide (22-30) mmol/L BUN (9-20) mg/dL Glucose (74-99) mg/dL POC Glucose (mg/dL) 125 H 157 H 185 H (75-99) mg/dL ALT (4-49) U/L Total Protein (6.3-8.2) g/dL Albumin (3.5-5.0) g/dL 09/12/19 09/12/19 09/12/19 Range/Units 20:58 21:58 22:56 WBC (3.8-10.6) k/uL RBC (4.30-5.90) m/uL Hgb (13.0-17.5) gm/dL MCHC (31.0-37.0) g/dL Neutrophils # (Manual) (1.3-7.7) k/uL Lymphocytes # (Manual) (1.0-4.8) k/uL Nucleated RBCs (0-0) /100 WBC ABG pCO2 (35-45) mmHg ABG pO2 (83-108) mmHg ABG HCO3 (21-25) mmol/L ABG Total CO2 (19-24) mmol/L Potassium (3.5-5.1) mmol/L Chloride (98-107) mmol/L Carbon Dioxide (22-30) mmol/L BUN (9-20) mg/dL Glucose (74-99) mg/dL POC Glucose (mg/dL) 154 H 137 H 145 H (75-99) mg/dL ALT (4-49) U/L Total Protein (6.3-8.2) g/dL Albumin (3.5-5.0) g/dL 09/12/19 09/13/19 09/13/19 Range/Units 23:52 01:19 01:48 WBC (3.8-10.6) k/uL RBC (4.30-5.90) m/uL Hgb (13.0-17.5) gm/dL MCHC (31.0-37.0) g/dL Neutrophils # (Manual) (1.3-7.7) k/uL Lymphocytes # (Manual) (1.0-4.8) k/uL Nucleated RBCs (0-0) /100 WBC ABG pCO2 (35-45) mmHg ABG pO2 (83-108) mmHg ABG HCO3 (21-25) mmol/L ABG Total CO2 (19-24) mmol/L Potassium (3.5-5.1) mmol/L Chloride (98-107) mmol/L Carbon Dioxide (22-30) mmol/L BUN (9-20) mg/dL Glucose (74-99) mg/dL POC Glucose (mg/dL) 142 H 158 H 161 H (75-99) mg/dL ALT (4-49) U/L Total Protein (6.3-8.2) g/dL Albumin (3.5-5.0) g/dL 09/13/19 09/13/19 09/13/19 Range/Units 03:06 04:03 05:05 WBC 10.7 H (3.8-10.6) k/uL RBC 4.21 L (4.30-5.90) m/uL Hgb 12.6 L (13.0-17.5) gm/dL MCHC 30.4 L (31.0-37.0) g/dL Neutrophils # (Manual) 9.52 H (1.3-7.7) k/uL Lymphocytes # (Manual) 0.64 L (1.0-4.8) k/uL Nucleated RBCs 2 H (0-0) /100 WBC ABG pCO2 (35-45) mmHg ABG pO2 (83-108) mmHg ABG HCO3 (21-25) mmol/L ABG Total CO2 (19-24) mmol/L Potassium (3.5-5.1) mmol/L Chloride (98-107) mmol/L Carbon Dioxide (22-30) mmol/L BUN (9-20) mg/dL Glucose (74-99) mg/dL POC Glucose (mg/dL) 141 H 147 H (75-99) mg/dL ALT (4-49) U/L Total Protein (6.3-8.2) g/dL Albumin (3.5-5.0) g/dL 09/13/19 09/13/19 09/13/19 Range/Units 05:05 05:05 05:18 WBC (3.8-10.6) k/uL RBC (4.30-5.90) m/uL Hgb (13.0-17.5) gm/dL MCHC (31.0-37.0) g/dL Neutrophils # (Manual) (1.3-7.7) k/uL Lymphocytes # (Manual) (1.0-4.8) k/uL Nucleated RBCs (0-0) /100 WBC ABG pCO2 90 H* (35-45) mmHg ABG pO2 79 L (83-108) mmHg ABG HCO3 51 H* (21-25) mmol/L ABG Total CO2 54 H (19-24) mmol/L Potassium 5.9 H (3.5-5.1) mmol/L Chloride 95 L (98-107) mmol/L Carbon Dioxide 48 H* (22-30) mmol/L BUN 69 H (9-20) mg/dL Glucose 135 H (74-99) mg/dL POC Glucose (mg/dL) 122 H (75-99) mg/dL ALT 87 H (4-49) U/L Total Protein 6.0 L (6.3-8.2) g/dL Albumin 3.0 L (3.5-5.0) g/dL 09/13/19 09/13/19 09/13/19 Range/Units 05:58 07:45 08:58 WBC (3.8-10.6) k/uL RBC (4.30-5.90) m/uL Hgb (13.0-17.5) gm/dL MCHC (31.0-37.0) g/dL Neutrophils # (Manual) (1.3-7.7) k/uL Lymphocytes # (Manual) (1.0-4.8) k/uL Nucleated RBCs (0-0) /100 WBC ABG pCO2 (35-45) mmHg ABG pO2 (83-108) mmHg ABG HCO3 (21-25) mmol/L ABG Total CO2 (19-24) mmol/L Potassium (3.5-5.1) mmol/L Chloride (98-107) mmol/L Carbon Dioxide (22-30) mmol/L BUN (9-20) mg/dL Glucose (74-99) mg/dL POC Glucose (mg/dL) 141 H 173 H 177 H (75-99) mg/dL ALT (4-49) U/L Total Protein (6.3-8.2) g/dL Albumin (3.5-5.0) g/dL Assessment and Plan Plan: #1. Acute hypoxemic and hypercapnic respiratory failure related to ARDS and community-acquired pneumonia, failed BiPAP support, required intubation and placement on on mechanical ventilator on 09/06/2019, and bronchoscopy with BAL on the same day and the cultures came back all negative for any microbial growth. No significant changes condition. Currently is on a PEEP of 18 with an FiO2 of 70%. Still utilizing permissive hypercapnia and low tidal volume ventilation. Static pressures are 37. The patient has developed substantial emphysema. His evaluation today similar to yesterday. No change in his condition. Sclerae are very much compatible. Ever pressures are very much compatible. Chest x-rays stable. Hemodynamics is unchanged.. #2. subcutaneous emphysema in the right pectoralis musculature and soft tissues of the right neck, with no evidence of pneumothorax #3. Chronic interstitial lung disease, idiopathic pulmonary fibrosis with chronic hypoxemic respiratory failure. Based on my records from the office, the patient has severe fibrosis with severe restrictive lung disease. He is oxygen dependent when he wears 3 L of oxygen by nasal cannula. Based on the most recent measurement of his lung capacity, his FVC was in the order of 42% of predicted. The patient was receiving anti-fibrotic treatment in the form of Esbriet. Consider an acute exacerbation of chronic pulmonary fibrosis causing ARDS and respiratory failure. #4. Morbid obesity #5. History of sleep apnea syndrome #6. History of cardiomyopathy with congestive heart failure #7. 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 #8. Hyperlipidemia #9. Hypertension #10. Degenerative joint disease #11. Previous episodes of pneumonia #12. History of lower extremity cellulitis #13. History of systolic CHF, most recent echocardiogram showed EF of 45-50%, trace TR, trace MR and no pulmonary hypertension #14 history of right diaphragmatic paralysis Plan: vent support at the same setting The patient and paralytic holiday Acid base status has improved and the patient has better control of his potassium Keep sedation for now Continue the steroids Continue enteral feeding Continue IV Lasix Discussed again with the family We'll give the patient another 24-48 hours of treatment and based on that further recommendations will be made. I will suggest comfort care measures if no improvement. This is a case of acute exacerbation of IPF which carries a tony y high mortality. The patient's baseline pulmonary status was poor knowing the. Chronic hypoxic respiratory failure and severe restrictive lung disease related to the pulmonary fibrosis with an FVC of 46% of predicted. He was receiving Esbriet or IPF. Condition is critical. Prognosis poor. Family was updated on his condition. Evaluation done in more than 30 minutes. Time with Patient: Greater than 30
[2019-09-13 10:03] LABS: Glucose,Whole Blood 167 mg/dL (75-99)
[2019-09-13] MEDS: LACTULOSE 20 GM/30 ML CUP PO SCH ×2 (10:29→21:12)
[2019-09-13 11:09] LABS: Glucose,Whole Blood 183 mg/dL (75-99)
[2019-09-13] MEDS ORDERED: SODIUM CHLORIDE 0.9% 500 ML 500 ML IV ONE (11:40)
[2019-09-13 11:50] LABS: Calcium 8.6 mg/dL (8.4-10.2)
[2019-09-13 11:56] LABS: Glucose,Whole Blood 182 mg/dL (75-99)
[2019-09-13 13:01] LABS: Glucose,Whole Blood 143 mg/dL (75-99)
[2019-09-13 14:06] LABS: Glucose,Whole Blood 139 mg/dL (75-99)
--- NOTE | 2019-09-13 15:01 | PN ---
PROGRESS NOTE DATE OF SERVICE: 09/13/2019 This is a 58-year-old gentleman who was admitted with significant hypoxic hypercarbic respiratory failure, secondary to CHF and as well as pulmonary fibrosis, being closely monitored. The patient required significant PEEP of 18, tidal volumes is 375 and FiO2 was 70%. Chest x-ray showed significant persistent lesion. Dr. Velasco is following the patient closely at this time. The patient also had empiric antibiotics, history IV steroids also. Because of lack of improvement Dr. Velasco had discussion with the family also. The patient also had significant diffuse subcutaneous emphysema without an overt pneumothorax, which is rather unchanged at this time. PAST MEDICAL HISTORY: History reviewed. Could not be taken, the patient mechanically ventilated and sedated. CURRENT MEDICATIONS: Are reviewed include: 1. DuoNeb q.i.d. p.r.n. 2. Artificial Tears. 3. Aspirin 81 mg. 4. Rocephin 1 g IV daily. 5. Peridex 15 mL b.i.d. 7. Prozac 40 mg p.o. daily. 8. Lasix 40 mg IV b.i.d. 9. Solu-Medrol 60 IV q.6. 10.Lopressor. 11.Propofol p.r.n. PHYSICAL EXAM: Patient is mechanically sedated, vent settings are noted. Pulse 112, regular. Blood pressure 124/67, respiration 30, temperature 98.4, pulse ox 98% on 70% FiO2, which is conjunctivae normal neck-Cardizem respiration the bases bilateral scattered rhonchi expiratory wheezing also present. ABDOMEN: Soft, nontender. LEGS: ntd Labs are sodium is 143, potassium 6, and creatinine is. 1.47.ASSESSMENT: 1. Acute hypoxic hypercapnic respiratory failure, multifactorial secondary to congestive heart failure acute exacerbation with acute on chronic systolic dysfunction, ejection fraction 40%-50%, as well as pulmonary fibrosis, acute exacerbation, as well as bilateral community-acquired pneumonia. 2. Possible chronic obstructive pulmonary disease acute exacerbation. 3. Extensive subcutaneous emphysema without any evidence of pneumothorax, status bronchoscopy and bronchoalveolar lavage. 4. Lactic acidosis secondary to hypoxia. 5. Mild transaminitis. 6. Chronic right diaphragmatic paralysis/. 7. sleep apnea on CPAP at home. 8. Congestive heart failure with chronic systolic dysfunction ejection fraction 45% to 50%. 9. Diabetes mellitus type 2. 10.Hypertension. 11.Hyperlipidemia. 12.History of degenerative joint disease. 13.Obesity with body mass index of 45.8. 14.Acute respiratory acidosis. 15.Increased WBC improved. 16.History of chronic hypoxic respiratory failure on 3 L home O2. 17.History of pancreatitis. 18.Chronic abdominal pain. 19.History of anxiety, depression. 20.FULL CODE. RECOMMENDATION: Recommend to continue with current medications, continue with the management and symptomatic treatment. Continue with PEEP and mechanical ventilation. Continue with bronchodilators, IV steroids. Prognosis is guarded because of multiple complex medical issues. Will monitor the blood sugars closely. Dr. Velasco talked with family. Further recommendations to follow. MMODL / IJN: [id number] / JOHN
[2019-09-13 15:02] LABS: Glucose,Whole Blood 171 mg/dL (75-99)
[2019-09-13 16:13] LABS: Glucose,Whole Blood 195 mg/dL (75-99)
[2019-09-13] MEDS: NOREPINEPHRINE 8 MG in SODIUM CHLORIDE 0.9% 250 ML IV SCH (16:13)
[2019-09-13 16:59] LABS: Glucose,Whole Blood 179 mg/dL (75-99)
[2019-09-13 18:08] LABS: Glucose,Whole Blood 170 mg/dL (75-99)
[2019-09-13 18:58] LABS: Glucose,Whole Blood 174 mg/dL (75-99)
[2019-09-13 19:48] LABS: Glucose,Whole Blood 190 mg/dL (75-99)
[2019-09-13 20:59] LABS: Glucose,Whole Blood 155 mg/dL (75-99)
[2019-09-13 22:04] LABS: Glucose,Whole Blood 156 mg/dL (75-99)
[2019-09-13 23:02] LABS: Glucose,Whole Blood 142 mg/dL (75-99)
[2019-09-13 23:59] LABS: Glucose,Whole Blood 150 mg/dL (75-99)
[2019-09-14] MEDS: HEPARIN SODIUM,PORCINE 5,000 UNIT/ML 1 ML VIAL SQ SCH ×3 (00:09→16:45)
[2019-09-14] MEDS: methylPREDNISolone SOD SUCCI 125 MG/2 ML VIAL IV SCH ×4 (00:09→18:03)
[2019-09-14] MEDS: NOREPINEPHRINE 8 MG in SODIUM CHLORIDE 0.9% 250 ML IV SCH (00:15)
[2019-09-14 01:53] LABS: Glucose,Whole Blood 183 mg/dL (75-99)
[2019-09-14 03:06] LABS: Glucose,Whole Blood 161 mg/dL (75-99)
[2019-09-14] MEDS: IPRATROPIUM-ALBUTEROL 3 ML NEB INHALATION SCH ×6 (03:36→23:24)
[2019-09-14 04:11] LABS: Glucose,Whole Blood 139 mg/dL (75-99)
[2019-09-14 04:45] LABS: ABG Base Excess 21.7 mmol/L; ABG Oxygen Saturation 96.7 % (94-97); ABG PH 7.36 (7.35-7.45); ABG PO2 89 mmHg (83-108); ABG TCO2 50 mmol/L (19-24)
[2019-09-14 04:57] LABS: ABG HCO3 47 mmol/L (21-25); Allen Test Performed? no
[2019-09-14 05:08] LABS: Glucose,Whole Blood 140 mg/dL (75-99)
[2019-09-14 05:32] LABS: Basophils # (A) 0.2 k/uL (0-0.2); Basophils % (A) 2 %; Eosinophils # (A) 0.1 k/uL (0-0.7); Eosinophils % (A) 0 %; HCT 36.5 % (39.0-53.0); HGB 11.1 gm/dL (13.0-17.5); Hypochromasia Moderate; Lymphocytes # (A) 0.4 k/uL (1.0-4.8); Lymphocytes % (A) 4 %; MCH 30.2 pg (25.0-35.0); MCHC 30.5 g/dL (31.0-37.0); MCV 99.2 fL (80.0-100.0); Mean Platelet Volume 8.8; Monocytes # (A) 0.6 k/uL (0-1.0); Monocytes % (A) 6 %; Neutrophils # (A) 9.3 k/uL (1.3-7.7); Neutrophils % (A) 87 %; Platelet Count 156 k/uL (150-450); RBC 3.68 m/uL (4.30-5.90); RDW 13.8 % (11.5-15.5); WBC 10.7 k/uL (3.8-10.6)
[2019-09-14 05:43] LABS: ALT 78 U/L (4-49); AST 45 U/L (17-59); African American GFR (CKD) >90 (>60 ml/min/1.73 sqM); Albumin 2.7 g/dL (3.5-5.0); Alkaline Phosphatase 83 U/L (38-126); Blood Urea Nitrogen 61 mg/dL (9-20); Calcium 8.3 mg/dL (8.4-10.2); Chloride 97 mmol/L (98-107); Glucose 162 mg/dL (74-99); Non-African American GFR(CKD) 79 (>60 ml/min/1.73 sqM); Potassium 5.5 mmol/L (3.5-5.1); Sodium 142 mmol/L (137-145); Total Bilirubin 0.6 mg/dL (0.2-1.3); Total Protein 5.3 g/dL (6.3-8.2)
[2019-09-14 05:50] LABS: Anion Gap 3 mmol/L
[2019-09-14 05:51] LABS: Carbon Dioxide 42 mmol/L (22-30)
[2019-09-14 06:03] LABS: Glucose,Whole Blood 172 mg/dL (75-99)
[2019-09-14] MEDS: INSULIN REGULAR 100 UNIT in SODIUM CHLORIDE 0.9% 100 ML IV SCH ×2 (06:05→22:01)
--- NOTE | 2019-09-14 06:20 | XR ---
EXAMINATION TYPE: XR chest 1V portable DATE OF EXAM: 09/14/2019 HISTORY: ARDS. REFERENCE: Previous study dated 09/13/2019. FINDINGS: The patient is ET tube and NG tube remain in place, unchanged in appearance. There is josephine nuing subcutaneous emphysema. There is a left subclavian catheter in place. Its tip is at the cavoatr ial junction. The heart is mildly enlarged. There is continuing bilateral alveolar airspace disease. There is blunt ing of both CP angles. I could not exclude small effusions. The overall appearance is very similar to previous. IMPRESSION: NO SIGNIFICANT INTERVAL CHANGE IN THE APPEARANCE OF THE CHEST.
[2019-09-14 07:00] LABS: Glucose,Whole Blood 164 mg/dL (75-99)
[2019-09-14 08:01] LABS: Glucose,Whole Blood 155 mg/dL (75-99)
[2019-09-14] MEDS: LACTULOSE 20 GM/30 ML CUP PO SCH ×2 (08:09→20:10)
[2019-09-14] MEDS: ASPIRIN 81 MG PO SCH (08:24)
[2019-09-14] MEDS: CHLORHEXIDINE GLUCONATE 15 ML CUP MUCOUS MEM SCH ×2 (08:25→20:10)
[2019-09-14] MEDS: FLUoxetine HCL 20 MG CAP PO SCH (08:25)
[2019-09-14] MEDS: FUROSEMIDE 10 MG/ML 4 ML VIAL IV SCH (08:25)
[2019-09-14] MEDS: PANTOPRAZOLE 40 MG TABLET PO SCH (08:26)
[2019-09-14] MEDS: PROPOFOL 1,000 MG in EMPTY BAG 1 BAG IV SCH ×4 (08:42→17:46)
[2019-09-14] MEDS: METOPROLOL TARTRATE 12.5 MG TAB PO SCH ×3 (08:51→21:03)
--- NOTE | 2019-09-14 09:14 | P.PN ---
Subjective Progress Note Date: 09/14/19 On today's evaluation of 09/14/2019 the patient is still in a standstill. No much improvement in his oxygenation. No much improvement in his pulmonary status. Peak airway pressures 39. Static pressures 37. He is on a PEEP of 18 with FiO2 of 70% with a tidal volume of 375 and the respiratory rate of 38. Unable to tolerate that paralytic holiday and the paralysis was restarted again along with his age and with propofol. Tolerating tube feeds. He did have a bout of a hypotension yesterday and the patient was given a liter bolus. Is tolerating enteral feeding for nutritional support. His blood gases from today shows a pH of 7.36 with a pCO2 of 83 and pO2 of 89. No fever. No chills. He has emphysema remains unchanged. Chest x-ray remains unchanged. Condition essentially remains unchanged. Discussed the case with the family. Prognosis poor. Will be gradually hadn't hours comfort care measures probably by early next week. Objective - Vital Signs Vital signs: Vital Signs Temp 98.0 F 09/14/19 04:00 Pulse 92 09/14/19 08:02 Resp 38 H 09/14/19 08:00 BP 99/61 09/14/19 08:00 Pulse Ox 100 09/14/19 08:00 Intake & Output 09/13/19 09/14/19 09/14/19 18:59 06:59 18:59 Intake Total 1687.285 589.552 131.146 Output Total 2210 1335 275 Balance -522.715 -745.448 -143.854 Weight 151 kg 156 kg Intake: IV 166 56 46 0.9 NS 50 40 Pressures bags 0.9 66 6 6 cefTRIAXone 1 gm In 100 Sodium Chloride 0.9% 50 ml @ 100 mls/hr IVPB Q24HR BERE Rx#:[id number] Intake, IV Titration 987.285 385.552 18.146 Amount Cisatracurium 200 mg In 192.312 Sodium Chloride 0.9% 180 ml @ 2 MCG/KG/MIN 17.28 mls/hr IV .[id number] BERE Rx #:[id number] Dextrose 5% in Water 1, 240 180 000 ml @ 20 mls/hr IV . Q24H ONE Rx#:[id number] Insulin Regular 100 unit 86.085 83.796 18.146 In Sodium Chloride 0.9% 100 ml @ Per Protocol IV .Q0M BERE Rx#:[id number] Norepinephrine 8 mg In 21.756 Sodium Chloride 0.9% 250 ml @ 0.05 MCG/KG/MIN 14. 503 mls/hr IV .[id number] BERE Rx#:[id number] Propofol 1,000 mg In 468.888 100 Empty Bag 1 bag @ Titrate IV .Q0M BERE Rx#: [id number] Oral 0 0 Tube Feeding 444 148 37 Other 90 30 Output: Urine 2210 1335 275 Other: Voiding Method Indwelling Catheter Indwelling Catheter # Bowel Movements 1 ABP, PAP, CO, CI - Last Documented Arterial Blood Pressure 93/52 - Exam GENERAL EXAM: In today, sedated, 58-year-old obese white male, on paralytics, in the form of Nimbex, and Diprivan he had the patient has developed subcutaneous emphysema in the chest right more than left in addition to extensio n to his neck. The extremities have trace emphysema slightly worse compared to yesterday. HEAD: Normocephalic/atraumatic. EYES: Normal reaction of pupils, equal size. Conjunctiva pink, sclera white. NOSE: Clear with pink turbinates. THROAT: No erythema or exudates. NECK: No masses, no JVD, no thyroid enlargement, no adenopathy. CHEST: Right pectoralis muscle subcutaneous emphysema, extending to the right upper neck symmetrical expansion. LUNGS: Equal air entry with no crackles, wheeze, rhonchi or dullness. The patient has a previous emphysema across his chest and the neck area. Breath rangel nds are quite diminished bilaterally. There are subcutaneous incisions maintained anteriorly over the anterior chest bilaterally to relieve the subcutaneous emphysema. CVS: Regular rate and rhythm, normal S1 and S2, no gallops, no murmurs, no rubs ABDOMEN: Soft, nontender. No hepatosplenomegaly, normal bowel sounds, no guarding or rigidity. EXTREMITIES: No clubbing, no edema, no cyanosis, 2+ pulses and upper and lower extremities. MUSCULOSKELETAL: Muscle strength and tone normal. SPINE: No scoliosis or deformity SKIN: No rashes CENTRAL NERVOUS SYSTEM: intubated, sedated, paralyzed. No focal deficits, able to do a good neuro examination. - Labs CBC & Chem 7: 09/14/19 05:05 09/14/19 05:05 Labs: Abnormal Lab Results - Last 24 Hours (Table) 09/13/19 09/13/19 09/13/19 Range/Units 10:00 11:08 11:25 WBC (3.8-10.6) k/uL RBC (4.30-5.90) m/uL Hgb (13.0-17.5) gm/dL Hct (39.0-53.0) % MCHC (31.0-37.0) g/dL Neutrophils # (1.3-7.7) k/uL Lymphocytes # (1.0-4.8) k/uL ABG pCO2 (35-45) mmHg ABG HCO3 (21-25) mmol/L ABG Total CO2 (19-24) mmol/L Potassium 6.0 H (3.5-5.1) mmol/L Chloride 95 L (98-107) mmol/L Carbon Dioxide 45 H* (22-30) mmol/L BUN 70 H (9-20) mg/dL Creatinine 1.47 H (0.66-1.25) mg/dL Glucose 196 H (74-99) mg/dL POC Glucose (mg/dL) 167 H 183 H (75-99) mg/dL Calcium (8.4-10.2) mg/dL ALT (4-49) U/L Total Protein (6.3-8.2) g/dL Albumin (3.5-5.0) g/dL 09/13/19 09/13/19 09/13/19 Range/Units 11:54 13:00 14:05 WBC (3.8-10.6) k/uL RBC (4.30-5.90) m/uL Hgb (13.0-17.5) gm/dL Hct (39.0-53.0) % MCHC (31.0-37.0) g/dL Neutrophils # (1.3-7.7) k/uL Lymphocytes # (1.0-4.8) k/uL ABG pCO2 (35-45) mmHg ABG HCO3 (21-25) mmol/L ABG Total CO2 (19-24) mmol/L Potassium (3.5-5.1) mmol/L Chloride (98-107) mmol/L Carbon Dioxide (22-30) mmol/L BUN (9-20) mg/dL Creatinine (0.66-1.25) mg/dL Glucose (74-99) mg/dL POC Glucose (mg/dL) 182 H 143 H 139 H (75-99) mg/dL Calcium (8.4-10.2) mg/dL ALT (4-49) U/L Total Protein (6.3-8.2) g/dL Albumin (3.5-5.0) g/dL 09/13/19 09/13/19 09/13/19 Range/Units 15:00 16:11 16:57 WBC (3.8-10.6) k/uL RBC (4.30-5.90) m/uL Hgb (13.0-17.5) gm/dL Hct (39.0-53.0) % MCHC (31.0-37.0) g/dL Neutrophils # (1.3-7.7) k/uL Lymphocytes # (1.0-4.8) k/uL ABG pCO2 (35-45) mmHg ABG HCO3 (21-25) mmol/L ABG Total CO2 (19-24) mmol/L Potassium (3.5-5.1) mmol/L Chloride (98-107) mmol/L Carbon Dioxide (22-30) mmol/L BUN (9-20) mg/dL Creatinine (0.66-1.25) mg/dL Glucose (74-99) mg/dL POC Glucose (mg/dL) 171 H 195 H 179 H (75-99) mg/dL Calcium (8.4-10.2) mg/dL ALT (4-49) U/L Total Protein (6.3-8.2) g/dL Albumin (3.5-5.0) g/dL 09/13/19 09/13/19 09/13/19 Range/Units 18:06 18:56 19:47 WBC (3.8-10.6) k/uL RBC (4.30-5.90) m/uL Hgb (13.0-17.5) gm/dL Hct (39.0-53.0) % MCHC (31.0-37.0) g/dL Neutrophils # (1.3-7.7) k/uL Lymphocytes # (1.0-4.8) k/uL ABG pCO2 (35-45) mmHg ABG HCO3 (21-25) mmol/L ABG Total CO2 (19-24) mmol/L Potassium (3.5-5.1) mmol/L Chloride (98-107) mmol/L Carbon Dioxide (22-30) mmol/L BUN (9-20) mg/dL Creatinine (0.66-1.25) mg/dL Glucose (74-99) mg/dL POC Glucose (mg/dL) 170 H 174 H 190 H (75-99) mg/dL Calcium (8.4-10.2) mg/dL ALT (4-49) U/L Total Protein (6.3-8.2) g/dL Albumin (3.5-5.0) g/dL 09/13/19 09/13/19 09/13/19 Range/Units 20:57 22:03 23:00 WBC (3.8-10.6) k/uL RBC (4.30-5.90) m/uL Hgb (13.0-17.5) gm/dL Hct (39.0-53.0) % MCHC (31.0-37.0) g/dL Neutrophils # (1.3-7.7) k/uL Lymphocytes # (1.0-4.8) k/uL ABG pCO2 (35-45) mmHg ABG HCO3 (21-25) mmol/L ABG Total CO2 (19-24) mmol/L Potassium (3.5-5.1) mmol/L Chloride (98-107) mmol/L Carbon Dioxide (22-30) mmol/L BUN (9-20) mg/dL Creatinine (0.66-1.25) mg/dL Glucose (74-99) mg/dL POC Glucose (mg/dL) 155 H 156 H 142 H (75-99) mg/dL Calcium (8.4-10.2) mg/dL ALT (4-49) U/L Total Protein (6.3-8.2) g/dL Albumin (3.5-5.0) g/dL 09/13/19 09/14/19 09/14/19 Range/Units 23:58 01:51 03:04 WBC (3.8-10.6) k/uL RBC (4.30-5.90) m/uL Hgb (13.0-17.5) gm/dL Hct (39.0-53.0) % MCHC (31.0-37.0) g/dL Neutrophils # (1.3-7.7) k/uL Lymphocytes # (1.0-4.8) k/uL ABG pCO2 (35-45) mmHg ABG HCO3 (21-25) mmol/L ABG Total CO2 (19-24) mmol/L Potassium (3.5-5.1) mmol/L Chloride (98-107) mmol/L Carbon Dioxide (22-30) mmol/L BUN (9-20) mg/dL Creatinine (0.66-1.25) mg/dL Glucose (74-99) mg/dL POC Glucose (mg/dL) 150 H 183 H 161 H (75-99) mg/dL Calcium (8.4-10.2) mg/dL ALT (4-49) U/L Total Protein (6.3-8.2) g/dL Albumin (3.5-5.0) g/dL 09/14/19 09/14/19 09/14/19 Range/Units 04:08 04:43 05:05 WBC (3.8-10.6) k/uL RBC (4.30-5.90) m/uL Hgb (13.0-17.5) gm/dL Hct (39.0-53.0) % MCHC (31.0-37.0) g/dL Neutrophils # (1.3-7.7) k/uL Lymphocytes # (1.0-4.8) k/uL ABG pCO2 83 H* (35-45) mmHg ABG HCO3 47 H* (21-25) mmol/L ABG Total CO2 50 H (19-24) mmol/L Potassium 5.5 H (3.5-5.1) mmol/L Chloride 97 L (98-107) mmol/L Carbon Dioxide 42 H* (22-30) mmol/L BUN 61 H (9-20) mg/dL Creatinine (0.66-1.25) mg/dL Glucose 162 H (74-99) mg/dL POC Glucose (mg/dL) 139 H (75-99) mg/dL Calcium 8.3 L (8.4-10.2) mg/dL ALT 78 H (4-49) U/L Total Protein 5.3 L (6.3-8.2) g/dL Albumin 2.7 L (3.5-5.0) g/dL 09/14/19 09/14/19 09/14/19 Range/Units 05:05 05:07 06:02 WBC 10.7 H (3.8-10.6) k/uL RBC 3.68 L (4.30-5.90) m/uL Hgb 11.1 L (13.0-17.5) gm/dL Hct 36.5 L (39.0-53.0) % MCHC 30.5 L (31.0-37.0) g/dL Neutrophils # 9.3 H (1.3-7.7) k/uL Lymphocytes # 0.4 L (1.0-4.8) k/uL ABG pCO2 (35-45) mmHg ABG HCO3 (21-25) mmol/L ABG Total CO2 (19-24) mmol/L Potassium (3.5-5.1) mmol/L Chloride (98-107) mmol/L Carbon Dioxide (22-30) mmol/L BUN (9-20) mg/dL Creatinine (0.66-1.25) mg/dL Glucose (74-99) mg/dL POC Glucose (mg/dL) 140 H 172 H (75-99) mg/dL Calcium (8.4-10.2) mg/dL ALT (4-49) U/L Total Protein (6.3-8.2) g/dL Albumin (3.5-5.0) g/dL 09/14/19 09/14/19 Range/Units 06:58 08:00 WBC (3.8-10.6) k/uL RBC (4.30-5.90) m/uL Hgb (13.0-17.5) gm/dL Hct (39.0-53.0) % MCHC (31.0-37.0) g/dL Neutrophils # (1.3-7.7) k/uL Lymphocytes # (1.0-4.8) k/uL ABG pCO2 (35-45) mmHg ABG HCO3 (21-25) mmol/L ABG Total CO2 (19-24) mmol/L Potassium (3.5-5.1) mmol/L Chloride (98-107) mmol/L Carbon Dioxide (22-30) mmol/L BUN (9-20) mg/dL Creatinine (0.66-1.25) mg/dL Glucose (74-99) mg/dL POC Glucose (mg/dL) 164 H 155 H (75-99) mg/dL Calcium (8.4-10.2) mg/dL ALT (4-49) U/L Total Protein (6.3-8.2) g/dL Albumin (3.5-5.0) g/dL Assessment and Plan Plan: #1. Acute hypoxemic and hypercapnic respiratory failure related to ARDS and community-acquired pneumonia, failed BiPAP support, required intubation and placement on on mechanical ventilator on 09/06/2019, and bronchoscopy with BAL on the same day and the cultures came back all negative for any microbial growth. No significant changes condition. Currently is on a PEEP of 18 with an FiO2 of 70%. Still utilizing permissive hypercapnia and low tidal volume ventilation. Static pressures are 37. The patient has developed substantial emphysema. The patient remains unchanged and we are at the standstill right now. Things have essentially plateaued. Unable to achieve improved lung volumes and dynamics and unable to achieve improved oxygenation. We'll try to drop down the PEEP to 16 and see if the patient tolerates. Unable to come off the paralytics. Unable to come off sedation. #2. subcutaneous emphysema in the right pectoralis musculature and soft tissues of the right neck, with no evidence of pneumothorax #3. Chronic interstitial lung disease, idiopathic pulmonary fibrosis with chronic hypoxemic respiratory failure. Based on my records from the office, the patient has severe fibrosis with severe restrictive lung disease. He is oxygen dependent when he wears 3 L of oxygen by nasal cannula. Based on the most recent measurement of his lung capacity, his FVC was in the order of 42% of predicted. The patient was receiving anti-fibrotic treatment in the form of Esbriet. Consider an acute exacerbation of chronic pulmonary fibrosis causing ARDS and respiratory failure. #4. Morbid obesity #5. History of sleep apnea syndrome #6. History of cardiomyopathy with congestive heart failure #7. 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 #8. Hyperlipidemia #9. Hypertension #10. Degenerative joint disease #11. Previous episodes of pneumonia #12. History of lower extremity cellulitis #13. History of systolic CHF, most recent echocardiogram showed EF of 45-50%, trace TR, trace MR and no pulmonary hypertension #14 history of right diaphragmatic paralysis Plan: vent support at the same setting The patient was given a paralytic holiday which failed Acid base status has improved Keep sedation for now Continue the steroids Continue enteral feeding Stop the Lasix Discussed again with the family We'll give the patient another 24-48 hours of treatment and based on that further recommendations will be made. I will suggest comfort care measures if no improvement. This is a case of acute exacerbation of IPF which carries a very high mortality. The patient's baseline pulmonary status was poor knowing the. Chronic hypoxic respiratory failure and severe restrictive lung disease related to the pulmonary fibrosis with an FVC of 46% of predicted. He was receiving Esbriet or IPF. Fortunately, were not seeing any progress on this patient. We'll post hours comfort care measures by Monday. On discussing this issue on a daily basis with his as the patient is not a candidate for any other interventions at this point in time. Condition is critical. Prognosis poor. Family was updated on his condition. Evaluation done in more than 30 minutes. Time with Patient: Greater than 30
[2019-09-14 10:15] LABS: Glucose,Whole Blood 153 mg/dL (75-99)
[2019-09-14 11:55] LABS: Glucose,Whole Blood 124 mg/dL (75-99)
[2019-09-14] MEDS: CISATRACURIUM 200 MG in SODIUM CHLORIDE 0.9% 180 ML IV SCH (12:08)
[2019-09-14 13:14] LABS: Glucose,Whole Blood 119 mg/dL (75-99)
[2019-09-14 16:53] LABS: Glucose,Whole Blood 235 mg/dL (75-99)
[2019-09-14 18:01] LABS: Glucose,Whole Blood 231 mg/dL (75-99)
[2019-09-14 18:52] LABS: Glucose,Whole Blood 217 mg/dL (75-99)
[2019-09-14 20:02] LABS: Glucose,Whole Blood 203 mg/dL (75-99)
--- NOTE | 2019-09-14 21:01 | PN ---
PROGRESS NOTE DATE OF SERVICE: 09/14/2019 This 58-year-old gentleman admitted with multiple medical problems including pulmonary fibrosis, acute exacerbation, CHF, also acute hypoxic respiratory failure. The patient required significant PEEP at this time. The patient is unable to patient not making any improvement at all and the patient also had a bout of hypotension. Dr. Velasco is following the patient closely and also discussed further prognosis with the family as well. PAST MEDICAL HISTORY: Reviewed. REVIEW OF SYSTEM: Could not be taken. CURRENT MEDICATIONS: Include: 1. DuoNeb q.i.d. p.r.n. 2. Artificial Tears. 3. Aspirin 81 mg p.o. daily. 4. Rocephin 1 g daily. 5. Peridex 15 mL b.i.d. 7. Prozac 40 mg p.o. daily. 8. Heparin 5000 subcu q.8h. 9. Cephulac 30 g b.i.d. 10.Solu-Medrol 60 IV q.6 hours. 11.Lopressor 12.5 mg t.i.d. 12.Protonix 40 mg p.o. daily. 13.Propofol 1 g p.r.n. PHYSICAL EXAM: Patient is mechanically sedated. Pulse 105. Blood pressure 120/73, respiration 13, temperature normal, pulse ox 89% mechanical ventilation despite PEEP and 70% FiO2. HEENT: Conjunctivae normal. Neck: No JVD. CARDIOVASCULAR: S1, S2 muffled. RESPIRATION: Breath sounds diminished in the bases. Bilateral scattered rhonchi and crackles. ABDOMEN: Soft. Nontender. LEGS are no edema. No swelling. NERVOUS SYSTEM: Mechanically sedated. LABS: Accu-Cheks 153, 124. Other labs are WBC 10.3, hemoglobin 11.1. ABGs noted. Chest x- ray which I personally reviewed showed evidence of bilateral lesions and some subcutaneous emphysema as well. ASSESSMENT: 1. Acute hypoxic hypercarbic respiratory failure multifactorial secondary to congestive heart failure acute exacerbation as well as acute on chronic systolic dysfunction, ejection fraction 40 to 50%, as well as pulmonary fibrosis, acute exacerbation as well as bilateral community-acquired pneumonia. 2. Possible developing ARDS. 3. Possible chronic obstructive pulmonary disease, acute exacerbation. 4. Extensive subcutaneous emphysema without any evidence of pneumothorax, status post bronchoscopy and bronchoalveolar lavage. 5. Lactic acidosis secondary to hypoxia. 6. Mild transaminitis. 7. Chronic right diaphragmatic paralysis. 8. Sleep apnea on CPAP at home. 9. Congestive heart failure with chronic systolic dysfunction ejection fraction 45% to 50%. 10.Diabetes mellitus type 2. 11.Hypertension. 12.Hyperlipidemia. 13.History of degenerative joint disease. 14.Obesity with body mass index of 45.8. 15.Acute respiratory acidosis. 16.Increased WBC improved. 17.History of chronic hypoxic respiratory failure on 3 L home O2. 18.History of pancreatitis. 19.History of chronic abdominal pain. 20.History of anxiety, depression. 21.FULL CODE. RECOMMENDATIONS AND DISCUSSION: In this 58-year-old gentleman who presented with multiple complex medical issues, we will monitor the patient closely, continue the current medications, management and symptomatic treatment. Otherwise, at this time, I will recommend continue with bronchodilators continue with steroids. Continue the rest of medications as mentioned earlier. Prognosis extremely guarded. The patient is developing significant hypoxia, which is not improving at all despite aggressive treatment and management. The patient would be an appropriate candidate for comfort measures at this time and Dr. Velasco is having some discussions with family in this regard. We will continue to monitor. Discussed with the at the bedside. Further recommendations to follow. MMODL / IJN: [id number] / JOHN
[2019-09-14 21:06] LABS: Glucose,Whole Blood 179 mg/dL (75-99)
[2019-09-14 21:56] LABS: Glucose,Whole Blood 156 mg/dL (75-99)
[2019-09-14 23:12] LABS: Glucose,Whole Blood 138 mg/dL (75-99)
[2019-09-15 00:03] LABS: Glucose,Whole Blood 133 mg/dL (75-99)
[2019-09-15] MEDS: HEPARIN SODIUM,PORCINE 5,000 UNIT/ML 1 ML VIAL SQ SCH ×3 (01:02→16:41)
[2019-09-15] MEDS: methylPREDNISolone SOD SUCCI 125 MG/2 ML VIAL IV SCH ×3 (01:02→12:16)
[2019-09-15] MEDS: CISATRACURIUM 200 MG in SODIUM CHLORIDE 0.9% 180 ML IV SCH ×2 (01:06→15:52)
[2019-09-15 01:11] LABS: Glucose,Whole Blood 132 mg/dL (75-99)
[2019-09-15 02:20] LABS: Glucose,Whole Blood 148 mg/dL (75-99)
[2019-09-15] MEDS: NOREPINEPHRINE 8 MG in SODIUM CHLORIDE 0.9% 250 ML IV SCH (02:26)
[2019-09-15 03:08] LABS: Glucose,Whole Blood 142 mg/dL (75-99)
[2019-09-15] MEDS: IPRATROPIUM-ALBUTEROL 3 ML NEB INHALATION SCH ×5 (03:24→16:37)
[2019-09-15 03:55] LABS: Glucose,Whole Blood 125 mg/dL (75-99)
[2019-09-15 04:33] LABS: ABG Base Excess 23.8 mmol/L; ABG Oxygen Saturation 94.4 % (94-97); ABG PH 7.36 (7.35-7.45); ABG PO2 72 mmHg (83-108); ABG TCO2 52 mmol/L (19-24)
[2019-09-15 04:38] VITALS: TEMP 98.4
[2019-09-15 04:46] LABS: ABG HCO3 49 mmol/L (21-25); Allen Test Performed? no
[2019-09-15 04:50] LABS: Glucose,Whole Blood 147 mg/dL (75-99)
[2019-09-15 04:56] LABS: Basophils # (A) 0.2 k/uL (0-0.2); Basophils % (A) 2 %; Eosinophils % (A) 0 %; HCT 38.5 % (39.0-53.0); HGB 11.5 gm/dL (13.0-17.5); Hypochromasia Marked; Lymphocytes # (A) 0.3 k/uL (1.0-4.8); Lymphocytes % (A) 4 %; MCH 29.6 pg (25.0-35.0); MCHC 29.9 g/dL (31.0-37.0); Mean Platelet Volume 8.9; Monocytes # (A) 0.3 k/uL (0-1.0); Monocytes % (A) 4 %; Neutrophils # (A) 7.8 k/uL (1.3-7.7); Neutrophils % (A) 89 %; Platelet Count 167 k/uL (150-450); RBC 3.89 m/uL (4.30-5.90); RDW 13.7 % (11.5-15.5); WBC 8.7 k/uL (3.8-10.6)
[2019-09-15 05:03] LABS: African American GFR (CKD) >90 (>60 ml/min/1.73 sqM); Blood Urea Nitrogen 53 mg/dL (9-20); Calcium 8.4 mg/dL (8.4-10.2); Chloride 95 mmol/L (98-107); Glucose 161 mg/dL (74-99); Non-African American GFR(CKD) 88 (>60 ml/min/1.73 sqM); Potassium 5.8 mmol/L (3.5-5.1); Sodium 141 mmol/L (137-145)
[2019-09-15 05:38] LABS: Anion Gap 0 mmol/L; Carbon Dioxide 46 mmol/L (22-30)
[2019-09-15 05:59] LABS: Glucose,Whole Blood 175 mg/dL (75-99)
[2019-09-15] MEDS: PROPOFOL 1,000 MG in EMPTY BAG 1 BAG IV SCH ×4 (06:04→15:23)
--- NOTE | 2019-09-15 06:06 | XR ---
EXAMINATION TYPE: XR chest 1V portable DATE OF EXAM: 09/15/2019 HISTORY: ARDS. REFERENCE: Previous study dated 09/14/2019. FINDINGS: The patient's ET tube and NG tube remain in place, unchanged in appearance. The patient's l eft subclavian catheter remains in place. Its tip is in the right atrium. The heart remains enlarged. There is vascular congestion and pulmonary edema. There is improving sub cutaneous emphysema. I suspect small effusions. IMPRESSION: CONTINUING CHANGES OF HEART FAILURE.
[2019-09-15 07:01] LABS: Glucose,Whole Blood 125 mg/dL (75-99)
[2019-09-15] MEDS: ASPIRIN 81 MG PO SCH (07:59)
[2019-09-15] MEDS: FLUoxetine HCL 20 MG CAP PO SCH (08:00)
[2019-09-15] MEDS: LACTULOSE 20 GM/30 ML CUP PO SCH (08:00)
[2019-09-15] MEDS: PANTOPRAZOLE 40 MG TABLET PO SCH (08:00)
[2019-09-15] MEDS: CHLORHEXIDINE GLUCONATE 15 ML CUP MUCOUS MEM SCH (08:00)
[2019-09-15] MEDS: METOPROLOL TARTRATE 12.5 MG TAB PO SCH ×3 (08:00→16:41)
[2019-09-15 08:04] LABS: Glucose,Whole Blood 137 mg/dL (75-99)
[2019-09-15 09:55] LABS: Glucose,Whole Blood 145 mg/dL (75-99)
--- NOTE | 2019-09-15 10:09 | P.PN ---
Subjective Progress Note Date: 09/15/19 The patient is seen today 09/15/2019 in follow-up in the intensive care unit. He remains intubated on the mechanical ventilator at rate of assist control 38, tidal volume 375, FiO2 80% and a PEEP of 14. Morning blood gases reveal pO2 of 72, pCO2 88, pH 7.36. White count 8.7. Hemoglobin 11.5. Sodium 141. Potassium 5.8. Chloride 95. Bicarb 46. Creatinine 0.97. Remains on insulin drip at 6 units per hour. Sedated with propofol at 50 mcg/kg/m. Remains on Nimbex at 2 mcg/kg/m. He is being nourished with vital HP at 37 ML's per hour which is his goal. Currently in sinus rhythm. He is continued on IV Solu- Medrol and bronchodilators. Not making any progress. Chest x-ray continues to show evidence of pulmonary vascular congestion, pulmonary fibrosis and subcutaneous emphysema. Objective - Vital Signs Vital signs: Vital Signs Temp 98.4 F 09/15/19 04:00 Pulse 84 09/15/19 09:00 Resp 38 H 09/15/19 09:00 BP 104/60 09/15/19 09:00 Pulse Ox 96 09/15/19 09:00 Intake & Output 09/14/19 09/15/19 09/15/19 18:59 06:59 18:59 Intake Total 1536.277 734.114 320.976 Output Total 3065 1425 300 Balance -1528.723 -690.886 20.976 Weight 154.1 kg Intake: IV 356 246 116 0.9 NS 240 240 60 Pressures bags 0.9 66 6 6 cefTRIAXone 1 gm In 50 50 Sodium Chloride 0.9% 50 ml @ 100 mls/hr IVPB Q24HR [facility] Rx#:[id number] Intake, IV Titration 563.277 377.114 100.976 Amount Cisatracurium 200 mg In 200 200 Sodium Chloride 0.9% 180 ml @ 2 MCG/KG/MIN 17.28 mls/hr IV .[id number] [facility] Rx #:[id number] Insulin Regular 100 unit 63.277 77.114 16.16 In Sodium Chloride 0.9% 100 ml @ Per Protocol IV .Q0M [facility] Rx#:[id number] Propofol 1,000 mg In 300 100 84.816 Empty Bag 1 bag @ Titrate IV .Q0M [facility] Rx#: [id number] Tube Feeding 407 111 74 Other 210 30 Output: Urine 3065 1425 300 Other: Voiding Method Indwelling Catheter Indwelling Catheter Indwelling Catheter ABP, PAP, CO, CI - Last Documented Arterial Blood Pressure 93/48 - Exam GENERAL EXAM: Intubated, sedated, 58-year-old obese white male, on paralytics, in the form of Nimbex, and Diprivan he had the patient has developed subcutaneous emphysema in the chest right more than left in addition to extension to his neck. The extremities have trace emphysema slightly worse compared to yesterday. HEAD: Normocephalic/atraumatic. EYES: Normal reaction of pupils, equal size. Conjunctiva pink, sclera white. NOSE: Clear with pink turbinates. THROAT: No erythema or exudates. NECK: No masses, no JVD, no thyroid enlargement, no adenopathy. CHEST: Right pectoralis muscle subcutaneous emphysema, extending to the right upper neck symmetrical expansion. LUNGS: Equal air entry. Coarse crackles in the bases. The patient has a previous emphysema across his chest and the neck area. Breath sounds are quite diminished bilaterally. There are subcutaneous incisions maintained anteriorly over the anterior chest bilaterally to relieve the subcutaneous emphysema. CVS: Regular rate and rhythm, normal S1 and S2, no gallops, no murmurs, no rubs ABDOMEN: Soft, nontender. No hepatosplenomegaly, normal bowel sounds, no guarding or rigidity. EXTREMITIES: No clubbing, no edema, no cyanosis, 2+ pulses and upper and lower extremities. MUSCULOSKELETAL: Muscle strength and tone normal. SPINE: No scoliosis or deformity SKIN: No rashes CENTRAL NERVOUS SYSTEM: intubated, sedated, paralyzed. No focal deficits, able to do a good neuro examination. - Labs CBC & Chem 7: 09/15/19 04:35 09/15/19 04:35 Labs: Abnormal Lab Results - Last 24 Hours (Table) 09/14/19 09/14/19 09/14/19 Range/Units 10:14 11:53 13:12 RBC (4.30-5.90) m/uL Hgb (13.0-17.5) gm/dL Hct (39.0-53.0) % MCHC (31.0-37.0) g/dL Neutrophils # (1.3-7.7) k/uL Lymphocytes # (1.0-4.8) k/uL ABG pCO2 (35-45) mmHg ABG pO2 (83-108) mmHg ABG HCO3 (21-25) mmol/L ABG Total CO2 (19-24) mmol/L Potassium (3.5-5.1) mmol/L Chloride (98-107) mmol/L Carbon Dioxide (22-30) mmol/L BUN (9-20) mg/dL Glucose (74-99) mg/dL POC Glucose (mg/dL) 153 H 124 H 119 H (75-99) mg/dL 09/14/19 09/14/19 09/14/19 Range/Units 16:51 17:41 18:50 RBC (4.30-5.90) m/uL Hgb (13.0-17.5) gm/dL Hct (39.0-53.0) % MCHC (31.0-37.0) g/dL Neutrophils # (1.3-7.7) k/uL Lymphocytes # (1.0-4.8) k/uL ABG pCO2 (35-45) mmHg ABG pO2 (83-108) mmHg ABG HCO3 (21-25) mmol/L ABG Total CO2 (19-24) mmol/L Potassium (3.5-5.1) mmol/L Chloride (98-107) mmol/L Carbon Dioxide (22-30) mmol/L BUN (9-20) mg/dL Glucose (74-99) mg/dL POC Glucose (mg/dL) 235 H 231 H 217 H (75-99) mg/dL 09/14/19 09/14/19 09/14/19 Range/Units 20:01 21:05 21:54 RBC (4.30-5.90) m/uL Hgb (13.0-17.5) gm/dL Hct (39.0-53.0) % MCHC (31.0-37.0) g/dL Neutrophils # (1.3-7.7) k/uL Lymphocytes # (1.0-4.8) k/uL ABG pCO2 (35-45) mmHg ABG pO2 (83-108) mmHg ABG HCO3 (21-25) mmol/L ABG Total CO2 (19-24) mmol/L Potassium (3.5-5.1) mmol/L Chloride (98-107) mmol/L Carbon Dioxide (22-30) mmol/L BUN (9-20) mg/dL Glucose (74-99) mg/dL POC Glucose (mg/dL) 203 H 179 H 156 H (75-99) mg/dL 09/14/19 09/15/19 09/15/19 Range/Units 23:10 00:02 01:09 RBC (4.30-5.90) m/uL Hgb (13.0-17.5) gm/dL Hct (39.0-53.0) % MCHC (31.0-37.0) g/dL Neutrophils # (1.3-7.7) k/uL Lymphocytes # (1.0-4.8) k/uL ABG pCO2 (35-45) mmHg ABG pO2 (83-108) mmHg ABG HCO3 (21-25) mmol/L ABG Total CO2 (19-24) mmol/L Potassium (3.5-5.1) mmol/L Chloride (98-107) mmol/L Carbon Dioxide (22-30) mmol/L BUN (9-20) mg/dL Glucose (74-99) mg/dL POC Glucose (mg/dL) 138 H 133 H 132 H (75-99) mg/dL 09/15/19 09/15/19 09/15/19 Range/Units 02:18 03:06 03:54 RBC (4.30-5.90) m/uL Hgb (13.0-17.5) gm/dL Hct (39.0-53.0) % MCHC (31.0-37.0) g/dL Neutrophils # (1.3-7.7) k/uL Lymphocytes # (1.0-4.8) k/uL ABG pCO2 (35-45) mmHg ABG pO2 (83-108) mmHg ABG HCO3 (21-25) mmol/L ABG Total CO2 (19-24) mmol/L Potassium (3.5-5.1) mmol/L Chloride (98-107) mmol/L Carbon Dioxide (22-30) mmol/L BUN (9-20) mg/dL Glucose (74-99) mg/dL POC Glucose (mg/dL) 148 H 142 H 125 H (75-99) mg/dL 09/15/19 09/15/19 09/15/19 Range/Units 04:33 04:35 04:35 RBC 3.89 L (4.30-5.90) m/uL Hgb 11.5 L (13.0-17.5) gm/dL Hct 38.5 L (39.0-53.0) % MCHC 29.9 L (31.0-37.0) g/dL Neutrophils # 7.8 H (1.3-7.7) k/uL Lymphocytes # 0.3 L (1.0-4.8) k/uL ABG pCO2 88 H* (35-45) mmHg ABG pO2 72 L (83-108) mmHg ABG HCO3 49 H* (21-25) mmol/L ABG Total CO2 52 H (19-24) mmol/L Potassium 5.8 H (3.5-5.1) mmol/L Chloride 95 L (98-107) mmol/L Carbon Dioxide 46 H* (22-30) mmol/L BUN 53 H (9-20) mg/dL Glucose 161 H (74-99) mg/dL POC Glucose (mg/dL) (75-99) mg/dL 09/15/19 09/15/19 09/15/19 Range/Units 04:48 05:58 06:59 RBC (4.30-5.90) m/uL Hgb (13.0-17.5) gm/dL Hct (39.0-53.0) % MCHC (31.0-37.0) g/dL Neutrophils # (1.3-7.7) k/uL Lymphocytes # (1.0-4.8) k/uL ABG pCO2 (35-45) mmHg ABG pO2 (83-108) mmHg ABG HCO3 (21-25) mmol/L ABG Total CO2 (19-24) mmol/L Potassium (3.5-5.1) mmol/L Chloride (98-107) mmol/L Carbon Dioxide (22-30) mmol/L BUN (9-20) mg/dL Glucose (74-99) mg/dL POC Glucose (mg/dL) 147 H 175 H 125 H (75-99) mg/dL 09/15/19 09/15/19 Range/Units 08:02 09:53 RBC (4.30-5.90) m/uL Hgb (13.0-17.5) gm/dL Hct (39.0-53.0) % MCHC (31.0-37.0) g/dL Neutrophils # (1.3-7.7) k/uL Lymphocytes # (1.0-4.8) k/uL ABG pCO2 (35-45) mmHg ABG pO2 (83-108) mmHg ABG HCO3 (21-25) mmol/L ABG Total CO2 (19-24) mmol/L Potassium (3.5-5.1) mmol/L Chloride (98-107) mmol/L Carbon Dioxide (22-30) mmol/L BUN (9-20) mg/dL Glucose (74-99) mg/dL POC Glucose (mg/dL) 137 H 145 H (75-99) mg/dL Assessment and Plan Assessment: #1. Acute hypoxemic and hypercapnic respiratory failure related to ARDS and community-acquired pneumonia, failed BiPAP support, required intubation and placement on on mechanical ventilator on 09/06/2019, and bronchoscopy with BAL on the same day and the cultures came back all negative for any microbial growth. No significant changes condition. Currently is on a PEEP of 16 with an FiO2 of 80%. Still utilizing permissive hypercapnia and low tidal volume ventilation. Static pressures are 38. The patient has developed substantial emphysema. Actually needed to go back up to FiO2 of 80% due to low saturations last evening. Unable to achieve improved lung volumes and dynamics and unable to achieve improved oxygenation. We'll try to drop down the PEEP to 16 and see if the patient tolerates. Unable to come off the paralytics. Unable to come off sedation. #2. Subcutaneous emphysema in the right pectoralis musculature and soft tissues of the right neck, with no evidence of pneumothorax #3. Chronic interstitial lung disease, idiopathic pulmonary fibrosis with chronic hypoxemic respiratory failure. Based on my records from the office, the patient has severe fibrosis with severe restrictive lung disease. He is oxygen dependent when he wears 3 L of oxygen by nasal cannula. Based on the most r ecent measurement of his lung capacity, his FVC was in the order of 42% of predicted. The patient was receiving anti-fibrotic treatment in the form of Esbriet. Consider an acute exacerbation of chronic pulmonary fibrosis causing ARDS and respiratory failure. #4. Morbid obesity #5. History of sleep apnea syndrome #6. History of cardiomyopathy with congestive heart failure #7. 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 #8. Hyperlipidemia #9. Hypertension #10. Degenerative joint disease #11. Previous episodes of pneumonia #12. History of lower extremity cellulitis #13. History of systolic CHF, most recent echocardiogram showed EF of 45-50%, trace TR, trace MR and no pulmonary hypertension #14 history of right diaphragmatic paralysis Plan: The patient was seen and evaluated by Dr. Velasco. Chest x-ray, ABGs and labs all reviewed. The patient did require going back up to 80% on the FiO2 to maintain O2 saturations in the 90s. His overall prognosis is quite poor. The patient's and family have decided to go to comfort care later today approximate 4:00 once the family has arrived. Until then we'll continue full supportive care. We'll continue to follow and make further recommendations based on his clinical status. Critical care time 38 minutes I, the cosigning physician, performed a history & physical examination of the patient. Lungs sounds are coarse crackles in the bilateral posterior bases. Maintaining good O2 saturations in the 90s on 80% FiO2 via mechanical ventilator. I discussed the assessment and plan of care with my nurse pract bautista, Mckayla Cedeño. I attest to the above note as dictated by her.
[2019-09-15 11:59] LABS: Glucose,Whole Blood 140 mg/dL (75-99)
[2019-09-15 14:18] LABS: Glucose,Whole Blood 111 mg/dL (75-99)
[2019-09-15] MEDS ORDERED: SODIUM CHLORIDE 0.9% 1,000 ML IV SCH (14:30)
[2019-09-15] MEDS ORDERED: SCOPOLAMINE 1.5MG/72HR PATCH TRANSDERM SCH (15:30)
[2019-09-15] MEDS ORDERED: MORPHINE SULFATE 4 MG/ML SYRINGE IVP ONE ×2 (15:30→16:00)
[2019-09-15] MEDS ORDERED: ATROPINE OPHTH SOLN 1% 5ML BTL SUBLINGUAL PRN (15:30)
[2019-09-15 15:38] LABS: Glucose,Whole Blood 149 mg/dL (75-99)
[2019-09-15] MEDS ORDERED: MORPHINE SULFATE (100 MG/2 ML) 100 MG in SODIUM CHLORIDE 0.9% 100 ML IV SCH (16:00)
[2019-09-15] MEDS ORDERED: MORPHINE SULFATE 2 MG/ML SYRINGE IV PRN (16:00)
[2019-09-15 17:14] VITALS: BP 139/125; PULSE 0; RESP 0
[2019-09-16 08:32] LABS: ABG PCO2 83 mmHg (35-45)
[2019-09-16 08:33] LABS: ABG PCO2 88 mmHg (35-45)
--- NOTE | 2019-09-16 11:14 | DS ---
DISCHARGE SUMMARY The primary cause of is atypical pulmonary fibrosis with chronic interstitial lung disease. OTHER DIAGNOSES: 1. Acute hypoxic hypercarbic respiratory failure, multifactorial secondary to congestive heart failure acute exacerbation as well as acute on chronic systolic dysfunction, ejection fraction 40%-45%, as well as atypical pulmonary fibrosis acute exacerbation as well as bilateral community-acquired pneumonia. 2. Possible developing ARDS. 3. Possible chronic obstructive pulmonary disease acute exacerbation. 4. Extensive subcutaneous emphysema without any evidence of pneumothorax, status post bronchoscopy and bronchoalveolar lavage. 5. Lactic acidosis secondary to hypoxia. 6. Mild transaminitis. 7. Chronic right diaphragmatic paralysis. 8. Sleep apnea on CPAP at home. 9. Congestive heart failure with chronic systolic dysfunction, ejection fraction 40% to 50%. 10.Diabetes mellitus type 2. 11.Hypertension. 12.Hyperlipidemia. 13.History of degenerative joint disease. 14.History of obesity with body mass index of 45.8. 15.Acute respiratory acidosis. 16.Increased WBC, improved. 17.Chronic hypoxic respiratory failure on home oxygen 3 L nasal cannula. 18.History of pancreatitis. 19.History of chronic abdominal pain. 20.History of anxiety, depression. 21.FULL CODE. HISTORY OF PRESENT ILLNESS: This is a 58-year-old gentleman with a past medical of multiple medical problems including significant history of idiopathic pulmonary fibrosis, admitted with shortness of breath and acute respiratory failure, which was multifactorial as described above. The patient was monitored closely and monitored in ICU. Despite intensive treatment, the patient's condition did not improve and the patient deteriorated gradually. The PEEP was increased to 18-20, despite this, the patient continues to be hypoxemic and requiring 70% FiO2. The case discussed with Dr. Velasco at length with the family and the family decided to go with comfort measures at this time. The prognosis remained throughout the hospitalization and please note the above mentioned multiple complex multiple etiology factors such as severe interstitial pulmonary fibrosis and as well as CHF and other multiple comorbidities causes the deteriorations of the lung function. Once again, as mentioned earlier, prognosis was extremely guarded and discussed with the family on multiple occasions. See multiple consultations and progress report for further details. MMODL / IJN: [id number] /
--- NOTE | 2019-09-16 13:01 | CDI ---
Documentation Clarification Form Date: 09/16/19 From: Deb Tong CCS Phone: If you have a question about this query, please contact Steph Dudley, Case Advocate at [phone] between 8am and 5pm. Admit Date: 09/03/19 Discharge Date: 09/15/19 Patient Name: Aureliano Mackay Visit Number: [id number] ATTENTION: The Clinical Documentation Specialists (CDI) and [facility] Coding Staff appreciate your assistance in clarifying documentation. Please respond to the clarification below the line at the bottom and electronically sign. The CDI & [facility] Coding staff will review the response and follow-up if needed. Please note: Queries are made part of the Legal Health Record. If you have any questions, please contact the author of this message via ITS. Dear Dr. Gomes, Subcutaneous emphysema status post BAL is documented in the PNs. Patients Admitting Diagnosis: Pulmonary fibrosis Post-Operative Diagnosis: Pneumonia/ ARDS Procedure performed: BAL History/Risk Factors: Pulmonary fibrosis, A/C Resp failure, COPD w/ Exac, DM, A/C CHF Treatment: Incisions to relieve the air Dr. Velasco on 09/11 In order to accurately reflect this patients severity of illness, please clarify if subcutaneous emphysema is the result of the surgical procedure? Yes No Other, please specify Unable to determine Unable to determine MTDD
== END 2019-09-15 18:50 | disposition expired | DRG 207 ==
LOC: EC 08:05 → 3SCARD 10:36 → 2SICU 14:24
PROVIDERS: ADMIT Internal Medicine; ATTEND Internal Medicine
PROC: 5A09457 Assistance with Respiratory Ventilation, 24-96 Consecutive Hours, Continuous Positive Airway Pressure (ICD-10-PCS; 2019-09-03)
PROC: 3E0234Z Introduction of Serum, Toxoid and Vaccine into Muscle, Percutaneous Approach (ICD-10-PCS; 2019-09-03)
PROC: 5A1955Z Respiratory Ventilation, Greater than 96 Consecutive Hours (ICD-10-PCS; 2019-09-06)
PROC: 0B9C8ZX Drainage of Right Upper Lung Lobe, Via Natural or Artificial Opening Endoscopic, Diagnostic (ICD-10-PCS; 2019-09-06)
PROC: 02HV33Z Insertion of Infusion Device into Superior Vena Cava, Percutaneous Approach (ICD-10-PCS; 2019-09-06)
PROC: 03HY32Z Insertion of Monitoring Device into Upper Artery, Percutaneous Approach (ICD-10-PCS; 2019-09-06)
PROC: 4A133B1 Monitoring of Arterial Pressure, Peripheral, Percutaneous Approach (ICD-10-PCS; 2019-09-06)
PROC: 4A133J1 Monitoring of Arterial Pulse, Peripheral, Percutaneous Approach (ICD-10-PCS; 2019-09-06)
PROC: 0BH17EZ Insertion of Endotracheal Airway into Trachea, Via Natural or Artificial Opening (ICD-10-PCS; 2019-09-06)
PROC: 3E0G76Z Introduction of Nutritional Substance into Upper GI, Via Natural or Artificial Opening (ICD-10-PCS; 2019-09-06)
PROC: 0DH67UZ Insertion of Feeding Device into Stomach, Via Natural or Artificial Opening (ICD-10-PCS; 2019-09-06)
PROC: 0B9D8ZX Drainage of Right Middle Lung Lobe, Via Natural or Artificial Opening Endoscopic, Diagnostic (ICD-10-PCS; principal; 2019-09-06 08:05)
PROC: 0H95XZZ Drainage of Chest Skin, External Approach (ICD-10-PCS; 2019-09-11)
DX: J84.112 Idiopathic pulmonary fibrosis (principal); J96.21 Acute and chronic respiratory failure with hypoxia; I50.23 Acute on chronic systolic (congestive) heart failure; J18.9 Pneumonia, unspecified organism; J96.22 Acute and chronic respiratory failure with hypercapnia; Z68.42 Body mass index [BMI] 45.0-49.9, adult; J44.1 Chronic obstructive pulmonary disease with (acute) exacerbation; J44.0 Chronic obstructive pulmonary disease with (acute) lower respiratory infection; I42.9 Cardiomyopathy, unspecified; E87.2 Acidosis; Z99.11 Dependence on respirator [ventilator] status; T79.7XXA Traumatic subcutaneous emphysema, initial encounter; J98.6 Disorders of diaphragm; E11.36 Type 2 diabetes mellitus with diabetic cataract; I11.0 Hypertensive heart disease with heart failure; I95.9 Hypotension, unspecified; Z51.5 Encounter for palliative care; Z66 Do not resuscitate; E78.5 Hyperlipidemia, unspecified; E66.01 Morbid (severe) obesity due to excess calories; E11.65 Type 2 diabetes mellitus with hyperglycemia; H40.9 Unspecified glaucoma; G89.29 Other chronic pain; G47.33 Obstructive sleep apnea (adult) (pediatric); M15.9 Polyosteoarthritis, unspecified; F41.9 Anxiety disorder, unspecified; F32.9 Major depressive disorder, single episode, unspecified; R74.0 Nonspecific elevation of levels of transaminase and lactic acid dehydrogenase [LDH]; R00.0 Tachycardia, unspecified; E87.5 Hyperkalemia; I08.1 Rheumatic disorders of both mitral and tricuspid valves; T38.0X5A Adverse effect of glucocorticoids and synthetic analogues, initial encounter; Z23 Encounter for immunization; Z79.4 Long term (current) use of insulin; Z79.82 Long term (current) use of aspirin; Z79.899 Other long term (current) drug therapy; Z98.890 Other specified postprocedural states; Z87.01 Personal history of pneumonia (recurrent); Z87.19 Personal history of other diseases of the digestive system; Z99.81 Dependence on supplemental oxygen; Z82.49 Family history of ischemic heart disease and other diseases of the circulatory system; Z80.1 Family history of malignant neoplasm of trachea, bronchus and lung
CPT/HCPCS: 31624; 36415; 36600; 71045; 80048; 80053; 82150; 82805; 83605; 83690; 83735; 83880; 84132; 84145; 84484; 85025; 85027; 85610; 85730; 87040; 87070; 87102; 87116; 87205; 87206; 87252; 87496; 87498; 87502; 87529; 87634; 87798; 88108; 88305; 89050; 90732; 93005; 93306; 93308; 94002; 94003; 94640; 94660; 96374; 96375; 99291